=== PATIENT | male | born 1950 | race African-American/Black ===

== ENCOUNTER 2017-06-19 20:50 | Observation (INO) | payer OTHER ==
[2017-06-19 20:58] VITALS: TEMP 98.7; BMI 32.3
[2017-06-19] MEDS ORDERED: ASPIRIN 81 MG CHEWABLE TABLETS PO ONE (21:35)
--- NOTE | 2017-06-19 21:36 | PDOC ---
History of Present Illness - General History Source: Patient Exam Limitations: No Limitations <Tejas Nieves - Last Filed: 06/20/17 00:36> <Danny Tyler - Last Filed: 06/20/17 01:20> - General Chief Complaint: Chest Pain Stated Complaint: CHEST PAIN/SHORTNESS OF BREATH Time Seen by Provider: 06/19/17 21:35 - History of Present Illness Initial Comments: 06/20/17 00:36 The patient is a 67 year old male with a significant past medical history of CAD s/p 3 stents (last stent was placed on 2013; +Plavix +ASA (162 mg), borderline DM, HTN, HLD, GERD, acid reflux, and carpal tunnel syndrome who presents to the ED with complaints of chest pain since 11 am earlier today. The patient reports a waxing and waning right sided chest pain that is a 3/10. He states his right sided chest pain intermittently radiates to his mid sternal chest and is becomes 8/10. Patient also reports he typically walks up a hill without difficulty but reports an increase in shortness of breath on exertion today. He also reports one episode of vomiting around 5:30 pm and diaphoresis on his bilateral hands. Patient reports similar symptoms 3 times in the past and states he had stents placed each time. Denies palpitations. Denies abdominal pain or diarrhea. Denies fevers or chills. Denies dysuria or change in urinary frequency. Denies any other symptoms. (Tejas Nieves) Past History <Tejas Nieves - Last Filed: 06/20/17 00:36> - Past Medical History Cardiac Disorders: Yes (NE 3 stents) CVA: No GI Disorders: Yes (GERD) HTN: Yes Hypercholesterolemia: Yes Suicide Attempt (Hx): No - Surgical History Cardiac Surgery: Yes (stent placement x 2) - Immunization History Td Vaccination: (unknown) Immunization Up to Date: Yes (unknown) - Psycho/Social/Smoking Cessation Hx Anxiety: No Suicidal Ideation: No Smoking Status: No Smoking History: Never smoked Years of Tobacco Use: 0 Have you smoked in the past 12 months: No Number of Cigarettes Smoked Daily: 0 If you are a former smoker, when did you quit?: 1981 Cigars Per Day: 0 Information on smoking cessation initiated: No Hx Alcohol Use: No Drug/Substance Use Hx: No Substance Use Type: None Hx Substance Use Treatment: Yes <Danny Tyler - Last Filed: 06/20/17 01:20> - Past Medical History Allergies/Adverse Reactions: Allergies Allergy/AdvReac Type Severity Reaction Status Date / Time No Known Allergies Allergy Verified 06/19/17 20:55 Home Medications: Ambulatory Orders Lisinopril [Prinivil] 20 mg PO DAILY 03/28/12 Omeprazole [Prilosec (RX)] 40 mg PO BID 06/14/14 Metoprolol Tartrate 50 mg PO BID tablet 12/20/14 Simvastatin 40 mg PO HS tablet 12/20/14 Aspirin [ASA -] 81 mg PO DAILY 06/20/17 Clopidogrel Bisulfate [Plavix -] 75 mg PO DAILY 06/20/17 Review of Systems - Review of Systems Able to Perform ROS?: Yes All Other Systems: Reviewed and Negative <Tejas Nieves - Last Filed: 06/20/17 00:36> <Danny Tyler - Last Filed: 06/20/17 01:20> - Review of Systems Comments:: 06/20/17 00:37 CONSTITUTIONAL: + diaphoresis No reported: Fever, Chills, Generalized Weakness, Malaise, Loss of Appetite HEENT: No reported: Rhinorrhea, Nasal Congestion, Throat Pain, Throat Swelling, Difficulty Swallowing, Mouth Swelling, Ear Pain, Eye Pain, Visual Changes CARDIOVASCULAR: + chest pain No reported: Syncope, Palpitations, Irregular Heart Rate, Lightheadedness, Peripheral Edema RESPIRATORY: + SOB with exertion No reported: Cough, ] Orthopnea, Wheezing, Stridor, Hemoptysis GASTROINTESTINAL: + vomiting No reported: Abdominal pain, Abdominal Distension, Diarrhea, Constipation, Melena, Hematochezia GENITOURINARY: No reported: Dysuria, Frequency, Urgency, Hesitancy, Flank Pain, Genital Pain MUSCULOSKELETAL: No reported: Myalgia, Arthralgia, Joint Swelling, Back pain, Neck Pain SKIN: No reported: Rash, Itching, Pallor HEMEATOLOGIC/IMMUNOLOGIC: No reported: Easy Bleeding, Easy Bruising, Lymphadenopathy, Frequent infections ENDOCRINE: No reported: Unexplained Weight Gain, Unexplained Weight Loss, Heat Intolerance , Cold Intolerance NEUROLOGIC: No reported: Headache, Focal Weakness, Paresthesias, Vertigo, Lightheadedness, Unsteady Gait, Seizure, Mental Status Changes, Incontinence PSYCHIATRIC: No reported: Anxiety, Depression (Tejas Nieves) *Physical Exam <Tejas Nieves - Last Filed: 06/20/17 00:36> <Jayson,Danny - Last Filed: 06/20/17 01:20> - Vital Signs Last Vital Signs Temp Pulse Resp BP Pulse Ox 98.7 F 72 16 163/91 99 06/19/17 20:55 06/20/17 00:05 06/20/17 00:05 06/20/17 00:05 06/20/17 00:05 - Physical Exam Comments: 06/20/17 00:37 GENERAL: The patient is awake, alert, and fully oriented, Nontoxic - in no acute distress. HEAD: Normocephalic, atraumatic. EYES: extraocular movements intact, sclera anicteric, conjunctiva clear. ENT: Normal voice, Moist mucous membranes. NECK: Normal range of motion, supple LUNGS: Breath sounds equal, clear to auscultation bilaterally. No wheezes, no rhonchi, no rales. HEART: Regular rate and rhythm, without murmur, rub or gallop. ABDOMEN: Soft, nontender, normoactive bowel sounds. No guarding, no rebound.No CVA tenderness EXTREMITIES: Normal range of motion, no edema. No clubbing or cyanosis. No cords, erythema, or tenderness. NEUROLOGICAL: No facial assymetry, Normal speech, PSYCH: Normal mood, normal affect. SKIN: Warm, Dry, normal turgor, (Tejas Nieves) Heart Score/ECG Review <Tejas Nieves - Last Filed: 06/20/17 00:36> - History History: Slightly suspicious - Electrocardiogram EKG: Non specific repolarization disturbance - Age Age: >/= 65 - Risk Factors Risk Factors Heart Score: Yes Hx Hypercholesterolemia, Yes Hx Hypertension, Yes Hx Diabetes Based on the list above the patient has:: >/=3 risk factors or Hx atherosclerotic disease - Troponin Troponin: </= normal limit - Score Heart Score - Total: 5 <Danny Tyler - Last Filed: 06/20/17 01:20> - ECG Impressions Comment:: 06/20/17 00:59 Twelve-lead EKG was performed and reviewed by me. There is normal sinus rhythm with a normal rate. Rate of 76 left axis deviation The intervals are normal. There is normal R wave progression There are no ST or T wave abnormalities. (Danny Tyler) ED Treatment Course - LABORATORY CBC & Chemistry Diagram: 06/19/17 22:00 06/19/17 22:00 <Tejas Nieves - Last Filed: 06/20/17 00:36> - LABORATORY CBC & Chemistry Diagram: 06/19/17 22:00 06/19/17 22:00 <Danny Tyler - Last Filed: 06/20/17 01:20> - ADDITIONAL ORDERS Additional order review: Laboratory Results 06/19/17 06/19/17 22:00 22:00 INR 1.02 Sodium 140 Potassium 4.1 Chloride 104 Carbon Dioxide 33 H Anion Gap 3 L BUN 10 D Creatinine 1.3 Creat Clearance w eGFR 54.90 Random Glucose 142 H D Calcium 9.1 Magnesium 2.2 D Total Bilirubin 0.6 D AST 14 L ALT 25 Alkaline Phosphatase 59 Creatine Kinase 102 Troponin I < 0.02 Total Protein 7.6 Albumin 4.0 06/19/17 22:00 RBC 5.15 MCV 89.4 MCHC 33.3 RDW 13.8 MPV 9.2 Neutrophils % 71.9 Lymphocytes % 20.1 D Monocytes % 5.7 Eosinophils % 1.3 Basophils % 1.0 - RADIOLOGY Radiology Studies Ordered: Category Date Time Status CHEST X-RAY PORTABLE* [RAD] Stat Radiology 06/19/17 21:35 Taken - Medications Given in the ED: ED Medications Discontinued Medications Generic Name Dose Route Start Last Admin Trade Name Freq PRN Reason Stop Dose Admin Al Hydroxide/Mg Hydroxide 30 ml 06/19/17 23:52 06/20/17 00:01 Mylanta Suspension - PO 06/19/17 23:53 30 ml ONCE ONE Administration Aspirin 162 mg 06/19/17 21:35 06/19/17 21:43 Asa - PO 06/19/17 21:36 162 mg ONCE ONE Administration Famotidine/Sodium Chloride 20 50 mls @ 100 mls/hr 06/19/17 23:52 06/20/17 00:01 mg/ Miscellaneous IVPB 06/20/17 00:21 100 mls/hr ONCE ONE Administration Nitroglycerin 0.4 mg 06/19/17 22:17 06/19/17 22:19 Nitrostat - SL 06/19/17 22:18 0.4 mg ONCE ONE Administration Medical Decision Making <Tejas Nieves - Last Filed: 06/20/17 00:36> <Danny Tyler - Last Filed: 06/20/17 01:20> - Medical Decision Making 06/19/17 22:19 67y M hx of CAD (s/p pci, lsat one 04/2015), dm, htn, gerd presents with chest pain. Pt descrribes intermittent R sided chest pain that radiates to the left associatd with nausea, sob earlier today, and some AYALA. no associated pleuritic pain, hemoptysis, calf swelling. pt states his pain currently much improved, approx 3/10. concern for possible acs will give asa will ck trops consider possible GERD will give nitro 06/19/17 22:19 pts trop neg x 1 mild r sided pain not improved with nitro nor pepcid/maalox HEART score moderate risk will observe for further risk strateification will admit to hospitalist service for further mangaement Case discussed in detail with admitting physician including history, physical exam and ancillary studies. Admitting physician has assumed care for the patient, will follow all pending diagnostics and will complete the evaluation and treatment. A portion of this note was documented by scribe services under my direction. I have reviewed the details of the note, within reason, and agree with the documentation with the following case summary and management plan written by me (Danny Tyler) *DC/Admit/Observation/Transfer <Tejas Nieves - Last Filed: 06/20/17 00:36> - Discharge Dispostion Admit: Yes <Danny Tyler - Last Filed: 06/20/17 01:20> Diagnosis at time of Disposition: Chest pain Qualifiers: Chest pain type: unspecified Qualified Code(s): R07.9 - Chest pain, unspecified - Discharge Dispostion Condition at time of disposition: Stable - Referrals Referrals: Jimbo Elizondo MD [Primary Care Provider] - - Attestations Scribe Attestion: 06/20/17 00:37 Documentation prepared by Tejas Nieves, acting as medical supply technician for Danny Tyler MD (Tejas Nieves)
[2017-06-19 22:05] LABS: EOSINOPHIL 1.3 % (0-4.5); MCH 29.8 pg (25.7-33.7); MCHC 33.3 g/dl (32.0-35.9); MEAN CELL VOLUME 89.4 fl (80-96); MEAN PLT VOLUME 9.2 fl (7.5-11.1); NEUTROPHILS 71.9 % (42.8-82.8); PLATELET COUNT 164 K/MM3 (134-434); RDW 13.8 % (11.9-15.9); WHITE BLOOD COUNT 10.9 K/mm3 (4.0-10.0)
[2017-06-19] MEDS ORDERED: NITROGLYCERIN SUBLINGUAL 1/150 0.4 MG TAB SL ONE (22:17)
[2017-06-19 22:19] LABS: INR 1.02 (0.82-1.09); PROTHROMBIN TIME (PATIENT) 11.2 SEC (9.98-11.88)
[2017-06-19 22:27] LABS: ANION GAP 3 (8-16); BILIRUBIN,TOTAL 0.6 mg/dL (0.2-1.0); CALCIUM 9.1 mg/dL (8.5-10.1); CO2 33 mmol/L (21-32); CREATININE 1.3 mg/dL (0.7-1.3); GLUCOSE,RANDOM 142 mg/dL (74-106); MAGNESIUM 2.2 mg/dL (1.8-2.4); SGOT/AST 14 U/L (15-37); SGPT/ALT 25 U/L (12-78); TOT PROT 7.6 g/dl (6.4-8.2)
[2017-06-19 22:29] LABS: ALK PHOS 59 U/L (45-117); CPK 102 IU/L (39-308); TROPONIN I < 0.02 ng/ml (0.00-0.05)
[2017-06-19] MEDS ORDERED: MAG HYDROX/AL HYDROX/SIMETH 355 ML ORAL.SUSP PO ONE (23:52)
[2017-06-19] MEDS ORDERED: FAMOTIDINE 20 MG/50 ML IVPB 20 MG in PREMIX 50 IVPB ONE (23:52)
[2017-06-20] MEDS ORDERED: MAG HYDROX/AL HYDROX/SIMETH 30 ML UNIT-DOSE CUP ONE (00:03)
[2017-06-20] MEDS ORDERED: FAMOTIDINE 20 MG/50 ML IVPB 50 ML IVPB ONE (00:03)
--- NOTE | 2017-06-20 01:14 | HP ---
CHIEF COMPLAINT: Chest Pain PCP: Dr. Elizondo HISTORY OF PRESENT ILLNESS: This is a 67 y/o man with a past medical history of LA (2007), JOSEPH x3, HTN, HLD. Who presents to the ED with right sided chest pain with radiation to midsternal. He describes the pain as intermittent, quality stabbing to burning. Patient reports SOB, he also reports one episode of vomiting around 5:30 pm and diaphoresis to bilateral hands. Patient reports 3 similar symptoms in the past and states he had stents placed each time. Patient reports not seeing a test grader in over a year. His last stress and echo were done in 2014 at [facility]. Patient denies fever, cough, dizziness, AP, N/V, constipation, dysuria. ER course was notable for: (1) Cardiac Enzymes neg x2 (2) EKG- NSR 76, left axis deviation (3) Chest Xray- image no infiltrate or effusion Recent Travel: None PAST MEDICAL HISTORY: LA HTN HLD [place] DM GERD, Carpal Tunnel Syndrome PAST SURGICAL HISTORY: JOSEPH x3 Social History: Smoking: Alcohol: Drugs: Family History: Father: Alcoholism, age 51 Mother: Alzheimer Sisters: DM Allergies No Known Allergies Allergy (Verified 06/19/17 20:55) HOME MEDICATIONS: Home Medications Medication Instructions Recorded Lisinopril [Prinivil] 20 mg PO DAILY 03/28/12 Omeprazole [Prilosec (RX)] 40 mg PO BID 06/14/14 Metoprolol Tartrate 50 mg PO BID tablet 12/20/14 Simvastatin 40 mg PO HS tablet 12/20/14 Aspirin [ASA -] 81 mg PO DAILY 06/20/17 Clopidogrel Bisulfate [Plavix -] 75 mg PO DAILY 06/20/17 REVIEW OF SYSTEMS CONSTITUTIONAL: diaphoresis Absent: fever, chills, generalized weakness, malaise, loss of appetite, weight change HEENT: Absent: rhinorrhea, nasal congestion, throat pain, throat swelling, difficulty swallowing, mouth swelling, ear pain, eye pain, visual changes CARDIOVASCULAR: chest pain Absent: syncope, palpitations, irregular heart rate, lightheadedness, peripheral edema RESPIRATORY: shortness of breath, dyspnea with exertion Absent: cough, orthopnea, wheezing, stridor, hemoptysis GASTROINTESTINAL: Absent: abdominal pain, abdominal distension, nausea, vomiting, diarrhea, constipation, melena, hematochezia GENITOURINARY: Absent: dysuria, frequency, urgency, hesitancy, hematuria, flank pain, genital pain MUSCULOSKELETAL: Absent: myalgia, arthralgia, joint swelling, back pain, neck pain SKIN: Absent: rash, itching, pallor HEMATOLOGIC/IMMUNOLOGIC: Absent: easy bleeding, easy bruising, lymphadenopathy, frequent infections ENDOCRINE: Absent: unexplained weight gain, unexplained weight loss, heat intolerance, cold intolerance NEUROLOGIC: Absent: headache, focal weakness or paresthesias, dizziness, unsteady gait, seizure, mental status changes, bladder or bowel incontinence PSYCHIATRIC: Absent: anxiety, depression, suicidal or homicidal ideation, hallucinations. PHYSICAL EXAMINATION Vital Signs - 24 hr 06/19/17 06/19/17 06/20/17 20:55 21:35 00:05 Temperature 98.7 F Pulse Rate 86 Pulse Rate [ 72 Apical] Respiratory 20 16 Rate Blood Pressure 156/100 Blood Pressure 163/91 [Left Arm] O2 Sat by Pulse 100 99 99 Oximetry (%) GENERAL: Awake, alert, and fully oriented, in no acute distress. HEAD: Normal with no signs of trauma. EYES: Pupils equal, round and reactive to light, extraocular movements intact, sclera anicteric, conjunctiva clear. No lid lag. EARS, NOSE, THROAT: Ears normal, nares patent, oropharynx clear without exudates. Moist mucous membranes. NECK: Normal range of motion, supple without lymphadenopathy, JVD, or masses. LUNGS: Breath sounds equal, clear to auscultation bilaterally. No wheezes, and no crackles. No accessory muscle use. HEART: Regular rate and rhythm, normal S1 and S2 without murmur, rub or gallop. CP reproducible upon palpation ABDOMEN: nontender normoactive bowel sounds, no guarding, no rebound, no mass, or splenomegaly. Firm, distended, hepatomegaly MUSCULOSKELETAL: Normal range of motion at all joints. No bony deformities or tenderness. No CVA tenderness. UPPER EXTREMITIES: 2+ pulses, warm, well-perfused. No cyanosis. No clubbing. No peripheral edema. LOWER EXTREMITIES: 2+ pulses, warm, well-perfused. No calf tenderness. No peripheral edema. NEUROLOGICAL: Cranial nerves II-XII intact. Normal speech. Gait not observed. PSYCHIATRIC: Cooperative. Good eye contact. Appropriate mood and affect. SKIN: Warm, dry, normal turgor, no rashes or lesions noted, normal capillary refill. Laboratory Results - last 24 hr 06/19/17 06/19/17 06/19/17 22:00 22:00 22:00 WBC 10.9 H D RBC 5.15 Hgb 15.3 Hct 46.0 MCV 89.4 MCH 29.8 MCHC 33.3 RDW 13.8 Plt Count 164 MPV 9.2 Neutrophils % 71.9 Lymphocytes % 20.1 D Monocytes % 5.7 Eosinophils % 1.3 Basophils % 1.0 INR 1.02 Sodium 140 Potassium 4.1 Chloride 104 Carbon Dioxide 33 H Anion Gap 3 L BUN 10 D Creatinine 1.3 Creat Clearance w eGFR 54.90 Random Glucose 142 H D Calcium 9.1 Magnesium 2.2 D Total Bilirubin 0.6 D AST 14 L ALT 25 Alkaline Phosphatase 59 Creatine Kinase 102 Troponin I < 0.02 Total Protein 7.6 Albumin 4.0 ASSESSMENT/PLAN: This is a 67 y/o male with a PMHx of: LA s/p JOSEPH x3, HTN, HLd, Borderline DM, GERD, Carpal Tunnel. Placed on Tele Observation for further evaluation of their emergent condition. Problem List - Problem (1) Chest pain Assessment/Plan: - Likely secondary to ACS vs Unstable Angina - Cardiac monitoring - HEART Score 5 - Serial Enzymes - Appreciate Cardiology Consult - Asa, NTG sl, Maalox given in ED with little relief - Continue Asa, BB, Plavix - Last Echo 2014- LVSF normal, trace MR, trace TR - Last Stress 2014- small to moderate inferolateral fixed defect - Echo in am - Nuclear Stress in am - Lipid panel in am Code(s): R07.9 - CHEST PAIN, UNSPECIFIED Qualifiers: Chest pain type: unspecified Qualified Code(s): R07.9 - Chest pain, unspecified (2) Unstable angina Assessment/Plan: - See Above Code(s): I20.0 - UNSTABLE ANGINA (3) Exertional dyspnea Assessment/Plan: - Likely secondary to Chest Pain vs Unstable Angina vs PE - Chest Xray- image reviewed no infiltrate or effusion noted - Wells Score 3 - Spo2 99-100 - Continue to monitor and treat accordingly Code(s): R06.09 - OTHER FORMS OF DYSPNEA (4) HTN (hypertension) Assessment/Plan: - Monitor BP - Continue home meds - Monitor renal function Code(s): I10 - ESSENTIAL (PRIMARY) HYPERTENSION (5) HLD (hyperlipidemia) Assessment/Plan: - Lipid Panel - Continue home med Code(s): E78.5 - HYPERLIPIDEMIA, UNSPECIFIED (6) Borderline diabetes mellitus Assessment/Plan: - BGMs - ISS Code(s): R73.03 - PREDIABETES (7) GERD (gastroesophageal reflux disease) Assessment/Plan: - Continue home med Code(s): K21.9 - GASTRO-ESOPHAGEAL REFLUX DISEASE WITHOUT ESOPHAGITIS Visit type - Emergency Visit Emergency Visit: Yes ED Registration Date: 06/20/17 Care time: The patient presented to the Emergency Department on the above date and was hospitalized for further evaluation of their emergent condition. - New Patient This patient is new to me today: Yes Date on this admission: 06/20/17 - Critical Care Critical Care patient: No
[2017-06-20] MEDS ORDERED: morphine CARPU-JECT 4 MG/1 ML DISP.SYRIN IVPUSH ONE (01:52)
[2017-06-20] MEDS ORDERED: morphine CARPU-JECT 10 MG/1 ML DISP.SYRIN ONE (01:53)
[2017-06-20 03:01] LABS: URINE APPEARANCE CLEAR; URINE BILIRUBIN NEGATIVE (NEGATIVE); URINE BLOOD NEGATIVE (NEGATIVE); URINE COLOR YELLOW; URINE GLUCOSE (UA) NEGATIVE (NEGATIVE); URINE KETONE NEGATIVE (NEGATIVE); URINE LEUK ESTERASE NEGATIVE (NEGATIVE); URINE NITRITE NEGATIVE (NEGATIVE); URINE PROTEIN NEGATIVE (NEGATIVE); URINE UROBILINOGEN NEGATIVE mg/dL (0.2-1.0)
[2017-06-20 04:45] LABS: EOSINOPHIL 1.5 % (0-4.5); MCH 29.8 pg (25.7-33.7); MCHC 33.1 g/dl (32.0-35.9); MEAN PLT VOLUME 8.9 fl (7.5-11.1); NEUTROPHILS 63.6 % (42.8-82.8); PLATELET COUNT 156 K/MM3 (134-434); RDW 13.6 % (11.9-15.9); WHITE BLOOD COUNT 13.1 K/mm3 (4.0-10.0)
[2017-06-20 05:10] LABS: ANION GAP 5 (8-16); CALCIUM 8.8 mg/dL (8.5-10.1); CHOLESTEROL 130 mg/dL (50-200); CO2 29 mmol/L (21-32); CREATININE 1.4 mg/dL (0.7-1.3); GLUCOSE,RANDOM 119 mg/dL (74-106); LDL CHOLESTEROL (ONLY SJRH) 73 mg/dL (5-100); MAGNESIUM 2.2 mg/dL (1.8-2.4)
[2017-06-20 05:12] LABS: CPK 96 IU/L (39-308); TROPONIN I < 0.02 ng/ml (0.00-0.05)
[2017-06-20] MEDS ORDERED: METOPROLOL TARTRATE 50 MG TABLET (FP) ONE (08:53)
[2017-06-20] MEDS ORDERED: LISINOPRIL 20 MG TABLET (FP) ONE (08:53)
[2017-06-20] MEDS ORDERED: CLOPIDOGREL BISULFATE 75 MG TABLET (FP) ONE (08:53)
[2017-06-20] MEDS ORDERED: ASPIRIN 81 MG CHEWABLE TABLETS ONE (08:53)
--- NOTE | 2017-06-20 08:58 | HOSP ---
Subjective - Review of Symptoms Subjective: Pt seen and examined in ED. He reports having R sided chest pain since yesterday around 12/10 it then moved to the left going up in pain scale 6/10. He describes the pain as a burning. It is associated with some burping, but never went away and laying down made it worse. He took an extra ASA and PPI without relief. He awoke in the middle of the night w/o relief and came to the hospital. Currently, no pain. Gastrointestinal: Yes: Other (bleching ) Physical Examination Vital Signs: Vital Signs Temperature 98.7 F 06/19/17 20:55 Pulse Rate 70 06/20/17 03:33 Respiratory Rate 14 06/20/17 03:33 Blood Pressure 149/93 06/20/17 03:33 O2 Sat by Pulse Oximetry (%) 99 06/20/17 00:05 Constitutional: Yes: Calm Eyes: Yes: Conjunctiva Clear HENT: Yes: Atraumatic Neck: Yes: Supple Cardiovascular: Yes: Regular Rate and Rhythm, S1, S2 Respiratory: Yes: Regular, CTA Bilaterally Gastrointestinal: Yes: Normal Bowel Sounds, Soft Extremities: Yes: WNL Edema: No Neurological: Yes: Alert, Oriented, Cran Nerves II-XII Intact Labs: CBC, BMP 06/20/17 04:37 06/20/17 04:37 Hospitalist Encounter Assessment: Assessment: 67 year old male with a significant past medical history of CAD s/p 3 stents (last stent was placed on 2013; +Plavix +ASA (162 mg), borderline DM, HTN, HLD, GERD, acid reflux, and carpal tunnel syndrome admitted with chest pain. Plan: 1. Atypical chest pain - Trops x2 negative - ECHO ordered - Persantine stress test today - Keep NPO - Cardiology to see 2. CAD s/p stents x3 - ASA 81mg daily - Metoprolol 50mg BID - Lipitor 20mg HS - Plavix 75mg daily - Lipid panel noted 3. HTN - Lisinopril 20mg daily 4. GERD/acid reflux - Continue ppi 5. Pre DM - Hgb a1 pending
--- NOTE | 2017-06-20 09:14 | CON.CARD ---
Consult Consult Specialty:: cardio Referred by:: hospitalist Reason for Consultation:: cp - History of Present Illness Chief Complaint: cp History of Present Illness: 67 yo male here with cp. developed cp around 9:30 am yesterday, at rest. felt like a pressure expanding chest outward, with localized area of pain (1 fingerbreadth) in R chest, which then moved to similarly localized area of pain along sternum, then continued to move back and forth btw these two locations. took antacid at 10am. sx's resolved on their own around 1:30pm, then continued to come and go. palms of both hands were sweaty, and he felt sob during cp episode. no LH, no abd or back pain, no radiation of cp outside of chest, no vomiting. he did pass gas shortly after pain started but no improvement in the pain after that. he later developed a sensation of something in his throat, like it was difficult to swallow, but no sour taste in mouth or acid/burning at any time. there was a pleuritic component to the pain (with deep breathing), and positional too (worse on either side, better when lay flat on his back in bed). had episode that felt similar to him in 2016 with intense outward pressure in R chest--while in ER he belched multiple times and the pain resolved--d/c'd home then. no other cp episodes since then. walks brisk pace for exercise several times a week--never any cp, no exertional intolerance/fatigue or sob believes that this cp felt similar to when had his heart attack, and one other time unstable angina--that was on the R chest as well and involved his throat sx free at present PMH: CAD with PCIs HTN HPL denies cigs - Past Medical History Cardio/Vascular: Yes: CAD, HTN - Past Surgical History Past Surgical History: Yes: None - Alcohol/Substance Use Hx Alcohol Use: No History of Substance Use: reports: Marijuana - Smoking History Smoking history: Never smoked Have you smoked in the past 12 months: No Aproximately how many cigarettes per day: 0 If you are a former smoker, when did you quit?: 1980 - Social History ADL: Independent History of Recent Travel: No Home Medications - Allergies Allergies/Adverse Reactions: Allergies Allergy/AdvReac Type Severity Reaction Status Date / Time No Known Allergies Allergy Verified 06/19/17 20:55 - Home Medications Home Medications: Ambulatory Orders Lisinopril [Prinivil] 20 mg PO DAILY 03/28/12 Omeprazole [Prilosec (RX)] 40 mg PO BID 06/14/14 Metoprolol Tartrate 50 mg PO BID tablet 12/20/14 Simvastatin 40 mg PO HS tablet 12/20/14 Aspirin [ASA -] 81 mg PO DAILY 06/20/17 Clopidogrel Bisulfate [Plavix -] 75 mg PO DAILY 06/20/17 Family Disease History - Family Disease History Family History: Denies (no cmp) Review of Systems - Review of Systems Constitutional: denies: Chills, Fever Eyes: denies: Eye Pain HENT: denies: Nasal Congestion Neck: denies: Stiffness Cardiovascular: denies: Palpitations Respiratory: denies: Orthopnea, PND Gastrointestinal: denies: Diarrhea, Rectal Bleeding Genitourinary: denies: Burning, Hematuria Musculoskeletal: denies: Muscle Pain Integumentary: denies: Rash Neurological: denies: Numbness, Seizure, Syncope Endocrine: denies: Excessive Sweating Hematology/Lymphatic: denies: Excessive Bleeding Vital Signs: Vital Signs Temperature 98.7 F 06/19/17 20:55 Pulse Rate 70 06/20/17 03:33 Respiratory Rate 14 06/20/17 03:33 Blood Pressure 149/93 06/20/17 03:33 O2 Sat by Pulse Oximetry (%) 99 06/20/17 00:05 Constitutional: Yes: Well Nourished, No Distress Eyes: No: Sclera Icterus HENT: No: Nasal Congestion Neck: No: Decreased ROM Respiratory: Yes: CTA Bilaterally. No: Accessory Muscle Use, Rales, Wheezes Gastrointestinal: Yes: Normal Bowel Sounds. No: Distention, Hepatomegaly, Palpable Mass, Tenderness Cardiovascular: Yes: Regular Rate and Rhythm JVD: No Carotid Bruit: No PMI: Non-Displaced Heart Sounds: Yes: S1, S2. No: Gallop Murmur: No: Systolic Murmur, Diastolic Murmur Musculoskeletal: Yes: Other (No kyphosis) Extremities: No: Cool, Cyanosis Edema: No Peripheral Pulses: 2+ Left Carotid, 2+ Right Carotid, 2+ Left Doralis Pedis, 2+ Right Dorsalis Pedis Integumentary: No: Jaundice Neurological: Yes: Alert, Oriented (x3) Psychiatric: No: Agitated - Other Data Labs, Other Data: CBC, BMP 06/20/17 04:37 06/20/17 04:37 INR, PTT INR 1.02 (0.82-1.09) 06/19/17 22:00 Troponin, BNP 06/20/17 04:37 Troponin I < 0.02 Troponin, BNP 06/20/17 04:37 Troponin I < 0.02 Laboratory Tests 06/19/17 06/20/17 06/20/17 22:00 04:37 04:37 WBC 13.1 H Hgb 14.7 Plt Count 156 Sodium 139 Potassium 4.1 Carbon Dioxide 29 BUN 10 Creatinine 1.4 H Hemoglobin A1c % AST 14 L ALT 25 Troponin I < 0.02 < 0.02 Total LDL Cholesterol HDL Cholesterol 06/20/17 06/20/17 04:37 04:37 WBC Hgb Plt Count Sodium Potassium Carbon Dioxide BUN Creatinine Hemoglobin A1c % 7.2 H AST ALT Troponin I Total LDL Cholesterol 73 HDL Cholesterol 37 L Imaging - Results Chest X-ray: Report Reviewed Assessment/Plan Echo 01/12: low nl lvef, nl rv, no sig valve path, no sig change from 02/2012 report MPI 01/12 (pers): no STs. no ischemia or infarct. nl EF CXR: clear lungs/pleura; trachea deviated to right ECG x 2: NSR, L axis; no path q's; early R/S transition; no ST-T abn (vs prior , L axis is new) Assessment/Plan 64 year old M w h/o HTN, CAD , cath again , and most recent , hld, her with cp, anguiano. chest pain: -high risk pt with mult prior presentations of UA/ACS and mult prior stents -coronary (epicardial) anatomy all patent as of 2013 cath -trop neg x 2 here -ECG x2 no ischemic changes -sx's atypical, with features c/w gas/bloating/GERD, though also potentially c/ w mskel (positional, pleuritic)--HOWEVER SX'S FELT SOMEWHAT SIMILAR TO HIS PRIOR UA/ACS SX'S -for persantine nuclear stress test today -will check CT chest to r/o mediastinal mass given tracheal deviation noted on CXR (d/w hospitalist) -if stress test without ischemia, will rec discharge with acid-audrey and simethicone for gas, and outpt GI f/u CAD: -s/p stemi 03/2007 with bms to OM -s/p PCIs 2011 for unstable angina (gwen to plad/mlad) -last cath 2013 with gwen to dlcx (prior stents patent, no sig residual dz) -normal lvef -was seeing deisi--no f/u with us since 08/2015 (was free of sx's at that time with regular walking exercise 2-3 miles)--plan per dr lipscomb was to comlpete 3 yrs of DAPT (ASA/Effient 10mg), i.e. until 06/16 -cont home prior CV regimen (simva 40 or equivalent, lopressor 50mg bid) -needs outpt f/u with us HTN: -bp moderately elevated here -change lisinopril to valsartan 320mg, add HCTZ if remains elevated DM: -? previously undiagnosed -A1c 7% here -needs outpt f/u -glucose mgmt per hospitalist while here CKD: -creat 1.3-1.4 baseline range, stable here
[2017-06-20] MEDS ORDERED: SODIUM CHLORIDE 1,000 ML IV SCH (09:45)
[2017-06-20] MEDS ORDERED: PANTOPRAZOLE 20 MG TABLET (FP) PO SCH (10:00)
[2017-06-20] MEDS ORDERED: CLOPIDOGREL BISULFATE 75 MG TABLET (FP) PO SCH (10:00)
[2017-06-20] MEDS ORDERED: VALSARTAN 160 MG TABLET (UD) PO SCH (10:00)
[2017-06-20] MEDS ORDERED: DIPYRIDAMOLE STRESS TEST 50 MG in DEXTROSE 5%-WATER - 40 ML IVPB ONE (10:00)
[2017-06-20] MEDS ORDERED: METOPROLOL TARTRATE 50 MG TABLET (FP) PO SCH (10:00)
[2017-06-20] MEDS ORDERED: ASPIRIN 81 MG CHEWABLE TABLETS PO SCH (10:00)
[2017-06-20] MEDS ORDERED: LISINOPRIL 20 MG TABLET (FP) PO SCH (10:00)
--- NOTE | 2017-06-20 11:07 | EKG ---
Test Reason : Blood Pressure : / mmHG Vent. Rate : 062 BPM Atrial Rate : 062 BPM P-R Int : 150 ms QRS Dur : 088 ms QT Int : 414 ms P-R-T Axes : 025 -31 048 degrees QTc Int : 420 ms NORMAL SINUS RHYTHM LEFT AXIS DEVIATION ABNORMAL ECG WHEN COMPARED WITH ECG OF 19-JUN-2017 21:22, NO SIGNIFICANT CHANGE WAS FOUND Confirmed by PAM WHITLEY MD ([id number]) on 06/20/2017 11:06:52 AM Referred By: Confirmed By:PAM WHITLEY MD
--- NOTE | 2017-06-20 11:23 | EKG ---
Test Reason : Blood Pressure : / mmHG Vent. Rate : 076 BPM Atrial Rate : 076 BPM P-R Int : 172 ms QRS Dur : 102 ms QT Int : 398 ms P-R-T Axes : 045 -34 054 degrees QTc Int : 447 ms NORMAL SINUS RHYTHM LEFT AXIS DEVIATION ABNORMAL ECG WHEN COMPARED WITH ECG OF 29-FEB-2016 14:27, NO SIGNIFICANT CHANGE WAS FOUND Confirmed by PAM WHITLEY MD ([id number]) on 06/20/2017 11:23:03 AM Referred By: Confirmed By:PAM WHITLEY MD
[2017-06-20 14:32] VITALS: BP 154/90; PULSE 63
--- NOTE | 2017-06-20 18:04 | DS ---
Physical Exam: SUBJECTIVE: Patient seen and examined OBJECTIVE: Vital Signs Period Temp Pulse Resp BP Sys/Donahue Pulse Ox Last 24 Hr 63-84 14-20 149-154/90-102 97-100 PHYSICAL EXAM GENERAL: The patient is awake, alert, and fully oriented, in no acute distress. HEAD: Normal with no signs of trauma. EYES: PERRL, extraocular movements intact, sclera anicteric, conjunctiva clear. ENT: Ears normal, nares patent, oropharynx clear without exudates, moist mucous membranes. NECK: Trachea midline, full range of motion, supple. LUNGS: Breath sounds equal, clear to auscultation bilaterally, no wheezes, no crackles, no accessory muscle use. HEART: Regular rate and rhythm, S1, S2 without murmur, rub or gallop. ABDOMEN: Soft, nontender, nondistended, normoactive bowel sounds, no guarding, no rebound, no hepatosplenomegaly, no masses. EXTREMITIES: 2+ pulses, warm, well-perfused, no edema. NEUROLOGICAL: Cranial nerves II through XII grossly intact. Normal speech, gait not observed. PSYCH: Normal mood, normal affect. SKIN: Warm, dry, normal turgor, no rashes or lesions noted. LABS Laboratory Results - last 24 hr 06/20/17 06/20/17 06/20/17 02:52 04:37 04:37 WBC RBC Hgb Hct MCV MCH MCHC RDW Plt Count MPV Neutrophils % Lymphocytes % Monocytes % Eosinophils % Basophils % Sodium 139 Potassium 4.1 Chloride 105 Carbon Dioxide 29 Anion Gap 5 L BUN 10 Creatinine 1.4 H Random Glucose 119 H Hemoglobin A1c % Calcium 8.8 Phosphorus 3.0 Magnesium 2.2 Creatine Kinase 96 Cancelled Troponin I < 0.02 Cancelled Triglycerides Cholesterol Total LDL Cholesterol HDL Cholesterol Urine Color Yellow Urine Appearance Clear Urine pH 8.0 Urine Protein Negative Urine Glucose (UA) Negative Urine Ketones Negative Urine Blood Negative Urine Nitrite Negative Urine Bilirubin Negative Urine Urobilinogen Negative Ur Leukocyte Esterase Negative 06/20/17 06/20/17 06/20/17 04:37 04:37 04:37 WBC 13.1 H RBC 4.95 Hgb 14.7 Hct 44.6 MCV 90.0 MCH 29.8 MCHC 33.1 RDW 13.6 Plt Count 156 MPV 8.9 Neutrophils % 63.6 Lymphocytes % 27.3 D Monocytes % 6.6 Eosinophils % 1.5 Basophils % 1.0 Sodium Potassium Chloride Carbon Dioxide Anion Gap BUN Creatinine Random Glucose Hemoglobin A1c % 7.2 H Calcium Phosphorus Magnesium Creatine Kinase Troponin I Triglycerides 122 Cholesterol 130 Total LDL Cholesterol 73 HDL Cholesterol 37 L Urine Color Urine Appearance Urine pH Urine Protein Urine Glucose (UA) Urine Ketones Urine Blood Urine Nitrite Urine Bilirubin Urine Urobilinogen Ur Leukocyte Esterase HOSPITAL COURSE: Date of Admission:06/20/17 Date of Discharge: 06/20/17 Discharge Summary Reason For Visit: CHEST PAIN Current Active Problems Borderline diabetes mellitus (Acute) Chest pain (Acute) GERD (gastroesophageal reflux disease) (Acute) HLD (hyperlipidemia) (Acute) HTN (hypertension) (Acute) - Instructions Diet, Activity, Other Instructions: AMA Follow up with Dr. Dumont for continued cardiology management and Dr. Elizondo for CT chest Referrals: iJmbo Elizondo MD [Primary Care Provider] - Cullen Dumont MD [Staff Physician] - Disposition: AGAINST MEDICAL ADVICE - Home Medications Comprehensive Discharge Medication List: Ambulatory Orders Lisinopril [Prinivil] 20 mg PO DAILY 03/28/12 Omeprazole [Prilosec (RX)] 40 mg PO BID 06/14/14 Metoprolol Tartrate 50 mg PO BID tablet 12/20/14 Simvastatin 40 mg PO HS tablet 12/20/14 Aspirin [ASA -] 81 mg PO DAILY 06/20/17 Clopidogrel Bisulfate [Plavix -] 75 mg PO DAILY 06/20/17
[2017-06-20] MEDS ORDERED: ATORVASTATIN CA 20 MG TABLET (FP) PO SCH (22:00)
== END 2017-06-20 17:22 | disposition left against medical advice (07) ==
LOC: JER 20:50 → JERBED 06-20 01:21 → J4W 06-20 15:40
PROVIDERS: ADMIT Internal Medicine; ATTEND Nurse Practitioner Acute Care
PROC: 3E033GC Introduction of Other Therapeutic Substance into Peripheral Vein, Percutaneous Approach (ICD-10-PCS; principal; 2017-06-20)
PROC: 3E0337Z Introduction of Electrolytic and Water Balance Substance into Peripheral Vein, Percutaneous Approach (ICD-10-PCS; 2017-06-20)
DX: R07.9 Chest pain, unspecified (principal); I20.0 Unstable angina; I25.10 Atherosclerotic heart disease of native coronary artery without angina pectoris; I25.2 Old myocardial infarction; R06.09 Other forms of dyspnea; I10 Essential (primary) hypertension; E78.5 Hyperlipidemia, unspecified; R73.03 Prediabetes; K21.9 Gastro-esophageal reflux disease without esophagitis; Z95.5 Presence of coronary angioplasty implant and graft; Z79.82 Long term (current) use of aspirin; G56.00 Carpal tunnel syndrome, unspecified upper limb
CPT/HCPCS: 36415; 71010-TC; 78452-TC; 80048; 80053; 80061; 81003; 83036; 83721; 83735; 84100; 84484; 85025; 85610; 93005; 93010; 93017; 93306-TC; 99285-25; A9502; G0378

== ENCOUNTER 2017-12-11 11:34 | Observation (INO) | payer OTHER ==
--- NOTE | 2017-12-11 12:23 | PDOC ---
Attending Attestation - Resident Resident Name: Kamilla Rueda - HPI HPI: 12/11/17 13:27 Pt presents to the ED complaining of chest discomfort that is similar to the discomfort he felt when he was diagnosed with "blockages" in his chest. Currently pain free after ASA in the ED. Denies associated symptoms such as shortness of breath, nausea and vomiting or fever. - Physicial Exam PE: 12/11/17 13:31 Agree with resident exam. PAtient is well appearing and in no acute distress. Lungs are clear. Heart regular rate and rhythm. - Medical Decision Making 12/11/17 13:33 Pt presents to the ED complaining of chest pain for one day. Multiple cardiac risk factors, with HEART score of at least 5. EKG shows no evidence of acute ischemia. Will check labs and cardiac enzymes and admit to medicine for rule out ACS.
--- NOTE | 2017-12-11 12:45 | PDOC ---
History of Present Illness - General Chief Complaint: Chest Pain Stated Complaint: CHEST PAINS Time Seen by Provider: 12/11/17 12:14 History Source: Patient Exam Limitations: No Limitations - History of Present Illness Initial Comments: This is a 67 YOM with h/o CAD (without NM but with stent placement x3), HTN, HLD , and borderline DM, who p/w sharp right lower chest pain radiating straight to the back and fluctuating up to 7/10 since yesterday. He was sitting and watching a TV show at the onset of pain, and it was not a scary or intense show. He denies any exacerbating or alleviating factors, and denies SOB, sweats , nausea, vomiting, neck pain, arm pain, or other recent symptoms (no fever, chills, abdominal pain, rash, cough, strange taste in his mouth, or other symptoms). The last time he had pain like this was about 3 years ago, and he notes this pain feels the same as his prior cardiac pain that resulted in the stent placement. He has been having unchanged chronic AYALA when he walks but this has not worsened lately. Past History - Past Medical History Allergies/Adverse Reactions: Allergies Allergy/AdvReac Type Severity Reaction Status Date / Time No Known Allergies Allergy Verified 12/11/17 11:39 Home Medications: Ambulatory Orders Lisinopril [Prinivil] 20 mg PO DAILY 03/28/12 Omeprazole [Prilosec (RX)] 40 mg PO BID 06/14/14 Metoprolol Tartrate 25 mg PO BID tablet 12/20/14 Simvastatin 40 mg PO HS tablet 12/20/14 Aspirin [ASA -] 81 mg PO DAILY 06/20/17 Clopidogrel Bisulfate [Plavix -] 75 mg PO DAILY 06/20/17 Cardiac Disorders: Yes (NM 3 stents) CVA: No COPD: No Diabetes: Yes GI Disorders: Yes (GERD) HTN: Yes Hypercholesterolemia: Yes - Surgical History Cardiac Surgery: Yes (stent placement x 2) - Immunization History Td Vaccination: (unknown) Immunization Up to Date: Yes (unknown) - Suicide/Smoking/Psychosocial Hx Smoking Status: No Smoking History: Never smoked Years of Tobacco Use: 0 Have you smoked in the past 12 months: No Number of Cigarettes Smoked Daily: 0 If you are a former smoker, when did you quit?: 1981 Cigars Per Day: 0 Hx Alcohol Use: No Drug/Substance Use Hx: No Substance Use Type: None Hx Substance Use Treatment: Yes *Physical Exam - Vital Signs Last Vital Signs Temp Pulse Resp BP Pulse Ox 98.6 F 70 17 148/91 97 12/11/17 11:37 12/11/17 13:00 12/11/17 13:00 12/11/17 13:00 12/11/17 13:00 Heart Score/ECG Review - History History: Moderately suspicious - Electrocardiogram EKG: Normal - Age Age: >/= 65 - Risk Factors Risk Factors Heart Score: Yes Hx Hypercholesterolemia, Yes Hx Hypertension, Yes Smoking History Based on the list above the patient has:: >/=3 risk factors or Hx atherosclerotic disease - Troponin Troponin: </= normal limit - Score Heart Score - Total: 5 ED Treatment Course - LABORATORY CBC & Chemistry Diagram: 12/11/17 12:43 12/11/17 12:43 - ADDITIONAL ORDERS Additional order review: Laboratory Results 12/11/17 12/11/17 12/11/17 12:43 12:43 12:43 PT with INR INR Sodium Potassium Chloride Carbon Dioxide Anion Gap BUN Creatinine Creat Clearance w eGFR Random Glucose Calcium Magnesium Total Bilirubin AST ALT Alkaline Phosphatase Creatine Kinase Troponin I B-Natriuretic Peptide 94.79 Total Protein Albumin Lipase Urine Color Yellow Urine Appearance Clear Urine pH 7.0 Ur Specific [place] 1.021 Urine Protein Negative Urine Glucose (UA) Negative Urine Ketones Negative Urine Blood Negative Urine Nitrite Negative Urine Bilirubin Negative Urine Urobilinogen 4.0 e.u/dl Ur Leukocyte Esterase Negative Blood Type O POSITIVE Antibody Screen Negative 12/11/17 12/11/17 12:43 12:43 PT with INR 12.00 H INR 1.06 Sodium 138 Potassium 4.3 Chloride 104 Carbon Dioxide 29 Anion Gap 5 L BUN 13 D Creatinine 1.4 H Creat Clearance w eGFR 50.40 Random Glucose 105 Calcium 9.2 Magnesium 2.0 Total Bilirubin 0.8 D AST 13 L ALT 18 D Alkaline Phosphatase 61 Creatine Kinase 111 Troponin I < 0.02 B-Natriuretic Peptide Total Protein 7.5 Albumin 3.8 Lipase 133 Urine Color Urine Appearance Urine pH Ur Specific [place] Urine Protein Urine Glucose (UA) Urine Ketones Urine Blood Urine Nitrite Urine Bilirubin Urine Urobilinogen Ur Leukocyte Esterase Blood Type Antibody Screen 12/11/17 12:43 RBC 5.20 MCV 89.4 MCHC 32.3 RDW 13.5 MPV 9.3 Neutrophils % 58.8 Lymphocytes % 31.6 Monocytes % 7.3 Eosinophils % 2.0 Basophils % 0.3 - RADIOLOGY Radiology Studies Ordered: Category Date Time Status CHEST X-RAY PORTABLE* [RAD] Stat Radiology 12/11/17 12:55 Completed - Medications Given in the ED: ED Medications Discontinued Medications Generic Name Dose Route Start Last Admin Trade Name Freq PRN Reason Stop Dose Admin Acetaminophen 1,000 mg 12/11/17 12:49 12/11/17 12:59 Ofirmev Injection - IVPB 12/11/17 12:50 1,000 mg ONCE ONE Administration Aspirin 243 mg 12/11/17 12:49 12/11/17 12:59 Asa - PO 12/11/17 12:50 243 mg ONCE ONE Administration Nitroglycerin 0.3 mg 12/11/17 12:52 12/11/17 13:00 Nitrostat - SL 12/11/17 12:53 0.3 mg ONCE ONE Administration Medical Decision Making - Medical Decision Making 67 YOM with h/o CAD stent x3, HTN, HLD, borderline DM, p/w chest pain. Here in the ED VS wnl except mild hypertension, nl heart sounds, lungs CTAB, abdomen benign, no masses. DDX IBNLT ACS, AD, PNA/bronchitis, GERD, pericarditis, esophageal pathology, musculoskeletal, etc. Ordered is CP workup, #2 baby ASA (patient had one this AM), NTG SL, Ofirmev. 12/11/17 14:55 Trop negative x1. HEART score 5. Microblogged [facility] for admission. 12/11/17 15:[address] Coles, patient admitted to Tele Obs. *DC/Admit/Observation/Transfer Diagnosis at time of Disposition: Chest pain Qualifiers: Chest pain type: unspecified Qualified Code(s): R07.9 - Chest pain, unspecified HLD (hyperlipidemia) Qualifiers: Hyperlipidemia type: unspecified Qualified Code(s): E78.5 - Hyperlipidemia, unspecified HTN (hypertension) Qualifiers: Hypertension type: unspecified Qualified Code(s): I10 - Essential (primary) hypertension - Discharge Dispostion Condition at time of disposition: Guarded Admit: Yes Decision to Admit order Date/Time: Decision to Admit Order Category Date Time Status Decision to Admit to Hospital Routine Admission 12/11/17 15:38 Ordered - Referrals Referrals: Jimbo Elizondo MD [Primary Care Provider] - - Patient Instructions - Post Discharge Activity
[2017-12-11] MEDS ORDERED: ACETAMINOPHEN 1000 MG/100 ML VIAL (NON FORMULARY) IVPB ONE (12:49)
[2017-12-11] MEDS ORDERED: ASPIRIN 325 MG TABLET PO ONE (12:49)
[2017-12-11] MEDS ORDERED: ASPIRIN 81 MG CHEWABLE TABLETS ONE (12:50)
[2017-12-11] MEDS ORDERED: ACETAMINOPHEN INJECTION 100 ML IVPB ONE (12:51)
[2017-12-11] MEDS ORDERED: NITROGLYCERIN SUBLINGUAL 1/150 0.4 MG TAB ONE (12:51)
[2017-12-11] MEDS ORDERED: NITROGLYCERIN SUBLINGUAL 1/200 0.3 MG BTL SL ONE (12:52)
[2017-12-11 13:06] LABS: BASO % 0.3 % (0-2.0); HEMATOCRIT 46.5 % (35.4-49); LYMPH % 31.6 % (8-40); MCH 28.8 pg (25.7-33.7); MCHC 32.3 g/dl (32.0-35.9); MEAN CELL VOLUME 89.4 fl (80-96); MEAN PLT VOLUME 9.3 fl (7.5-11.1); MONO % 7.3 % (3.8-10.2); NEUT % 58.8 % (42.8-82.8); PLATELET COUNT 139 K/MM3 (134-434); RDW 13.5 % (11.9-15.9); WHITE BLOOD COUNT 7.5 K/mm3 (4.0-10.0)
[2017-12-11 13:23] LABS: INR 1.06 (0.82-1.09)
[2017-12-11 13:30] LABS: ALBUMIN 3.8 g/dl (3.4-5.0); ANION GAP 5 (8-16); BILIRUBIN,TOTAL 0.8 mg/dL (0.2-1.0); BLOOD UREA NITROGEN 13 mg/dL (7-18); CALCIUM 9.2 mg/dL (8.5-10.1); CHLORIDE 104 mmol/L (98-107); CO2 29 mmol/L (21-32); CREATININE 1.4 mg/dL (0.7-1.3); GLUCOSE,RANDOM 105 mg/dL (74-106); LIPASE 133 U/L (73-393); POTASSIUM 4.3 mmol/L (3.5-5.1); SGOT/AST 13 U/L (15-37); SGPT/ALT 18 U/L (12-78); SODIUM 138 mmol/L (136-145); TOT PROT 7.5 g/dl (6.4-8.2)
[2017-12-11 13:33] LABS: ALK PHOS 61 U/L (45-117)
[2017-12-11 15:00] LABS: URINE APPEARANCE CLEAR; URINE BILIRUBIN NEGATIVE (NEGATIVE); URINE BLOOD NEGATIVE (NEGATIVE); URINE COLOR YELLOW; URINE GLUCOSE (UA) NEGATIVE (NEGATIVE); URINE KETONE NEGATIVE (NEGATIVE); URINE LEUK ESTERASE NEGATIVE (NEGATIVE); URINE NITRITE NEGATIVE (NEGATIVE); URINE PROTEIN NEGATIVE (NEGATIVE); URINE UROBILINOGEN 4.0 E.U/dl mg/dL (0.2-1.0)
--- NOTE | 2017-12-11 15:38 | HP ---
CHIEF COMPLAINT: "I have chest pain" PCP: Dr Elizondo HISTORY OF PRESENT ILLNESS: This is a 67 yo M with PMH of CAD, stemi 03/2007 s/p stent x3, PCIs 2011 for unstable angina and 2013, HTN, HLD, borderline DM, past smoker, who presents due to sharp R sided CP radiating to his back. Pain is intermittent 6/10 at worst, currently 2/10, occasionally associated with palpitations and has been occurring for several weeks. He has not noticed any aggravating or alleviating factors, it is not associated with activity, food or position. He stats is reminds his of previous pain he has had due to his heart and due to acid reflux. Paion is unrelieved by ppi. He was last admitted here 06/16, at which time he has a nuclear stress test done that showed ef 43 % and a small fixed inferolateral defect. At that time he left [facility] and has cardiology f/u at the [facility] in Jul w/o further diagnostic studies. He denies sob, sough, orthopnea, diaphoresis, loc, jaw or arm pain, f/c, n/v, dizziness, h/a, change in vision, and pain, weight gain, LE edema. ER course was notable for: (1)labs (2)ekg: no evidence of acs, cxr unremarkable (3)ntg, asa Recent Travel: denies PAST MEDICAL HISTORY: as above PAST SURGICAL HISTORY: as above Social History: lives at home Smoking: past smoker Alcohol:denies Drugs: denies Family History: htn Allergies No Known Allergies Allergy (Verified 12/11/17 11:39) HOME MEDICATIONS: Home Medications Medication Instructions Recorded Lisinopril [Prinivil] 20 mg PO DAILY 03/28/12 Omeprazole [Prilosec (RX)] 40 mg PO BID 06/14/14 Metoprolol Tartrate 25 mg PO BID tablet 12/20/14 Simvastatin 40 mg PO HS tablet 12/20/14 Aspirin [ASA -] 81 mg PO DAILY 06/20/17 Clopidogrel Bisulfate [Plavix -] 75 mg PO DAILY 06/20/17 REVIEW OF SYSTEMS CONSTITUTIONAL: Absent: fever, chills, diaphoresis, generalized weakness, malaise, loss of appetite, weight change HEENT: Absent: rhinorrhea, nasal congestion, throat pain CARDIOVASCULAR: Absent: syncope, irregular heart rate, lightheadedness, peripheral edema RESPIRATORY: Absent: cough, shortness of breath, dyspnea with exertion, orthopnea, wheezing, stridor, hemoptysis GASTROINTESTINAL: Absent: abdominal pain, abdominal distension, nausea, vomiting, diarrhea, constipation, melena, hematochezia GENITOURINARY: Absent: dysuria, flank pain MUSCULOSKELETAL: Absent: myalgia, arthralgia SKIN: Absent: rash, itching, pallor HEMATOLOGIC/IMMUNOLOGIC: Absent: easy bleeding, easy bruising ENDOCRINE: Absent: unexplained weight gain, unexplained weight loss, heat intolerance, cold intolerance NEUROLOGIC: Absent: headache, focal weakness or paresthesias PSYCHIATRIC: Absent: anxiety, depression PHYSICAL EXAMINATION Vital Signs - 24 hr 12/11/17 12/11/17 12/11/17 11:37 12:24 13:00 Temperature 98.6 F Pulse Rate 63 Pulse Rate [ 70 Apical] Respiratory 18 17 Rate Blood Pressure 150/90 Blood Pressure 148/91 [Right Arm] O2 Sat by Pulse 99 98 97 Oximetry (%) GENERAL: Awake, alert, and fully oriented, in no acute distress. HEAD: Normal with no signs of trauma. EYES: Pupils equal, round and reactive to light, extraocular movements intact, sclera anicteric, conjunctiva clear. No lid lag. EARS, NOSE, THROAT: Moist mucous membranes. NECK: supple without JVD, negative hepatojugular reflex. LUNGS: Breath sounds equal, clear to auscultation bilaterally. HEART: Regular rate and rhythm, normal S1 and S2 ABDOMEN: Soft, nontender, not distended, normoactive bowel sounds, no guarding, no rebound, no masses. MUSCULOSKELETAL: No CVA tenderness. UPPER EXTREMITIES: 2+ pulses, warm, well-perfused. No cyanosis. No clubbing. No peripheral edema. LOWER EXTREMITIES: 2+ pulses, warm, well-perfused. No calf tenderness. No peripheral edema. NEUROLOGICAL: Cranial nerves II-XII grossly intact. Normal speech. PSYCHIATRIC: Cooperative. Good eye contact. Appropriate mood and affect. SKIN: Warm, dry Laboratory Results - last 24 hr 12/11/17 12/11/17 12/11/17 12:43 12:43 12:43 WBC 7.5 D RBC 5.20 Hgb 15.0 Hct 46.5 MCV 89.4 MCH 28.8 MCHC 32.3 RDW 13.5 Plt Count 139 MPV 9.3 Neutrophils % 58.8 Lymphocytes % 31.6 Monocytes % 7.3 Eosinophils % 2.0 Basophils % 0.3 PT with INR 12.00 H INR 1.06 Sodium 138 Potassium 4.3 Chloride 104 Carbon Dioxide 29 Anion Gap 5 L BUN 13 D Creatinine 1.4 H Creat Clearance w eGFR 50.40 Random Glucose 105 Calcium 9.2 Magnesium 2.0 Total Bilirubin 0.8 D AST 13 L ALT 18 D Alkaline Phosphatase 61 Creatine Kinase 111 Troponin I < 0.02 B-Natriuretic Peptide Total Protein 7.5 Albumin 3.8 Lipase 133 Urine Color Urine Appearance Urine pH Ur Specific [place] Urine Protein Urine Glucose (UA) Urine Ketones Urine Blood Urine Nitrite Urine Bilirubin Urine Urobilinogen Ur Leukocyte Esterase Blood Type Antibody Screen 12/11/17 12/11/17 12/11/17 12:43 12:43 12:43 WBC RBC Hgb Hct MCV MCH MCHC RDW Plt Count MPV Neutrophils % Lymphocytes % Monocytes % Eosinophils % Basophils % PT with INR INR Sodium Potassium Chloride Carbon Dioxide Anion Gap BUN Creatinine Creat Clearance w eGFR Random Glucose Calcium Magnesium Total Bilirubin AST ALT Alkaline Phosphatase Creatine Kinase Troponin I B-Natriuretic Peptide 94.79 Total Protein Albumin Lipase Urine Color Yellow Urine Appearance Clear Urine pH 7.0 Ur Specific [place] 1.021 Urine Protein Negative Urine Glucose (UA) Negative Urine Ketones Negative Urine Blood Negative Urine Nitrite Negative Urine Bilirubin Negative Urine Urobilinogen 4.0 e.u/dl Ur Leukocyte Esterase Negative Blood Type O POSITIVE Antibody Screen Negative ASSESSMENT/PLAN: This is a 67 yo M with PMH of CAD, stemi 03/2007 s/p stent x3, PCIs 2011 for unstable angina and 2013, HTN, HLD, borderline DM, past smoker, who presents due to sharp R sided CP radiating to his back. chest pain: -HEART 5, high risk patient with multiple cardiac comorbidities, prior stents -pain is recurrent, with atypical GERD features, with prior negative work up -negative nuclear stress test 06/16 ef 43% -no evidence of acs on ekg -pain radiates to back, cxr unremarkable; measure bp in both arms to r/o dissection -trop neg , check one more -tte, cardio consult -f/u tft's, a1c, lipid panel -asa, plavix, metoprolol, lisinopril crestor, CAD: -management as above -needs regular outpatient f/u with cardiology HTN: -159/62 poorly controlled isolated systolic htn -cardiology previously recommended switching lisinopril to valsartan 320mg and adding HCTZ; recs per cardio DM: -prior A1c 7 -bgm, iss CKD: -creat 1.4 GFR 50 at baseline GERD -PPI 40 bid FEN po hydration monitor k mag phos na restricted diabetic diet scds, ppi Dispo: obs tele Problem List - Problem (1) CAD (coronary artery disease) Code(s): I25.10 - ATHSCL HEART DISEASE OF [place] CORONARY ARTERY W/O ANG PCTRS (2) Chest pain Code(s): R07.9 - CHEST PAIN, UNSPECIFIED Qualifiers: Chest pain type: unspecified Qualified Code(s): R07.9 - Chest pain, unspecified (3) HLD (hyperlipidemia) Code(s): E78.5 - HYPERLIPIDEMIA, UNSPECIFIED Qualifiers: Hyperlipidemia type: unspecified Qualified Code(s): E78.5 - Hyperlipidemia , unspecified (4) HTN (hypertension) Code(s): I10 - ESSENTIAL (PRIMARY) HYPERTENSION Qualifiers: Hypertension type: unspecified Qualified Code(s): I10 - Essential (primary ) hypertension (5) Borderline diabetes mellitus Code(s): R73.03 - PREDIABETES (6) GERD (gastroesophageal reflux disease) Code(s): K21.9 - GASTRO-ESOPHAGEAL REFLUX DISEASE WITHOUT ESOPHAGITIS (7) Unstable angina Code(s): I20.0 - UNSTABLE ANGINA Visit type - Emergency Visit Emergency Visit: Yes ED Registration Date: 12/11/17 Care time: The patient presented to the Emergency Department on the above date and was hospitalized for further evaluation of their emergent condition. - New Patient This patient is new to me today: Yes Date on this admission: 12/11/17 - Critical Care Critical Care patient: No
[2017-12-11] MEDS ORDERED: ACETAMINOPHEN 325 MG TABLET (FP) PO PRN (15:39)
[2017-12-11] MEDS ORDERED: KETOROLAC TROMETHAMINE 30 MG/1 ML VIAL IVPUSH ONE (15:40)
[2017-12-11] MEDS ORDERED: KETOROLAC TROMETHAMINE 30 MG/1 ML VIAL ONE (15:43)
[2017-12-11] MEDS: INSULIN SLIDING SCALE (NOVOLOG) 1 VIAL SQ SCH (16:41)
--- NOTE | 2017-12-11 18:13 | PN ---
Teaching Attending Note Name of Resident: Mary Coles ATTENDING PHYSICIAN STATEMENT I saw and evaluated the patient. I reviewed the resident's note and discussed the case with the resident. I agree with the resident's findings and plan as documented. SUBJECTIVE:67 yo M with PMH of CAD s/p stent x3, HTN, HLD, borderline DM, past smoker, who presents due to sharp R sided CP radiating to his back. pain stated today at rest while watching tv. Pain is intermittent and traveling up and down his back. pain resolved upon arrival to the ER. did not have pain on exertion. no assoc numbness/tingling of the hands, diaphoresis or jaw pain. states similar pain back in May which is the last time he came to the hospital where he underwent stress test. states he saw his cardiolgoist since then but no changes to medications. denies Cp, SOB, fever, chills, N/V/C/D, vision chnage. OBJECTIVE: Last Vital Signs Temp Pulse Resp BP Pulse Ox 98.6 F 62 18 153/92 98 12/11/17 11:37 12/11/17 16:39 12/11/17 16:39 12/11/17 16:39 12/11/17 16:39 General NAD CV S1 S2 RRR no murmur/rub/gallop no chest wall tenderness Lungs CTA B/L no wheezing/rales/rhonchi Abdomen soft NT/ND obese extremtiies no pedal edema ASSESSMENT AND PLAN: 67 yo M with PMH of CAD s/p stent x3, HTN, HLD, CKD, borderline DM, past smoker , who presents due to sharp R sided CP radiating to his back 1. Atypical CP- tele observation. concern for dissection given radiation to his back however BP essentially the same (154/75 and 162/80) with no mediastinal widening on CXR it is of low concern. Continuous cardiac monitoring. trend cardiac enzynes. cardio consult for possible repeat stress test. cont asa/plavix /statin 2. HTN- above goal. increase lisinopril. cont metoprolol 3. CKD- at baseline 4. DM- diet controlled 5. Continious nicotine depedence- counseled on tobacco cessation. nicotine patch 6. DVT ppx- EAM
[2017-12-11] MEDS ORDERED: ROSUVASTATIN CA 20 MG TABLET (FP) PO SCH (22:00)
[2017-12-11] MEDS ORDERED: ROSUVASTATIN CA 40 MG TABLET PO SCH (22:00)
[2017-12-11] MEDS: PANTOPRAZOLE 40 MG TABLET (FP) PO SCH (22:45)
[2017-12-11] MEDS: METOPROLOL TARTRATE 50 MG TABLET (FP) PO SCH (22:45)
[2017-12-12 06:18] VITALS: TEMP 98
[2017-12-12] MEDS: INSULIN SLIDING SCALE (NOVOLOG) 1 VIAL SQ SCH (06:39)
[2017-12-12 07:54] LABS: HEMATOCRIT 43.7 % (35.4-49); HEMOGLOBIN 14.3 GM/dL (11.7-16.9); MCH 29.1 pg (25.7-33.7); MCHC 32.7 g/dl (32.0-35.9); MEAN CELL VOLUME 89.1 fl (80-96); MEAN PLT VOLUME 9.3 fl (7.5-11.1); PLATELET COUNT 128 K/MM3 (134-434); RDW 13.3 % (11.9-15.9); WHITE BLOOD COUNT 8.7 K/mm3 (4.0-10.0)
[2017-12-12] MEDS ORDERED: PANTOPRAZOLE 40 MG TABLET (FP) ONE (08:01)
[2017-12-12 08:09] LABS: ANION GAP 6 (8-16); BLOOD UREA NITROGEN 17 mg/dL (7-18); CALCIUM 8.6 mg/dL (8.5-10.1); CHLORIDE 106 mmol/L (98-107); CO2 27 mmol/L (21-32); CREATININE 1.6 mg/dL (0.7-1.3); GLUCOSE,RANDOM 79 mg/dL (74-106); PHOSPHOROUS 3.4 mg/dL (2.5-4.9); POTASSIUM 4.3 mmol/L (3.5-5.1); SODIUM 139 mmol/L (136-145)
--- NOTE | 2017-12-12 09:37 | CON.CARD ---
Consult Consult Specialty:: cardio Referred by:: hospitalist Reason for Consultation:: cp - History of Present Illness Chief Complaint: cp History of Present Illness: 67 yo male here with chest pain. at home watching TV yest when felt sternal discomfort and feeling of dry throat like he could not swallow. no acid/burning or sour taste in mouth, no nausea. +very frequent belching. no "tearing" sensation of cp, no radiation to back. at some point he began to feel discomfort in midscapular region which radiated to R shoulder. the cp began to radiate to R chest and R lower rib margin region (no abd pain). no diaph, LH, sob. no pleuritic or positional component given ASA, SL nitro x1, IV tylenol, toradol and protonix in ER and sx's resolved fairly quickly here 06/16 with similar sx's--cp occurring at rest (pressure sensation expanding chest outward, with localized area of pain (1 fingerbreadth) in R chest, which then moved to similarly localized area of pain along sternum, then continued to move back and forth btw these two locations, feeling in throat like difficult to swallow. stress test during that admit showed inferolateral scar with teri-infarct ischemia, managed medically--[facility] who had rec' d no further testing, and referred him to GI (appt scheduled) similar episode of cp in 2016--while in ER he belched multiple times and the pain resolved--d/c'd home then. he feels that these sx episodes remind him of prior UA/ACS presentations PMH: HTN CKD CAD - Past Medical History Cardio/Vascular: Yes: CAD, HTN - Past Surgical History Past Surgical History: Yes: None - Alcohol/Substance Use Hx Alcohol Use: No History of Substance Use: reports: Marijuana - Smoking History Smoking history: Never smoked Have you smoked in the past 12 months: No Aproximately how many cigarettes per day: 0 If you are a former smoker, when did you quit?: 1980 - Social History ADL: Independent History of Recent Travel: No Home Medications - Allergies Allergies/Adverse Reactions: Allergies Allergy/AdvReac Type Severity Reaction Status Date / Time No Known Allergies Allergy Verified 12/11/17 11:39 - Home Medications Home Medications: Ambulatory Orders Lisinopril [Prinivil] 20 mg PO DAILY 03/28/12 Omeprazole [Prilosec (RX)] 40 mg PO BID 06/14/14 Metoprolol Tartrate 25 mg PO BID tablet 12/20/14 Simvastatin 40 mg PO HS tablet 12/20/14 Aspirin [ASA -] 81 mg PO DAILY 06/20/17 Clopidogrel Bisulfate [Plavix -] 75 mg PO DAILY 06/20/17 Family Disease History - Family Disease History Family History: Denies (no known CMP) Review of Systems - Review of Systems Constitutional: denies: Chills, Fever Eyes: denies: Eye Pain HENT: denies: Nasal Congestion Neck: denies: Stiffness Cardiovascular: denies: Palpitations Respiratory: denies: Orthopnea, PND Gastrointestinal: denies: Diarrhea, Rectal Bleeding Genitourinary: denies: Burning, Hematuria Musculoskeletal: denies: Muscle Pain Integumentary: denies: Rash Neurological: denies: Numbness, Seizure, Syncope Endocrine: denies: Excessive Sweating Hematology/Lymphatic: denies: Excessive Bleeding Vital Signs: Vital Signs Temperature 98 F 12/12/17 06:17 Pulse Rate 58 L 12/12/17 06:17 Respiratory Rate 20 12/12/17 06:17 Blood Pressure 153/96 12/12/17 06:17 O2 Sat by Pulse Oximetry (%) 97 12/11/17 22:00 Constitutional: Yes: Well Nourished, No Distress Eyes: No: Sclera Icterus HENT: No: Nasal Congestion Neck: No: Decreased ROM Respiratory: Yes: CTA Bilaterally. No: Accessory Muscle Use Gastrointestinal: Yes: Normal Bowel Sounds. No: Distention, Hepatomegaly, Palpable Mass, Tenderness Cardiovascular: Yes: Regular Rate and Rhythm JVD: No Carotid Bruit: No PMI: Non-Displaced Heart Sounds: Yes: S1, S2. No: Gallop Murmur: No: Systolic Murmur, Diastolic Murmur Musculoskeletal: Yes: Other (No kyphosis) Extremities: No: Cool, Cyanosis Edema: No Peripheral Pulses: 2+ Left Carotid, 2+ Right Carotid, 2+ Left Doralis Pedis, 2+ Right Dorsalis Pedis Integumentary: No: Jaundice Neurological: Yes: Alert, Oriented (x3) Psychiatric: No: Agitated - Other Data Labs, Other Data: CBC, BMP 12/12/17 07:05 12/12/17 07:05 INR, PTT INR 1.06 (0.82-1.09) 12/11/17 12:43 Troponin, BNP 12/11/17 12/11/17 12/11/17 12:43 12:43 18:20 Troponin I < 0.02 < 0.02 B-Natriuretic Peptide 94.79 Troponin, BNP 12/11/17 12/11/17 12/11/17 12:43 12:43 18:20 Troponin I < 0.02 < 0.02 B-Natriuretic Peptide 94.79 Assessment/Plan 06/16 MPI (5 min (7 METs), htn response (227/103). No ST's, freq PVCs. fixed inferolat defect with partial reversibility c/w prior infarct with small teri- infarct ischemia. +inferolat akinesis with LVEF 43%. no TID reported. MPI 01/12 (pers): no STs. no ischemia or infarct. nl EF Echo 01/12: low nl lvef, nl rv, no sig valve path, no sig change from 02/2012 report ECG: NSR, no path q's, no ST-T abn (baseline wander artifact)--no change vs 06/16 CXR: clear lungs/pleura Assessment/Plan chest pain: -same as 2 prior episodes here since 2016 with atypical sx's radiating btw center and R chest, with difficulty swallowing sensation. -stress test during last presentation 06/16 with no significant ischemia -trop neg x2. ECG normal -strongly suspect GI etiology given assctd of marked belching with these episodes, less likely inferior wall ischemia anginal equivalent (MIBI appeared c /w inferior scar)--in any event, this would be low risk CAD. -no need for rpt stress testing. -cont home ASA (cont plavix as well, defer to his outpt cardio), metopr, statin -outpt f/u with his cario and GI (? simethicone trial) CAD: -s/p stemi 03/2007 with bms to OM -s/p PCIs 2011 for unstable angina (gwen to plad/mlad) -last cath 2013 with gwen to dlcx (prior stents patent, no sig residual dz) -normal lvef -cont home meds, plan as above HTN: -bp moderately elevated here in 06/16, changed lisinopril to valsartan 320mg, and rec'd add HCTZ if remains elevated -returns with lisin on med list, bp moderately elevated -will continue home KAT, not intensify RAAS blockade given creat up -add amlodipine DM: -? previously undiagnosed -A1c 7% here -needs outpt f/u -glucose mgmt per hospitalist while here ANGY on CKD: -creat 1.3-1.4 baseline range -creat elevated here. per hospitalist -cont home KAT for now OK FOR D/C FROM CV P.O.V. (WOULD ENSURE HE HAS RPT CREAT CHECK WITHIN 3-4 DAYS)
[2017-12-12] MEDS: PANTOPRAZOLE 40 MG TABLET (FP) PO SCH (09:42)
[2017-12-12] MEDS ORDERED: METOPROLOL TARTRATE 25 MG TABLET (FP) ONE (09:45)
[2017-12-12] MEDS: METOPROLOL TARTRATE 50 MG TABLET (FP) PO SCH (09:52)
[2017-12-12] MEDS ORDERED: CLOPIDOGREL BISULFATE 75 MG TABLET (FP) PO SCH (10:00)
[2017-12-12] MEDS ORDERED: LISINOPRIL 20 MG TABLET (FP) PO SCH ×3 (10:00)
[2017-12-12] MEDS ORDERED: ASPIRIN 81 MG CHEWABLE TABLETS PO SCH (10:00)
[2017-12-12] MEDS ORDERED: amLODIPine BESYLATE 5 MG TABLET (FP) PO SCH (10:00)
[2017-12-12 12:20] VITALS: BP 139/95; PULSE 64
--- NOTE | 2017-12-12 15:35 | PN ---
Teaching Attending Note Name of Resident: Celina Parson ATTENDING PHYSICIAN STATEMENT I saw and evaluated the patient. I reviewed the resident's note and discussed the case with the resident. I agree with the resident's findings and plan as documented. Notified by RN that pt left the ER after threatening to leave if was not handed discharge paperwork now. He is unable to be found. did not see or assess pt today.
--- NOTE | 2017-12-12 17:40 | DS ---
Physical Exam: SUBJECTIVE: Patient seen and examined Pt states that chest pain has completely resolved. He denies SOB, abdominal pain , n/v/d/c, and dysuria. OBJECTIVE: Vital Signs Period Temp Pulse Resp BP Sys/Donahue Pulse Ox Last 24 Hr 98 F-98.6 F 51-64 18-20 138-159/56-96 97-99 PHYSICAL EXAM GENERAL: elderly male, awake, alert, and fully oriented, in no acute distress. HEENT: NC, AT NECK: Trachea midline, full range of motion, supple. LUNGS: Breath sounds equal, clear to auscultation bilaterally, no wheezes, no crackles, no accessory muscle use. HEART: Regular rate and rhythm, S1, S2 without murmur, rub or gallop. ABDOMEN: Soft, nontender, nondistended, normoactive bowel sounds, no guarding, no rebound, no hepatosplenomegaly, no masses. EXTREMITIES: 2+ pulses, warm, well-perfused, no edema. NEUROLOGICAL: Cranial nerves II through XII grossly intact. Normal speech, gait not observed. LABS Laboratory Results - last 24 hr 12/11/17 12/11/17 12/12/17 16:25 18:20 06:26 WBC RBC Hgb Hct MCV MCH MCHC RDW Plt Count MPV Sodium Potassium Chloride Carbon Dioxide Anion Gap BUN Creatinine POC Glucometer 105.43525 87.12976 Random Glucose Hemoglobin A1c % Calcium Phosphorus Magnesium Creatine Kinase Troponin I < 0.02 Triglycerides Cholesterol Total LDL Cholesterol HDL Cholesterol TSH Free T4 12/12/17 12/12/17 12/12/17 07:05 07:05 07:05 WBC 8.7 RBC 4.90 Hgb 14.3 Hct 43.7 MCV 89.1 MCH 29.1 MCHC 32.7 RDW 13.3 Plt Count 128 L MPV 9.3 Sodium 139 Potassium 4.3 Chloride 106 Carbon Dioxide 27 Anion Gap 6 L BUN 17 D Creatinine 1.6 H POC Glucometer Random Glucose 79 D Hemoglobin A1c % Calcium 8.6 Phosphorus 3.4 Magnesium 2.0 Creatine Kinase Troponin I Triglycerides 77 D Cholesterol 105 Total LDL Cholesterol 66 HDL Cholesterol 29 L D TSH 1.38 Free T4 1.03 12/12/17 12/12/17 07:05 11:00 WBC RBC Hgb Hct MCV MCH MCHC RDW Plt Count MPV Sodium Potassium Chloride Carbon Dioxide Anion Gap BUN Creatinine POC Glucometer Random Glucose Hemoglobin A1c % 6.8 H D Calcium Phosphorus Magnesium Creatine Kinase 126 Troponin I 0.02 Triglycerides Cholesterol Total LDL Cholesterol HDL Cholesterol TSH Free T4 CXR: negative for any acute pathology echo: normal EF, elevated systolic pulmonary artery pressure HOSPITAL COURSE: Date of Admission:12/11/17 Date of Discharge: 12/12/17 67M w/ hx of CAD s/p STEMI (2006), s/p stents x3, HTN, HLD, and DM who presented with acute chest pain, admitted for observation. EKG and troponins were negative for any acute coronary ischemia. Echo showed normal EF and elevated systolic PA pressure. Pt was seen by cardiology who recommended continuing his KAT-I, adding amlodipine, outpt f/u for his DM (a1c of 6.8), a repeat creatinine in 3-4 days, and is ok for discharge. Pt's symptoms likely 2/ 2 GI cause given report of frequent belching. Pt has no evidence of HLD or thyroid disease based off of labs. Before pt could be seen by attending, he eloped, as reported by nurse. -Mesfin Contreras MD PGY1 Minutes to complete discharge: 35 Discharge Summary Reason For Visit: CHEST PAINS,HYPERLIPIDEMIA,HYPERTENSION Condition: Stable - Instructions Diet, Activity, Other Instructions: You presented with chest pain, and were found to have a likely GI problem. Cardiac workup did not reveal any clear cause for your symptoms. You were found to have a Hgba1c (marker for diabetes) which was elevated indicating that you have diabetes mellitus. Medications: Continue all previous medications except: 1. take amlodipine 5mg, one tablet once a day. Follow-ups: 1. f/u with your PCP within one week. Get evaluated for mediation for your diabetes. Get repeat creatinine in 3-4 days. 2. f/u with cardiology, Dr. Dumont, in 2 weeks. If you develop any shortness of breath, chest pain, or any other concerning symptoms, return to the ED. Referrals: Jimbo Elizondo MD [Primary Care Provider] - Cullen Dumont MD [Staff Physician] - Disposition: [facility] - Home Medications Comprehensive Discharge Medication List: Ambulatory Orders Lisinopril [Prinivil] 20 mg PO DAILY 03/28/12 Omeprazole [Prilosec (RX)] 40 mg PO BID 06/14/14 Metoprolol Tartrate 25 mg PO BID tablet 12/20/14 Simvastatin 40 mg PO HS tablet 12/20/14 Aspirin [ASA -] 81 mg PO DAILY 06/20/17 Clopidogrel Bisulfate [Plavix -] 75 mg PO DAILY 06/20/17 Amlodipine Besylate [Norvasc -] 5 mg PO DAILY #30 tablet 12/12/17 Miscellaneous Drug Not In Syst [Outpatient Lab Test] 1 each ASDIR #1 misc 10/17 This patient is new to me today: Yes Date on this admission: 12/13/17 Emergency Visit: Yes ED Registration Date: 12/11/17 Care time: The patient presented to the Emergency Department on the above date and was hospitalized for further evaluation of their emergent condition. Critical Care patient: No - Discharge Referral Referred to [facility] No
--- NOTE | 2017-12-12 23:29 | EKG ---
Test Reason : Blood Pressure : / mmHG Vent. Rate : 053 BPM Atrial Rate : 053 BPM P-R Int : 164 ms QRS Dur : 088 ms QT Int : 436 ms P-R-T Axes : 019 -19 034 degrees QTc Int : 409 ms SINUS BRADYCARDIA ABNORMAL ECG WHEN COMPARED WITH ECG OF 20-JUN-2017 01:38, LIKELY NO SIGNIFICANT CHANGES WERE SEEN Confirmed by PAM WHITLEY MD ([id number]) on 12/12/2017 11:29:02 PM Referred By: Confirmed By:PAM WHITLEY MD
== END 2017-12-12 12:50 | disposition left against medical advice (07) ==
LOC: JER 11:34 → JERBED 15:38
PROVIDERS: ADMIT Internal Medicine; ATTEND Internal Medicine
PROC: 3E0333Z Introduction of Anti-inflammatory into Peripheral Vein, Percutaneous Approach (ICD-10-PCS; principal; 2017-12-11)
PROC: 3E033GC Introduction of Other Therapeutic Substance into Peripheral Vein, Percutaneous Approach (ICD-10-PCS; 2017-12-11)
DX: R07.9 Chest pain, unspecified (principal); I12.9 Hypertensive chronic kidney disease with stage 1 through stage 4 chronic kidney disease, or unspecified chronic kidney disease; E11.22 Type 2 diabetes mellitus with diabetic chronic kidney disease; N18.9 Chronic kidney disease, unspecified; I25.10 Atherosclerotic heart disease of native coronary artery without angina pectoris; E78.5 Hyperlipidemia, unspecified; K21.9 Gastro-esophageal reflux disease without esophagitis; Z95.5 Presence of coronary angioplasty implant and graft; Z79.82 Long term (current) use of aspirin; Z87.891 Personal history of nicotine dependence
CPT/HCPCS: 36415; 71045-TC; 80048; 80053; 80061; 81003; 82550; 82962; 83036; 83690; 83721; 83735; 83880; 84100; 84439; 84443; 84484; 85025; 85027; 85610; 86850; 86900; 86901; 93005; 93010; 93306-TC; 96374; 96375; 99285-25; G0378

== ENCOUNTER 2018-08-26 21:03 | Emergency (ER) | payer OTHER ==
[2018-08-26 21:13] VITALS: BP 126/75; PULSE 61; TEMP 98.7; BMI 30.4
--- NOTE | 2018-08-26 21:56 | PDOC ---
History of Present Illness - General Chief Complaint: Chest Pain Stated Complaint: CHEST PAIN Time Seen by Provider: 08/26/18 21:56 Past History - Past Medical History Allergies/Adverse Reactions: Allergies Allergy/AdvReac Type Severity Reaction Status Date / Time No Known Allergies Allergy Verified 08/26/18 21:13 Home Medications: Ambulatory Orders Lisinopril [Prinivil] 20 mg PO DAILY 03/28/12 Omeprazole [Prilosec (RX)] 40 mg PO BID 06/14/14 Metoprolol Tartrate 25 mg PO BID tablet 12/20/14 Simvastatin 40 mg PO HS tablet 12/20/14 Aspirin [ASA -] 81 mg PO DAILY 06/20/17 Clopidogrel Bisulfate [Plavix -] 75 mg PO DAILY 06/20/17 Amlodipine Besylate [Norvasc -] 5 mg PO DAILY #30 tablet 12/12/17 Miscellaneous Drug Not In Syst [Outpatient Lab Test] 1 each ASDIR #1 misc 10/17 Cardiac Disorders: Yes (ND 3 stents) CVA: No COPD: No Diabetes: Yes GI Disorders: Yes (GERD) HTN: Yes Hypercholesterolemia: Yes - Surgical History Cardiac Surgery: Yes (stent placement x 2) - Immunization History Td Vaccination: (unknown) Immunization Up to Date: Yes (unknown) - Suicide/Smoking/Psychosocial Hx Smoking Status: No Smoking History: Never smoked Years of Tobacco Use: 0 Have you smoked in the past 12 months: No Number of Cigarettes Smoked Daily: 0 If you are a former smoker, when did you quit?: 1981 Cigars Per Day: 0 Information on smoking cessation initiated: No Hx Alcohol Use: No Drug/Substance Use Hx: No Substance Use Type: None Hx Substance Use Treatment: Yes *Physical Exam - Vital Signs Last Vital Signs Temp Pulse Resp BP Pulse Ox 98.7 F 61 16 126/75 100 08/26/18 21:08 08/26/18 21:08 08/26/18 21:08 08/26/18 21:08 08/26/18 21:08
[2018-08-26 22:07] LABS: BASO % 0.6 % (0-2.0); EOS % 1.2 % (0-4.5); HEMATOCRIT 45.9 % (35.4-49); HEMOGLOBIN 14.9 GM/dL (11.7-16.9); LYMPH % 21.3 % (8-40); MCH 29.3 pg (25.7-33.7); MCHC 32.4 g/dl (32.0-35.9); MEAN CELL VOLUME 90.5 fl (80-96); MEAN PLT VOLUME 8.8 fl (7.5-11.1); MONO % 5.6 % (3.8-10.2); NEUT % 71.3 % (42.8-82.8); PLATELET COUNT 142 K/MM3 (134-434); RBC 5.08 M/mm3 (4.00-5.60); RDW 13.9 % (11.9-15.9); WHITE BLOOD COUNT 9.8 K/mm3 (4.0-10.0)
[2018-08-26] MEDS ORDERED: FAMOTIDINE 20 MG/50 ML IVPB 20 MG/50 ML MG IVPB ONE ×2 (22:12→23:04)
[2018-08-26] MEDS ORDERED: MAG HYDROX/AL HYDROX/SIMETH 30 ML UNIT-DOSE CUP PO ONE (22:13)
--- NOTE | 2018-08-26 22:15 | PDOC ---
History of Present Illness - General Chief Complaint: Chest Pain Stated Complaint: CHEST PAIN Time Seen by Provider: 08/26/18 21:56 History Source: Patient Exam Limitations: No Limitations - History of Present Illness Initial Comments: 08/26/18 22:55 Pmhx: Hypertension, borderline diabetes, GERD, HLD, carpal tunnel, CAD status post stents 3:2014, 2011, 2008, patient comes to the ER complaining of midsternal 2/10 intermittent nonradiating right-sided chest pressure 2 hours. Patient states the pain is slowly alleviating after every burp. There are no exacerbating factors factors. Patient states he ate dinner a little too quickly this evening causing a possible acid reflux. Patient endorses previous similar symptoms and was always alleviated with belching. Patient denies fever, chills, nausea/vomiting, headache, dizziness, lightheadedness, facial pains, neck pain/ stiffness, back pain, shortness of breath, cough, hemoptysis, jaw pain, back pains, calf swelling/pain abdominal pains, flank pains, urinary symptoms, extremity numbness or tingling sensation. Patient denies recent surgery/travel or recent immobilization. Patient states he was feeling fine until eating abruptly this evening. Patient denies any acid taste in his mouth but feels better every few minutes after belching. Past History - Past Medical History Allergies/Adverse Reactions: Allergies Allergy/AdvReac Type Severity Reaction Status Date / Time No Known Allergies Allergy Verified 08/26/18 21:13 Home Medications: Ambulatory Orders Lisinopril [Prinivil] 20 mg PO DAILY 03/28/12 Omeprazole [Prilosec (RX)] 40 mg PO BID 06/14/14 Metoprolol Tartrate 25 mg PO BID tablet 12/20/14 Simvastatin 40 mg PO HS tablet 12/20/14 Aspirin [ASA -] 81 mg PO DAILY 06/20/17 Clopidogrel Bisulfate [Plavix -] 75 mg PO DAILY 06/20/17 Amlodipine Besylate [Norvasc -] 5 mg PO DAILY #30 tablet 12/12/17 Miscellaneous Drug Not In Syst [Outpatient Lab Test] 1 each ASDIR #1 misc 10/17 Cardiac Disorders: Yes (AR 3 stents) CVA: No COPD: No Diabetes: Yes GI Disorders: Yes (GERD) HTN: Yes Hypercholesterolemia: Yes - Surgical History Cardiac Surgery: Yes (stent placement x 2) - Immunization History Td Vaccination: (unknown) Immunization Up to Date: Yes (unknown) - Suicide/Smoking/Psychosocial Hx Smoking Status: No Smoking History: Never smoked Years of Tobacco Use: 0 Have you smoked in the past 12 months: No Number of Cigarettes Smoked Daily: 0 If you are a former smoker, when did you quit?: 1981 Cigars Per Day: 0 Information on smoking cessation initiated: No Hx Alcohol Use: No Drug/Substance Use Hx: No Substance Use Type: None Hx Substance Use Treatment: Yes Review of Systems - Review of Systems Able to Perform ROS?: Yes Comments:: 08/26/18 22:55 CONSTITUTIONAL: Absent: fever, chills, diaphoresis, generalized weakness, malaise, loss of appetite HEENT: Absent: rhinorrhea, nasal congestion, throat pain, throat swelling, difficulty swallowing, mouth swelling, ear pain, eye pain, visual Changes CARDIOVASCULAR: Right sided cp Absent: loss of consciousness, palpitations, irregular heart rate, peripheral edema RESPIRATORY: Absent: cough, shortness of breath, dyspnea with exertion, orthopnea, wheezing, stridor, hemoptysis GASTROINTESTINAL: Absent: abdominal pain, abdominal distension, nausea, vomiting, diarrhea, constipation, melena, hematochezia GENITOURINARY: Absent: dysuria, frequency, urgency, hesitancy, hematuria, flank pain, genital pain MUSCULOSKELETAL: Absent: myalgia, arthralgia, joint swelling SKIN: Absent: rash, itching, pallor HEMATOLOGIC/IMMUNOLOGIC: Absent: easy bleeding, easy bruising, lymphadenopathy, frequent infections ENDOCRINE: Absent: unexplained weight gain, unexplained weight loss, heat intolerance, cold intolerance NEUROLOGIC: Absent: headache, focal weakness or paresthesias, dizziness, unsteady gait, seizure, mental status changes, bladder or bowel incontinence PSYCHIATRIC: Absent: anxiety, depression, suicidal or homicidal ideation, hallucinations. Is the patient limited Thai proficient: No *Physical Exam - Vital Signs Last Vital Signs Temp Pulse Resp BP Pulse Ox 98.7 F 61 16 126/75 100 08/26/18 21:08 08/26/18 21:08 08/26/18 21:08 08/26/18 21:08 08/26/18 21:08 - Physical Exam Comments: 08/26/18 22:55 GENERAL: Well developed, well nourished. Awake and alert. No acute distress. HEENT: Normocephalic, atraumatic. PERRLA, EOMI. No conjunctival pallor. Sclera are non- icteric. Moist mucous membranes. Oropharynx is clear. NECK: Supple. Full ROM. No JVD. Carotid pulses 2+ and symmetric, without bruits. No thyromegaly. No lymphadenopathy. CARDIOVASCULAR: Regular rate and rhythm. No murmurs, rubs, or gallops. Distal pulses are 2+ and symmetric. PULMONARY: No evidence of respiratory distress. Lungs clear to auscultation bilaterally. No wheezing, rales or rhonchi. ABDOMINAL: Soft. Non-tender. Non-distended. No rebound or guarding. No organomegaly. Normoactive bowel sounds. MUSCULOSKELETAL Normal range of motion at all joints. No bony deformities or tenderness. No CVA tenderness. EXTREMITIES: No cyanosis. No clubbing. No edema. No calf tenderness. SKIN: Warm and dry. Normal capillary refill. No rashes. No jaundice. NEUROLOGICAL: Alert, awake, appropriate. Cranial nerves 2-12 intact. No deficits to light touch and temperature in face, upper extremities and lower extremities. No motor deficits in the in face, upper extremities and lower extremities. Normoreflexic in the upper and lower extremities. Normal speech. Toes are down- going bilaterally. Gait is normal without ataxia. PSYCHIATRIC: Cooperative. Good eye contact. Appropriate mood and affect. Heart Score/ECG Review - History History: Slightly suspicious - Electrocardiogram EKG: Normal - Age Age: >/= 65 - Risk Factors Risk Factors Heart Score: Yes Hx Hypercholesterolemia, Yes Hx Hypertension Based on the list above the patient has:: 1-2 risk factors - Troponin Troponin: </= normal limit - Score Heart Score - Total: 3 ED Treatment Course - LABORATORY CBC & Chemistry Diagram: 08/26/18 21:43 08/26/18 21:43 - ADDITIONAL ORDERS Additional order review: Laboratory Results 08/26/18 08/26/18 21:43 21:43 PT with INR 12.60 INR 1.07 PTT (Actin FS) 32.7 Sodium 142 Potassium 4.4 Chloride 106 Carbon Dioxide 29 Anion Gap 6 L BUN 21 H Creatinine 1.6 H Creat Clearance w eGFR 43.07 Random Glucose 129 H Calcium 8.9 Magnesium 2.1 Total Bilirubin 0.6 AST 11 L ALT 17 Alkaline Phosphatase 62 Creatine Kinase 98 Troponin I < 0.02 Total Protein 7.6 Albumin 3.9 08/26/18 21:43 RBC 5.08 MCV 90.5 MCHC 32.4 RDW 13.9 MPV 8.8 Neutrophils % 71.3 D Lymphocytes % 21.3 D Monocytes % 5.6 Eosinophils % 1.2 Basophils % 0.6 - RADIOLOGY Radiology Studies Ordered: Category Date Time Status CHEST PA & LAT [RAD] Stat Radiology 08/26/18 21:49 Taken - Medications Given in the ED: ED Medications Discontinued Medications Generic Name Dose Route Start Last Admin Trade Name Freq PRN Reason Stop Dose Admin Al Hydroxide/Mg Hydroxide 30 ml 08/26/18 22:13 08/26/18 23:05 Mylanta Oral Suspension - PO 08/26/18 22:14 30 ml ONCE ONE Administration Famotidine/Sodium Chloride 20 mg in 50 mls @ 100 mls/hr 08/26/18 22:12 23:05 Pepcid 20 Mg Premixed Ivpb - IVPB 08/26/18 22:41 100 mls/hr ONCE ONE Administration Sodium Chloride 1,000 mls @ 1,000 mls/hr 08/26/18 22:46 08/26/18 23:05 Normal Saline - IV 08/26/18 23:45 1,000 mls/hr ASDIR STA Administration Medical Decision Making - Medical Decision Making This is a 65-year-old male with a previous history of CAD with 3 stents, latest on 2014, hypertension, HDL who comes to the ER complaining of right sided chest pressure without shortness of breath, headache, dizziness, lightheadedness, nausea/vomiting, dyspnea on exertion. Patient states after belching in the emergency department, he feels 0 pain. Patient is in no distress is physical exam is unremarkable.. Was given aspirin. Cardiac workup, 2 sets of troponins. Only concern is for possible ACS. EKG is normal/nonischemic. Chest x-ray NAD, troponin negative 2. Patient will follow with the estimator and drafter supervisor. *DC/Admit/Observation/Transfer Diagnosis at time of Disposition: Chest pain Qualifiers: Chest pain type: other chest pain Qualified Code(s): R07.89 - Other chest pain ; R07.8 - Other chest pain - Discharge Dispostion Condition at time of disposition: Stable Decision to Admit order: No - Referrals Referrals: Nat Werner MD [Staff Physician] - - Patient Instructions Printed Discharge Instructions: DI for Atypical Chest Pain Additional Instructions: It is important that you follow up with your estimator and drafter supervisor and primary care physician this week as discussed. Please return back to the emergency department for severe/persistent or worsening symptoms or any concerns. - Post Discharge Activity Progress Note - Progress Note Progress Note: 2316hrs: Patient is pain-free after belching in the emergency department. 0004hrs: Pt is pain free/ watching tv 0113hrs: Pt states he is still pain free after belching 0157hrs: Pt wants to be d/c. I advised the pt the troponin will be back soon. Pt has a n appt with his estimator and drafter supervisor in 2 days and endoscopy by gi in the [facility] in 2 days !1300hrs
[2018-08-26 22:21] LABS: INR 1.07 (0.83-1.09); PROTHROMBIN TIME (PATIENT) 12.6 SEC (9.7-13.0)
[2018-08-26 22:24] LABS: ACTIVATED PTT 32.7 SECONDS (25.2-36.5)
[2018-08-26 22:36] LABS: ALBUMIN 3.9 g/dl (3.4-5.0); ALK PHOS 62 U/L (45-117); ANION GAP 6 MMOL/L (8-16); BILIRUBIN,TOTAL 0.6 mg/dL (0.2-1); BLOOD UREA NITROGEN 21 mg/dL (7-18); CALCIUM 8.9 mg/dL (8.5-10.1); CHLORIDE 106 mmol/L (98-107); CO2 29 mmol/L (21-32); CREATININE 1.6 mg/dL (0.55-1.3); GLUCOSE,RANDOM 129 mg/dL (74-106); MAGNESIUM 2.1 mg/dL (1.8-2.4); POTASSIUM 4.4 mmol/L (3.5-5.1); SGOT/AST 11 U/L (15-37); SGPT/ALT 17 U/L (13-61); SODIUM 142 mmol/L (136-145); TOT PROT 7.6 g/dl (6.4-8.2)
[2018-08-26] MEDS ORDERED: SODIUM CHLORIDE 1,000 ML IV STA (22:46)
[2018-08-26] MEDS ORDERED: MAG HYDROX/AL HYDROX/SIMETH 30 ML UNIT-DOSE CUP ONE (23:04)
[2018-08-26] MEDS ORDERED: ASPIRIN COATED 81 MG TABLET.EC ONE (23:04)
[2018-08-27] MEDS ORDERED: ASPIRIN COATED 81 MG TABLET.EC PO SCH (10:00)
--- NOTE | 2018-08-27 13:59 | EKG ---
Test Reason : Blood Pressure : / mmHG Vent. Rate : 057 BPM Atrial Rate : 057 BPM P-R Int : 172 ms QRS Dur : 090 ms QT Int : 434 ms P-R-T Axes : 057 001 048 degrees QTc Int : 422 ms SINUS BRADYCARDIA OTHERWISE NORMAL ECG Confirmed by MD Christianson Edward ([id number]) on 08/27/2018 1:59:32 PM Referred By: Confirmed By:Víctor Christianson MD
== END 2018-08-27 02:46 | disposition home or self-care (01) ==
LOC: JER 21:03
PROC: 3E033GC Introduction of Other Therapeutic Substance into Peripheral Vein, Percutaneous Approach (ICD-10-PCS; principal; 2018-08-26)
PROC: 3E0337Z Introduction of Electrolytic and Water Balance Substance into Peripheral Vein, Percutaneous Approach (ICD-10-PCS; 2018-08-26)
DX: R07.89 Other chest pain (principal); I25.10 Atherosclerotic heart disease of native coronary artery without angina pectoris; I10 Essential (primary) hypertension; Z95.5 Presence of coronary angioplasty implant and graft; E78.00 Pure hypercholesterolemia, unspecified; K21.9 Gastro-esophageal reflux disease without esophagitis; E11.9 Type 2 diabetes mellitus without complications
CPT/HCPCS: 36415; 71046-TC-FY; 80053; 82550; 83735; 84484; 85025; 85610; 85730; 93005; 93010; 96361; 96365; 99282-25; J7030

== ENCOUNTER 2019-02-10 06:39 | Inpatient (IN) | payer OTHER ==
--- NOTE | 2019-02-10 07:23 | PDOC ---
History of Present Illness - General Chief Complaint: Lightheaded Stated Complaint: DIZZINESS Time Seen by Provider: 02/10/19 07:20 History Source: Patient Exam Limitations: No Limitations - History of Present Illness Initial Comments: Pt is a 68 yo M, with PMH of HTN, HLD, DM, CAD (stents x3 on plavix and statin) , and GERD, who is presenting with complaints of posterior and L-sided head "pressure", a "bitter taste" in his mouth, and difficulty with ambulation x1 week. When he gets up to walk, he can "walk slowly, but feels like I'm leaning over towards the L side". Pt also states he had 1 episode of nausea and NBNB vomiting this AM. He has been constipated x3 days, but has been passing flatus and tolerated PO intake last night. Pt states he has recently been evaluated at the [place] [facility] (PCP Dr. Chou) over the past 6 months, with multiple MRI scans for a "brain mass on the left side". The pt was seen by a neurologist ( Dr. Braxton) who prescribed "steroids," which "made the size of the mass go smaller ," but was stopped due to diabetic complications. Pt did not go to the [place] today because their ER is closed on the weekends. Pt denies any recent fevers/chills, vision changes, syncope, chest pain, palpitations, SOB, abdominal pain, urinary symptoms, diarrhea/constipation, or leg swelling. Social: Pt denies any cigarette, alcohol, or drug use. Pt denies any recent travel or sick contacts. Surgical: cardiac stent placement. Family: no relevant history. 02/10/19 09:08 Past History - Travel Traveled outside of the country in the last 30 days: No Close contact w/someone who was outside of country & ill: No - Past Medical History Allergies/Adverse Reactions: Allergies Allergy/AdvReac Type Severity Reaction Status Date / Time No Known Allergies Allergy Verified 02/10/19 06:45 Home Medications: Ambulatory Orders Omeprazole [Prilosec (RX)] 40 mg PO BID 06/14/14 Metoprolol Tartrate 25 mg PO BID tablet 12/20/14 Simvastatin 40 mg PO HS tablet 12/20/14 Aspirin [ASA -] 81 mg PO DAILY 06/20/17 Clopidogrel Bisulfate [Plavix -] 75 mg PO DAILY 06/20/17 Nifedipine [Procardia Xl] 30 mg PO DAILY 02/10/19 Cardiac Disorders: Yes (MS 3 stents) CVA: No COPD: No Diabetes: Yes GI Disorders: Yes (GERD) HTN: Yes Hypercholesterolemia: Yes - Surgical History Cardiac Surgery: Yes (stent placement x 2) - Immunization History Td Vaccination: (unknown) Immunization Up to Date: Yes (unknown) - Suicide/Smoking/Psychosocial Hx Smoking Status: No Smoking History: Never smoked Years of Tobacco Use: 0 Have you smoked in the past 12 months: No Number of Cigarettes Smoked Daily: 0 If you are a former smoker, when did you quit?: 1981 Cigars Per Day: 0 Information on smoking cessation initiated: No Hx Alcohol Use: No Drug/Substance Use Hx: No Substance Use Type: None Hx Substance Use Treatment: Yes Review of Systems - Review of Systems Able to Perform ROS?: Yes Is the patient limited Vietnamese proficient: No Constitutional: Yes: Weight Stable. No: Chills, Diaphoresis, Fever, Loss of Appetite, Malaise, Night Sweats, Weakness HEENTM: No: Eye Pain, Blurred Vision, Recent change in vision, Nose Pain, Nose Congestion, Throat Pain, Throat Swelling, Difficulty Swallowing Respiratory: No: Cough, Orthopnea, Shortness of Breath Cardiac (ROS): Yes: Lightheadedness. No: Chest Pain, Edema, Irregular Heart Rate, Palpitations, Syncope, Chest Tightness ABD/GI: Yes: Constipated, Nausea, Poor Appetite, Vomiting. No: Abdominal Distended, Blood Streaked Bowels, Diarrhea, Difficulty Swallowing, Poor Fluid Intake, Indigestion, Abdominal cramping : No: Burning, Dysuria, Pain, Urgency Musculoskeletal: No: Back Pain, Joint Pain, Joint Swelling, Muscle Weakness Integumentary: No: Rash Neurological: Yes: Unsteady Gait, Ataxia. No: Headache (L-sided head "pressure "), Numbness, Paresthesia, Pre-Existing Deficit, Seizure, Tingling, Tremors, Weakness, Dizziness Psychiatric: No: Sleep Pattern Change, Change in Appetite Endocrine: No: Increased Urine, Change in Weight Hematologic/Lymphatic: No: Anemia, Blood Clots, Easy Bleeding, Easy Bruising All Other Systems: Reviewed and Negative *Physical Exam - Vital Signs Last Vital Signs Temp Pulse Resp BP Pulse Ox 98.2 F 93 H 18 122/94 100 02/10/19 06:45 02/10/19 06:45 02/10/19 06:45 02/10/19 06:45 02/10/19 06:45 - Physical Exam Comments: Vitals stable, pt afebrile. Pt in NAD, normal body habitus. Pt alert and oriented x3. sourcing analyst generally intact, muscular strength and sensation intact. Mild horizontal nystagmus to the L. Cerebellar tests (heel-hassan and finger-nose) were intact. Romberg negative, but pt has wide-based unsteady gait. Head normocephalic, atraumatic. Eyes PERRLA, EOMI (mild horizontal nystagmus to L, no AGATA). Oropharynx without erythema or exudates, no LAD b/l. No nasal congestion, hearing intact. Clear heart sounds, S1/S2, no JVD, b/l pedal edema, or heart murmur. Clear lung sounds, no respiratory distress, wheezes, crackles, or accessory muscle use. No abdominal or CVA tenderness to palpation, no rebound, no guarding. Abdomen soft, non-distended, and with normoactive bowel sounds. Skin without jaundice or rash. 02/10/19 08:00 ED Treatment Course - LABORATORY CBC & Chemistry Diagram: 02/10/19 07:58 02/10/19 07:58 Medical Decision Making - Medical Decision Making Pt was seen at bedside, also will be seen by attending Dr. Mann. Pt presenting with complaints of posterior and L-sided head "pressure", a "bitter taste" in his mouth, and difficulty with ambulation x1 week. When he gets up to walk, he can "walk slowly, but feels like I'm leaning over towards the L side". Pt also states he had 1 episode of nausea and NBNB vomiting this AM. He has been constipated x3 days, but has been passing flatus and tolerated PO intake last night. Pt states he has recently been evaluated at the [place] [facility] (PCP Dr. Chou) over the past 6 months, with multiple MRI scans for a "brain mass on the left side". The pt was seen by a neurologist (Dr. Braxton) who prescribed "steroids," which "made the size of the mass go smaller," but was stopped due to diabetic complications. [facility] on the weekends. Pt denies any recent fevers/chills, vision changes, syncope, chest pain, palpitations, SOB, abdominal pain, urinary symptoms, diarrhea/constipation, or leg swelling. Considering worsening mass size/edema/midline shift vs hemorrhage vs CSF obstruction vs metastasis/additional lesions vs ischemia/CVA/ACS vs vitamin deficiency (B12). Ordered work-up including CBC, CMP, cardiac profile, B12, coags, ECG, non- contrast head CT. Provided 4 mg IV zofran and 1 g IV ofirmev for improvement of nausea and pain. Will continue to reassess pt and monitor for symptomatic improvement. ECG: NSR, intervals WNL (HR 80, PA 156. No TWIs or significant ST segment changes. No significant changes from prior ECG. Non-contrast head CT: An approximately 4 x 3.4 cm heterogeneous mass lesion is seen within the right posterior cerebral hemisphere medially with moderate associated edema. Contralateral displacement of the fourth ventricle is noted. No definite additional mass lesion is identified on noncontrast imaging. There is no obstructive hydrocephalus. No extra-axial fluid collection is seen. The calvarium appears intact. 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 Moderate perilesional edema is seen. 02/10/19 08:29 CBC and coags WNL. Paged neurosurgery expedition supervisor (Dr. Leon), pending call-back and CMP from lab. 02/10/19 09:04 CMP, B12, troponin WNL Paging Dr. Leon service x2. Pt to be admitted for further work-up considering pt having difficulty ambulating. Pending dispo from neuro team if pt needs OR or can be watched on the floor. 02/10/19 09:[address] Leon, who suggested ICU admission for q1hr neuro checks. Placed order for MRI with and without contrast. Started 10 mg IV decadron, and will continue 4 mg IV q6hrs per Dr. Leon, who will come to see the pt. Spoke with Dr. Dumont, who is agreeable with stopping ASA and Plavix, as last stent was placed 2013. ICU team accepted pt for admission. Paged hospitalist team to discuss admission. 02/10/19 10:28 Pt was admitted to ICU and accepted by hospitalist team. Pt was stable until taken to ICU. 02/10/19 14:02 *DC/Admit/Observation/Transfer Diagnosis at time of Disposition: Cerebellar mass - Discharge Dispostion Condition at time of disposition: Stable Decision to Admit order: Yes - Referrals - Patient Instructions - Post Discharge Activity
[2019-02-10] MEDS ORDERED: ONDANSETRON 4 MG/2 ML VIAL IVPUSH ONE (08:00)
[2019-02-10] MEDS ORDERED: ONDANSETRON 4 MG/2 ML VIAL ONE (08:22)
[2019-02-10] MEDS ORDERED: ACETAMINOPHEN INJECTION 100 ML IVPB ONE (08:26)
[2019-02-10] MEDS ORDERED: ACETAMINOPHEN 1000 MG/100 ML VIAL (NON FORMULARY) IVPB ONE (08:27)
[2019-02-10 08:34] LABS: BASO % 0.7 % (0-2.0); EOS % 0.2 % (0-4.5); HEMATOCRIT 43.5 % (35.4-49); HEMOGLOBIN 14.3 GM/dL (11.7-16.9); LYMPH % 16.7 % (8-40); MEAN CELL VOLUME 90.9 fl (80-96); MEAN PLT VOLUME 8.1 fl (7.5-11.1); MONO % 5.8 % (3.8-10.2); NEUT % 76.6 % (42.8-82.8); PLATELET COUNT 249 K/MM3 (134-434); RBC 4.78 M/mm3 (4.00-5.60); RDW 14.4 % (11.9-15.9); WHITE BLOOD COUNT 8.4 K/mm3 (4.0-10.0)
[2019-02-10 08:57] LABS: INR 1.03 (0.83-1.09); PROTHROMBIN TIME (PATIENT) 12.2 SEC (9.7-13.0)
[2019-02-10 09:10] LABS: ALK PHOS 54 U/L (45-117); ANION GAP 9 MMOL/L (8-16); BILIRUBIN,TOTAL 0.8 mg/dL (0.2-1); BLOOD UREA NITROGEN 11 mg/dL (7-18); CALCIUM 9.1 mg/dL (8.5-10.1); CHLORIDE 107 mmol/L (98-107); CO2 26 mmol/L (21-32); CREATININE 1.2 mg/dL (0.55-1.3); GLUCOSE,RANDOM 183 mg/dL (74-106); POTASSIUM 4.3 mmol/L (3.5-5.1); SGOT/AST 18 U/L (15-37); SGPT/ALT 16 U/L (13-61); SODIUM 141 mmol/L (136-145); TOT PROT 7.2 g/dl (6.4-8.2)
--- NOTE | 2019-02-10 09:36 | PDOC ---
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 pt states he was on steroids , and was discontinued due to DM. is scheduled to have repeat ct head and ari in two months to decide if surgical treatment is an option or not. no trauma. no change to vision. does have mild left upper ext weakness. states he lives alone, drove himself here today with much difficulty due to ataxia. - Physicial Exam PE: 02/10/19 09:33 awake alert lungs clear bilaterally heart rrr no mrg abd soft nt nd.e xt wwp no edema. no calf tenderness. skin warm and dry. alert oriented x 3. strenght 5.5 bilat lower ext, left upper ext 4/5. right upper ext 5.5 finger to nose normal right . left mild dysmetria. speech clear. - Medical Decision Making 02/10/19 09:34 68 yo male h/o htn dm gerd recent brain mass with ataxia, n/v. differntial includes worsening mass, mass effect. DM DKA hyperglycemia other infection. plan labs ua cxr ct head . will d/w nuersurgery dr Leon. <Leatha Mann - Last Filed: 02/10/19 09:31> - Medical Decision Making 9:20am Call placed to Dr. Leon's cell phone, awaiting call back. 9:40am Call placed to Dr. Leon's answering service, awaiting call back. 9:47am Call returned to Dr. Leon, case discussed with EM resident Dr. Olga Greene. Documentation prepared by Gabriella Rivera, acting as medical office scheduler for Leatha Mann MD. <Gabriella Rivera - Last Filed: 02/10/19 09:55> Heart Score/ECG Review #1 General ECG Interpretation: Sinus Rhythm, Normal Rate (80), Normal Intervals, No acute ischemic changes <Leatha Mann - Last Filed: 02/10/19 09:31>
[2019-02-10] MEDS ORDERED: DEXAMETHASONE SOD PHOSPHATE 10 MG/1 ML VIAL IVPUSH ONE (10:00)
[2019-02-10] MEDS ORDERED: SODIUM CHLORIDE 1,000 ML IV SCH ×2 (10:00→14:30)
[2019-02-10] MEDS ORDERED: DEXAMETHASONE SOD PHOSPHATE 10 MG/1 ML VIAL ONE (10:09)
--- NOTE | 2019-02-10 11:19 | HP ---
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 Pt reported one episode of nausea and NBNB vomiting this am wich he thought was related to meal from last night. No change in bowel habit. Pt noted tilting to the L with unsteady gait that has worsened over the past 4 days. Pt reports dizziness on sitting or standing with intermittent tinitus that resolves on its own but no change in hearing. No change in diet, no weight loss. Denies fever, or chills, no neck pain, no cough, no sorethroat, no headaches, no ear pain, no change in vision. Pt was diagnsoed with cerebellar mass 6 months ago, after complaining about posterior headache and getting an MRI. He was initially on steroids (decadron) for 2 months (4 months ago) but discontinued for progression from preDM to DM. Had been getting 2-4 monthly imaging which had noted decreasing size of mass without the gait abnormalities. ED D/W NeuroSx- Dr Leon who thinks it is a possible surgical canndidate in light of new ataxia, requested ICU admit, Q1H neurochecks, Decadron iv 10mg stat and iv decadron 4mg Q6H ER course was notable for: (1) CT head 02/10/19 : Non-contrast head CT: An approximately 4 x 3.4 cm heterogeneous mass lesion is seen within the right posterior cerebral hemisphere medially with moderate associated edema. Contralateral displacement of the fourth ventricle is noted. No definite additional mass lesion is identified on noncontrast imaging. There is no obstructive hydrocephalus. No extra-axial fluid collection is seen. The calvarium appears intact. 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 Moderate perilesional edema is seen. 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 Independent ADLS, lived alone Smoking: Quit 1980 after 10 years of smoking Alcohol: Drugs: Family History: Both parents - Father to alcoholism, Mother at 81 (natural causes) Siblings with hx of DM, alcoholism, lung cancer (sister that smoked, ) Allergies No Known Allergies Allergy (Verified 02/10/19 06:45) HOME MEDICATIONS: Home Medications Medication Instructions Recorded Lisinopril [Prinivil] 20 mg PO DAILY 03/28/12 Omeprazole [Prilosec (RX)] 40 mg PO BID 06/14/14 Metoprolol Tartrate 25 mg PO BID tablet 12/20/14 Simvastatin 40 mg PO HS tablet 12/20/14 Aspirin [ASA -] 81 mg PO DAILY 06/20/17 Clopidogrel Bisulfate [Plavix -] 75 mg PO DAILY 06/20/17 Amlodipine Besylate [Norvasc -] 5 mg PO DAILY #30 tablet 12/12/17 Miscellaneous Drug Not In Syst 1 each ASDIR #1 misc 12/12/17 [Outpatient Lab Test] REVIEW OF SYSTEMS CONSTITUTIONAL: Absent: fever, chills, diaphoresis, generalized weakness, malaise, loss of appetite, weight change HEENT: intermittent tinnitus + Absent: rhinorrhea, nasal congestion, throat pain, throat swelling, difficulty swallowing, mouth swelling, ear pain, eye pain, visual changes CARDIOVASCULAR: Absent: chest pain, syncope, palpitations, irregular heart rate, lightheadedness , peripheral edema RESPIRATORY: Absent: cough, shortness of breath, dyspnea with exertion, orthopnea, wheezing, stridor, hemoptysis GASTROINTESTINAL: nausea+, vomiting+, Absent: abdominal pain, abdominal distension, diarrhea, constipation, melena, hematochezia GENITOURINARY: Absent: dysuria, frequency, urgency, hesitancy, hematuria, flank pain, genital pain MUSCULOSKELETAL: Absent: myalgia, arthralgia, joint swelling, back pain, neck pain SKIN: Absent: rash, itching, pallor HEMATOLOGIC/IMMUNOLOGIC: Absent: easy bleeding, easy bruising, lymphadenopathy, frequent infections ENDOCRINE: Absent: unexplained weight gain, unexplained weight loss, heat intolerance, cold intolerance NEUROLOGIC: dizziness+, unsteady gait+Absent: headache, focal weakness or paresthesias, , seizure, mental status changes, bladder or bowel incontinence PSYCHIATRIC: Absent: anxiety, depression, suicidal or homicidal ideation, hallucinations. PHYSICAL EXAMINATION Vital Signs - 24 hr 02/10/19 02/10/19 06:45 09:43 Temperature 98.2 F 98.0 F Pulse Rate 93 H Pulse Rate [ 79 Left Radial] Respiratory 18 18 Rate Blood Pressure 122/94 Blood Pressure 130/94 [Right Arm] O2 Sat by Pulse 100 98 Oximetry (%) GENERAL: Awake, alert, and fully oriented, in no acute distress. HEAD: Normal with no signs of trauma. EYES: R horizontal nystagmus, Pupils equal, round and reactive to light, extraocular movements intact, sclera anicteric, conjunctiva clear. EARS, NOSE, THROAT: Ears normal, no ear discharge or trugal tenderness, oropharynx clear without exudates. Moist mucous membranes. NECK: Normal range of motion, supple LUNGS: Breath sounds equal, clear to auscultation bilaterally. HEART: Regular rate and rhythm, normal S1 and S2 , Negative orthostatics-146/81 (lying down)-141/99 (standing) ABDOMEN: Soft, nontender, not distended, normoactive bowel sound MUSCULOSKELETAL: Normal range of motion at all joints. Normal tone. No bony deformities or tenderness. No CVA tenderness. UPPER EXTREMITIES: 2+ pulses, warm, well-perfused. LOWER EXTREMITIES: 2+ pulses, warm, well-perfused. No calf tenderness. No peripheral edema. NEUROLOGICAL: Cranial nerves II-XII intact. Normal speech. Heel to hassan -ve b/l , finger-to nose-ve b/l, dysdiadochokinesia-ve, gait widebased, unstable and leaning to L PSYCHIATRIC: Cooperative. Good eye contact. Appropriate mood and affect. SKIN: Mixed maculo-papular hyperpigmented rashes over trunk and back (old). CBC, BMP 02/10/19 07:58 02/10/19 07:58 Laboratory Results - last 24 hr 02/10/19 02/10/19 02/10/19 07:58 07:58 07:58 WBC 8.4 RBC 4.78 Hgb 14.3 Hct 43.5 MCV 90.9 MCH 30.0 MCHC 33.0 RDW 14.4 Plt Count 249 D MPV 8.1 Absolute Neuts (auto) 6.4 Neutrophils % 76.6 Lymphocytes % 16.7 D Monocytes % 5.8 Eosinophils % 0.2 D Basophils % 0.7 Nucleated RBC % 0 PT with INR 12.20 INR 1.03 Sodium 141 Potassium 4.3 Chloride 107 Carbon Dioxide 26 Anion Gap 9 BUN 11 Creatinine 1.2 Creat Clearance w eGFR 60.03 Random Glucose 183 H Calcium 9.1 Total Bilirubin 0.8 AST 18 ALT 16 Alkaline Phosphatase 54 Creatine Kinase 64 Troponin I 0.02 Total Protein 7.2 Albumin 4.0 Vitamin B12 Blood Type Antibody Screen 02/10/19 02/10/19 07:58 10:23 WBC RBC Hgb Hct MCV MCH MCHC RDW Plt Count MPV Absolute Neuts (auto) Neutrophils % Lymphocytes % Monocytes % Eosinophils % Basophils % Nucleated RBC % PT with INR INR Sodium Potassium Chloride Carbon Dioxide Anion Gap BUN Creatinine Creat Clearance w eGFR Random Glucose Calcium Total Bilirubin AST ALT Alkaline Phosphatase Creatine Kinase Troponin I Total Protein Albumin Vitamin B12 627 Blood Type O POSITIVE Antibody Screen Negative Ambulatory Orders Omeprazole [Prilosec (RX)] 40 mg PO BID 06/14/14 Metoprolol Tartrate 25 mg PO BID tablet 12/20/14 Simvastatin 40 mg PO HS tablet 12/20/14 Aspirin [ASA -] 81 mg PO DAILY 06/20/17 Clopidogrel Bisulfate [Plavix -] 75 mg PO DAILY 06/20/17 Nifedipine [Procardia Xl] 30 mg PO DAILY 02/10/19 Current Medications Chlorhexidine Gluconate (Hibiclens For Decolonization -) 1 applic TP HS ISAURA Dexamethasone Sodium Phosphate (Decadron Injection -) 4 mg IVPUSH Q6H-IV ISAURA Mupirocin (Bactroban Ointment (For Decolonization) -) 1 applic NS BID ISAURA Stop: 02/15/19 21:59 Ondansetron HCl (Zofran Injection) 4 mg IVPUSH Q6H PRN PRN Reason: NAUSEA CT head 02/10/19 : Non-contrast head CT: An approximately 4 x 3.4 cm heterogeneous mass lesion is seen within the right posterior cerebral hemisphere medially with moderate associated edema. Contralateral displacement of the fourth ventricle is noted. No definite additional mass lesion is identified on noncontrast imaging. There is no obstructive hydrocephalus. No extra-axial fluid collection is seen. The calvarium appears intact. 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 Moderate perilesional edema is seen. ASSESSMENT/PLAN: Pt is a 68 yo M, with PMH of HTN, HLD, DM, CAD (stents x3 on plavix), last stent 2013, last stress test 2016, and GERD, with known cerebellar mass previously on steroids now presenting with posterior and L-sided head "pressure ", a "bitter taste" in his mouth, and difficulty with ambulation x 4 days. #Ataxic gait: Could be in setting of background cerebellar mass See CT head w/o contrast above Pending MRI brain w/wo contrast No evidence of mass effect from raised ICP at this time Patient thinks N/V is related to meal from previous day, no other episodes, tolerating antinausea medication ED d/w neuroSx who thinks pt is a candidate for sx based on new ataxia symptoms Per Neurosx- ICU admit for Q1H neurochecks Received 10decadron, cont iv decadron 4mg Q6h Pt was on ASA and Plavix- per cardio, last stent was placed 2013, and AC and AP can be held CV RCRI per cardio 1 (pt now on insulin- RCRI-2) NPO Type and screen done Coags done Orthostatic vitals negative-146/81 (lying down)-141/99 (standing) #HTN On home metoprolol tartrate 25mg bid Procardia 30mg daily #HLD Simvastatin 40mg at home #DM Recent diagnosis, while on decadron HgbA1c ISS Q6H BGM Q6H #CAD s/p stents x3 (on plavix), last stent 2013, last stress test 2016- was nl Plavix and ASA to be on hold per cardio #GERD Omeprazole at home will give iv protonix while NPO #PPX DVT- SCD- hold chemical AC for likely SX GI- protonix IV (on steroids) #Dispo ICU level mx- for neurochecks per neursx Likely sx Visit type - Emergency Visit Emergency Visit: Yes ED Registration Date: 02/10/19 Care time: The patient presented to the Emergency Department on the above date and was hospitalized for further evaluation of their emergent condition. - New Patient This patient is new to me today: Yes Date on this admission: 02/10/19 - Critical Care Critical Care patient: Yes Total Critical Care Time (in minutes): 36 Critical Care Statement: The care of this patient involved high complexity decision making to prevent further life threatening deterioration of the patient 's condition and/or to evaluate & treat vital organ system(s) failure or risk of failure.
--- NOTE | 2019-02-10 11:35 | PN ---
Teaching Attending Note Name of Resident: Ingrid Arevalo ATTENDING PHYSICIAN STATEMENT I saw and evaluated the patient. I reviewed the resident's note and discussed the case with the resident. I agree with the resident's findings and plan as documented. SUBJECTIVE: Pt seen and examined in the ICU. Briefly, 68yo male with h/o HTN, DM, hyperlipidemia, CAD, known cerebellar mass followed at the [facility], previously on steroids but stopped due to persistent hyperglycemia a "few months ago" who presents with unsteady gait, nausea and vomiting. CT head confirming cerebellar mass but no prior studies here to correlate. OBJECTIVE: Vital Signs Period Temp Pulse Resp BP Sys/Donahue Pulse Ox Last 24 Hr 98.0 F-98.2 F 79-93 18-18 122-130/94-94 98-100 Gen: NAD at rest Heart: RRR Lung: decreased breath sounds at the bases Abd: soft, nontender Ext: no edema CBC, BMP 02/10/19 07:58 02/10/19 07:58 Active Medications Dexamethasone Sodium Phosphate (Decadron Injection -) 4 mg IVPUSH Q6H-IV ISAURA Sodium Chloride (Normal Saline -) 1,000 mls @ 75 mls/hr IV ASDIR ISAURA Last Admin: 02/10/19 10:14 Dose: 75 mls/hr ASSESSMENT AND PLAN: Cerebellar Mass Ataxia CAD HTN DM Hyperlipidemia - continue decadron - neuro checks - antiemetics as needed - neurosurgery eval - keep NPO until evaluation - DVT prophylaxis - ICU monitoring for now
--- NOTE | 2019-02-10 11:36 | CONSULT ---
Consultation: REQUESTING PROVIDER: CONSULT REQUEST: We have been asked to medically evaluate this patient for R cerebellar mass. HISTORY OF PRESENT ILLNESS: Patient is a 68 y/o male with a history of HTN, HLD, DM, CAD s/p 3 stents (07, 12, 14) and GERD who presents for ataxia and nausea. Patient has had a know cerebellar mass for four months. He was undergoing steroid treatment for the first 2 months and the mass "shrunk". The steroids were making his diabetes be uncontrolled so he has not taken them in two months. Patient had an appointment with his neurologist ( Dr. Braxton) last week who said they will continue to monitor the mass with MRI's. Patient reports he has been feeling nauseous and leaning toward his left side for four days. His symptoms have been worsening. he denies any falls but feels like he is going to fall to his left side. Patient had these similar symptoms before his mass was diagnosed. Patient also reports having a bitter taste in his month that will not resolve. No other acute complaints. REVIEW OF SYSTEMS: CONSTITUTIONAL: Absent: fever, chills, diaphoresis, generalized weakness, malaise, weight change HEENT: loss of appetite, Absent: rhinorrhea, nasal congestion, throat pain, throat swelling, difficulty swallowing, mouth swelling, ear pain, eye pain, visual changes CARDIOVASCULAR: Absent: chest pain, syncope, palpitations, irregular heart rate, lightheadedness , peripheral edema RESPIRATORY: Absent: cough, shortness of breath, dyspnea with exertion, orthopnea, wheezing, stridor, hemoptysis GASTROINTESTINAL:nausea, vomiting Absent: abdominal pain, abdominal distension, diarrhea, constipation, melena, hematochezia GENITOURINARY: Absent: dysuria, frequency, urgency, hesitancy, hematuria, flank pain, genital pain MUSCULOSKELETAL: Absent: myalgia, arthralgia, joint swelling, back pain, neck pain SKIN: Absent: rash, itching, pallor HEMATOLOGIC/IMMUNOLOGIC: Absent: easy bleeding, easy bruising, lymphadenopathy, frequent infections ENDOCRINE: Absent: unexplained weight gain, unexplained weight loss, heat intolerance, cold intolerance NEUROLOGIC: headache, dizziness, unsteady gait, Absent: focal weakness or paresthesias, seizure, mental status changes, bladder or bowel incontinence PSYCHIATRIC: Absent: anxiety, depression, suicidal or homicidal ideation, hallucinations. PHYSICAL EXAMINATION Vital Signs - 24 hr 02/10/19 02/10/19 06:45 09:43 Temperature 98.2 F 98.0 F Pulse Rate 93 H Pulse Rate [ 79 Left Radial] Respiratory 18 18 Rate Blood Pressure 122/94 Blood Pressure 130/94 [Right Arm] O2 Sat by Pulse 100 98 Oximetry (%) GENERAL: Awake, alert, and fully oriented, in no acute distress. HEAD: Normal with no signs of trauma. EYES: Pupils equal, round and reactive to light, extraocular movements intact, peripheral vision intact EARS, NOSE, THROAT: oropharynx clear without exudates. Moist mucous membranes. NECK: Normal range of motion, supple without lymphadenopathy, JVD, or masses. LUNGS: Breath sounds equal, clear to auscultation bilaterally. No wheezes, and no crackles. No accessory muscle use. HEART: Regular rate and rhythm, normal S1 and S2 without murmur, rub or gallop. ABDOMEN: Soft, nontender, not distended, normoactive bowel sounds, no guarding, no rebound, no masses. MUSCULOSKELETAL: ROM intact, 5/5 strength diffusely LOWER EXTREMITIES: 2+ pulses, warm, well-perfused. No calf tenderness. No peripheral edema. NEUROLOGICAL: Cranial nerves II-XII intact. Normal speech. sensation intact, wide gait, unsteady on his feet, left leaning PSYCHIATRIC: Cooperative. Good eye contact. Appropriate mood and affect. SKIN: Warm, dry, normal turgor, no rashes or lesions noted. CBCD WBC 8.4 K/mm3 (4.0-10.0) 02/10/19 07:58 RBC 4.78 M/mm3 (4.00-5.60) 02/10/19 07:58 Hgb 14.3 GM/dL (11.7-16.9) 02/10/19 07:58 Hct 43.5 % (35.4-49) 02/10/19 07:58 MCV 90.9 fl (80-96) 02/10/19 07:58 MCHC 33.0 g/dl (32.0-35.9) 02/10/19 07:58 RDW 14.4 % (11.9-15.9) 02/10/19 07:58 Plt Count 249 K/MM3 (134-434) D 02/10/19 07:58 MPV 8.1 fl (7.5-11.1) 02/10/19 07:58 CMP Sodium 141 mmol/L (136-145) 02/10/19 07:58 Potassium 4.3 mmol/L (3.5-5.1) 02/10/19 07:58 Chloride 107 mmol/L (98-107) 02/10/19 07:58 Carbon Dioxide 26 mmol/L (21-32) 02/10/19 07:58 Anion Gap 9 MMOL/L (8-16) 02/10/19 07:58 BUN 11 mg/dL (7-18) 02/10/19 07:58 Creatinine 1.2 mg/dL (0.55-1.3) 02/10/19 07:58 Creat Clearance w eGFR 60.03 (>60) 02/10/19 07:58 Calcium 9.1 mg/dL (8.5-10.1) 02/10/19 07:58 Total Bilirubin 0.8 mg/dL (0.2-1) 02/10/19 07:58 AST 18 U/L (15-37) 02/10/19 07:58 ALT 16 U/L (13-61) 02/10/19 07:58 Alkaline Phosphatase 54 U/L (45-117) 02/10/19 07:58 Total Protein 7.2 g/dl (6.4-8.2) 02/10/19 07:58 Albumin 4.0 g/dl (3.4-5.0) 02/10/19 07:58 Active Medications Dexamethasone Sodium Phosphate (Decadron Injection -) 4 mg IVPUSH Q6H-IV ISAURA Sodium Chloride (Normal Saline -) 1,000 mls @ 75 mls/hr IV ASDIR ISAURA Last Admin: 02/10/19 10:14 Dose: 75 mls/hr ASSESSMENT/PLAN: Patient is a 68 y/o male with a history of HTN, HLD, DM, CAD s/p 3 stents, and GERD, who is here for Cerebellar mass. Neuro - R cerebellar mass - head CT: 4 x 3.4 cm heterogenous mass within the right posterior cerebral hemisphere medially with moderate associated edmea, contralateral displacement of the fourth ventricle - ED resident spoke with peyton Modi - 10 of decadron given, 4 q6h - neuro checks q 1 hour - MRI with and without contrast for new neuro changes - posisble surgery tuesday for plavix and aspirin to clear, monitor until then Cardio - 3 stent hx, per Dr. Dumont can hold his plavix and aspirin - continue nifedipine 30 m po daily - continue simvastatin 40 mg po hs - continue metoprolol 25 mg BID Pulm - stable - keep O2 > 95% GI - hx GERD - continue omeprazole - Zofran prn for nausea Renal - stable - Cr 1.2-1.4 baseline Endo - hx of DM - SS Heme - DVT ppx FEN - full diet and anticoagulation until tuesday night for surgery on tuesday Dispo: We will continue to follow the patient. Thank you for this consultative opportunity. Visit type - Emergency Visit Emergency Visit: Yes ED Registration Date: 02/10/19 Care time: The patient presented to the Emergency Department on the above date and was hospitalized for further evaluation of their emergent condition. - New Patient This patient is new to me today: Yes Date on this admission: 02/11/19 - Critical Care Critical Care patient: Yes Total Critical Care Time (in minutes): 40 Critical Care Statement: The care of this patient involved high complexity decision making to prevent further life threatening deterioration of the patient 's condition and/or to evaluate & treat vital organ system(s) failure or risk of failure.
--- NOTE | 2019-02-10 11:40 | CON.CARD ---
Consult Consult Specialty:: cardio - History of Present Illness Chief Complaint: CARRILLO History of Present Illness: 68 M here with head pressure, altered taste sensation, altered gait. Has symptomatic cerebellar mass. per ER, pt is considered candidate for surgery and this is the anticipated plan. pt denies cp or prior (atypical) angina sx's. denies sob, orthopnea no palpitations PMH: HTN DM CAD s/p PCIs - Past Medical History Cardio/Vascular: Yes: CAD, HTN - Past Surgical History Past Surgical History: Yes: None - Alcohol/Substance Use Hx Alcohol Use: No History of Substance Use: reports: Marijuana - Smoking History Smoking history: Never smoked Have you smoked in the past 12 months: No Aproximately how many cigarettes per day: 0 If you are a former smoker, when did you quit?: 1980 - Social History ADL: Independent History of Recent Travel: No Home Medications - Allergies Allergies/Adverse Reactions: Allergies Allergy/AdvReac Type Severity Reaction Status Date / Time No Known Allergies Allergy Verified 02/10/19 06:45 - Home Medications Home Medications: Ambulatory Orders Omeprazole [Prilosec (RX)] 40 mg PO BID 06/14/14 Metoprolol Tartrate 25 mg PO BID tablet 12/20/14 Simvastatin 40 mg PO HS tablet 12/20/14 Aspirin [ASA -] 81 mg PO DAILY 06/20/17 Clopidogrel Bisulfate [Plavix -] 75 mg PO DAILY 06/20/17 Nifedipine [Procardia Xl] 30 mg PO DAILY 02/10/19 Family Disease History - Family Disease History Family History: Denies (no known cmp) Review of Systems - Review of Systems Constitutional: denies: Chills, Fever Eyes: denies: Eye Pain HENT: denies: Nasal Congestion Neck: denies: Stiffness Cardiovascular: denies: Palpitations Respiratory: denies: Orthopnea, PND Gastrointestinal: denies: Diarrhea, Rectal Bleeding Genitourinary: denies: Burning, Hematuria Musculoskeletal: denies: Muscle Pain Integumentary: denies: Rash Neurological: denies: Numbness, Seizure, Syncope Endocrine: denies: Excessive Sweating Hematology/Lymphatic: denies: Excessive Bleeding Vital Signs: Vital Signs Temperature 98.0 F 02/10/19 09:43 Pulse Rate 79 02/10/19 09:43 Respiratory Rate 18 02/10/19 09:43 Blood Pressure 130/94 02/10/19 09:43 O2 Sat by Pulse Oximetry (%) 98 02/10/19 09:43 Constitutional: Yes: Well Nourished, No Distress Eyes: No: Sclera Icterus HENT: No: Nasal Congestion Neck: No: Decreased ROM Respiratory: Yes: CTA Bilaterally. No: Accessory Muscle Use Gastrointestinal: Yes: Normal Bowel Sounds. No: Distention, Hepatomegaly, Palpable Mass, Tenderness Cardiovascular: Yes: Regular Rate and Rhythm JVD: No Carotid Bruit: No PMI: Non-Displaced Heart Sounds: Yes: S1, S2. No: Gallop Murmur: No: Systolic Murmur, Diastolic Murmur Musculoskeletal: Yes: Other (No kyphosis) Extremities: No: Cool, Cyanosis Edema: No Peripheral Pulses: 2+ Left Carotid, 2+ Right Carotid, 2+ Left Doralis Pedis, 2+ Right Dorsalis Pedis Integumentary: No: Jaundice Neurological: Yes: Alert, Oriented (x3) Psychiatric: No: Agitated - Other Data Labs, Other Data: CBC, BMP 02/10/19 07:58 02/10/19 07:58 INR, PTT INR 1.03 (0.83-1.09) 02/10/19 07:58 Troponin, BNP 02/10/19 07:58 Troponin I 0.02 Troponin, BNP 02/10/19 07:58 Troponin I 0.02 Laboratory Tests 06/20/17 02/10/19 02/10/19 04:37 07:58 07:58 WBC 8.4 Hgb 14.3 Plt Count 249 D Sodium 141 Potassium 4.3 Carbon Dioxide 26 BUN 11 Creatinine 1.2 Hemoglobin A1c % 7.2 H AST 18 ALT 16 Troponin I 0.02 Assessment/Plan Echo 01/12: low nl lvef, nl rv, no sig valve path, no sig change from 02/2012 report MPI 2017: inferolateral infarct with teri-infarct ischemia. inferolat HK with EF 43%. no TID described ECG: NSR, no ST-T abn Assessment/Plan 64 year old M w h/o HTN, CAD , cath again , and most recent , hld, her with cp, anguiano. brain mass, preop eval: -cerebellar lesion on CT head here, anticipate he may need surgery -Revised CV Risk Index = 1 -no s/sx of active ischemia or CHF -no preop cv testing indicated. pt is at acceptable CV risk from surgery. -remote stent--ok to hold aspirin and plavix preop CAD: -s/p stemi 03/2007 with bms to OM -s/p PCIs 2011 for unstable angina (gwen to plad/mlad) -last cath 2013 with gwen to dlcx (prior stents patent, no sig residual dz) -chronic atypical CP--MPI 2016 no ischemia (old inferolateral scar) -remains on aspirin and plavix >3 yrs from last PCI--holding preop neurosurgery -cont home statin, BB HTN: -bp mildly elevated--reassess after home meds given -cont home meds DM: -per hospitalist CKD: -creat 1.2-1.4 baseline range, stable here
[2019-02-10] MEDS: INSULIN SLIDING SCALE (NOVOLOG) 1 VIAL SQ SCH ×3 (13:00→21:45)
--- NOTE | 2019-02-10 14:13 | PN ---
Teaching Attending Note Name of Resident: Kirstie Delarosa ATTENDING PHYSICIAN STATEMENT I saw and evaluated the patient. I reviewed the resident's note and discussed the case with the resident. I agree with the resident's findings and plan as documented. SUBJECTIVE: Currently denies headache, visual disturbance. No fever/chills/neck stiffness, photophobia. Lightheadedness on standing/walking, veering to left side. No LOC/falls/HI. OBJECTIVE: Afebrile, Hemodynamically Stable. Last Vital Signs Temp Pulse Resp BP Pulse Ox 97.7 F 64 25 H 141/99 100 02/10/19 10:25 02/10/19 12:03 02/10/19 12:49 02/10/19 12:49 02/10/19 12:49 HEENT - Atraumatic, Normocephalic. Heart - S1, S2, RRR Lungs - clear to auscultation Abdomen - Soft, non-tender. Bowel Sounds normal. Extremities - No edema, no calf tenderness Neuro - AAO x 3. Tone/Power/Sensation Normal all 4 limbs. Laboratory Results - last 24 hr 02/10/19 02/10/19 02/10/19 07:58 07:58 07:58 WBC 8.4 RBC 4.78 Hgb 14.3 Hct 43.5 MCV 90.9 MCH 30.0 MCHC 33.0 RDW 14.4 Plt Count 249 D MPV 8.1 Absolute Neuts (auto) 6.4 Neutrophils % 76.6 Lymphocytes % 16.7 D Monocytes % 5.8 Eosinophils % 0.2 D Basophils % 0.7 Nucleated RBC % 0 PT with INR 12.20 INR 1.03 Sodium 141 Potassium 4.3 Chloride 107 Carbon Dioxide 26 Anion Gap 9 BUN 11 Creatinine 1.2 Creat Clearance w eGFR 60.03 Random Glucose 183 H Calcium 9.1 Total Bilirubin 0.8 AST 18 ALT 16 Alkaline Phosphatase 54 Creatine Kinase 64 Troponin I 0.02 Total Protein 7.2 Albumin 4.0 Vitamin B12 Blood Type Antibody Screen 02/10/19 02/10/19 07:58 10:23 WBC RBC Hgb Hct MCV MCH MCHC RDW Plt Count MPV Absolute Neuts (auto) Neutrophils % Lymphocytes % Monocytes % Eosinophils % Basophils % Nucleated RBC % PT with INR INR Sodium Potassium Chloride Carbon Dioxide Anion Gap BUN Creatinine Creat Clearance w eGFR Random Glucose Calcium Total Bilirubin AST ALT Alkaline Phosphatase Creatine Kinase Troponin I Total Protein Albumin Vitamin B12 627 Blood Type O POSITIVE Antibody Screen Negative Current Medications Generic Name Dose Route Start Last Admin Trade Name Freq PRN Reason Stop Dose Admin Chlorhexidine Gluconate 1 applic 02/10/19 22:00 Hibiclens For Decolonization - TP HS ISAURA Dexamethasone Sodium Phosphate 4 mg 02/10/19 16:00 Decadron Injection - IVPUSH Q6H-IV [facility]A Mupirocin 1 applic 02/10/19 22:00 Bactroban Ointment (For Decolonization) - NS 02/15/19 21:59 BID ISAURA Ondansetron HCl 4 mg 02/10/19 11:35 Zofran Injection IVPUSH Q6H PRN NAUSEA Home Medications Medication Instructions Recorded Omeprazole [Prilosec (RX)] 40 mg PO BID 06/14/14 Metoprolol Tartrate 25 mg PO BID tablet 12/20/14 Simvastatin 40 mg PO HS tablet 12/20/14 Aspirin [ASA -] 81 mg PO DAILY 06/20/17 Clopidogrel Bisulfate [Plavix -] 75 mg PO DAILY 06/20/17 Nifedipine [Procardia Xl] 30 mg PO DAILY 02/10/19 ASSESSMENT AND PLAN: 68 year old male with HTN, HLD, DM 2, CAD s/p STEMI 2006/Multiple Stents (last 2013), GERD, known Cerebellar Mass, previously on steroids, follows at [place], now presents with R sided occipital pressure, abnormal gait, leaning to L side, lightheadedness/dizziness, with nausea and 1 episode of vomiting earlier today. 1. R Cerebellar Mass with symptoms including abnormal/unsteady gait, lightheadedness, nausea, vomiting Vitals negative for orthostatic changes. CT Head - 4 x 3.4cm R Cerebellar Mass lesion suggestive of neoplastic disease with moderate teri-lesional edema No LOC/syncope, seizure, lateralizing signs, alteration of consciousness Started on IV Decadron Further eval by Neurosurgery MRI requested. Afebrile, Hemodynamically Stable, Neurologically intact. Regular hourly neurochecks. 2. CAD s/p STEMI 2006/Multiple Stents (last 2013) As per Cardio, can hold Aspirin/Plavix 3. HTN - Normally on Metoprolol, Nifedipine 4. HLD - Normally on Simvastatin 5. GERD - PPI 6. DM 2 - Cover with Novolog sliding scale. DVT Px - SCDs
--- NOTE | 2019-02-10 15:21 | CONSULT ---
Consult - text type - Consultation Consultation Note: Mr. Lopez is a 68 y/o male with PMH significant for HTN, DM and CAD s/p stenting on ECASA and Plavix. He presented to the [facility] ED with c/o dizziness and falling to the left side. A Head CT showed a right cerebellar mass with associated vasogenic edema and mild mass effect on the fourth ventricle. There is no hydrocephalus seen. I had recommended Decadron 10 mg IV once in the ED followed by 4 mg IV q 6 hours. I also recommended admission to the ICU for q 1 hour neurochecks and an MRI Brain with/without contrast. The patient generally receives his care at the [facility]. He told me that he is aware of this cerebellar mass and that the doctors at the [facility] had been managing it with steroids. He reported HAs along the posterior right side of his head. He denied any nausea or vomiting. He will require a right sided craniectomy and resection of this mass to decompress the brain and for a tissue diagnosis. The patient would like to proceed with surgery. The risks of bleeding, infection, brain injury and CSF leak were explained at length to the patient. I have asked that the ECASA and Plavix be held so that surgery can be done safely towards the middle of the week. I also recommend CAP CTs with contrast as part of a metastatic w/u. I have discussed this plan with the ICU staff. Will follow.
[2019-02-10] MEDS: PANTOPRAZOLE SODIUM 40 MG VIAL IVPUSH SCH (17:43)
[2019-02-10] MEDS: DEXAMETHASONE SOD PHOSPHATE 4 MG/1 ML VIAL IVPUSH SCH ×2 (17:43→21:24)
[2019-02-10] MEDS ORDERED: ACETAMINOPHEN 325 MG TABLET (FP) PO ONE ×2 (20:00)
[2019-02-10] MEDS: ONDANSETRON 4 MG/2 ML VIAL IVPUSH PRN (20:17)
[2019-02-10] MEDS ORDERED: ACETAMINOPHEN 325 MG TABLET (FP) ONE (20:22)
[2019-02-10] MEDS ORDERED: PT OWN MED DRAWER 7, Y5N ONE (21:17)
[2019-02-10] MEDS: HEPARIN NA (PORCINE) 5,000 UNITS/ML 1ML VIAL SQ SCH (21:25)
[2019-02-10] MEDS: CHLORHEXIDINE GLUCONATE 4% CLEANSER FOR DECOLONIZATION TP SCH (21:25)
[2019-02-10] MEDS: MUPIROCIN 2% TOPICAL OINTMENT FOR DECOLONIZATION NS SCH (21:25)
[2019-02-10] MEDS: ATORVASTATIN CA 20 MG TABLET (FP) PO SCH (21:25)
[2019-02-10] MEDS: METOPROLOL TARTRATE 50 MG TABLET (FP) PO SCH (21:27)
[2019-02-10] MEDS ORDERED: PATIENT'S OWN MEDICATION (NON-FORMULARY) (Simvastatin [Simvastatin] 40 MG) PO SCH (22:00)
[2019-02-11] MEDS: DEXAMETHASONE SOD PHOSPHATE 4 MG/1 ML VIAL IVPUSH SCH ×4 (03:32→21:21)
[2019-02-11 05:44] LABS: BASO % 0.2 % (0-2.0); HEMATOCRIT 39.3 % (35.4-49); HEMOGLOBIN 12.9 GM/dL (11.7-16.9); LYMPH % 11.3 % (8-40); MCH 29.8 pg (25.7-33.7); MCHC 32.9 g/dl (32.0-35.9); MEAN CELL VOLUME 90.4 fl (80-96); MEAN PLT VOLUME 7.9 fl (7.5-11.1); MONO % 1.9 % (3.8-10.2); NEUT % 86.6 % (42.8-82.8); PLATELET COUNT 223 K/MM3 (134-434); RBC 4.35 M/mm3 (4.00-5.60); RDW 14.1 % (11.9-15.9); WHITE BLOOD COUNT 17.4 K/mm3 (4.0-10.0)
[2019-02-11 06:00] LABS: INR 1.08 (0.83-1.09); PROTHROMBIN TIME (PATIENT) 12.7 SEC (9.7-13.0)
[2019-02-11 06:02] LABS: ACTIVATED PTT 29.5 SECONDS (25.2-36.5)
[2019-02-11] MEDS: INSULIN SLIDING SCALE (NOVOLOG) 1 VIAL SQ SCH ×4 (06:06→21:22)
[2019-02-11 06:09] LABS: ALBUMIN 3.5 g/dl (3.4-5.0); ALK PHOS 50 U/L (45-117); ANION GAP 6 MMOL/L (8-16); BILIRUBIN,TOTAL 0.7 mg/dL (0.2-1); BLOOD UREA NITROGEN 17 mg/dL (7-18); CALCIUM 8.9 mg/dL (8.5-10.1); CHLORIDE 107 mmol/L (98-107); CO2 27 mmol/L (21-32); CREATININE 1.2 mg/dL (0.55-1.3); GLUCOSE,RANDOM 173 mg/dL (74-106); MAGNESIUM 1.7 mg/dL (1.8-2.4); PHOSPHOROUS 3.5 mg/dL (2.5-4.9); POTASSIUM 4.5 mmol/L (3.5-5.1); SGOT/AST 11 U/L (15-37); SGPT/ALT 12 U/L (13-61); SODIUM 140 mmol/L (136-145); TOT PROT 6.4 g/dl (6.4-8.2)
[2019-02-11] MEDS ORDERED: MAGNESIUM SULF 50% (8.12 MEQ/2 ML-1 GM VIAL) IVPB ONE (08:45)
[2019-02-11] MEDS: NIFEdipine E.R. 30 MG TABLET (FP) PO SCH (09:35)
[2019-02-11] MEDS: METOPROLOL TARTRATE 50 MG TABLET (FP) PO SCH ×2 (09:40→21:20)
--- NOTE | 2019-02-11 09:40 | PN ---
Teaching Attending Note Name of Resident: Fidel Segura ATTENDING PHYSICIAN STATEMENT I saw and evaluated the patient. I reviewed the resident's note and discussed the case with the resident. I agree with the resident's findings and plan as documented. SUBJECTIVE: Pt seen and examined in the ICU. Ataxia improving on decadron. OBJECTIVE: Vital Signs Period Temp Pulse Resp BP Sys/Donahue Pulse Ox Last 24 Hr 97.7 F-98.5 F 64-100 16-25 107-157/57-99 98-100 Intake & Output 02/08/19 02/09/19 02/10/19 02/11/19 23:59 23:59 23:59 23:59 Intake Total 750 270 Output Total 550 350 Balance 200 -80 Weight 97.976 kg 97.885 kg Gen: NAD at rest Heart: RRR Lung: decreased breath sounds at the bases Abd: soft, nontender Ext: no edema CBC, BMP 02/11/19 05:30 02/11/19 05:30 Active Medications Atorvastatin Calcium (Lipitor -) 20 mg PO HS [facility] Last Admin: 02/10/19 21:25 Dose: 20 mg Chlorhexidine Gluconate (Hibiclens For Decolonization -) 1 applic TP HS [facility] Last Admin: 02/10/19 21:25 Dose: 1 applic Dexamethasone Sodium Phosphate (Decadron Injection -) 4 mg IVPUSH Q6H-IV [facility] Last Admin: 02/11/19 03:32 Dose: 4 mg Heparin Sodium (Porcine) (Heparin -) 5,000 unit SQ TID [facility] Last Admin: 02/10/19 21:25 Dose: 5,000 unit Insulin Aspart (Novolog Vial Sliding Scale -) 1 vial SQ ACHS [facility]; Protocol Last Admin: 02/11/19 06:06 Dose: 2 units Metoprolol Tartrate (Lopressor -) 25 mg PO BID [facility] Last Admin: 02/10/19 21:27 Dose: 25 mg Mupirocin (Bactroban Ointment (For Decolonization) -) 1 applic NS BID [facility] Stop: 02/15/19 21:59 Last Admin: 02/10/19 21:25 Dose: 1 applic Nifedipine (Procardia Xl -) 30 mg PO DAILY [facility] Ondansetron HCl (Zofran Injection) 4 mg IVPUSH Q6H PRN PRN Reason: NAUSEA Last Admin: 02/10/19 20:17 Dose: 4 mg Pantoprazole Sodium (Protonix Iv) 40 mg IVPUSH DAILY [facility] Last Admin: 02/10/19 17:43 Dose: 40 mg ASSESSMENT AND PLAN: Cerebellar Mass Ataxia CAD HTN DM Hyperlipidemia - continue decadron - neuro checks - antiemetics as needed - for CT C/A/P to r/o metastatic disease - DVT prophylaxis - ICU monitoring for now
[2019-02-11] MEDS: PANTOPRAZOLE SODIUM 40 MG VIAL IVPUSH SCH (09:41)
[2019-02-11] MEDS: MUPIROCIN 2% TOPICAL OINTMENT FOR DECOLONIZATION NS SCH ×2 (10:00→21:21)
--- NOTE | 2019-02-11 10:00 | PN ---
Progress Note (short form) - Note Progress Note: The patient is resting comfortably in bed this morning. I reviewed the MRI Brain with/without contrast which showed a relatively large R sided cerebellar mass with associated vasogenic edema and mild mass effect on the fourth ventricle. There is no obstructive hydrocephalus. The plan today is for a metastatic w/u with Chest, Abdomen and Pelvis CTs with contrast. He will continue to be monitored in the ICU closely because of the vasogenic edema in the posterior fossa. He will continue to receive IV Decadron to reduce the swelling. I will call the OR tomorrow and schedule the surgery for Tuesday which will be 5 days off the aspirin and plavix. I have asked the ICU staff to medically optimize the patient prior to surgery including any additional testing that may be indicated. I have re-discussed the planned surgery (R suboccipital craniectomy and resection of the cerebellar mass) and the risks of it including bleeding, infection, brain injury and CSF leak with Mr. Lopez. He agrees to move forward with the planned surgery. I have discussed this at length with the ICU medical staff. I have also asked them to obtain the medical records from the [facility]. Will follow closely.
--- NOTE | 2019-02-11 11:14 | PN ---
Progress Note, Physician History of Present Illness: Seen and examined at bedside. No acute event overnight. Remain hemodynamically and neurologically stable. - Current Medication List Current Medications: Active Medications Atorvastatin Calcium (Lipitor -) 20 mg PO HS [facility] Last Admin: 02/10/19 21:25 Dose: 20 mg Chlorhexidine Gluconate (Hibiclens For Decolonization -) 1 applic TP HS [facility] Last Admin: 02/10/19 21:25 Dose: 1 applic Dexamethasone Sodium Phosphate (Decadron Injection -) 4 mg IVPUSH Q6H-IV [facility] Last Admin: 02/11/19 09:41 Dose: 4 mg Heparin Sodium (Porcine) (Heparin -) 5,000 unit SQ TID [facility] Last Admin: 02/10/19 21:25 Dose: 5,000 unit Insulin Aspart (Novolog Vial Sliding Scale -) 1 vial SQ ACHS [facility]; Protocol Last Admin: 02/11/19 06:06 Dose: 2 units Metoprolol Tartrate (Lopressor -) 25 mg PO BID [facility] Last Admin: 02/11/19 09:40 Dose: 25 mg Mupirocin (Bactroban Ointment (For Decolonization) -) 1 applic NS BID [facility] Stop: 02/15/19 21:59 Last Admin: 02/10/19 21:25 Dose: 1 applic Nifedipine (Procardia Xl -) 30 mg PO DAILY [facility] Ondansetron HCl (Zofran Injection) 4 mg IVPUSH Q6H PRN PRN Reason: NAUSEA Last Admin: 02/10/19 20:17 Dose: 4 mg Pantoprazole Sodium (Protonix Iv) 40 mg IVPUSH DAILY [facility] Last Admin: 02/11/19 09:41 Dose: 40 mg - Objective Vital Signs: Vital Signs Temperature 98 F 02/11/19 06:00 Pulse Rate 67 02/11/19 10:00 Respiratory Rate 22 H 02/11/19 10:00 Blood Pressure 137/77 02/11/19 10:00 O2 Sat by Pulse Oximetry (%) 100 02/10/19 12:49 Constitutional: Yes: No Distress, Calm Cardiovascular: Yes: WNL, Regular Rate and Rhythm, S1, S2. No: Murmur Respiratory: Yes: Regular, CTA Bilaterally Gastrointestinal: Yes: Normal Bowel Sounds, Soft. No: Tenderness Edema: No Neurological: Yes: Alert, Oriented, Ataxia, Unsteady Gait. No: Seizure Labs: CBC, BMP 02/11/19 05:30 02/11/19 05:30 INR, PTT INR 1.08 (0.83-1.09) 02/11/19 05:30 Impression/Plan Impression/Plan: 68 M h/o HTN, HLD, DM, CAD s/p STEMI + Stents, cerebellar Mass likely metastatic admitted for neurologic symptoms. Neuro: R Cerebellar Mass with unsteady gait, n/v, lightheadedness - CT and MRI confirmed the mass with perilesional edema - cont. IV Decadron 4mg Q6h - Will medically optimize the patient for surgical decompression on Tuesday - neuro check q1h Hemo: - CT a/p w/ contrast to identify primary malignancy source CV: CAD s/p STEMI with stents - hold Aspirin/Plavix prophylaxis: DVT: MARKOs Fidel Segura PGY3 Visit type - Emergency Visit Emergency Visit: No - New Patient This patient is new to me today: No - Critical Care Critical Care patient: Yes Total Critical Care Time (in minutes): 35 Critical Care Statement: The care of this patient involved high complexity decision making to prevent further life threatening deterioration of the patient 's condition and/or to evaluate & treat vital organ system(s) failure or risk of failure.
[2019-02-11] MEDS ORDERED: PT OWN MED DRAWER 7, Y5N ONE (12:09)
--- NOTE | 2019-02-11 12:18 | PN ---
Progress Note, Physician History of Present Illness: No CV events overnight Tele: NSR with PVCs (rare) - Current Medication List Current Medications: Active Medications Atorvastatin Calcium (Lipitor -) 20 mg PO HS [facility] Last Admin: 02/10/19 21:25 Dose: 20 mg Chlorhexidine Gluconate (Hibiclens For Decolonization -) 1 applic TP HS [facility] Last Admin: 02/10/19 21:25 Dose: 1 applic Dexamethasone Sodium Phosphate (Decadron Injection -) 4 mg IVPUSH Q6H-IV [facility] Last Admin: 02/11/19 09:41 Dose: 4 mg Heparin Sodium (Porcine) (Heparin -) 5,000 unit SQ TID [facility] Last Admin: 02/10/19 21:25 Dose: 5,000 unit Insulin Aspart (Novolog Vial Sliding Scale -) 1 vial SQ ACHS [facility]; Protocol Last Admin: 02/11/19 06:06 Dose: 2 units Metoprolol Tartrate (Lopressor -) 25 mg PO BID [facility] Last Admin: 02/11/19 09:40 Dose: 25 mg Mupirocin (Bactroban Ointment (For Decolonization) -) 1 applic NS BID [facility] Stop: 02/15/19 21:59 Last Admin: 02/10/19 21:25 Dose: 1 applic Nifedipine (Procardia Xl -) 30 mg PO DAILY [facility] Ondansetron HCl (Zofran Injection) 4 mg IVPUSH Q6H PRN PRN Reason: NAUSEA Last Admin: 02/10/19 20:17 Dose: 4 mg Pantoprazole Sodium (Protonix Iv) 40 mg IVPUSH DAILY [facility] Last Admin: 02/11/19 09:41 Dose: 40 mg - Objective Vital Signs: Vital Signs Temperature 98 F 02/11/19 06:00 Pulse Rate 69 02/11/19 11:55 Respiratory Rate 17 02/11/19 11:55 Blood Pressure 148/82 02/11/19 11:55 O2 Sat by Pulse Oximetry (%) 100 02/11/19 09:00 Constitutional: Yes: Well Nourished Eyes: Yes: WNL HENT: Yes: WNL Neck: Yes: Trachea Midline Cardiovascular: Yes: Regular Rate and Rhythm Respiratory: Yes: CTA Bilaterally Gastrointestinal: Yes: WNL Musculoskeletal: Yes: WNL Extremities: Yes: WNL Labs: CBC, BMP 02/11/19 05:30 02/11/19 05:30 INR, PTT INR 1.08 (0.83-1.09) 02/11/19 05:30 Assessment/Plan 64 year old M w h/o HTN, CAD , cath again , and most recent , hld, her with cp, anguiano. brain mass, preop eval: -As per Dr. Dumont prior note from 02/10: -cerebellar lesion on CT head here, anticipate he may need surgery -Revised CV Risk Index = 1 -no s/sx of active ischemia or CHF -no preop cv testing indicated. pt is at acceptable CV risk from surgery. -remote stent--ok to hold aspirin and plavix preop -02/11: Agree with holding DAPT in setting of upcoming neurosurgery scheduled for Tuesday this week. Last DAPT dose was Tuesday02/09/2019
[2019-02-11] MEDS: HEPARIN NA (PORCINE) 5,000 UNITS/ML 1ML VIAL SQ SCH ×2 (14:00→21:21)
--- NOTE | 2019-02-11 14:16 | PN ---
Progress Note (short form) - Note Progress Note: SUBJECTIVE: Denies headache, visual disturbance. No fever/chills/neck stiffness/ photophobia/focal weakness or tingling. Reports lightheadedness on standing/ walking, with veering to left side. No LOC/falls/HI. OBJECTIVE: Afebrile, Hemodynamically Stable. Last Vital Signs Temp Pulse Resp BP Pulse Ox 98 F 69 17 148/82 100 02/11/19 06:00 02/11/19 11:55 02/11/19 11:55 02/11/19 11:55 02/11/19 09:00 HEENT - Atraumatic, Normocephalic. Heart - S1, S2, RRR Lungs - clear to auscultation Abdomen - Soft, non-tender. Bowel Sounds normal. Extremities - No edema, no calf tenderness Neuro - AAO x 3. Tone/Power/Sensation Normal all 4 limbs. Laboratory Results - last 24 hr 02/10/19 02/10/19 02/10/19 15:39 17:45 21:42 WBC RBC Hgb Hct MCV MCH MCHC RDW Plt Count MPV Absolute Neuts (auto) Neutrophils % Lymphocytes % Monocytes % Eosinophils % Basophils % Nucleated RBC % PT with INR INR PTT (Actin FS) Sodium Potassium Chloride Carbon Dioxide Anion Gap BUN Creatinine Creat Clearance w eGFR POC Glucometer 161 191 225 Random Glucose Hemoglobin A1c % Calcium Phosphorus Magnesium Total Bilirubin AST ALT Alkaline Phosphatase Total Protein Albumin 02/11/19 02/11/19 02/11/19 05:30 05:30 05:30 WBC 17.4 H RBC 4.35 Hgb 12.9 Hct 39.3 MCV 90.4 MCH 29.8 MCHC 32.9 RDW 14.1 Plt Count 223 MPV 7.9 Absolute Neuts (auto) 15.1 H Neutrophils % 86.6 H Lymphocytes % 11.3 D Monocytes % 1.9 L Eosinophils % 0.0 D Basophils % 0.2 Nucleated RBC % 0 PT with INR 12.70 INR 1.08 PTT (Actin FS) 29.5 Sodium 140 Potassium 4.5 Chloride 107 Carbon Dioxide 27 Anion Gap 6 L BUN 17 Creatinine 1.2 Creat Clearance w eGFR 60.03 POC Glucometer Random Glucose 173 H Hemoglobin A1c % Calcium 8.9 Phosphorus 3.5 Magnesium 1.7 L Total Bilirubin 0.7 AST 11 L ALT 12 L Alkaline Phosphatase 50 Total Protein 6.4 Albumin 3.5 02/11/19 02/11/19 02/11/19 05:30 06:01 11:50 WBC RBC Hgb Hct MCV MCH MCHC RDW Plt Count MPV Absolute Neuts (auto) Neutrophils % Lymphocytes % Monocytes % Eosinophils % Basophils % Nucleated RBC % PT with INR INR PTT (Actin FS) Sodium Potassium Chloride Carbon Dioxide Anion Gap BUN Creatinine Creat Clearance w eGFR POC Glucometer 169 195 Random Glucose Hemoglobin A1c % 7.2 H Calcium Phosphorus Magnesium Total Bilirubin AST ALT Alkaline Phosphatase Total Protein Albumin Current Medications Generic Name Dose Route Start Last Admin Trade Name Freq PRN Reason Stop Dose Admin Atorvastatin Calcium 20 mg 02/10/19 22:00 02/10/19 21:25 Lipitor - PO 20 mg HS [facility] Administration Chlorhexidine Gluconate 1 applic 02/10/19 22:00 02/10/19 21:25 Hibiclens For Decolonization - TP 1 applic HS [facility] Administration Dexamethasone Sodium Phosphate 4 mg 02/10/19 16:00 02/11/19 09:41 Decadron Injection - IVPUSH 4 mg Q6H-IV [facility] Administration Heparin Sodium (Porcine) 5,000 unit 02/10/19 22:00 02/10/19 21:25 Heparin - SQ 5,000 unit TID [facility] Administration Insulin Aspart 1 vial 02/10/19 22:00 02/11/19 12:00 Novolog Vial Sliding Scale - SQ 2 units ACHS [facility] Administration Protocol Metoprolol Tartrate 25 mg 02/10/19 22:00 02/11/19 09:40 Lopressor - PO 25 mg BID [facility] Administration Mupirocin 1 applic 02/10/19 22:00 02/11/19 10:00 Bactroban Ointment (For Decolonization) - NS 02/15/19 21:59 1 applic BID [facility] Administration Nifedipine 30 mg 02/11/19 10:00 02/11/19 09:35 Procardia Xl - PO 30 mg DAILY [facility] Administration Ondansetron HCl 4 mg 02/10/19 11:35 02/10/19 20:17 Zofran Injection IVPUSH 4 mg Q6H PRN Administration NAUSEA Pantoprazole Sodium 40 mg 02/10/19 14:30 02/11/19 09:41 Protonix Iv IVPUSH 40 mg DAILY [facility] Administration ASSESSMENT AND PLAN: 68 year old male with HTN, HLD, DM 2, CAD s/p STEMI 2006/Multiple Stents (last 2013), GERD, known Cerebellar Mass, previously on steroids, follows at [place], now presents with R sided occipital pressure, abnormal gait, leaning to L side, lightheadedness/dizziness, with nausea and 1 episode of vomiting earlier today. 1. R Cerebellar Mass with symptoms including abnormal/unsteady gait, lightheadedness, nausea, vomiting - now resolved Vitals negative for orthostatic changes. No LOC/syncope, seizure, lateralizing signs, alteration of consciousness CT Head - 4 x 3.4cm R Cerebellar Mass lesion suggestive of neoplastic disease with moderate teri-lesional edema MRI Brain - 3 x2.7cmx2.7cm mass R cerebral hemisphere with mass effect/edema. Awaiting CT C/A/P report - to screen for possible primary. Started on IV Decadron Eval by Neurosurgery - for surgical intervention (R suboccipital craniectomy and resection of the cerebellar mass) 02/14/19 (5 days after stopping Aspirin/ Plavix) Afebrile, Hemodynamically Stable, Neurologically intact. Leukocytosis sec to Steroids. Regular hourly neurochecks. 2. CAD s/p STEMI 2006/Multiple Stents (last 2013) Contiue BB, Statin. As per Cardio, can hold Aspirin/Plavix prior to Surgery. 3. HTN - Normally on Metoprolol, Nifedipine 4. HLD - Normally on Simvastatin 5. GERD - PPI 6. DM 2 - Covered with Novolog sliding scale. 7. Hypomagnesemia - repleted. DVT Px - placed on Heparin SQ Visit type - Emergency Visit Emergency Visit: Yes ED Registration Date: 02/10/19 Care time: The patient presented to the Emergency Department on the above date and was hospitalized for further evaluation of their emergent condition. - New Patient This patient is new to me today: No - Critical Care Critical Care patient: No - Discharge Referral Referred to [facility] Med P.C.: No
[2019-02-11] MEDS ORDERED: POLYETHYLENE GLYCOL 3350 119 GM BTL PO ONE (16:16)
[2019-02-11] MEDS ORDERED: ACETAMINOPHEN 325 MG TABLET (FP) ONE (16:50)
[2019-02-11] MEDS: CHLORHEXIDINE GLUCONATE 4% CLEANSER FOR DECOLONIZATION TP SCH (21:21)
[2019-02-11] MEDS: POLYETHYLENE GLYCOL 3350 119 GM BTL PO SCH (21:21)
[2019-02-11] MEDS: SENNOSIDES/DOCUSATE COMBO (SENNA PLUS) TABLET (UD) PO SCH ×2 (21:21→22:15)
[2019-02-11] MEDS: ATORVASTATIN CA 20 MG TABLET (FP) PO SCH (21:21)
[2019-02-12] MEDS: DEXAMETHASONE SOD PHOSPHATE 4 MG/1 ML VIAL IVPUSH SCH ×4 (04:00→21:41)
[2019-02-12] MEDS: HEPARIN NA (PORCINE) 5,000 UNITS/ML 1ML VIAL SQ SCH ×4 (05:03→21:41)
[2019-02-12 05:49] LABS: HEMATOCRIT 40.7 % (35.4-49); HEMOGLOBIN 13.5 GM/dL (11.7-16.9); MCHC 33.1 g/dl (32.0-35.9); MEAN CELL VOLUME 90.6 fl (80-96); MEAN PLT VOLUME 8.3 fl (7.5-11.1); PLATELET COUNT 235 K/MM3 (134-434); RBC 4.49 M/mm3 (4.00-5.60); WHITE BLOOD COUNT 22.3 K/mm3 (4.0-10.0)
[2019-02-12] MEDS: INSULIN SLIDING SCALE (NOVOLOG) 1 VIAL SQ SCH ×4 (06:09→22:46)
[2019-02-12 06:15] LABS: ANION GAP 7 MMOL/L (8-16); BLOOD UREA NITROGEN 17 mg/dL (7-18); CALCIUM 9.1 mg/dL (8.5-10.1); CHLORIDE 106 mmol/L (98-107); CO2 28 mmol/L (21-32); CREATININE 1.1 mg/dL (0.55-1.3); GLUCOSE,RANDOM 174 mg/dL (74-106); MAGNESIUM 2.2 mg/dL (1.8-2.4); SODIUM 142 mmol/L (136-145)
--- NOTE | 2019-02-12 08:38 | PN ---
Physical Exam: SUBJECTIVE: Patient seen and examined at bedside this morning. He endorses improvement of his dizziniess, and lightheadedness. Patient denies new acute complaints. He denies subjective fevers, chills, shortness of breath, shortness of breath, chest pain, palpitations, abdominal pain, nausea, vomiting. OBJECTIVE: Vital Signs Period Temp Pulse Resp BP Sys/Donahue Pulse Ox Last 24 Hr 97.8 F-98.4 F 55-96 15-30 122-148/66-93 98-100 GENERAL: The patient is awake, alert, and fully oriented, in no acute distress. HEAD: Normocephalic, atraumatic. EYES: PERRL, extraocular movements intact, horizontal nystagmus upon leftward gaze. Sclera anicteric, conjunctiva clear. ENT: Oropharynx clear, without erythema or exudates. Moist mucous membranes. NECK: Trachea midline, full range of motion. Supple without lymphadenopathy. LUNGS: Breath sounds equal, clear to auscultation bilaterally, no wheezes, no crackles. No accessory muscle use. HEART: Regular rate and rhythm, S1, S2 without murmur, rub or gallop. ABDOMEN: Soft, nondistended, nontender to light and deep palpation x4 quadrants , no rebound tenderness, no guarding. Normoactive bowel sounds x4 quadrants. no hepatosplenomegaly, no masses. EXTREMITIES: 2+ radial, dorsalis pedis pulses bilaterally. Warm, well-perfused. No lower extremity edema bilaterally. NEUROLOGICAL: Cranial nerves II through XII grossly intact. Normal speech. Strength 5/5 bilateral upper and lower extremities. PSYCH: Normal mood, normal affect upon my encounter. SKIN: Warm, dry. Seborrheic ketatosis noted upon patient's back. Laboratory Results - last 24 hr 02/11/19 02/11/19 02/11/19 11:50 18:05 21:20 WBC RBC Hgb Hct MCV MCH MCHC RDW Plt Count MPV Sodium Potassium Chloride Carbon Dioxide Anion Gap BUN Creatinine Creat Clearance w eGFR POC Glucometer 195 172 208 Random Glucose Calcium Magnesium 02/12/19 02/12/19 02/12/19 05:30 05:30 05:34 WBC 22.3 H RBC 4.49 Hgb 13.5 Hct 40.7 MCV 90.6 MCH 30.0 MCHC 33.1 RDW 14.0 Plt Count 235 MPV 8.3 Sodium 142 Potassium 4.0 Chloride 106 Carbon Dioxide 28 Anion Gap 7 L BUN 17 Creatinine 1.1 Creat Clearance w eGFR 66.37 POC Glucometer 161 Random Glucose 174 H Calcium 9.1 Magnesium 2.2 Active Medications Generic Name Dose Route Start Last Admin Trade Name Freq PRN Reason Stop Dose Admin Acetaminophen 1,000 mg 02/11/19 16:24 Ofirmev Injection - IVPB Q6H PRN PAIN Atorvastatin Calcium 20 mg 02/10/19 22:00 02/11/19 21:21 Lipitor - PO 20 mg HS [facility] Administration Chlorhexidine Gluconate 1 applic 02/10/19 22:00 02/11/19 21:21 Hibiclens For Decolonization - TP 1 applic HS [facility] Administration Dexamethasone Sodium Phosphate 4 mg 02/10/19 16:00 02/12/19 04:00 Decadron Injection - IVPUSH 4 mg Q6H-IV [facility] Administration Heparin Sodium (Porcine) 5,000 unit 02/10/19 22:00 02/12/19 05:03 Heparin - SQ 5,000 unit TID [facility] Administration Insulin Aspart 1 vial 02/10/19 22:00 02/12/19 06:09 Novolog Vial Sliding Scale - SQ 2 units ACHS [facility] Administration Protocol Metoprolol Tartrate 25 mg 02/10/19 22:00 02/11/19 21:20 Lopressor - PO 25 mg BID [facility] Administration Mupirocin 1 applic 02/10/19 22:00 02/11/19 21:21 Bactroban Ointment (For Decolonization) - NS 02/15/19 21:59 1 applic BID [facility] Administration Nifedipine 30 mg 02/11/19 10:00 02/11/19 09:35 Procardia Xl - PO 30 mg DAILY [facility] Administration Ondansetron HCl 4 mg 02/10/19 11:35 02/10/19 20:17 Zofran Injection IVPUSH 4 mg Q6H PRN Administration NAUSEA Pantoprazole Sodium 40 mg 02/10/19 14:30 02/11/19 09:41 Protonix Iv IVPUSH 40 mg DAILY [facility] Administration Polyethylene Glycol 17 gm 02/11/19 22:00 02/11/19 21:21 Miralax (For Daily Use) - PO 17 grams BID [facility] Administration Senna/Docusate Sodium 1 tablet 02/11/19 18:47 02/11/19 22:15 Pericolace - PO Not Given HS PENDING SALE TO [facility] ASSESSMENT/PLAN: Patient is a 68 year old male with history of previously diagnosed cerebellar mass (diagnosed six months ago), hypertension, hyperlipidemia, diabetes mellitus , coronary artery disease (s/p three stents, on plavix), gastro-esophageal reflux disease, presented with left sided headache, and unsteady gait. Cerebellar mass -Likely source of head pressure, and unsteady gait with lightheadedness. -CT head shows 4cm x 3.4cm right cerebellar mass lesion, concerning for neoplasm. -CT chest, abdomen, pelvis shows no definite primary neoplastic lesion within chest, abdomen, pelvis. Prostatic enlargement, thyromegaly, atherosclerotic calcification, aneurysmal dilation ascending aorta noted. -MRI brain shows solitary 3cm X 2.7cm X 2.7cm enhancing mass lesion inferior half right cerebellar hemisphere. -Neurosurgery recommendations (Dr. Leon) appreciated. -Dexamethasone 4mg IV Q6 hours -Neurochecks Q1 hour -Patient scheduled for right suboccipital craniectomy and resection of the cerebellar mass 02/14/2019 Coronary artery disease -Patient is s/p three stents -Cardiology consult (Dr. Yanez) appreciated. Holding aspirin and plavix pre- operatively. Diabetes mellitus -Insulin sliding scale ACHS -Fingerstick blood glucose monitoring ACHS Hypertension -Metoprolol 25mg PO BID -Nifedipine ER 30mg PO daily FEN -No IV fluids indicated. -Follow CMP -Diabetic diet Prophylaxis -Heparin 5000u subq TID Disposition -Continue care in ICU Visit type - Emergency Visit Emergency Visit: Yes ED Registration Date: 02/10/19 Care time: The patient presented to the Emergency Department on the above date and was hospitalized for further evaluation of their emergent condition. - New Patient This patient is new to me today: Yes Date on this admission: 02/12/19 - Critical Care Critical Care patient: Yes Total Critical Care Time (in minutes): 35 Critical Care Statement: The care of this patient involved high complexity decision making to prevent further life threatening deterioration of the patient 's condition and/or to evaluate & treat vital organ system(s) failure or risk of failure. - Discharge Referral Referred to [facility] Med P.C.: No
--- NOTE | 2019-02-12 08:41 | PN ---
Physical Exam: SUBJECTIVE: Patient seen this morning and without any complaints. Patient had no acute events overnight. OBJECTIVE: Vital Signs Temperature 98.4 F 02/12/19 06:00 Pulse Rate 67 02/12/19 06:00 Respiratory Rate 18 02/12/19 06:00 Blood Pressure 133/68 02/12/19 06:00 O2 Sat by Pulse Oximetry (%) 98 02/12/19 08:18 GENERAL: Awake, alert, and fully oriented, in no acute distress. HEAD: Normal with no signs of trauma. EYES: Pupils equal, round and reactive to light, extraocular movements intact, peripheral vision intact, left horizontal nystagmus LUNGS: Breath sounds equal, clear to auscultation bilaterally. HEART: Regular rate and rhythm, normal S1 and S2 without murmur, rub or gallop. ABDOMEN: Soft, nontender, not distended, normoactive bowel sounds, no guarding, no rebound, no masses. MUSCULOSKELETAL: ROM intact, 5/5 strength diffusely LOWER EXTREMITIES: 2+ pulses, warm, well-perfused. No calf tenderness. No peripheral edema. NEUROLOGICAL: Cranial nerves II-XII intact. Normal speech. sensation intact, wide gait, unsteady on his feet, left leaning PSYCHIATRIC: Cooperative. Good eye contact. Appropriate mood and affect. SKIN: Warm, dry, normal turgor, no rashes or lesions noted. CBCD WBC 22.3 K/mm3 (4.0-10.0) H 02/12/19 05:30 RBC 4.49 M/mm3 (4.00-5.60) 02/12/19 05:30 Hgb 13.5 GM/dL (11.7-16.9) 02/12/19 05:30 Hct 40.7 % (35.4-49) 02/12/19 05:30 MCV 90.6 fl (80-96) 02/12/19 05:30 MCHC 33.1 g/dl (32.0-35.9) 02/12/19 05:30 RDW 14.0 % (11.9-15.9) 02/12/19 05:30 Plt Count 235 K/MM3 (134-434) 02/12/19 05:30 MPV 8.3 fl (7.5-11.1) 02/12/19 05:30 CMP Sodium 142 mmol/L (136-145) 02/12/19 05:30 Potassium 4.0 mmol/L (3.5-5.1) 02/12/19 05:30 Chloride 106 mmol/L (98-107) 02/12/19 05:30 Carbon Dioxide 28 mmol/L (21-32) 02/12/19 05:30 Anion Gap 7 MMOL/L (8-16) L 02/12/19 05:30 BUN 17 mg/dL (7-18) 02/12/19 05:30 Creatinine 1.1 mg/dL (0.55-1.3) 02/12/19 05:30 Creat Clearance w eGFR 66.37 (>60) 02/12/19 05:30 Calcium 9.1 mg/dL (8.5-10.1) 02/12/19 05:30 Total Bilirubin 0.7 mg/dL (0.2-1) 02/11/19 05:30 AST 11 U/L (15-37) L 02/11/19 05:30 ALT 12 U/L (13-61) L 02/11/19 05:30 Alkaline Phosphatase 50 U/L (45-117) 02/11/19 05:30 Total Protein 6.4 g/dl (6.4-8.2) 02/11/19 05:30 Albumin 3.5 g/dl (3.4-5.0) 02/11/19 05:30 Active Medications Acetaminophen (Ofirmev Injection -) 1,000 mg IVPB Q6H PRN PRN Reason: PAIN Atorvastatin Calcium (Lipitor -) 20 mg PO HS [facility] Last Admin: 02/11/19 21:21 Dose: 20 mg Chlorhexidine Gluconate (Hibiclens For Decolonization -) 1 applic TP HS [facility] Last Admin: 02/11/19 21:21 Dose: 1 applic Dexamethasone Sodium Phosphate (Decadron Injection -) 4 mg IVPUSH Q6H-IV [facility] Last Admin: 02/12/19 04:00 Dose: 4 mg Heparin Sodium (Porcine) (Heparin -) 5,000 unit SQ TID [facility] Last Admin: 02/12/19 05:03 Dose: 5,000 unit Insulin Aspart (Novolog Vial Sliding Scale -) 1 vial SQ ACHS [facility]; Protocol Last Admin: 02/12/19 06:09 Dose: 2 units Metoprolol Tartrate (Lopressor -) 25 mg PO BID [facility] Last Admin: 02/11/19 21:20 Dose: 25 mg Mupirocin (Bactroban Ointment (For Decolonization) -) 1 applic NS BID [facility] Stop: 02/15/19 21:59 Last Admin: 02/11/19 21:21 Dose: 1 applic Nifedipine (Procardia Xl -) 30 mg PO DAILY [facility] Last Admin: 02/11/19 09:35 Dose: 30 mg Ondansetron HCl (Zofran Injection) 4 mg IVPUSH Q6H PRN PRN Reason: NAUSEA Last Admin: 02/10/19 20:17 Dose: 4 mg Pantoprazole Sodium (Protonix Iv) 40 mg IVPUSH DAILY [facility] Last Admin: 02/11/19 09:41 Dose: 40 mg Polyethylene Glycol (Miralax (For Daily Use) -) 17 gm PO BID [facility] Last Admin: 02/11/19 21:21 Dose: 17 grams Senna/Docusate Sodium (Pericolace -) 1 tablet PO HS [facility] Last Admin: 02/11/19 22:15 Dose: Not Given ASSESSMENT/PLAN: Patient is a 68 y/o male with a history of HTN, HLD, DM, CAD s/p 3 stents, and GERD, who is here for R Cerebellar mass. Neuro - R cerebellar mass - head CT: 4 x 3.4 cm heterogenous mass within the right posterior cerebral hemisphere medially with moderate associated edema, contralateral displacement of the fourth ventricle - followed by Dr. Modi, surgery for tuesday of decadron given, 4 q6h - neuro checks q 1 hour - MRI : solitary 3 x 2.7 x 2.7 enhancing mass within R cerebral hemisphere with associated mass effect and edema, likely metastatic Cardio - 3 stent hx, per Dr. Dumont can hold his plavix and aspirin - continue nifedipine 30 m po daily - continue simvastatin 40 mg po hs - continue metoprolol 25 mg BID - CV risk index: 1 Pulm - stable - keep O2 > 95% GI - hx GERD - continue omeprazole - Zofran prn for nausea - constipated on miralax, ducosate, senna, milk of magnesia, can consider enema if needed Renal - stable - Cr 1.2-1.4 baseline - PSA pending - mild enlargment of prostate on CT - focal sclerosis of left inferior pubic ramus Endo - hx of DM - SS 10 units Heme - DVT ppx 5,000 TID - f/u heme consult for any other management of cerebral mass FEN - diabetic diet Dispo: monitor with neuro checks until surgery, planned for tuesday Visit type - Emergency Visit Emergency Visit: No - New Patient This patient is new to me today: No - Critical Care Critical Care patient: Yes Total Critical Care Time (in minutes): 35 Critical Care Statement: The care of this patient involved high complexity decision making to prevent further life threatening deterioration of the patient 's condition and/or to evaluate & treat vital organ system(s) failure or risk of failure.
[2019-02-12] MEDS ORDERED: MAGNESIUM HYDROX 2400MG/30ML ORAL SUSPENSION 30 ML CUP PO ONE (09:00)
[2019-02-12] MEDS ORDERED: PT OWN MED DRAWER 7, Y5N ONE ×2 (09:33→21:34)
[2019-02-12] MEDS: METOPROLOL TARTRATE 50 MG TABLET (FP) PO SCH ×2 (09:39→21:41)
[2019-02-12] MEDS: NIFEdipine E.R. 30 MG TABLET (FP) PO SCH (09:45)
[2019-02-12] MEDS: POLYETHYLENE GLYCOL 3350 119 GM BTL PO SCH ×2 (09:45→21:42)
[2019-02-12] MEDS: PANTOPRAZOLE SODIUM 40 MG VIAL IVPUSH SCH ×2 (09:50→22:46)
[2019-02-12] MEDS: MUPIROCIN 2% TOPICAL OINTMENT FOR DECOLONIZATION NS SCH ×2 (10:00→21:42)
--- NOTE | 2019-02-12 10:04 | PN ---
Progress Note, Physician Chief Complaint: brain mass, CARRILLO History of Present Illness: denies cp, sob, palpit, presyncope - Current Medication List Current Medications: Active Medications Acetaminophen (Ofirmev Injection -) 1,000 mg IVPB Q6H PRN PRN Reason: PAIN Atorvastatin Calcium (Lipitor -) 20 mg PO [facility] Last Admin: 02/11/19 21:21 Dose: 20 mg Chlorhexidine Gluconate (Hibiclens For Decolonization -) 1 applic TP HS [facility] Last Admin: 02/11/19 21:21 Dose: 1 applic Dexamethasone Sodium Phosphate (Decadron Injection -) 4 mg IVPUSH Q6H-IV [facility] Last Admin: 02/12/19 09:45 Dose: 4 mg Heparin Sodium (Porcine) (Heparin -) 5,000 unit SQ TID [facility] Last Admin: 02/12/19 05:03 Dose: 5,000 unit Insulin Aspart (Novolog Vial Sliding Scale -) 1 vial SQ [facility]; Protocol Last Admin: 02/12/19 06:09 Dose: 2 units Metoprolol Tartrate (Lopressor -) 25 mg PO BID [facility] Last Admin: 02/12/19 09:39 Dose: 25 mg Mupirocin (Bactroban Ointment (For Decolonization) -) 1 applic NS BID [facility] Stop: 02/15/19 21:59 Last Admin: 02/11/19 21:21 Dose: 1 applic Nifedipine (Procardia Xl -) 30 mg PO DAILY [facility] Last Admin: 02/12/19 09:45 Dose: 30 mg Ondansetron HCl (Zofran Injection) 4 mg IVPUSH Q6H PRN PRN Reason: NAUSEA Last Admin: 02/10/19 20:17 Dose: 4 mg Pantoprazole Sodium (Protonix Iv) 40 mg IVPUSH DAILY [facility] Last Admin: 02/12/19 09:50 Dose: 40 mg Polyethylene Glycol (Miralax (For Daily Use) -) 17 gm PO BID [facility] Last Admin: 02/12/19 09:45 Dose: 17 grams Senna/Docusate Sodium (Pericolace -) 1 tablet PO [facility] Last Admin: 02/11/19 22:15 Dose: Not Given - Objective Vital Signs: Vital Signs Temperature 98.4 F 02/12/19 06:00 Pulse Rate 67 02/12/19 06:00 Respiratory Rate 18 02/12/19 06:00 Blood Pressure 133/68 02/12/19 06:00 O2 Sat by Pulse Oximetry (%) 98 02/12/19 08:18 Constitutional: Yes: Well Nourished, No Distress, Calm Cardiovascular: Yes: Regular Rate and Rhythm, S1, S2. No: Gallop, Murmur Respiratory: Yes: Regular, CTA Bilaterally. No: Accessory Muscle Use Extremities: No: Cold Edema: No Neurological: Yes: Alert, Oriented Psychiatric: No: Agitated Labs: CBC, BMP 02/12/19 05:30 02/12/19 05:30 INR, PTT INR 1.08 (0.83-1.09) 02/11/19 05:30 Assessment/Plan Echo 01/12: low nl lvef, nl rv, no sig valve path, no sig change from 02/2012 report MPI 2017: inferolateral infarct with teri-infarct ischemia. inferolat HK with EF 43%. no TID described ECG: NSR, no ST-T abn Assessment/Plan 64 year old M w h/o HTN, CAD , cath again , and most recent , hld, her with cp, anguiano. brain mass, preop eval: -cerebellar lesion on CT head here, anticipate he may need surgery -Revised CV Risk Index = 1 -no s/sx of active ischemia or CHF -no preop cv testing indicated. pt is at acceptable CV risk from surgery. -remote stent--hold aspirin and plavix preop CAD: -s/p stemi 03/2007 with bms to OM -s/p PCIs 2011 for unstable angina (gwen to plad/mlad) -last cath 2013 with gwen to dlcx (prior stents patent, no sig residual dz) -chronic atypical CP--MPI 2016 no ischemia (old inferolateral scar) -remains on aspirin and plavix >3 yrs from last PCI--holding preop neurosurgery -cont home statin, BB HTN: -bp controlled -cont home meds DM: -per hospitalist CKD: -creat 1.2-1.4 baseline range, stable here
--- NOTE | 2019-02-12 10:38 | EKG ---
Test Reason : Blood Pressure : / mmHG Vent. Rate : 080 BPM Atrial Rate : 080 BPM P-R Int : 156 ms QRS Dur : 092 ms QT Int : 404 ms P-R-T Axes : 052 -29 037 degrees QTc Int : 465 ms NORMAL SINUS RHYTHM NORMAL ECG WHEN COMPARED WITH ECG OF 26-AUG-2018 21:11, NO SIGNIFICANT CHANGE WAS FOUND Confirmed by LESLIE LEE MD ([id number]) on 02/12/2019 10:38:03 AM Also confirmed by ARLEEN HERNANDEZ MD ([id number]) on 02/12/2019 10:39:50 AM Referred By: Confirmed By:ARLEEN HERNANDEZ MD
--- NOTE | 2019-02-12 11:42 | PN ---
Teaching Attending Note Name of Resident: Ingrid Arevalo ATTENDING PHYSICIAN STATEMENT I saw and evaluated the patient. I reviewed the resident's note and discussed the case with the resident. I agree with the resident's findings and plan as documented. SUBJECTIVE: Pt seen and examined in the ICU. States ataxia improving. Denies headache or nausea. OBJECTIVE: Vital Signs Period Temp Pulse Resp BP Sys/Donahue Pulse Ox Last 24 Hr 97.8 F-98.4 F 55-96 15-30 122-148/66-93 98-99 Intake & Output 02/09/19 02/10/19 02/11/19 02/12/19 23:59 23:59 23:59 23:59 Intake Total 750 1090 Output Total 550 970 750 Balance 200 120 -750 Weight 97.976 kg 97.522 kg 99.5 kg Gen: NAD at rest Heart: RRR Lung: decreased breath sounds at the bases Abd: soft, nontender Ext: no edema CBC, BMP 02/12/19 05:30 02/12/19 05:30 Active Medications Acetaminophen (Ofirmev Injection -) 1,000 mg IVPB Q6H PRN PRN Reason: PAIN Atorvastatin Calcium (Lipitor -) 20 mg PO HS [facility] Last Admin: 02/11/19 21:21 Dose: 20 mg Chlorhexidine Gluconate (Hibiclens For Decolonization -) 1 applic TP HS [facility] Last Admin: 02/11/19 21:21 Dose: 1 applic Dexamethasone Sodium Phosphate (Decadron Injection -) 4 mg IVPUSH Q6H-IV [facility] Last Admin: 02/12/19 09:45 Dose: 4 mg Heparin Sodium (Porcine) (Heparin -) 5,000 unit SQ TID [facility] Last Admin: 02/12/19 05:03 Dose: 5,000 unit Insulin Aspart (Novolog Vial Sliding Scale -) 1 vial SQ ACHS [facility]; Protocol Last Admin: 02/12/19 06:09 Dose: 2 units Metoprolol Tartrate (Lopressor -) 25 mg PO BID [facility] Last Admin: 02/12/19 09:39 Dose: 25 mg Mupirocin (Bactroban Ointment (For Decolonization) -) 1 applic NS BID [facility] Stop: 02/15/19 21:59 Last Admin: 02/11/19 21:21 Dose: 1 applic Nifedipine (Procardia Xl -) 30 mg PO DAILY [facility] Last Admin: 02/12/19 09:45 Dose: 30 mg Ondansetron HCl (Zofran Injection) 4 mg IVPUSH Q6H PRN PRN Reason: NAUSEA Last Admin: 02/10/19 20:17 Dose: 4 mg Pantoprazole Sodium (Protonix Iv) 40 mg IVPUSH DAILY [facility] Last Admin: 02/12/19 09:50 Dose: 40 mg Polyethylene Glycol (Miralax (For Daily Use) -) 17 gm PO BID [facility] Last Admin: 02/12/19 09:45 Dose: 17 grams Senna/Docusate Sodium (Pericolace -) 1 tablet PO HS [facility] Last Admin: 02/11/19 22:15 Dose: Not Given ASSESSMENT AND PLAN: Cerebellar Mass Ataxia CAD HTN DM Hyperlipidemia - holding ASA, plavix - continue decadron - neuro checks - antiemetics as needed - DVT prophylaxis - ICU monitoring for now
--- NOTE | 2019-02-12 14:33 | CONSULT ---
Consultation: REQUESTING PROVIDER: CONSULT REQUEST: We have been asked to medically evaluate this patient for heme/ onc. HISTORY OF PRESENT ILLNESS: 68 y/o M PMH of HTN, HLD, DM, CAD (s/p 3 stents on plavix), GERD, cerebellar mass (diagnosed 6 months ago) presents for L sided drifting when walking that started on Tuesday morning after waking up. This has never happened to him before and he denies falling, LOC, weakness, slurred speech, confusion. He drove himself to the ER. He had nausea and vomiting on the way to the ER. 1 episode of NBNB vomiting at that time. He still has drift to the L when he walks in the hospital. He had an MRI here and was found to have a 3 x 2.7 x 2.7 cm mass in R cerebellar hemisphere. He was initially treated with steroids 6 months ago for 1 month total and it was stopped due to making him diabetic. He also reports 12-15 pound unintentional weight loss over the past 1 year. REVIEW OF SYSTEMS: CONSTITUTIONAL: Absent: fever, chills HEENT: Absent: visual changes CARDIOVASCULAR: Absent: chest pain RESPIRATORY: Absent: cough, shortness of breath GASTROINTESTINAL: +nausea, vomiting Absent: abdominal pain GENITOURINARY: Absent: dysuria ENDOCRINE: +unexplained weight loss NEUROLOGIC: +L sided drift when walking PHYSICAL EXAMINATION Vital Signs - 24 hr 02/11/19 02/11/19 02/11/19 16:00 18:00 20:00 Temperature Pulse Rate 61 78 62 Respiratory 21 H 23 H 20 Rate Blood Pressure 126/66 135/78 125/68 O2 Sat by Pulse Oximetry (%) 02/11/19 02/11/19 02/12/19 21:00 22:00 00:00 Temperature 98.4 F Pulse Rate 63 59 L Respiratory 21 H 30 H 18 Rate Blood Pressure 131/69 134/78 O2 Sat by Pulse 99 Oximetry (%) 02/12/19 02/12/19 02/12/19 02:00 04:00 06:00 Temperature 97.8 F 98.4 F Pulse Rate 55 L 96 H 67 Respiratory 18 15 18 Rate Blood Pressure 135/68 122/93 133/68 O2 Sat by Pulse Oximetry (%) 02/12/19 08:18 Temperature Pulse Rate Respiratory Rate Blood Pressure O2 Sat by Pulse 98 Oximetry (%) GENERAL: Awake, alert, and fully oriented, in no acute distress. HEAD: Normal with no signs of trauma. EYES: Pupils equal, round and reactive to light, extraocular movements intact LUNGS: Breath sounds equal, clear to auscultation bilaterally. No wheezes, and no crackles. No accessory muscle use. HEART: Regular rate and rhythm, normal S1 and S2 ABDOMEN: Soft, nontender, not distended, normoactive bowel sounds LOWER EXTREMITIES: warm, well-perfused. No peripheral edema. NEUROLOGICAL: Cranial nerves II-XII intact. Normal speech. 5/5 UE and LE strength. No tremors. Negative finger to nose. PSYCHIATRIC: Cooperative. Good eye contact. Appropriate mood and affect. SKIN: Warm, dry. Testicular: No testicular lesions or masses noted. No testicular tenderness. Laboratory Results - last 24 hr 02/11/19 02/11/19 02/12/19 18:05 21:20 05:30 WBC 22.3 H RBC 4.49 Hgb 13.5 Hct 40.7 MCV 90.6 MCH 30.0 MCHC 33.1 RDW 14.0 Plt Count 235 MPV 8.3 Sodium Potassium Chloride Carbon Dioxide Anion Gap BUN Creatinine Creat Clearance w eGFR POC Glucometer 172 208 Random Glucose Calcium Magnesium 02/12/19 02/12/19 02/12/19 05:30 05:34 12:56 WBC RBC Hgb Hct MCV MCH MCHC RDW Plt Count MPV Sodium 142 Potassium 4.0 Chloride 106 Carbon Dioxide 28 Anion Gap 7 L BUN 17 Creatinine 1.1 Creat Clearance w eGFR 66.37 POC Glucometer 161 200 Random Glucose 174 H Calcium 9.1 Magnesium 2.2 Active Medications Generic Name Dose Route Start Last Admin Trade Name Freq PRN Reason Stop Dose Admin Acetaminophen 1,000 mg 02/11/19 16:24 Ofirmev Injection - IVPB Q6H PRN PAIN Atorvastatin Calcium 20 mg 02/10/19 22:00 02/11/19 21:21 Lipitor - PO 20 mg HS [facility] Administration Chlorhexidine Gluconate 1 applic 02/10/19 22:00 02/11/19 21:21 Hibiclens For Decolonization - TP 1 applic HS [facility] Administration Dexamethasone Sodium Phosphate 4 mg 02/10/19 16:00 02/12/19 09:45 Decadron Injection - IVPUSH 4 mg Q6H-IV [facility] Administration Heparin Sodium (Porcine) 5,000 unit 02/10/19 22:00 02/12/19 05:03 Heparin - SQ 5,000 unit TID [facility] Administration Insulin Aspart 1 vial 02/10/19 22:00 02/12/19 13:04 Novolog Vial Sliding Scale - SQ 2 units ACHS [facility] Administration Protocol Metoprolol Tartrate 25 mg 02/10/19 22:00 02/12/19 09:39 Lopressor - PO 25 mg BID [facility] Administration Mupirocin 1 applic 02/10/19 22:00 02/11/19 21:21 Bactroban Ointment (For Decolonization) - NS 02/15/19 21:59 1 applic BID [facility] Administration Nifedipine 30 mg 02/11/19 10:00 02/12/19 09:45 Procardia Xl - PO 30 mg DAILY [facility] Administration Ondansetron HCl 4 mg 02/10/19 11:35 02/10/19 20:17 Zofran Injection IVPUSH 4 mg Q6H PRN Administration NAUSEA Pantoprazole Sodium 40 mg 02/10/19 14:30 02/12/19 09:50 Protonix Iv IVPUSH 40 mg DAILY [facility] Administration Polyethylene Glycol 17 gm 02/11/19 22:00 02/12/19 09:45 Miralax (For Daily Use) - PO 17 grams BID [facility] Administration Senna/Docusate Sodium 1 tablet 02/11/19 18:47 02/11/19 22:15 Pericolace - PO Not Given HS [facility] ASSESSMENT/PLAN: 68 y/o M PMH of HTN, HLD, DM, CAD (s/p 3 stents on plavix), GERD, cerebellar mass (diagnosed 6 months ago) presents for L sided drifting when walking that started on Tuesday morning after waking up. Found to have cerebellar mass -Cerebellar mass -For neurosurgery on Tuesday. Last use of plavix was Tuesday morning. -f/u biopsy / path results -c/w decadron -neurochecks -CT results noted for no primary source. f/u PSA. Dispo: We will continue to follow the patient. Thank you for this consultative opportunity. Visit type - Emergency Visit Emergency Visit: Yes ED Registration Date: 02/10/19 Care time: The patient presented to the Emergency Department on the above date and was hospitalized for further evaluation of their emergent condition. - New Patient This patient is new to me today: Yes Date on this admission: 02/12/19 - Critical Care Critical Care patient: Yes Total Critical Care Time (in minutes): 45 Critical Care Statement: The care of this patient involved high complexity decision making to prevent further life threatening deterioration of the patient 's condition and/or to evaluate & treat vital organ system(s) failure or risk of failure.
--- NOTE | 2019-02-12 15:33 | PN ---
Teaching Attending Note Name of Resident: Quinten Guzmán ATTENDING PHYSICIAN STATEMENT I saw and evaluated the patient. I reviewed the resident's note and discussed the case with the resident. I agree with the resident's findings and plan as documented. SUBJECTIVE: Lightheadedness improving. Denies headache, visual disturbance. No fever/chills/neck stiffness/photophobia/focal weakness or tingling. No LOC/falls /HI. OBJECTIVE: Afebrile, Hemodynamically Stable. Last Vital Signs Temp Pulse Resp BP Pulse Ox 98.4 F 62 15 117/68 98 02/12/19 06:00 02/12/19 14:00 02/12/19 14:00 02/12/19 14:00 02/12/19 08:18 Heart - S1, S2, RRR Lungs - clear to auscultation Abdomen - Soft, non-tender. Bowel Sounds normal. Extremities - No edema, no calf tenderness Neuro - AAO x 3. Tone/Power/Sensation Normal all 4 limbs. Laboratory Results - last 24 hr 02/11/19 02/11/19 02/12/19 18:05 21:20 05:30 WBC 22.3 H RBC 4.49 Hgb 13.5 Hct 40.7 MCV 90.6 MCH 30.0 MCHC 33.1 RDW 14.0 Plt Count 235 MPV 8.3 Sodium Potassium Chloride Carbon Dioxide Anion Gap BUN Creatinine Creat Clearance w eGFR POC Glucometer 172 208 Random Glucose Calcium Magnesium 02/12/19 02/12/19 02/12/19 05:30 05:34 12:56 WBC RBC Hgb Hct MCV MCH MCHC RDW Plt Count MPV Sodium 142 Potassium 4.0 Chloride 106 Carbon Dioxide 28 Anion Gap 7 L BUN 17 Creatinine 1.1 Creat Clearance w eGFR 66.37 POC Glucometer 161 200 Random Glucose 174 H Calcium 9.1 Magnesium 2.2 Current Medications Generic Name Dose Route Start Last Admin Trade Name Freq PRN Reason Stop Dose Admin Acetaminophen 1,000 mg 02/11/19 16:24 Ofirmev Injection - IVPB Q6H PRN PAIN Atorvastatin Calcium 20 mg 02/10/19 22:00 02/11/19 21:21 Lipitor - PO 20 mg HS [facility] Administration Chlorhexidine Gluconate 1 applic 02/10/19 22:00 02/11/19 21:21 Hibiclens For Decolonization - TP 1 applic HS [facility] Administration Dexamethasone Sodium Phosphate 4 mg 02/10/19 16:00 02/12/19 09:45 Decadron Injection - IVPUSH 4 mg Q6H-IV [facility] Administration Heparin Sodium (Porcine) 5,000 unit 02/10/19 22:00 02/12/19 05:03 Heparin - SQ 5,000 unit TID [facility] Administration Insulin Aspart 1 vial 02/10/19 22:00 02/12/19 13:04 Novolog Vial Sliding Scale - SQ 2 units ACHS [facility] Administration Protocol Metoprolol Tartrate 25 mg 02/10/19 22:00 02/12/19 09:39 Lopressor - PO 25 mg BID [facility] Administration Mupirocin 1 applic 02/10/19 22:00 02/11/19 21:21 Bactroban Ointment (For Decolonization) - NS 02/15/19 21:59 1 applic BID [facility] Administration Nifedipine 30 mg 02/11/19 10:00 02/12/19 09:45 Procardia Xl - PO 30 mg DAILY [facility] Administration Ondansetron HCl 4 mg 02/10/19 11:35 02/10/19 20:17 Zofran Injection IVPUSH 4 mg Q6H PRN Administration NAUSEA Pantoprazole Sodium 40 mg 02/10/19 14:30 02/12/19 09:50 Protonix Iv IVPUSH 40 mg DAILY [facility] Administration Polyethylene Glycol 17 gm 02/11/19 22:00 02/12/19 09:45 Miralax (For Daily Use) - PO 17 grams BID [facility] Administration Senna/Docusate Sodium 1 tablet 02/11/19 18:47 02/11/19 22:15 Pericolace - PO Not Given HS [facility] ASSESSMENT AND PLAN: 68 year old male with HTN, HLD, DM 2, CAD s/p STEMI 2006/Multiple Stents (last 2013), GERD, known Cerebellar Mass, previously on steroids, follows at [place], now presents with R sided occipital pressure, abnormal gait, leaning to L side, lightheadedness/dizziness, with nausea and 1 episode of vomiting earlier today. 1. R Cerebellar Mass with symptoms including abnormal/unsteady gait, lightheadedness, nausea, vomiting - now resolved Vitals negative for orthostatic changes. No LOC/syncope, seizure, lateralizing signs, alteration of consciousness CT Head - 4 x 3.4cm R Cerebellar Mass lesion suggestive of neoplastic disease with moderate teri-lesional edema MRI Brain - 3 x2.7cmx2.7cm mass R cerebral hemisphere with mass effect/edema. CT C/A/P report - no other obvious primary, Thyromegaly L lobe. Started on IV Decadron Eval by Neurosurgery - for surgical intervention (R suboccipital craniectomy and resection of the cerebellar mass) 02/14/19 (5 days after stopping Aspirin/ Plavix) Afebrile, Hemodynamically Stable, Neurologically intact. Leukocytosis sec to Steroids. Regular hourly neurochecks. Oncology consulted. 2. CAD s/p STEMI 2006/Multiple Stents (last 2013) Contiue BB, Statin. As per Cardio, can hold Aspirin/Plavix prior to Surgery. 3. Ascending Aorta Aneurysm CT Chest - fusiform aneurysmal dilatation of ascending aorta 4cm - for out- patient Cardiothoracic Surgery follow up. 4. HTN - Normally on Metoprolol, Nifedipine 5. HLD - Normally on Simvastatin 6. GERD - PPI 7. DM 2 - Covered with Novolog sliding scale. 8. Hypomagnesemia - repleted. DVT Px - placed on Heparin SQ
--- NOTE | 2019-02-12 17:37 | PN ---
Teaching Attending Note Name of Resident: Luis Pearce ATTENDING PHYSICIAN STATEMENT I saw and evaluated the patient. I reviewed the resident's note and discussed the case with the resident. I agree with the resident's findings and plan as documented. ASSESSMENT AND PLAN: 68 y/o M PMH of HTN, HLD, DM, CAD (s/p 3 stents on plavix), GERD, cerebellar mass (diagnosed 6 months ago) presents for L sided drifting/ dizziness when walking that started on Tuesday morning after waking up. Found to have 3 cm right cerebellar mass. CT c/a/p showed no evident primary. for resection of cerebellar mass on decadron Lasst dose of ASA/plavix on 4/12 am Should be off asa/plavix for 5-7 days prior to neurosurgery. discussed with primary team
[2019-02-12] MEDS: SENNOSIDES/DOCUSATE COMBO (SENNA PLUS) TABLET (UD) PO SCH (21:41)
[2019-02-12] MEDS: ATORVASTATIN CA 20 MG TABLET (FP) PO SCH (21:41)
[2019-02-12] MEDS: CHLORHEXIDINE GLUCONATE 4% CLEANSER FOR DECOLONIZATION TP SCH (21:42)
[2019-02-12] MEDS: BRIMONIDINE TARTRATE 0.2% OPHTHALMIC 5 ML BOTTLE OU SCH (21:42)
[2019-02-12] MEDS: LATANOPROST 0.005% OPHTH SOLN 2.5ML BOTTLE OD SCH (21:42)
[2019-02-12] MEDS: DORZOLAMIDE 2% HCL OPHTHALMIC SOLUTION 10 ML BOTTLE OU SCH (21:43)
[2019-02-12] MEDS: TIMOLOL 0.5% OPHTHALMIC SOL 5 ML BOTTLE OU SCH (21:43)
[2019-02-12] MEDS ORDERED: PATIENT'S OWN MEDICATION (NON-FORMULARY) (Dorzolamide Hcl/Timolol Maleat [Cosopt Eye Drops OU SCH (22:00)
[2019-02-12] MEDS ORDERED: PATIENT'S OWN MEDICATION (NON-FORMULARY) (Brimonidine Tartrate/Timolol [Combigan 0.2%-0.5% OU SCH (22:00)
[2019-02-13] MEDS: DEXAMETHASONE SOD PHOSPHATE 4 MG/1 ML VIAL IVPUSH SCH ×4 (04:30→21:14)
[2019-02-13] MEDS: HEPARIN NA (PORCINE) 5,000 UNITS/ML 1ML VIAL SQ SCH (06:09)
[2019-02-13] MEDS: INSULIN SLIDING SCALE (NOVOLOG) 1 VIAL SQ SCH ×4 (06:40→21:10)
[2019-02-13 06:44] LABS: HEMATOCRIT 36.4 % (35.4-49); HEMOGLOBIN 12.3 GM/dL (11.7-16.9); MCH 30.4 pg (25.7-33.7); MCHC 33.9 g/dl (32.0-35.9); MEAN CELL VOLUME 89.7 fl (80-96); MEAN PLT VOLUME 8.6 fl (7.5-11.1); PLATELET COUNT 206 K/MM3 (134-434); RBC 4.06 M/mm3 (4.00-5.60); RDW 14.1 % (11.9-15.9); WHITE BLOOD COUNT 19.1 K/mm3 (4.0-10.0)
[2019-02-13 07:08] LABS: ALBUMIN 3.4 g/dl (3.4-5.0); ALK PHOS 51 U/L (45-117); ANION GAP 5 MMOL/L (8-16); BILIRUBIN,TOTAL 0.4 mg/dL (0.2-1); BLOOD UREA NITROGEN 17 mg/dL (7-18); CALCIUM 8.6 mg/dL (8.5-10.1); CHLORIDE 106 mmol/L (98-107); CO2 29 mmol/L (21-32); CREATININE 1.1 mg/dL (0.55-1.3); GLUCOSE,RANDOM 181 mg/dL (74-106); MAGNESIUM 2.2 mg/dL (1.8-2.4); PHOSPHOROUS 3.5 mg/dL (2.5-4.9); POTASSIUM 4.5 mmol/L (3.5-5.1); SGOT/AST 7 U/L (15-37); SGPT/ALT 13 U/L (13-61); SODIUM 140 mmol/L (136-145)
[2019-02-13] MEDS ORDERED: SODIUM PHOSPHATE/NA BIPHOS 133 ML ENEMA PR ONE (08:18)
--- NOTE | 2019-02-13 08:28 | PN ---
Physical Exam: SUBJECTIVE: Patient examined this morning and no new symptoms. No complaints and no events overnight. Patient for surgery tomorrow morning. OBJECTIVE: Vital Signs Temperature 98.1 F 02/13/19 02:00 Pulse Rate 70 02/13/19 08:00 Respiratory Rate 16 02/13/19 08:00 Blood Pressure 125/72 02/13/19 08:00 O2 Sat by Pulse Oximetry (%) 100 02/12/19 21:00 GENERAL: Awake, alert, and fully oriented, in no acute distress. HEAD: Normal with no signs of trauma. EYES: Pupils equal, round and reactive to light, extraocular movements intact, peripheral vision intact, left horizontal nystagmus LUNGS: Breath sounds equal, clear to auscultation bilaterally. HEART: Regular rate and rhythm, normal S1 and S2 without murmur, rub or gallop. ABDOMEN: Soft, nontender, not distended, normoactive bowel sounds, no guarding, no rebound, no masses. MUSCULOSKELETAL: ROM intact, 5/5 strength diffusely LOWER EXTREMITIES: 2+ pulses, warm, well-perfused. No calf tenderness. No peripheral edema. NEUROLOGICAL: Cranial nerves II-XII intact. Normal speech. sensation intact, wide gait, unsteady on his feet, left leaning PSYCHIATRIC: Cooperative. Good eye contact. Appropriate mood and affect. SKIN: Warm, dry, normal turgor, no rashes or lesions noted. CBCD WBC 19.1 K/mm3 (4.0-10.0) H 02/13/19 05:30 RBC 4.06 M/mm3 (4.00-5.60) 02/13/19 05:30 Hgb 12.3 GM/dL (11.7-16.9) 02/13/19 05:30 Hct 36.4 % (35.4-49) 02/13/19 05:30 MCV 89.7 fl (80-96) 02/13/19 05:30 MCHC 33.9 g/dl (32.0-35.9) 02/13/19 05:30 RDW 14.1 % (11.9-15.9) 02/13/19 05:30 Plt Count 206 K/MM3 (134-434) 02/13/19 05:30 MPV 8.6 fl (7.5-11.1) 02/13/19 05:30 CMP Sodium 140 mmol/L (136-145) 02/13/19 05:30 Potassium 4.5 mmol/L (3.5-5.1) 02/13/19 05:30 Chloride 106 mmol/L (98-107) 02/13/19 05:30 Carbon Dioxide 29 mmol/L (21-32) 02/13/19 05:30 Anion Gap 5 MMOL/L (8-16) L 02/13/19 05:30 BUN 17 mg/dL (7-18) 02/13/19 05:30 Creatinine 1.1 mg/dL (0.55-1.3) 02/13/19 05:30 Creat Clearance w eGFR 66.37 (>60) 02/13/19 05:30 Calcium 8.6 mg/dL (8.5-10.1) 02/13/19 05:30 Total Bilirubin 0.4 mg/dL (0.2-1) 02/13/19 05:30 AST 7 U/L (15-37) L 02/13/19 05:30 ALT 13 U/L (13-61) 02/13/19 05:30 Alkaline Phosphatase 51 U/L (45-117) 02/13/19 05:30 Total Protein 6.0 g/dl (6.4-8.2) L 02/13/19 05:30 Albumin 3.4 g/dl (3.4-5.0) 02/13/19 05:30 Active Medications Acetaminophen (Ofirmev Injection -) 1,000 mg IVPB Q6H PRN PRN Reason: PAIN Atorvastatin Calcium (Lipitor -) 20 mg PO HS [facility] Last Admin: 02/12/19 21:41 Dose: 20 mg Brimonidine Tartrate (Alphagan 0.2% -) 1 drop OU BID [facility] Last Admin: 02/12/19 21:42 Dose: 1 drop Chlorhexidine Gluconate (Hibiclens For Decolonization -) 1 applic TP HS [facility] Last Admin: 02/12/19 21:42 Dose: 1 applic Dexamethasone Sodium Phosphate (Decadron Injection -) 4 mg IVPUSH Q6H-IV [facility] Last Admin: 02/13/19 04:30 Dose: 4 mg Dorzolamide HCl (Trusopt 2%) 1 drop OU BID [facility] Last Admin: 02/12/19 21:43 Dose: 1 drop Heparin Sodium (Porcine) (Heparin -) 5,000 unit SQ TID [facility] Last Admin: 02/13/19 06:09 Dose: 5,000 unit Insulin Aspart (Novolog Vial Sliding Scale -) 1 vial SQ ACHS [facility]; Protocol Last Admin: 02/13/19 06:40 Dose: 2 units Latanoprost (Xalatan 0.005% Eye Drops -) 1 drop OD HS [facility] Last Admin: 02/12/19 21:42 Dose: 1 drop Metoprolol Tartrate (Lopressor -) 25 mg PO BID [facility] Last Admin: 02/12/19 21:41 Dose: 25 mg Mupirocin (Bactroban Ointment (For Decolonization) -) 1 applic NS BID [facility] Stop: 02/15/19 21:59 Last Admin: 02/12/19 21:42 Dose: 1 applic Nifedipine (Procardia Xl -) 30 mg PO DAILY [facility] Last Admin: 02/12/19 09:45 Dose: 30 mg Ondansetron HCl (Zofran Injection) 4 mg IVPUSH Q6H PRN PRN Reason: NAUSEA Last Admin: 02/10/19 20:17 Dose: 4 mg Pantoprazole Sodium (Protonix Iv) 40 mg IVPUSH BID [facility] Last Admin: 02/12/19 22:46 Dose: 40 mg Polyethylene Glycol (Miralax (For Daily Use) -) 17 gm PO BID [facility] Last Admin: 02/12/19 21:42 Dose: 17 grams Senna/Docusate Sodium (Pericolace -) 1 tablet PO HS [facility] Last Admin: 02/12/19 21:41 Dose: 1 tablet Timolol Maleate (Timoptic 0.5%) 1 drop OU BID [facility] Last Admin: 02/12/19 21:43 Dose: 1 drop ASSESSMENT/PLAN: Patient is a 68 y/o male with a history of HTN, HLD, DM, CAD s/p 3 stents, and GERD, who is here for R Cerebellar mass. Neuro - R cerebellar mass - head CT: 4 x 3.4 cm heterogenous mass within the right posterior cerebral hemisphere medially with moderate associated edema, contralateral displacement of the fourth ventricle - followed by Dr. Modi - bishnuadron 4 q6h - neuro checks q 1 hour - MRI : solitary 3 x 2.7 x 2.7 enhancing mass within R cerebral hemisphere with associated mass effect and edema, likely metastatic - surgery tomorrow morning Cardio - 3 stent hx, per Dr. Dumont can hold his plavix and aspirin - continue nifedipine 30 m po daily - continue simvastatin 40 mg po hs - continue metoprolol 25 mg BID - CV risk index: 1 Pulm - stable - keep O2 > 95% GI - hx GERD - continue omeprazole - Zofran prn for nausea - constipated on miralax, ducosate, senna, milk of magnesia - fleet enema to help with constipation Renal - stable - Cr 1.2-1.4 baseline - PSA .7 - mild enlargment of prostate on CT - focal sclerosis of left inferior pubic ramus - unlikely prostate ca Endo - hx of DM - SS 10 units Heme - DVT ppx 5,000 TID, hold after midnight for surgery tomorrow - f/u heme consult for any other management of cerebral mass FEN - diabetic diet - NPO at midnight Dispo: surgery tomorrow, f/u after Visit type - Emergency Visit Emergency Visit: No - New Patient This patient is new to me today: No - Critical Care Critical Care patient: Yes Total Critical Care Time (in minutes): 35 Critical Care Statement: The care of this patient involved high complexity decision making to prevent further life threatening deterioration of the patient 's condition and/or to evaluate & treat vital organ system(s) failure or risk of failure.
[2019-02-13] MEDS ORDERED: METOPROLOL TARTRATE 25 MG TABLET (FP) PO SCH (08:35)
[2019-02-13] MEDS ORDERED: PT OWN MED DRAWER 7, Y5N ONE ×2 (09:20→21:08)
[2019-02-13] MEDS: BRIMONIDINE TARTRATE 0.2% OPHTHALMIC 5 ML BOTTLE OU SCH ×2 (09:24→21:15)
[2019-02-13] MEDS: TIMOLOL 0.5% OPHTHALMIC SOL 5 ML BOTTLE OU SCH ×2 (09:24→21:15)
[2019-02-13] MEDS: DORZOLAMIDE 2% HCL OPHTHALMIC SOLUTION 10 ML BOTTLE OU SCH ×2 (09:24→21:15)
[2019-02-13] MEDS: PANTOPRAZOLE SODIUM 40 MG VIAL IVPUSH SCH ×2 (09:27→21:10)
[2019-02-13] MEDS: POLYETHYLENE GLYCOL 3350 119 GM BTL PO SCH ×2 (09:28→21:10)
[2019-02-13] MEDS: NIFEdipine E.R. 30 MG TABLET (FP) PO SCH (09:28)
[2019-02-13] MEDS: MUPIROCIN 2% TOPICAL OINTMENT FOR DECOLONIZATION NS SCH ×2 (09:28→21:15)
--- NOTE | 2019-02-13 09:43 | PN ---
Progress Note (short form) - Note Progress Note: s: no chest pain, palps, dizziness, lightheadedness Current Medications Acetaminophen (Ofirmev Injection -) 1,000 mg IVPB Q6H PRN PRN Reason: PAIN Atorvastatin Calcium (Lipitor -) 20 mg PO HS [facility] Last Admin: 02/12/19 21:41 Dose: 20 mg Brimonidine Tartrate (Alphagan 0.2% -) 1 drop OU BID [facility] Last Admin: 02/13/19 09:24 Dose: 1 drop Chlorhexidine Gluconate (Hibiclens For Decolonization -) 1 applic TP HS [facility] Last Admin: 02/12/19 21:42 Dose: 1 applic Dexamethasone Sodium Phosphate (Decadron Injection -) 4 mg IVPUSH Q6H-IV [facility] Last Admin: 02/13/19 09:22 Dose: 4 mg Dorzolamide HCl (Trusopt 2%) 1 drop OU BID [facility] Last Admin: 02/13/19 09:24 Dose: 1 drop Heparin Sodium (Porcine) (Heparin -) 5,000 unit SQ TID [facility] Last Admin: 02/13/19 06:09 Dose: 5,000 unit Insulin Aspart (Novolog Vial Sliding Scale -) 1 vial SQ [facility]; Protocol Last Admin: 02/13/19 06:40 Dose: 2 units Latanoprost (Xalatan 0.005% Eye Drops -) 1 drop OD [facility] Last Admin: 02/12/19 21:42 Dose: 1 drop Metoprolol Tartrate (Lopressor -) 25 mg PO BID [facility] Last Admin: 02/13/19 09:28 Dose: 25 mg Mupirocin (Bactroban Ointment (For Decolonization) -) 1 applic NS BID [facility] Stop: 02/15/19 21:59 Last Admin: 02/13/19 09:28 Dose: 1 applic Nifedipine (Procardia Xl -) 30 mg PO DAILY [facility] Last Admin: 02/13/19 09:28 Dose: 30 mg Ondansetron HCl (Zofran Injection) 4 mg IVPUSH Q6H PRN PRN Reason: NAUSEA Last Admin: 02/10/19 20:17 Dose: 4 mg Pantoprazole Sodium (Protonix Iv) 40 mg IVPUSH BID [facility] Last Admin: 02/13/19 09:27 Dose: 40 mg Polyethylene Glycol (Miralax (For Daily Use) -) 17 gm PO BID [facility] Last Admin: 02/13/19 09:28 Dose: 17 grams Senna/Docusate Sodium (Pericolace -) 1 tablet PO HS [facility] Last Admin: 02/12/19 21:41 Dose: 1 tablet Timolol Maleate (Timoptic 0.5%) 1 drop OU BID [facility] Last Admin: 02/13/19 09:24 Dose: 1 drop Vital Signs Period Temp Pulse Resp BP Sys/Donahue Pulse Ox Last 24 Hr 97.9 F-98.1 F 46-80 14-24 113-153/66-97 100-100 Constitutional: Yes: Well Nourished, No Distress, Calm Cardiovascular: Yes: Regular Rate and Rhythm, S1, S2. No: Gallop, Murmur Respiratory: Yes: Regular, CTA Bilaterally. No: Accessory Muscle Use Extremities: No: Cold Edema: No Neurological: Yes: Alert, Oriented Psychiatric: No: Agitated Assessment/Plan Echo 01/12: low nl lvef, nl rv, no sig valve path, no sig change from 02/2012 report MPI 2017: inferolateral infarct with teri-infarct ischemia. inferolat HK with EF 43%. no TID described ECG: NSR, no ST-T abn tele: sinus, sinus bradycardia Assessment/Plan 64 year old M w h/o HTN, CAD , cath again , and most recent , hld, her with cp, anguiano. brain mass, preop eval: -cerebellar lesion on CT head here, anticipate he may need surgery -Revised CV Risk Index = 1 -no s/sx of active ischemia or CHF -no preop cv testing indicated. pt is at acceptable CV risk from surgery. -remote stent--hold aspirin and plavix preop CAD: -s/p stemi 03/2007 with bms to OM -s/p PCIs 2011 for unstable angina (gwen to plad/mlad) -last cath 2013 with gwen to dlcx (prior stents patent, no sig residual dz) -chronic atypical CP--MPI 2017 no ischemia (old inferolateral scar) -remains on aspirin and plavix >3 yrs from last PCI--holding preop neurosurgery -cont home statin, BB HTN: -bp controlled -cont home meds DM: -per hospitalist CKD: -creat 1.2-1.4 baseline range, stable here
--- NOTE | 2019-02-13 12:14 | PN ---
Progress Note (short form) - Note Progress Note: The patient is resting comfortably in a chair. He had no complaints. The metastatic w/u was negative. He is scheduled for a right sided suboccipital craniectomy and resection of the cerebellar tumor tomorrow morning. He will be NPO after midnight. I have asked the ICU service to discontinue the chemical DVT prophylaxis. I re-discussed the risks of the procedure including bleeding, infection and brain injury. Will follow.
--- NOTE | 2019-02-13 12:14 | PN ---
Physical Exam: SUBJECTIVE: Patient seen and examined at bedside this morning. He endorses continued improvement of his dizziness, and lightheadedness. Patient admits constipation. He denies subjective fevers, chills, shortness of breath, shortness of breath, chest pain, palpitations, abdominal pain, nausea, vomiting. OBJECTIVE: Vital Signs Period Temp Pulse Resp BP Sys/Donahue Pulse Ox Last 24 Hr 97.9 F-98.1 F 46-72 13-20 113-153/59-85 100-100 GENERAL: The patient is awake, alert, and fully oriented, in no acute distress. HEAD: Normocephalic, atraumatic. EYES: PERRL, extraocular movements intact, horizontal nystagmus upon leftward gaze. Sclera anicteric, conjunctiva clear. ENT: Oropharynx clear, without erythema or exudates. Moist mucous membranes. NECK: Trachea midline, full range of motion. Supple without lymphadenopathy. LUNGS: Breath sounds equal, clear to auscultation bilaterally, no wheezes, no crackles. No accessory muscle use. HEART: Regular rate and rhythm, S1, S2 without murmur, rub or gallop. ABDOMEN: Soft, nondistended, nontender to light and deep palpation x4 quadrants , no rebound tenderness, no guarding. Normoactive bowel sounds x4 quadrants. no hepatosplenomegaly, no masses. EXTREMITIES: 2+ radial, dorsalis pedis pulses bilaterally. Warm, well-perfused. No lower extremity edema bilaterally. NEUROLOGICAL: Cranial nerves II through XII grossly intact. Normal speech. Strength 5/5 bilateral upper and lower extremities. PSYCH: Normal mood, normal affect upon my encounter. SKIN: Warm, dry. Seborrheic ketatosis noted upon patient's back. Laboratory Results - last 24 hr 02/12/19 02/12/19 02/12/19 05:30 05:30 12:56 WBC RBC Hgb Hct MCV MCH MCHC RDW Plt Count MPV ESR Sodium 142 Potassium 4.0 Chloride 106 Carbon Dioxide 28 Anion Gap 7 L BUN 17 Creatinine 1.1 Creat Clearance w eGFR 66.37 POC Glucometer 200 Random Glucose 174 H Calcium 9.1 Phosphorus Magnesium 2.2 Total Bilirubin AST ALT Alkaline Phosphatase Total Protein Albumin Prostate Specific Ag 0.70 TSH 0.23 L D 02/12/19 02/12/19 02/13/19 17:46 21:50 05:30 WBC 19.1 H RBC 4.06 Hgb 12.3 Hct 36.4 MCV 89.7 MCH 30.4 MCHC 33.9 RDW 14.1 Plt Count 206 MPV 8.6 ESR Cancelled Sodium Potassium Chloride Carbon Dioxide Anion Gap BUN Creatinine Creat Clearance w eGFR POC Glucometer 184 195 Random Glucose Calcium Phosphorus Magnesium Total Bilirubin AST ALT Alkaline Phosphatase Total Protein Albumin Prostate Specific Ag TSH 02/13/19 02/13/19 02/13/19 05:30 06:18 11:15 WBC RBC Hgb Hct MCV MCH MCHC RDW Plt Count MPV ESR Sodium 140 Potassium 4.5 Chloride 106 Carbon Dioxide 29 Anion Gap 5 L BUN 17 Creatinine 1.1 Creat Clearance w eGFR 66.37 POC Glucometer 167 204 Random Glucose 181 H Calcium 8.6 Phosphorus 3.5 Magnesium 2.2 Total Bilirubin 0.4 AST 7 L ALT 13 Alkaline Phosphatase 51 Total Protein 6.0 L Albumin 3.4 Prostate Specific Ag TSH Active Medications Generic Name Dose Route Start Last Admin Trade Name Freq PRN Reason Stop Dose Admin Acetaminophen 1,000 mg 02/11/19 16:24 Ofirmev Injection - IVPB Q6H PRN PAIN Atorvastatin Calcium 20 mg 02/10/19 22:00 02/12/19 21:41 Lipitor - PO 20 mg HS [facility] Administration Brimonidine Tartrate 1 drop 02/12/19 22:00 02/13/19 09:24 Alphagan 0.2% - OU 1 drop BID [facility] Administration Chlorhexidine Gluconate 1 applic 02/10/19 22:00 02/12/19 21:42 Hibiclens For Decolonization - TP 1 applic HS [facility] Administration Dexamethasone Sodium Phosphate 4 mg 02/10/19 16:00 02/13/19 09:22 Decadron Injection - IVPUSH 4 mg Q6H-IV [facility] Administration Dorzolamide HCl 1 drop 02/12/19 22:00 02/13/19 09:24 Trusopt 2% OU 1 drop BID [facility] Administration Insulin Aspart 1 vial 02/10/19 22:00 02/13/19 11:18 Novolog Vial Sliding Scale - SQ 4 units ACHS [facility] Administration Protocol Latanoprost 1 drop 02/12/19 22:00 02/12/19 21:42 Xalatan 0.005% Eye Drops - OD 1 drop HS [facility] Administration Metoprolol Tartrate 25 mg 02/13/19 11:25 Lopressor - PO BID [facility] Mupirocin 1 applic 02/10/19 22:00 02/13/19 09:28 Bactroban Ointment (For Decolonization) - NS 02/15/19 21:59 1 applic BID [facility] Administration Nifedipine 30 mg 02/11/19 10:00 02/13/19 09:28 Procardia Xl - PO 30 mg DAILY [facility] Administration Ondansetron HCl 4 mg 02/10/19 11:35 02/10/19 20:17 Zofran Injection IVPUSH 4 mg Q6H PRN Administration NAUSEA Pantoprazole Sodium 40 mg 02/12/19 22:00 02/13/19 09:27 Protonix Iv IVPUSH 40 mg BID [facility] Administration Polyethylene Glycol 17 gm 02/11/19 22:00 02/13/19 09:28 Miralax (For Daily Use) - PO 17 grams BID [facility] Administration Senna/Docusate Sodium 1 tablet 02/11/19 18:47 02/12/19 21:41 Pericolace - PO 1 tablet HS [facility] Administration Timolol Maleate 1 drop 02/12/19 22:00 02/13/19 09:24 Timoptic 0.5% OU 1 drop BID [facility] Administration ASSESSMENT/PLAN: Patient is a 68 year old male with history of previously diagnosed cerebellar mass (diagnosed six months ago), hypertension, hyperlipidemia, diabetes mellitus , coronary artery disease (s/p three stents, on plavix), gastro-esophageal reflux disease, presented with left sided headache, and unsteady gait. Cerebellar mass -Likely source of head pressure, and unsteady gait with lightheadedness. -CT head shows 4cm x 3.4cm right cerebellar mass lesion, concerning for neoplasm. -CT chest, abdomen, pelvis shows no definite primary neoplastic lesion within chest, abdomen, pelvis. Prostatic enlargement, thyromegaly, atherosclerotic calcification, aneurysmal dilation ascending aorta noted. -MRI brain shows solitary 3cm X 2.7cm X 2.7cm enhancing mass lesion inferior half right cerebellar hemisphere. -Neurosurgery recommendations (Dr. Leon) appreciated. -Dexamethasone 4mg IV Q6 hours -Neurochecks Q1 hour -Patient scheduled for right suboccipital craniectomy and resection of the cerebellar mass tomorrow. Coronary artery disease -Patient is s/p three stents -Cardiology consult (Dr. Yanez) appreciated. Holding aspirin and plavix pre- operatively. Diabetes mellitus -Insulin sliding scale ACHS -Fingerstick blood glucose monitoring ACHS Hypertension -Metoprolol 25mg PO BID -Nifedipine ER 30mg PO daily Enlarged left thyroid lobe -Incidentally noted on CT chest scan -TSH 0.23 -Follow T4, free T3 -Patient will require outpatient thyroid ultrasound for further workup. FEN -No IV fluids indicated. -Follow CMP -Diabetic diet. NPO after midnight. Prophylaxis -Heparin held in anticipation of neurosurgical procedure tomorrow. Disposition -Continue care in ICU Visit type - Emergency Visit Emergency Visit: Yes ED Registration Date: 02/10/19 Care time: The patient presented to the Emergency Department on the above date and was hospitalized for further evaluation of their emergent condition. - New Patient This patient is new to me today: No - Critical Care Critical Care patient: Yes Total Critical Care Time (in minutes): 35 Critical Care Statement: The care of this patient involved high complexity decision making to prevent further life threatening deterioration of the patient 's condition and/or to evaluate & treat vital organ system(s) failure or risk of failure. - Discharge Referral Referred to [facility] Med P.C.: No
--- NOTE | 2019-02-13 12:15 | PN ---
Teaching Attending Note Name of Resident: Ingrid Arevalo ATTENDING PHYSICIAN STATEMENT I saw and evaluated the patient. I reviewed the resident's note and discussed the case with the resident. I agree with the resident's findings and plan as documented. SUBJECTIVE: Pt seen and examined in the ICU. No overnight events, no current complaints. Ataxia persists. OBJECTIVE: Vital Signs Period Temp Pulse Resp BP Sys/Donahue Pulse Ox Last 24 Hr 97.9 F-98.1 F 46-72 13-20 113-153/59-85 100-100 Intake & Output 02/10/19 02/11/19 02/12/19 02/13/19 23:59 23:59 23:59 23:59 Intake Total 750 1090 720 10 Output Total 550 970 750 400 Balance 200 120 -30 -390 Weight 97.976 kg 97.522 kg 99.5 kg 101.015 kg Gen: NAD at rest Heart: RRR Lung: decreased breath sounds at the bases Abd: soft, nontender Ext: no edema CBC, BMP 02/13/19 05:30 02/13/19 05:30 Active Medications Acetaminophen (Ofirmev Injection -) 1,000 mg IVPB Q6H PRN PRN Reason: PAIN Atorvastatin Calcium (Lipitor -) 20 mg PO HS [facility] Last Admin: 02/12/19 21:41 Dose: 20 mg Brimonidine Tartrate (Alphagan 0.2% -) 1 drop OU BID [facility] Last Admin: 02/13/19 09:24 Dose: 1 drop Chlorhexidine Gluconate (Hibiclens For Decolonization -) 1 applic TP HS [facility] Last Admin: 02/12/19 21:42 Dose: 1 applic Dexamethasone Sodium Phosphate (Decadron Injection -) 4 mg IVPUSH Q6H-IV [facility] Last Admin: 02/13/19 09:22 Dose: 4 mg Dorzolamide HCl (Trusopt 2%) 1 drop OU BID [facility] Last Admin: 02/13/19 09:24 Dose: 1 drop Insulin Aspart (Novolog Vial Sliding Scale -) 1 vial SQ ACHS [facility]; Protocol Last Admin: 02/13/19 11:18 Dose: 4 units Latanoprost (Xalatan 0.005% Eye Drops -) 1 drop OD HS [facility] Last Admin: 02/12/19 21:42 Dose: 1 drop Metoprolol Tartrate (Lopressor -) 25 mg PO BID [facility] Mupirocin (Bactroban Ointment (For Decolonization) -) 1 applic NS BID [facility] Stop: 02/15/19 21:59 Last Admin: 02/13/19 09:28 Dose: 1 applic Nifedipine (Procardia Xl -) 30 mg PO DAILY [facility] Last Admin: 02/13/19 09:28 Dose: 30 mg Ondansetron HCl (Zofran Injection) 4 mg IVPUSH Q6H PRN PRN Reason: NAUSEA Last Admin: 02/10/19 20:17 Dose: 4 mg Pantoprazole Sodium (Protonix Iv) 40 mg IVPUSH BID [facility] Last Admin: 02/13/19 09:27 Dose: 40 mg Polyethylene Glycol (Miralax (For Daily Use) -) 17 gm PO BID [facility] Last Admin: 02/13/19 09:28 Dose: 17 grams Senna/Docusate Sodium (Pericolace -) 1 tablet PO HS [facility] Last Admin: 02/12/19 21:41 Dose: 1 tablet Timolol Maleate (Timoptic 0.5%) 1 drop OU BID [facility] Last Admin: 02/13/19 09:24 Dose: 1 drop ASSESSMENT AND PLAN: Cerebellar Mass Ataxia CAD HTN DM Hyperlipidemia - holding ASA, plavix - continue decadron - neuro checks - antiemetics as needed - DVT prophylaxis - for OR per surgery
--- NOTE | 2019-02-13 14:36 | PN ---
Teaching Attending Note Name of Resident: Quinten Guzmán ATTENDING PHYSICIAN STATEMENT I saw and evaluated the patient. I reviewed the resident's note and discussed the case with the resident. I agree with the resident's findings and plan as documented. SUBJECTIVE:asymptomatic.continues to have ataxic gait. denies CP, SOB, fever, chills, dizzyness, blurred vision or CARRILLO denies skin changes, hair loss, palpitations, hot/cold intolerances no complications with anesthesia in the past. OBJECTIVE: Last Vital Signs Temp Pulse Resp BP Pulse Ox 98.1 F 50 L 13 118/62 100 02/13/19 10:00 02/13/19 12:00 02/13/19 12:00 02/13/19 12:00 02/13/19 09:00 General NAD CV S1 S2 RRR no murmur/rub/gallop Lungs CTA B/L no wheezing/rales/rhonchi Neuro CN grossly intact, strength and sensation grossly intact ASSESSMENT AND PLAN: 68 year old male with HTN, HLD, DM 2, CAD s/p STEMI 2006/Multiple Stents (last 2013), GERD, known Cerebellar Mass, previously on steroids, follows at NH, now presents with R sided occipital pressure, abnormal gait, leaning to L side, lightheadedness/dizziness, with nausea and 1 episode of vomiting earlier today. 1. R Cerebellar Mass with symptoms including abnormal/unsteady gait, lightheadedness, nausea, vomiting - now resolved. NPO for surgery tomorrow by neurosurgery. on Decadron 4mg Q6H, PPI ppx. mas-CT negative for mets. further recommendations per neurosurg. 2. Low TSH- does not appear to be symptomatic. check T3/T4. CT showing thyromegaly on CT, unable to get dedicated u/s while hospitalized. follow up labs. may need further investigation as outpatient 3. CAD s/p stents- hold asa/plavix for pending surgery. will re-start at discretion of surgeon. cardio on board. cont statin/betablocker 4. HTN- controlled 5. Dyslipidemia- statin 6. DM- hold oral agetns. check A1c. BGM and ISS 7.DVT ppx- hold hep sq for pending surgery The care of this patient involved high complexity decision making to prevent further life threatening deterioration of the patient's condition and/or to evaluate & treat vital organ system(s) failure or risk of failure. 35mins
--- NOTE | 2019-02-13 16:06 | SPA.PREOP ---
- PRE-OP NOTE Dx: Right cerebellar mass with associated vasogenic edema and mild mass effect on the fourth ventricle Planned Procedure: Craniotomy; resection of suboccipital brain tumor Surgeon: Michael Leon Last Vital Signs Temp Pulse Resp BP Pulse Ox 98.2 F 58 L 22 H 109/63 100 02/13/19 14:00 02/13/19 14:00 02/13/19 14:00 02/13/19 14:00 02/13/19 09:00 Lab Results WBC 19.1 K/mm3 (4.0-10.0) H 02/13/19 05:30 RBC 4.06 M/mm3 (4.00-5.60) 02/13/19 05:30 Hgb 12.3 GM/dL (11.7-16.9) 02/13/19 05:30 Hct 36.4 % (35.4-49) 02/13/19 05:30 MCV 89.7 fl (80-96) 02/13/19 05:30 MCHC 33.9 g/dl (32.0-35.9) 02/13/19 05:30 RDW 14.1 % (11.9-15.9) 02/13/19 05:30 Plt Count 206 K/MM3 (134-434) 02/13/19 05:30 Sodium 140 mmol/L (136-145) 02/13/19 05:30 Potassium 4.5 mmol/L (3.5-5.1) 02/13/19 05:30 Chloride 106 mmol/L (98-107) 02/13/19 05:30 Carbon Dioxide 29 mmol/L (21-32) 02/13/19 05:30 Anion Gap 5 MMOL/L (8-16) L 02/13/19 05:30 BUN 17 mg/dL (7-18) 02/13/19 05:30 Creatinine 1.1 mg/dL (0.55-1.3) 02/13/19 05:30 Random Glucose 181 mg/dL (74-106) H 02/13/19 05:30 Calcium 8.6 mg/dL (8.5-10.1) 02/13/19 05:30 Blood Type O POSITIVE 02/10/19 10:23 Antibody Screen Negative 02/10/19 10:23 INR 1.08 (0.83-1.09) 02/11/19 05:30 - IMAGING Chest X-ray: Report Reviewed, Image Reviewed Cat Scan: Report Reviewed, Image Reviewed MRI: Report Reviewed, Image Reviewed - ASSESSMENT/PLAN 1. NPO after midnight except po meds 2. GI/DVT PPX 3. Medical optimization / clearance 4. Consent to be obtained by surgeon after risks, benefits and alternatives discussed with patient and or Health Care Proxy. Problem List - Problems (1) Cerebellar mass Code(s): G93.89 - OTHER SPECIFIED DISORDERS OF BRAIN (2) CAD (coronary artery disease) Code(s): I25.10 - ATHSCL HEART DISEASE OF [place] CORONARY ARTERY W/O ANG PCTRS (3) HTN (hypertension) Code(s): I10 - ESSENTIAL (PRIMARY) HYPERTENSION Qualifiers: Hypertension type: unspecified Qualified Code(s): I10 - Essential (primary ) hypertension Visit type - Case Type Case Type: ED Admission - New patient This patient is new to me today: Yes Date on this admission: 02/13/19
--- NOTE | 2019-02-13 19:01 | PN ---
Progress Note (short form) - Note Progress Note: Patient seen and examined Denies headaches, nausea, dizziness. Difficulty seeing temporal aspect of left eye. Has had last dose of ASA and plavix 02/09. Surgery will be day 5 off meds. PT/PTT -normal. If increased bleeding will need platelet infusions.
[2019-02-13] MEDS: ATORVASTATIN CA 20 MG TABLET (FP) PO SCH (21:11)
[2019-02-13] MEDS: METOPROLOL TARTRATE 25 MG TABLET (FP) PO SCH ×2 (21:11→21:17)
[2019-02-13] MEDS: SENNOSIDES/DOCUSATE COMBO (SENNA PLUS) TABLET (UD) PO SCH (21:15)
[2019-02-13] MEDS: LATANOPROST 0.005% OPHTH SOLN 2.5ML BOTTLE OD SCH (21:15)
[2019-02-13] MEDS: CHLORHEXIDINE GLUCONATE 4% CLEANSER FOR DECOLONIZATION TP SCH (21:16)
[2019-02-14] MEDS: DEXAMETHASONE SOD PHOSPHATE 4 MG/1 ML VIAL IVPUSH SCH ×4 (02:08→23:21)
[2019-02-14 05:58] LABS: HEMATOCRIT 37.5 % (35.4-49); HEMOGLOBIN 12.4 GM/dL (11.7-16.9); MCH 29.8 pg (25.7-33.7); MCHC 33.2 g/dl (32.0-35.9); MEAN CELL VOLUME 89.7 fl (80-96); MEAN PLT VOLUME 8.6 fl (7.5-11.1); PLATELET COUNT 198 K/MM3 (134-434); RBC 4.17 M/mm3 (4.00-5.60); RDW 14.1 % (11.9-15.9); WHITE BLOOD COUNT 17.7 K/mm3 (4.0-10.0)
[2019-02-14 06:09] LABS: INR 1.02 (0.83-1.09)
[2019-02-14 06:11] LABS: ACTIVATED PTT 28.3 SECONDS (25.2-36.5)
[2019-02-14] MEDS: INSULIN SLIDING SCALE (NOVOLOG) 1 VIAL SQ SCH ×4 (06:24→23:22)
[2019-02-14 06:32] LABS: ALBUMIN 3.1 g/dl (3.4-5.0); ALK PHOS 58 U/L (45-117); ANION GAP 4 MMOL/L (8-16); BILIRUBIN,TOTAL 0.4 mg/dL (0.2-1); BLOOD UREA NITROGEN 23 mg/dL (7-18); CALCIUM 8.8 mg/dL (8.5-10.1); CHLORIDE 106 mmol/L (98-107); CO2 27 mmol/L (21-32); GLUCOSE,RANDOM 196 mg/dL (74-106); MAGNESIUM 2.1 mg/dL (1.8-2.4); PHOSPHOROUS 3.3 mg/dL (2.5-4.9); POTASSIUM 4.4 mmol/L (3.5-5.1); SGOT/AST 10 U/L (15-37); SGPT/ALT 15 U/L (13-61); SODIUM 137 mmol/L (136-145); TOT PROT 5.9 g/dl (6.4-8.2)
--- NOTE | 2019-02-14 07:00 | PN ---
Physical Exam: SUBJECTIVE: Patient seen and examined at bedside this morning. He is anxious regarding his neurosurgical procedure today. He denies subjective fevers, chills , shortness of breath, shortness of breath, chest pain, palpitations, abdominal pain, nausea, vomiting. OBJECTIVE: Vital Signs Period Temp Pulse Resp BP Sys/Donahue Pulse Ox Last 24 Hr 98 F-98.9 F 49-70 13-23 103-140/56-82 100-100 GENERAL: The patient is awake, alert, and fully oriented, in no acute distress. HEAD: Normocephalic, atraumatic. EYES: PERRL, extraocular movements intact, horizontal nystagmus upon leftward gaze. Sclera anicteric, conjunctiva clear. ENT: Oropharynx clear, without erythema or exudates. Moist mucous membranes. NECK: Trachea midline, full range of motion. Supple without lymphadenopathy. LUNGS: Breath sounds equal, clear to auscultation bilaterally, no wheezes, no crackles. No accessory muscle use. HEART: Regular rate and rhythm, S1, S2 without murmur, rub or gallop. ABDOMEN: Soft, nondistended, nontender to light and deep palpation x4 quadrants , no rebound tenderness, no guarding. Normoactive bowel sounds x4 quadrants. no hepatosplenomegaly, no masses. EXTREMITIES: 2+ radial, dorsalis pedis pulses bilaterally. Warm, well-perfused. No lower extremity edema bilaterally. NEUROLOGICAL: Cranial nerves II through XII grossly intact. Normal speech. Strength 5/5 bilateral upper and lower extremities. Leftward leaning gait. PSYCH: Normal mood, normal affect upon my encounter. SKIN: Warm, dry. Seborrheic ketatosis noted upon patient's back. Laboratory Results - last 24 hr 02/13/19 02/13/19 02/13/19 05:30 05:30 11:15 WBC 19.1 H RBC 4.06 Hgb 12.3 Hct 36.4 MCV 89.7 MCH 30.4 MCHC 33.9 RDW 14.1 Plt Count 206 MPV 8.6 ESR Cancelled PT with INR INR PTT (Actin FS) Sodium 140 Potassium 4.5 Chloride 106 Carbon Dioxide 29 Anion Gap 5 L BUN 17 Creatinine 1.1 Creat Clearance w eGFR 66.37 POC Glucometer 204 Random Glucose 181 H Calcium 8.6 Phosphorus 3.5 Magnesium 2.2 Total Bilirubin 0.4 AST 7 L ALT 13 Alkaline Phosphatase 51 Total Protein 6.0 L Albumin 3.4 Free T4 Blood Type Antibody Screen 02/13/19 02/13/19 02/13/19 12:55 16:41 17:05 WBC RBC Hgb Hct MCV MCH MCHC RDW Plt Count MPV ESR PT with INR INR PTT (Actin FS) Sodium Potassium Chloride Carbon Dioxide Anion Gap BUN Creatinine Creat Clearance w eGFR POC Glucometer 215 Random Glucose Calcium Phosphorus Magnesium Total Bilirubin AST ALT Alkaline Phosphatase Total Protein Albumin Free T4 1.04 Blood Type O POSITIVE Antibody Screen Negative 02/13/19 02/14/19 02/14/19 21:05 05:30 05:30 WBC 17.7 H RBC 4.17 Hgb 12.4 Hct 37.5 MCV 89.7 MCH 29.8 MCHC 33.2 RDW 14.1 Plt Count 198 MPV 8.6 ESR PT with INR 12.00 INR 1.02 PTT (Actin FS) 28.3 Sodium Potassium Chloride Carbon Dioxide Anion Gap BUN Creatinine Creat Clearance w eGFR POC Glucometer 234 Random Glucose Calcium Phosphorus Magnesium Total Bilirubin AST ALT Alkaline Phosphatase Total Protein Albumin Free T4 Blood Type Antibody Screen 02/14/19 02/14/19 05:30 05:42 WBC RBC Hgb Hct MCV MCH MCHC RDW Plt Count MPV ESR PT with INR INR PTT (Actin FS) Sodium 137 Potassium 4.4 Chloride 106 Carbon Dioxide 27 Anion Gap 4 L BUN 23 H Creatinine 1.0 Creat Clearance w eGFR 74.09 POC Glucometer 187 Random Glucose 196 H Calcium 8.8 Phosphorus 3.3 Magnesium 2.1 Total Bilirubin 0.4 AST 10 L ALT 15 Alkaline Phosphatase 58 Total Protein 5.9 L Albumin 3.1 L Free T4 Blood Type Antibody Screen Active Medications Generic Name Dose Route Start Last Admin Trade Name Freq PRN Reason Stop Dose Admin Acetaminophen 1,000 mg 02/11/19 16:24 Ofirmev Injection - IVPB Q6H PRN PAIN Atorvastatin Calcium 20 mg 02/10/19 22:00 02/13/19 21:11 Lipitor - PO 20 mg HS [facility] Administration Brimonidine Tartrate 1 drop 02/12/19 22:00 02/13/19 21:15 Alphagan 0.2% - OU 1 drop BID [facility] Administration Chlorhexidine Gluconate 1 applic 02/10/19 22:00 04/16/19 21:16 Hibiclens For Decolonization - TP 1 applic HS [facility] Administration Dexamethasone Sodium Phosphate 4 mg 02/10/19 16:00 02/14/19 02:08 Decadron Injection - IVPUSH 4 mg Q6H-IV [facility] Administration Dorzolamide HCl 1 drop 02/12/19 22:00 02/13/19 21:15 Trusopt 2% OU 1 drop BID [facility] Administration Insulin Aspart 1 vial 02/10/19 22:00 02/14/19 06:24 Novolog Vial Sliding Scale - SQ 2 units ACHS [facility] Administration Protocol Latanoprost 1 drop 02/12/19 22:00 02/13/19 21:15 Xalatan 0.005% Eye Drops - OD 1 drop HS [facility] Administration Metoprolol Tartrate 25 mg 02/13/19 11:25 02/13/19 21:17 Lopressor - PO Not Given BID [facility] Mupirocin 1 applic 02/10/19 22:00 02/13/19 21:15 Bactroban Ointment (For Decolonization) - NS 02/15/19 21:59 1 applic BID [facility] Administration Nifedipine 30 mg 02/11/19 10:00 02/13/19 09:28 Procardia Xl - PO 30 mg DAILY [facility] Administration Ondansetron HCl 4 mg 02/10/19 11:35 02/10/19 20:17 Zofran Injection IVPUSH 4 mg Q6H PRN Administration NAUSEA Pantoprazole Sodium 40 mg 02/12/19 22:00 02/13/19 21:10 Protonix Iv IVPUSH 40 mg BID [facility] Administration Polyethylene Glycol 17 gm 02/11/19 22:00 02/13/19 21:10 Miralax (For Daily Use) - PO 17 grams BID [facility] Administration Senna/Docusate Sodium 1 tablet 02/11/19 18:47 02/13/19 21:15 Pericolace - PO 1 tablet HS [facility] Administration Timolol Maleate 1 drop 02/12/19 22:00 02/13/19 21:15 Timoptic 0.5% OU 1 drop BID [facility] Administration ASSESSMENT/PLAN: Patient is a 68 year old male with history of previously diagnosed cerebellar mass (diagnosed six months ago), hypertension, hyperlipidemia, diabetes mellitus , coronary artery disease (s/p three stents, on plavix), gastro-esophageal reflux disease, presented with left sided headache, and unsteady gait. Cerebellar mass -Likely source of head pressure, and unsteady gait with lightheadedness. -CT head shows 4cm x 3.4cm right cerebellar mass lesion, concerning for neoplasm. -CT chest, abdomen, pelvis shows no definite primary neoplastic lesion within chest, abdomen, pelvis. Prostatic enlargement, thyromegaly, atherosclerotic calcification, aneurysmal dilation ascending aorta noted. -MRI brain shows solitary 3cm X 2.7cm X 2.7cm enhancing mass lesion inferior half right cerebellar hemisphere. -Neurosurgery recommendations (Dr. Leon) appreciated. -Dexamethasone 4mg IV Q6 hours -Neurochecks Q1 hour -Patient scheduled for right suboccipital craniectomy and resection of the cerebellar mass today. Will follow postoperative neurosurgical recommendations. Coronary artery disease -Patient is s/p three stents -Cardiology consult (Dr. Yanez) appreciated. Holding aspirin and plavix pre- operatively. Diabetes mellitus -Insulin sliding scale ACHS -Fingerstick blood glucose monitoring ACHS Hypertension -Metoprolol 25mg PO BID -Nifedipine ER 30mg PO daily Enlarged left thyroid lobe -Incidentally noted on CT chest scan -TSH 0.23 -Follow T4, free T3 -Patient will require outpatient thyroid ultrasound for further workup. FEN -No IV fluids indicated. -Follow CMP -NPO Prophylaxis -Heparin held in anticipation of neurosurgical procedure today. Disposition -Continue care in ICU Visit type - Emergency Visit Emergency Visit: Yes ED Registration Date: 02/10/19 Care time: The patient presented to the Emergency Department on the above date and was hospitalized for further evaluation of their emergent condition. - New Patient This patient is new to me today: No - Critical Care Critical Care patient: Yes Total Critical Care Time (in minutes): 35 Critical Care Statement: The care of this patient involved high complexity decision making to prevent further life threatening deterioration of the patient 's condition and/or to evaluate & treat vital organ system(s) failure or risk of failure. - Discharge Referral Referred to [facility] Med [facility] No
--- NOTE | 2019-02-14 08:03 | PN ---
Physical Exam: SUBJECTIVE: Patient seen this morning and without complaint. Surgery scheduled for 12. OBJECTIVE: Vital Signs Temperature 98.4 F 02/14/19 06:00 Pulse Rate 59 L 02/14/19 06:00 Respiratory Rate 18 02/14/19 06:00 Blood Pressure 140/82 02/14/19 06:00 O2 Sat by Pulse Oximetry (%) 100 02/13/19 20:45 GENERAL: Awake, alert, and fully oriented, in no acute distress. HEAD: Normal with no signs of trauma. EYES: Pupils equal, round and reactive to light, extraocular movements intact, peripheral vision intact, left horizontal nystagmus LUNGS: Breath sounds equal, clear to auscultation bilaterally. HEART: Regular rate and rhythm, normal S1 and S2 without murmur, rub or gallop. ABDOMEN: Soft, nontender, not distended, normoactive bowel sounds, no guarding, no rebound, no masses. MUSCULOSKELETAL: ROM intact, 5/5 strength diffusely LOWER EXTREMITIES: 2+ pulses, warm, well-perfused. No calf tenderness. No peripheral edema. NEUROLOGICAL: Cranial nerves II-XII intact. Normal speech. sensation intact, wide gait, unsteady on his feet, left leaning PSYCHIATRIC: Cooperative. Good eye contact. Appropriate mood and affect. SKIN: Warm, dry, normal turgor, no rashes or lesions noted. CBCD WBC 17.7 K/mm3 (4.0-10.0) H 02/14/19 05:30 RBC 4.17 M/mm3 (4.00-5.60) 02/14/19 05:30 Hgb 12.4 GM/dL (11.7-16.9) 02/14/19 05:30 Hct 37.5 % (35.4-49) 02/14/19 05:30 MCV 89.7 fl (80-96) 02/14/19 05:30 MCHC 33.2 g/dl (32.0-35.9) 02/14/19 05:30 RDW 14.1 % (11.9-15.9) 02/14/19 05:30 Plt Count 198 K/MM3 (134-434) 02/14/19 05:30 MPV 8.6 fl (7.5-11.1) 02/14/19 05:30 CMP Sodium 137 mmol/L (136-145) 02/14/19 05:30 Potassium 4.4 mmol/L (3.5-5.1) 02/14/19 05:30 Chloride 106 mmol/L (98-107) 02/14/19 05:30 Carbon Dioxide 27 mmol/L (21-32) 02/14/19 05:30 Anion Gap 4 MMOL/L (8-16) L 02/14/19 05:30 BUN 23 mg/dL (7-18) H 02/14/19 05:30 Creatinine 1.0 mg/dL (0.55-1.3) 02/14/19 05:30 Creat Clearance w eGFR 74.09 (>60) 02/14/19 05:30 Calcium 8.8 mg/dL (8.5-10.1) 02/14/19 05:30 Total Bilirubin 0.4 mg/dL (0.2-1) 02/14/19 05:30 AST 10 U/L (15-37) L 02/14/19 05:30 ALT 15 U/L (13-61) 02/14/19 05:30 Alkaline Phosphatase 58 U/L (45-117) 02/14/19 05:30 Total Protein 5.9 g/dl (6.4-8.2) L 02/14/19 05:30 Albumin 3.1 g/dl (3.4-5.0) L 02/14/19 05:30 Active Medications Acetaminophen (Ofirmev Injection -) 1,000 mg IVPB Q6H PRN PRN Reason: PAIN Atorvastatin Calcium (Lipitor -) 20 mg PO HS [facility] Last Admin: 02/13/19 21:11 Dose: 20 mg Brimonidine Tartrate (Alphagan 0.2% -) 1 drop OU BID [facility] Last Admin: 02/13/19 21:15 Dose: 1 drop Chlorhexidine Gluconate (Hibiclens For Decolonization -) 1 applic TP HS [facility] Last Admin: 02/13/19 21:16 Dose: 1 applic Dexamethasone Sodium Phosphate (Decadron Injection -) 4 mg IVPUSH Q6H-IV [facility] Last Admin: 02/14/19 02:08 Dose: 4 mg Dorzolamide HCl (Trusopt 2%) 1 drop OU BID [facility] Last Admin: 02/13/19 21:15 Dose: 1 drop Insulin Aspart (Novolog Vial Sliding Scale -) 1 vial SQ ACHS [facility]; Protocol Last Admin: 02/14/19 06:24 Dose: 2 units Latanoprost (Xalatan 0.005% Eye Drops -) 1 drop OD HS [facility] Last Admin: 02/13/19 21:15 Dose: 1 drop Metoprolol Tartrate (Lopressor -) 25 mg PO BID [facility] Last Admin: 02/13/19 21:17 Dose: Not Given Mupirocin (Bactroban Ointment (For Decolonization) -) 1 applic NS BID [facility] Stop: 02/15/19 21:59 Last Admin: 02/13/19 21:15 Dose: 1 applic Nifedipine (Procardia Xl -) 30 mg PO DAILY [facility] Last Admin: 02/13/19 09:28 Dose: 30 mg Ondansetron HCl (Zofran Injection) 4 mg IVPUSH Q6H PRN PRN Reason: NAUSEA Last Admin: 02/10/19 20:17 Dose: 4 mg Pantoprazole Sodium (Protonix Iv) 40 mg IVPUSH BID [facility] Last Admin: 02/13/19 21:10 Dose: 40 mg Polyethylene Glycol (Miralax (For Daily Use) -) 17 gm PO BID [facility] Last Admin: 02/13/19 21:10 Dose: 17 grams Senna/Docusate Sodium (Pericolace -) 1 tablet PO [facility] Last Admin: 02/13/19 21:15 Dose: 1 tablet Timolol Maleate (Timoptic 0.5%) 1 drop OU BID [facility] Last Admin: 02/13/19 21:15 Dose: 1 drop ASSESSMENT/PLAN: Patient is a 68 y/o male with a history of HTN, HLD, DM, CAD s/p 3 stents, and GERD, who is here for R Cerebellar mass. Neuro - R cerebellar mass - head CT: 4 x 3.4 cm heterogenous mass within the right posterior cerebral hemisphere medially with moderate associated edema, contralateral displacement of the fourth ventricle - followed by Dr. Modi - breanna 4 q6h - neuro checks q 1 hour - MRI : solitary 3 x 2.7 x 2.7 enhancing mass within R cerebral hemisphere with associated mass effect and edema, likely metastatic - surgery today, monitor after Cardio - 3 stent hx, per Dr. Dumont can hold his plavix and aspirin - continue nifedipine 30 m po daily - continue simvastatin 40 mg po hs - continue metoprolol 25 mg BID, will be given preop - CV risk index: 1 Pulm - stable - keep O2 > 95% GI - hx GERD - continue omeprazole - Zofran prn for nausea - constipated on miralax, ducosate, senna, milk of magnesia - fleet enema to help with constipation Renal - stable - Cr 1.2-1.4 baseline - PSA .7 - mild enlargment of prostate on CT - focal sclerosis of left inferior pubic ramus - unlikely prostate ca Endo - hx of DM - SS 10 units Heme - DVT ppx 5,000 TID, hold after midnight for surgery tomorrow - f/u heme consult for any other management of cerebral mass FEN - diabetic diet - NPO at midnight Dispo: f/u after surgery Visit type - Emergency Visit Emergency Visit: No - New Patient This patient is new to me today: No - Critical Care Critical Care patient: Yes Total Critical Care Time (in minutes): 35 Critical Care Statement: The care of this patient involved high complexity decision making to prevent further life threatening deterioration of the patient 's condition and/or to evaluate & treat vital organ system(s) failure or risk of failure.
[2019-02-14] MEDS: METOPROLOL TARTRATE 25 MG TABLET (FP) PO SCH ×3 (08:38→23:23)
[2019-02-14] MEDS: NIFEdipine E.R. 30 MG TABLET (FP) PO SCH ×2 (08:38→09:29)
[2019-02-14] MEDS: PANTOPRAZOLE SODIUM 40 MG VIAL IVPUSH SCH ×3 (08:41→23:26)
[2019-02-14] MEDS: MUPIROCIN 2% TOPICAL OINTMENT FOR DECOLONIZATION NS SCH ×2 (09:16→23:25)
[2019-02-14] MEDS: TIMOLOL 0.5% OPHTHALMIC SOL 5 ML BOTTLE OU SCH ×2 (09:17→23:24)
[2019-02-14] MEDS: DORZOLAMIDE 2% HCL OPHTHALMIC SOLUTION 10 ML BOTTLE OU SCH ×2 (09:17→23:23)
[2019-02-14] MEDS: BRIMONIDINE TARTRATE 0.2% OPHTHALMIC 5 ML BOTTLE OU SCH ×2 (09:17→23:24)
[2019-02-14] MEDS: POLYETHYLENE GLYCOL 3350 119 GM BTL PO SCH ×2 (09:29→23:23)
--- NOTE | 2019-02-14 10:25 | PN ---
Progress Note (short form) - Note Progress Note: s: no chest pain, palps, dizziness, lightheadedness Current Medications Acetaminophen (Ofirmev Injection -) 1,000 mg IVPB Q6H PRN PRN Reason: PAIN Atorvastatin Calcium (Lipitor -) 20 mg PO HS [facility] Last Admin: 02/13/19 21:11 Dose: 20 mg Brimonidine Tartrate (Alphagan 0.2% -) 1 drop OU BID [facility] Last Admin: 02/14/19 09:17 Dose: 1 drop Chlorhexidine Gluconate (Hibiclens For Decolonization -) 1 applic TP HS [facility] Last Admin: 02/13/19 21:16 Dose: 1 applic Dexamethasone Sodium Phosphate (Decadron Injection -) 4 mg IVPUSH Q6H-IV [facility] Last Admin: 02/14/19 08:39 Dose: 4 mg Dorzolamide HCl (Trusopt 2%) 1 drop OU BID [facility] Last Admin: 02/14/19 09:17 Dose: 1 drop Insulin Aspart (Novolog Vial Sliding Scale -) 1 vial SQ [facility]; Protocol Last Admin: 02/14/19 06:24 Dose: 2 units Latanoprost (Xalatan 0.005% Eye Drops -) 1 drop OD [facility] Last Admin: 02/13/19 21:15 Dose: 1 drop Metoprolol Tartrate (Lopressor -) 25 mg PO BID [facility] Last Admin: 02/14/19 09:29 Dose: Not Given Mupirocin (Bactroban Ointment (For Decolonization) -) 1 applic NS BID [facility] Stop: 02/15/19 21:59 Last Admin: 02/14/19 09:16 Dose: 1 applic Nifedipine (Procardia Xl -) 30 mg PO DAILY [facility] Last Admin: 02/14/19 09:29 Dose: Not Given Ondansetron HCl (Zofran Injection) 4 mg IVPUSH Q6H PRN PRN Reason: NAUSEA Last Admin: 02/10/19 20:17 Dose: 4 mg Pantoprazole Sodium (Protonix Iv) 40 mg IVPUSH BID [facility] Last Admin: 02/14/19 09:30 Dose: Not Given Polyethylene Glycol (Miralax (For Daily Use) -) 17 gm PO BID [facility] Last Admin: 02/14/19 09:29 Dose: Not Given Senna/Docusate Sodium (Pericolace -) 1 tablet PO HS [facility] Last Admin: 02/13/19 21:15 Dose: 1 tablet Timolol Maleate (Timoptic 0.5%) 1 drop OU BID [facility] Last Admin: 02/14/19 09:17 Dose: 1 drop Vital Signs Period Temp Pulse Resp BP Sys/Donahue Pulse Ox Last 24 Hr 98 F-98.9 F 49-64 13-23 103-140/56-82 100-100 Constitutional: Yes: Well Nourished, No Distress, Calm Cardiovascular: Yes: Regular Rate and Rhythm, S1, S2. No: Gallop, Murmur Respiratory: Yes: Regular, CTA Bilaterally. No: Accessory Muscle Use Extremities: No: Cold Edema: No Neurological: Yes: Alert, Oriented Psychiatric: No: Agitated Assessment/Plan Echo 01/12: low nl lvef, nl rv, no sig valve path, no sig change from 02/2012 report MPI 2017: inferolateral infarct with teri-infarct ischemia. inferolat HK with EF 43%. no TID described ECG: NSR, no ST-T abn tele: sinus, sinus bradycardia Assessment/Plan 64 year old M w h/o HTN, CAD , cath again , and most recent , hld, her with cp, anguiano. brain mass, preop eval: -cerebellar lesion on CT head here, plan for OR today -Revised CV Risk Index = 1 -no s/sx of active ischemia or CHF -no preop cv testing indicated. pt is at acceptable CV risk from surgery. -remote stent--hold aspirin and plavix preop CAD: -s/p stemi 03/2007 with bms to OM -s/p PCIs 2011 for unstable angina (gwen to plad/mlad) -last cath 2013 with gewn to dlcx (prior stents patent, no sig residual dz) -chronic atypical CP--MPI 2017 no ischemia (old inferolateral scar) -remains on aspirin and plavix >3 yrs from last PCI--holding preop neurosurgery -cont home statin, BB HTN: -bp controlled -cont home meds DM: -per hospitalist CKD: -creat 1.2-1.4 baseline range, stable here
--- NOTE | 2019-02-14 10:46 | PN ---
Teaching Attending Note Name of Resident: Ingrid Arevalo ATTENDING PHYSICIAN STATEMENT I saw and evaluated the patient. I reviewed the resident's note and discussed the case with the resident. I agree with the resident's findings and plan as documented. SUBJECTIVE: Pt seen and examined in the ICU. Anxious about surgery. No overnight events. OBJECTIVE: Vital Signs Period Temp Pulse Resp BP Sys/Donahue Pulse Ox Last 24 Hr 98 F-98.9 F 49-64 13-23 103-140/56-82 100-100 Intake & Output 02/11/19 02/12/19 02/13/19 02/14/19 23:59 23:59 23:59 23:59 Intake Total 1090 720 850 Output Total 575 430 2825 Balance 120 -30 -150 Weight 97.522 kg 99.5 kg 101.015 kg 99.11 kg Gen: NAD at rest Heart: RRR Lung: decreased breath sounds at the bases Abd: soft, nontender Ext: no edema CBC, BMP 02/14/19 05:30 02/14/19 05:30 Active Medications Acetaminophen (Ofirmev Injection -) 1,000 mg IVPB Q6H PRN PRN Reason: PAIN Atorvastatin Calcium (Lipitor -) 20 mg PO HS [facility] Last Admin: 02/13/19 21:11 Dose: 20 mg Brimonidine Tartrate (Alphagan 0.2% -) 1 drop OU BID [facility] Last Admin: 02/14/19 09:17 Dose: 1 drop Chlorhexidine Gluconate (Hibiclens For Decolonization -) 1 applic TP HS [facility] Last Admin: 02/13/19 21:16 Dose: 1 applic Dexamethasone Sodium Phosphate (Decadron Injection -) 4 mg IVPUSH Q6H-IV [facility] Last Admin: 02/14/19 08:39 Dose: 4 mg Dorzolamide HCl (Trusopt 2%) 1 drop OU BID [facility] Last Admin: 02/14/19 09:17 Dose: 1 drop Insulin Aspart (Novolog Vial Sliding Scale -) 1 vial SQ [facility]; Protocol Last Admin: 02/14/19 06:24 Dose: 2 units Latanoprost (Xalatan 0.005% Eye Drops -) 1 drop OD HS [facility] Last Admin: 02/13/19 21:15 Dose: 1 drop Metoprolol Tartrate (Lopressor -) 25 mg PO BID [facility] Last Admin: 02/14/19 09:29 Dose: Not Given Mupirocin (Bactroban Ointment (For Decolonization) -) 1 applic NS BID [facility] Stop: 02/15/19 21:59 Last Admin: 02/14/19 09:16 Dose: 1 applic Nifedipine (Procardia Xl -) 30 mg PO DAILY [facility] Last Admin: 02/14/19 09:29 Dose: Not Given Ondansetron HCl (Zofran Injection) 4 mg IVPUSH Q6H PRN PRN Reason: NAUSEA Last Admin: 02/10/19 20:17 Dose: 4 mg Pantoprazole Sodium (Protonix Iv) 40 mg IVPUSH BID [facility] Last Admin: 02/14/19 09:30 Dose: Not Given Polyethylene Glycol (Miralax (For Daily Use) -) 17 gm PO BID [facility] Last Admin: 02/14/19 09:29 Dose: Not Given Senna/Docusate Sodium (Pericolace -) 1 tablet PO HS [facility] Last Admin: 02/13/19 21:15 Dose: 1 tablet Timolol Maleate (Timoptic 0.5%) 1 drop OU BID [facility] Last Admin: 02/14/19 09:17 Dose: 1 drop ASSESSMENT AND PLAN: Cerebellar Mass Ataxia CAD HTN DM Hyperlipidemia - holding ASA, plavix - continue decadron - neuro checks - antiemetics as needed - DVT prophylaxis - for OR today
--- NOTE | 2019-02-14 11:24 | PN ---
Teaching Attending Note Name of Resident: Quinten Guzmán ATTENDING PHYSICIAN STATEMENT I saw and evaluated the patient. I reviewed the resident's note and discussed the case with the resident. I agree with the resident's findings and plan as documented. SUBJECTIVE:asymptomatic. anxious about upcoming surgery. deneis Cp, SOB, fever, chills, N/V/C/D OBJECTIVE: Last Vital Signs Temp Pulse Resp BP Pulse Ox 98.2 F 51 L 17 121/75 100 02/14/19 10:00 02/14/19 10:00 02/14/19 10:00 02/14/19 10:02/14/19 09:00 General NAD CV S1 S2 RRR no murmur/rub/gallop Lungs CTA B/L no wheezing/rales/rhonchi Neuro CN grossly intact, strength and sensation grossly intact ASSESSMENT AND PLAN: 68 year old male with HTN, HLD, DM 2, CAD s/p STEMI 2006/Multiple Stents (last 2013), GERD, known Cerebellar Mass, previously on steroids, follows at [place], now presents with R sided occipital pressure, abnormal gait, leaning to L side, lightheadedness/dizziness, with nausea and 1 episode of vomiting earlier today. 1. R Cerebellar Mass with symptoms including abnormal/unsteady gait, lightheadedness, nausea, vomiting - now resolved. NPO for surgery. on Decadron 4mg Q6H, PPI ppx. mas-CT negative for mets. further recommendations per neurosurg. 2. Low TSH- does not appear to be symptomatic. check T3/T4. CT showing thyromegaly on CT, unable to get dedicated u/s while hospitalized. follow up labs. may need further investigation as outpatient 3. CAD s/p stents- hold asa/plavix for pending surgery. will re-start at discretion of surgeon. cardio on board. cont statin/betablocker 4. HTN- controlled 5. Dyslipidemia- statin 6. DM- hold oral agetns. A1c pending. BGM and ISS 7.DVT ppx- hold hep sq for pending surgery 8. MICU monitoring The care of this patient involved high complexity decision making to prevent further life threatening deterioration of the patient's condition and/or to evaluate & treat vital organ system(s) failure or risk of failure. 35mins
[2019-02-14] MEDS ORDERED: LIDOCAINE 1%-EPI 1:100,000 30 ML MDV IJ ONE (12:21)
[2019-02-14] MEDS ORDERED: BACITRACIN 15 GM TUBE TOPICAL OINTMENT ONE (12:22)
[2019-02-14] MEDS ORDERED: THROMBIN (BOVINE) 5,000 UNIT VIAL TP ONE ×3 (12:22→17:43)
[2019-02-14] MEDS ORDERED: MIDAZOLAM HCL 2 MG/2 ML SINGLE DOSE VIAL ONE ×2 (12:26)
[2019-02-14] MEDS ORDERED: ROCURONIUM BROMIDE 50 MG/5 ML VIAL ONE ×3 (12:26→15:20)
[2019-02-14] MEDS ORDERED: ceFAZolin SODIUM 1 GM VIAL ONE (12:26)
[2019-02-14] MEDS ORDERED: LIDOCAINE HCL/PF 2% SDV 5ML VIAL ONE (12:26)
[2019-02-14] MEDS ORDERED: ETOMIDATE 20 MG/10 ML AMPUL IVPUSH ONE (12:26)
[2019-02-14] MEDS ORDERED: fentaNYL CITRATE 250 MCG/5 ML VIAL ONE (12:26)
[2019-02-14] MEDS ORDERED: PROPOFOL 20 ML ONE ×3 (12:26→14:33)
[2019-02-14] MEDS ORDERED: ceFAZolin SODIUM 1 GM VIAL IVPB ONE ×3 (13:15→14:45)
[2019-02-14] MEDS ORDERED: BENZOIN TINCTURE SWABSTICK TP ONE ×2 (13:34→13:47)
--- NOTE | 2019-02-14 14:21 | PN ---
Physical Exam: SUBJECTIVE: Patient seen and examined at bedside. For OR today w/neurosurgery. No new complaints. Still drifting to the left when walking. OBJECTIVE: Vital Signs Period Temp Pulse Resp BP Sys/Donahue Pulse Ox Last 24 Hr 98 F-98.9 F 49-64 15-23 103-140/56-86 100-100 GENERAL: Awake, alert, and fully oriented, in no acute distress. HEAD: Normal with no signs of trauma. EYES: Pupils equal, round and reactive to light, extraocular movements intact LUNGS: Breath sounds equal, clear to auscultation bilaterally. No wheezes, and no crackles. No accessory muscle use. HEART: Regular rate and rhythm, normal S1 and S2 ABDOMEN: Soft, nontender, not distended, normoactive bowel sounds LOWER EXTREMITIES: warm, well-perfused. No peripheral edema. NEUROLOGICAL: Cranial nerves II-XII intact. Normal speech. 5/5 UE and LE strength. No tremors. Negative finger to nose. PSYCHIATRIC: Cooperative. Good eye contact. Appropriate mood and affect. SKIN: Warm, dry. Laboratory Results - last 24 hr 02/13/19 02/13/19 02/13/19 16:41 17:05 21:05 WBC RBC Hgb Hct MCV MCH MCHC RDW Plt Count MPV PT with INR INR PTT (Actin FS) Sodium Potassium Chloride Carbon Dioxide Anion Gap BUN Creatinine Creat Clearance w eGFR POC Glucometer 215 234 Random Glucose Calcium Phosphorus Magnesium Total Bilirubin AST ALT Alkaline Phosphatase Total Protein Albumin Blood Type O POSITIVE Antibody Screen Negative 02/14/19 02/14/19 02/14/19 05:30 05:30 05:30 WBC 17.7 H RBC 4.17 Hgb 12.4 Hct 37.5 MCV 89.7 MCH 29.8 MCHC 33.2 RDW 14.1 Plt Count 198 MPV 8.6 PT with INR 12.00 INR 1.02 PTT (Actin FS) 28.3 Sodium 137 Potassium 4.4 Chloride 106 Carbon Dioxide 27 Anion Gap 4 L BUN 23 H Creatinine 1.0 Creat Clearance w eGFR 74.09 POC Glucometer Random Glucose 196 H Calcium 8.8 Phosphorus 3.3 Magnesium 2.1 Total Bilirubin 0.4 AST 10 L ALT 15 Alkaline Phosphatase 58 Total Protein 5.9 L Albumin 3.1 L Blood Type Antibody Screen 02/14/19 02/14/19 02/14/19 05:30 05:42 11:25 WBC RBC Hgb Hct MCV MCH MCHC RDW Plt Count MPV PT with INR INR PTT (Actin FS) Sodium Potassium Chloride Carbon Dioxide Anion Gap BUN Creatinine Creat Clearance w eGFR POC Glucometer 187 180 Random Glucose Calcium Phosphorus Magnesium Total Bilirubin AST ALT Alkaline Phosphatase Total Protein Albumin Blood Type O POSITIVE Antibody Screen Negative Active Medications Generic Name Dose Route Start Last Admin Trade Name Freq PRN Reason Stop Dose Admin Acetaminophen 1,000 mg 02/11/19 16:24 Ofirmev Injection - IVPB Q6H PRN PAIN Atorvastatin Calcium 20 mg 02/10/19 22:00 02/13/19 21:11 Lipitor - PO 20 mg HS [facility] Administration Brimonidine Tartrate 1 drop 02/12/19 22:00 02/14/19 09:17 Alphagan 0.2% - OU 1 drop BID [facility] Administration Chlorhexidine Gluconate 1 applic 02/10/19 22:00 02/13/19 21:16 Hibiclens For Decolonization - TP 1 applic HS [facility] Administration Dexamethasone Sodium Phosphate 4 mg 02/10/19 16:00 02/14/19 08:39 Decadron Injection - IVPUSH 4 mg Q6H-IV [facility] Administration Dorzolamide HCl 1 drop 02/12/19 22:00 02/14/19 09:17 Trusopt 2% OU 1 drop BID [facility] Administration Insulin Aspart 1 vial 02/10/19 22:00 02/14/19 11:37 Novolog Vial Sliding Scale - SQ 2 units ACHS [facility] Administration Protocol Latanoprost 1 drop 02/12/19 22:00 02/13/19 21:15 Xalatan 0.005% Eye Drops - OD 1 drop HS [facility] Administration Metoprolol Tartrate 25 mg 02/13/19 11:25 02/14/19 09:29 Lopressor - PO Not Given BID [facility] Mupirocin 1 applic 02/10/19 22:00 02/14/19 09:16 Bactroban Ointment (For Decolonization) - NS 02/15/19 21:59 1 applic BID [facility] Administration Nifedipine 30 mg 02/11/19 10:00 02/14/19 09:29 Procardia Xl - PO Not Given DAILY [facility] Ondansetron HCl 4 mg 02/10/19 11:35 02/10/19 20:17 Zofran Injection IVPUSH 4 mg Q6H PRN Administration NAUSEA Pantoprazole Sodium 40 mg 02/12/19 22:00 02/14/19 09:30 Protonix Iv IVPUSH Not Given BID [facility] Polyethylene Glycol 17 gm 02/11/19 22:00 02/14/19 09:29 Miralax (For Daily Use) - PO Not Given BID [facility] Senna/Docusate Sodium 1 tablet 02/11/19 18:47 02/13/19 21:15 Pericolace - PO 1 tablet HS [facility] Administration Timolol Maleate 1 drop 02/12/19 22:00 02/14/19 09:17 Timoptic 0.5% OU 1 drop BID [facility] Administration ASSESSMENT/PLAN: 68 y/o M PMH of HTN, HLD, DM, CAD (s/p 3 stents on plavix), GERD, cerebellar mass (diagnosed 6 months ago) presents for L sided drifting when walking that started on Tuesday morning after waking up. Found to have cerebellar mass -Cerebellar mass -For neurosurgery today for cerebellar mass. Last use of plavix was Tuesday morning. Today is day 5 off plavix/asa -f/u biopsy / path results -if bleeding consider platelet transfusion -c/w decadron -neurochecks -CT results noted for no primary source Visit type - Emergency Visit Emergency Visit: Yes ED Registration Date: 02/10/19 Care time: The patient presented to the Emergency Department on the above date and was hospitalized for further evaluation of their emergent condition. - New Patient This patient is new to me today: No - Critical Care Critical Care patient: Yes Total Critical Care Time (in minutes): 38 Critical Care Statement: The care of this patient involved high complexity decision making to prevent further life threatening deterioration of the patient 's condition and/or to evaluate & treat vital organ system(s) failure or risk of failure.
[2019-02-14] MEDS ORDERED: MANNITOL 25% 12.5 GM/50 ML VIAL IVPB ONE (15:15)
[2019-02-14] MEDS ORDERED: DEXAMETHASONE SOD PHOSPHATE 4 MG/1 ML VIAL ONE (15:18)
[2019-02-14] MEDS ORDERED: ONDANSETRON 4 MG/2 ML VIAL ONE ×3 (15:18→17:09)
[2019-02-14] MEDS ORDERED: DESFLURANE GAS 240 ML BOTTLE IH ONE (15:36)
[2019-02-14] MEDS ORDERED: ACETAMINOPHEN INJECTION 100 ML IVPB ONE (17:07)
[2019-02-14] MEDS ORDERED: ePHEDrine SULFATE 50 MG/1 ML AMPULE ONE (18:13)
[2019-02-14] MEDS ORDERED: NEOSTIGMINE METHYLSULFATE 0.5 MG/1 ML - 10 ML MDV ONE (18:13)
--- NOTE | 2019-02-14 18:58 | OP ---
Operative Note - Note: Operative Date: 02/14/19 Pre-Operative Diagnosis: Right Cerebellar Tumor Operation: 1. Right Suboccipital Craniectomy and Resection of Cerebellar Tumor. 2. Use of Operating Microscope Findings: Malignant Cerebellar Tumor Post-Operative Diagnosis: Same as Pre-op Surgeon: Michael Leon Anesthesia: General Specimens Removed: Malignant Cerebellar Tumor Estimated Blood Loss (mls): 150 Operative Report Dictated: Yes
--- NOTE | 2019-02-14 20:03 | PN ---
Progress Note (short form) - Note Progress Note: Patient seen post op in ICU S/P RESECTION OF CEREBELLAR TUMOR REPORTED BLOOD LOSS -150CC. TO RECEIVE PLATELET INFUSION. MOVES ALL 4'S TALKING STABLE VITAL SIGNS
[2019-02-14] MEDS: CEFAZOLIN 1 GM/D5W 1 GM/50 ML BAG IVPB SCH (20:10)
[2019-02-14] MEDS: MORPHINE SULFATE 2 MG/ML VIAL IVPUSH PRN ×2 (20:13→23:26)
[2019-02-14] MEDS: LATANOPROST 0.005% OPHTH SOLN 2.5ML BOTTLE OD SCH (23:23)
[2019-02-14] MEDS: CHLORHEXIDINE GLUCONATE 4% CLEANSER FOR DECOLONIZATION TP SCH (23:25)
[2019-02-14] MEDS: SENNOSIDES/DOCUSATE COMBO (SENNA PLUS) TABLET (UD) PO SCH (23:26)
[2019-02-14] MEDS: ATORVASTATIN CA 20 MG TABLET (FP) PO SCH (23:26)
[2019-02-15] MEDS: CEFAZOLIN 1 GM/D5W 1 GM/50 ML BAG IVPB SCH ×2 (02:25→10:34)
[2019-02-15] MEDS: DEXAMETHASONE SOD PHOSPHATE 4 MG/1 ML VIAL IVPUSH SCH ×4 (02:26→21:59)
[2019-02-15] MEDS: METOPROLOL TARTRATE 5 MG/5 ML VIAL IVPUSH PRN ×3 (02:26→06:12)
[2019-02-15] MEDS ORDERED: morphine SULFATE 4 MG/ML VIAL ONE (02:55)
[2019-02-15] MEDS: MORPHINE SULFATE 2 MG/ML VIAL IVPUSH PRN (02:57)
[2019-02-15] MEDS ORDERED: morphine SULFATE 4 MG/ML VIAL IVPUSH ONE (05:40)
[2019-02-15] MEDS ORDERED: NIFEdipine 10 MG CAPSULE (FP) PO ONE (05:55)
[2019-02-15] MEDS: INSULIN SLIDING SCALE (NOVOLOG) 1 VIAL SQ SCH ×4 (06:34→22:24)
[2019-02-15 06:42] LABS: HEMATOCRIT 38.1 % (35.4-49); HEMOGLOBIN 12.5 GM/dL (11.7-16.9); MCH 29.7 pg (25.7-33.7); MCHC 32.9 g/dl (32.0-35.9); MEAN CELL VOLUME 90.2 fl (80-96); MEAN PLT VOLUME 8.7 fl (7.5-11.1); PLATELET COUNT 266 K/MM3 (134-434); RBC 4.23 M/mm3 (4.00-5.60); RDW 13.9 % (11.9-15.9); WHITE BLOOD COUNT 19.2 K/mm3 (4.0-10.0)
[2019-02-15 06:51] LABS: ALBUMIN 3.3 g/dl (3.4-5.0); ALK PHOS 53 U/L (45-117); ANION GAP 5 MMOL/L (8-16); BILIRUBIN,TOTAL 0.6 mg/dL (0.2-1); BLOOD UREA NITROGEN 20 mg/dL (7-18); CHLORIDE 102 mmol/L (98-107); CO2 30 mmol/L (21-32); CREATININE 1.1 mg/dL (0.55-1.3); GLUCOSE,RANDOM 199 mg/dL (74-106); MAGNESIUM 2.1 mg/dL (1.8-2.4); SGOT/AST 16 U/L (15-37); SGPT/ALT 19 U/L (13-61); SODIUM 136 mmol/L (136-145); TOT PROT 6.3 g/dl (6.4-8.2)
[2019-02-15] MEDS ORDERED: MORPHINE SULFATE 2 MG/ML VIAL IVPUSH PRN (07:31)
[2019-02-15] MEDS ORDERED: LACTATED RINGERS SOLUTION 1,000 ML/1,000 ML INFUS.BAG IV SCH ×2 (08:00→08:05)
--- NOTE | 2019-02-15 08:00 | PN ---
Progress Note, Physician Chief Complaint: neck pain History of Present Illness: POD#1 1. Right Suboccipital Craniectomy and Resection of Malignant Cerebellar Tumor received 2 units of platelets yesterday, additional unit ordered has been passing flatus c/o neck pain when turning to the left and headache denies fevers, chest pain, palpitations, nausea, changes in vision, shortness of breath, abdominal pain - Current Medication List Current Medications: Active Medications Acetaminophen (Ofirmev Injection -) 1,000 mg IVPB Q6H PRN PRN Reason: PAIN LEVEL 1-5 Atorvastatin Calcium (Lipitor -) 20 mg PO HS [facility] Last Admin: 02/14/19 23:26 Dose: Not Given Brimonidine Tartrate (Alphagan 0.2% -) 1 drop OU BID [facility] Last Admin: 02/14/19 23:24 Dose: 1 drop Chlorhexidine Gluconate (Hibiclens For Decolonization -) 1 applic TP [facility] Last Admin: 02/14/19 23:25 Dose: 1 applic Dexamethasone Sodium Phosphate (Decadron Injection -) 4 mg IVPUSH Q6H-IV [facility] Last Admin: 02/15/19 02:26 Dose: 4 mg Dorzolamide HCl (Trusopt 2%) 1 drop OU BID [facility] Last Admin: 02/14/19 23:23 Dose: 1 drop Cefazolin Sodium (Ancef 1 Gm Premixed Ivpb -) 1 gm in 50 mls @ 100 mls/hr IVPB Q8H-IV [facility] Last Admin: 02/15/19 02:25 Dose: 100 mls/hr Lactated Ringer's (Lactated Ringers Solution) 1,000 ml in 1,000 mls @ 100 mls/ hr IV ASDIR [facility] Insulin Aspart (Novolog Vial Sliding Scale -) 1 vial SQ ACHS [facility]; Protocol Last Admin: 02/15/19 06:34 Dose: 4 units Latanoprost (Xalatan 0.005% Eye Drops -) 1 drop OD [facility] Last Admin: 02/14/19 23:23 Dose: 1 drop Metoprolol Tartrate (Lopressor -) 25 mg PO BID [facility] Last Admin: 02/14/19 23:23 Dose: Not Given Metoprolol Tartrate (Lopressor Injection -) 5 mg IVPUSH Q4H PRN PRN Reason: HYPERTENSION Last Admin: 02/15/19 06:12 Dose: 5 mg Morphine Sulfate (Morphine Sulfate) 4 mg IVPUSH Q4H PRN PRN Reason: PAIN LEVEL 6-10 Mupirocin (Bactroban Ointment (For Decolonization) -) 1 applic NS BID [facility] Stop: 02/15/19 21:59 Last Admin: 02/14/19 23:25 Dose: 1 applic Nifedipine (Procardia Xl -) 30 mg PO DAILY [facility] Last Admin: 02/14/19 09:29 Dose: Not Given Ondansetron HCl (Zofran Injection) 4 mg IVPUSH Q6H PRN PRN Reason: NAUSE[facility] Last Admin: 02/10/19 20:17 Dose: 4 mg Pantoprazole Sodium (Protonix Iv) 40 mg IVPUSH BID [facility] Last Admin: 02/14/19 23:26 Dose: 40 mg Polyethylene Glycol (Miralax (For Daily Use) -) 17 gm PO BID [facility] Last Admin: 02/14/19 23:23 Dose: Not Given Senna/Docusate Sodium (Pericolace -) 1 tablet PO HS [facility] Last Admin: 02/14/19 23:26 Dose: Not Given Timolol Maleate (Timoptic 0.5%) 1 drop OU BID [facility] Last Admin: 02/14/19 23:24 Dose: 1 drop - Objective Vital Signs: Vital Signs Temperature 98 F 02/15/19 02:00 Pulse Rate 87 02/15/19 06:12 Respiratory Rate 20 02/15/19 05:00 Blood Pressure 159/84 02/15/19 06:12 O2 Sat by Pulse Oximetry (%) 100 02/14/19 21:00 Constitutional: Yes: Calm Eyes: Yes: EOM Intact (with nystagmus when looking to the right), PERRL. No: Ptosis HENT: Yes: Atraumatic, Normocephalic Neck: Yes: Other (ttp and with movement to the left) Cardiovascular: Yes: Regular Rate and Rhythm, S1, S2 Respiratory: Yes: Other (quiet at bases). No: Rales, Stridor, Wheezes Gastrointestinal: Yes: Normal Bowel Sounds, Soft. No: Tenderness Edema: No Peripheral Pulses WNL: Yes Integumentary: No: Bruising, Erythema Neurological: Yes: Alert, Oriented, Cran Nerves II-XII Intact. No: Aphasia, Confusion, Facial Droop, Lethargy, Loss of Sensation, Tremors, Weakness ...Motor Strength: WNL (5/5 at hip extension, knee extension/flexion, shoulder shrug, biceps and triceps extension/flexion, hand fruit dumper, finger spread.) Labs: CBC, BMP 02/15/19 05:30 02/15/19 05:30 INR, PTT INR 1.02 (0.83-1.09) 02/14/19 05:30 Assessment/Plan 68 yr old man with HTN, HLD, DM, CAD s/p 3 stents, GERD amitted for symptomatic right cerebellar mass being monitered in the ICU POD #1 from cerebellar mass resection. - Neurological - no focal deficits this morning(except for previously present nystagmus and difficulty seeing out of left eye), post-op head CT with pneumocephaly - continue decadron 4mg q6hr started 02/10 - neurochecks - neurosurgery consulted - f/u pathology reports - pending neurosurg clearane for ambulation - Cardiovascular - goal systolic pressure <150, given po procardia 30mg and po metoprolol 25mg, with 5mg Ivpush metoprolol q4hr prn for pressure control - was on LR post-op while NPO, dc'd this mornig - continue lipitor 20mg po hs - cardiology consulted - Respiratory maintaining airway without supplemental oxygen - Fluids, electrolytes, nutrition - monitoring off IVF - electrolytes wnl - did well with bedside swallow eval, advance diet as tolerated, started on full liquids this morning - eleanor dc'd - Infectious disease -received 3 doses of ancef teri-op - Hematology - was given 2 units platelets last night, additional unit ordered this morning - day 6 off ASA/plavix therapy ( last dose 02/09) - repeat labs tomorrow - ASA and plavix on hold - hematology consulted - Gastrointestinal - continue omeprazole - Zofran prn for nausea - constipated, on bowel regimen - on miralax BID, incr ducosate/senna to BID - milk of magnesia/fleet if needed - Endocrine - DM - NISS/BGM ACHS - Prophylaxis - no medical AC, on SCD's - protonix IV push bid for GI prophylaxis while on decadron and in the ICU
--- NOTE | 2019-02-15 08:10 | PN ---
Physical Exam: SUBJECTIVE: Patient seen and examined at bedside this morning. He is POD #1 s/p craniectomy, and resection of cerebellar tumor. Patient endorses headache, and neck pain limiting his ability to move head to the left. Patient was hypertensive overnight, and required Nifedipine 10mg PO, and Metoprolol 5mg IV push. He denies subjective fevers, chills, shortness of breath, chest pain, palpitations, abdominal pain, nausea, vomiting. OBJECTIVE: Vital Signs Period Temp Pulse Resp BP Sys/Donahue Pulse Ox Last 24 Hr 97.3 F-98.4 F 51-87 16-20 121-159/62-88 100-100 GENERAL: The patient is awake, alert, and fully oriented, in no acute distress. HEAD: Normocephalic, atraumatic. EYES: PERRL, extraocular movements intact, horizontal nystagmus upon leftward gaze. Sclera anicteric, conjunctiva clear. ENT: Oropharynx clear, without erythema or exudates. Moist mucous membranes. NECK: Trachea midline, full range of motion. Supple without lymphadenopathy. LUNGS: Breath sounds equal, clear to auscultation bilaterally, no wheezes, no crackles. No accessory muscle use. HEART: Regular rate and rhythm, S1, S2 without murmur, rub or gallop. ABDOMEN: Soft, nondistended, nontender to light and deep palpation x4 quadrants , no rebound tenderness, no guarding. Normoactive bowel sounds x4 quadrants. no hepatosplenomegaly, no masses. EXTREMITIES: 2+ radial, dorsalis pedis pulses bilaterally. Warm, well-perfused. No lower extremity edema bilaterally. NEUROLOGICAL: Cranial nerves II through XII grossly intact. Normal speech. Strength 5/5 bilateral upper and lower extremities. PSYCH: Normal mood, normal affect upon my encounter. SKIN: Warm, dry. Seborrheic ketatosis noted upon patient's back. Laboratory Results - last 24 hr 02/13/19 02/14/19 02/14/19 12:55 05:30 11:25 WBC RBC Hgb Hct MCV MCH MCHC RDW Plt Count MPV Sodium Potassium Chloride Carbon Dioxide Anion Gap BUN Creatinine Creat Clearance w eGFR POC Glucometer 180 Random Glucose Calcium Phosphorus Magnesium Total Bilirubin AST ALT Alkaline Phosphatase Total Protein Albumin Total T3 69.00 L Blood Type O POSITIVE Antibody Screen Negative 02/14/19 02/14/19 02/15/19 20:13 23:16 05:30 WBC 19.2 H RBC 4.23 Hgb 12.5 Hct 38.1 MCV 90.2 MCH 29.7 MCHC 32.9 RDW 13.9 Plt Count 266 D MPV 8.7 Sodium Potassium Chloride Carbon Dioxide Anion Gap BUN Creatinine Creat Clearance w eGFR POC Glucometer 232 246 Random Glucose Calcium Phosphorus Magnesium Total Bilirubin AST ALT Alkaline Phosphatase Total Protein Albumin Total T3 Blood Type Antibody Screen 02/15/19 02/15/19 05:30 06:28 WBC RBC Hgb Hct MCV MCH MCHC RDW Plt Count MPV Sodium 136 Potassium 4.0 Chloride 102 Carbon Dioxide 30 Anion Gap 5 L BUN 20 H Creatinine 1.1 Creat Clearance w eGFR 66.37 POC Glucometer 222 Random Glucose 199 H Calcium 9.0 Phosphorus 4.0 Magnesium 2.1 Total Bilirubin 0.6 AST 16 ALT 19 Alkaline Phosphatase 53 Total Protein 6.3 L Albumin 3.3 L Total T3 Blood Type Antibody Screen Active Medications Generic Name Dose Route Start Last Admin Trade Name Freq PRN Reason Stop Dose Admin Acetaminophen 1,000 mg 02/11/19 16:24 Ofirmev Injection - IVPB Q6H PRN PAIN LEVEL 1-5 Atorvastatin Calcium 20 mg 02/10/19 22:00 02/14/19 23:26 Lipitor - PO Not Given [facility] Brimonidine Tartrate 1 drop 02/12/19 22:00 02/14/19 23:24 Alphagan 0.2% - OU 1 drop BID [facility] Administration Chlorhexidine Gluconate 1 applic 02/10/19 22:00 02/14/19 23:25 Hibiclens For Decolonization - TP 1 applic HS [facility] Administration Dexamethasone Sodium Phosphate 4 mg 02/10/19 16:00 02/15/19 02:26 Decadron Injection - IVPUSH 4 mg Q6H-IV [facility] Administration Dorzolamide HCl 1 drop 02/12/19 22:00 02/14/19 23:23 Trusopt 2% OU 1 drop BID [facility] Administration Cefazolin Sodium 1 gm in 50 mls @ 100 mls/hr 02/14/19 19:15 02/15/19 02:25 Ancef 1 Gm Premixed Ivpb - IVPB 100 mls/hr Q8H-IV [facility] Administration Lactated Ringer's 1,000 ml in 1,000 mls @ 75 mls/hr 02/15/19 08:05 Lactated Ringers Solution IV 02/15/19 21:19 ASDIR [facility] Insulin Aspart 1 vial 02/10/19 22:00 02/15/19 06:34 Novolog Vial Sliding Scale - SQ 4 units ACHS [facility] Administration Protocol Latanoprost 1 drop 02/12/19 22:00 02/14/19 23:23 Xalatan 0.005% Eye Drops - OD 1 drop HS [facility] Administration Metoprolol Tartrate 25 mg 02/13/19 11:25 02/14/19 23:23 Lopressor - PO Not Given BID [facility] Metoprolol Tartrate 5 mg 02/14/19 19:11 02/15/19 06:12 Lopressor Injection - IVPUSH 5 mg Q4H PRN Administration HYPERTENSION Morphine Sulfate 4 mg 02/15/19 07:31 Morphine Sulfate IVPUSH Q4H PRN PAIN LEVEL 6-10 Mupirocin 1 applic 02/10/19 22:00 02/14/19 23:25 Bactroban Ointment (For Decolonization) - NS 02/15/19 21:59 1 applic BID [facility] Administration Nifedipine 30 mg 02/11/19 10:00 02/14/19 09:29 Procardia Xl - PO Not Given DAILY [facility] Ondansetron HCl 4 mg 02/10/19 11:35 02/10/19 20:17 Zofran Injection IVPUSH 4 mg Q6H PRN Administration NAUSEA Pantoprazole Sodium 40 mg 02/12/19 22:00 02/14/19 23:26 Protonix Iv IVPUSH 40 mg BID [facility] Administration Polyethylene Glycol 17 gm 02/11/19 22:00 02/14/19 23:23 Miralax (For Daily Use) - PO Not Given BID [facility] Senna/Docusate Sodium 1 tablet 02/11/19 18:47 02/14/19 23:26 Pericolace - PO Not Given HS [facility] Timolol Maleate 1 drop 02/12/19 22:00 02/14/19 23:24 Timoptic 0.5% OU 1 drop BID [facility] Administration ASSESSMENT/PLAN: Patient is a 68 year old male with history of previously diagnosed cerebellar mass (diagnosed six months ago), hypertension, hyperlipidemia, diabetes mellitus , coronary artery disease (s/p three stents, on plavix), gastro-esophageal reflux disease, presented with left sided headache, and unsteady gait. Cerebellar mass -Patient is POD #1 s/p craniectomy, and resection of cerebellar tumor. -CT head shows 4cm x 3.4cm right cerebellar mass lesion, concerning for neoplasm. -CT chest, abdomen, pelvis shows no definite primary neoplastic lesion within chest, abdomen, pelvis. Prostatic enlargement, thyromegaly, atherosclerotic calcification, aneurysmal dilation ascending aorta noted. -MRI brain shows solitary 3cm X 2.7cm X 2.7cm enhancing mass lesion inferior half right cerebellar hemisphere. -Neurosurgery recommendations (Dr. Leon) appreciated. -Follow brain MRI with and without contrast -Cefazolin 1 gram IV Q8 hours -Dexamethasone 4mg IV Q6 hours -Neurochecks Q1 hour -Pain control with Acetaminophen 1000mg IV Q6H PRN, Morphine 4mg IV Q4 hours PRN. Coronary artery disease -Patient is s/p three stents 2011, 2014 -Cardiology consult (Dr. Dumont) appreciated. Will discuss reinstatement of antiplatelet therapy. Diabetes mellitus -Insulin sliding scale ACHS -Fingerstick blood glucose monitoring ACHS Hypertension -Metoprolol 25mg PO BID -Nifedipine ER 30mg PO daily -Metoprolol 5mg IV Q4H PRN Enlarged left thyroid lobe -Incidentally noted on CT chest scan -TSH 0.23 -T4 1.04 -Free T3 69 -Patient will require outpatient thyroid ultrasound for further workup. FEN -IV Lacted Ringer's at 75mL/ hour -Follow CMP -Full liquid diet. Advance as tolerated Prophylaxis -SCDs bilateral lower extremities, per neurosurgery. -Protonix 40mg IV BID Disposition -Continue care in ICU Visit type - Emergency Visit Emergency Visit: Yes ED Registration Date: 02/10/19 Care time: The patient presented to the Emergency Department on the above date and was hospitalized for further evaluation of their emergent condition. - New Patient This patient is new to me today: No - Critical Care Critical Care patient: Yes Total Critical Care Time (in minutes): 37 Critical Care Statement: The care of this patient involved high complexity decision making to prevent further life threatening deterioration of the patient 's condition and/or to evaluate & treat vital organ system(s) failure or risk of failure. - Discharge Referral Referred to [facility] Med [facility] No
[2019-02-15] MEDS ORDERED: PT OWN MED DRAWER 7, Y5N ONE (08:29)
[2019-02-15] MEDS: NIFEdipine E.R. 30 MG TABLET (FP) PO SCH ×2 (08:39→10:47)
[2019-02-15] MEDS: METOPROLOL TARTRATE 25 MG TABLET (FP) PO SCH ×2 (09:47→22:00)
[2019-02-15] MEDS: MUPIROCIN 2% TOPICAL OINTMENT FOR DECOLONIZATION NS SCH (09:51)
[2019-02-15] MEDS: BRIMONIDINE TARTRATE 0.2% OPHTHALMIC 5 ML BOTTLE OU SCH ×2 (09:52→22:12)
[2019-02-15] MEDS: DORZOLAMIDE 2% HCL OPHTHALMIC SOLUTION 10 ML BOTTLE OU SCH ×2 (09:52→22:13)
[2019-02-15] MEDS: TIMOLOL 0.5% OPHTHALMIC SOL 5 ML BOTTLE OU SCH ×2 (09:52→22:12)
[2019-02-15] MEDS: morphine SULFATE 4 MG/ML VIAL IVPUSH PRN (10:22)
[2019-02-15] MEDS: PANTOPRAZOLE SODIUM 40 MG VIAL IVPUSH SCH ×2 (10:32→22:00)
--- NOTE | 2019-02-15 10:50 | PN ---
Physical Exam: SUBJECTIVE: Patient seen and examined at bedside. Has a CARRILLO with photophobia. No N/V/F/C, change in vision, change in hearing. Moving all 4 extremities. Has not ambulated since surgery yesterday. OBJECTIVE: Vital Signs Temperature 98.6 F 02/15/19 08:50 Pulse Rate 65 02/15/19 08:50 Respiratory Rate 16 02/15/19 08:50 Blood Pressure 167/78 02/15/19 08:50 O2 Sat by Pulse Oximetry (%) 100 02/15/19 07:57 GENERAL: Awake, alert, and fully oriented, in no acute distress. HEAD: Normal with no signs of trauma. EYES: Pupils equal, round and reactive to light, extraocular movements intact LUNGS: Breath sounds equal, clear to auscultation bilaterally. No wheezes, and no crackles. No accessory muscle use. HEART: Regular rate and rhythm, normal S1 and S2 ABDOMEN: Soft, nontender, not distended, normoactive bowel sounds LOWER EXTREMITIES: warm, well-perfused. No peripheral edema. NEUROLOGICAL: Cranial nerves II-XII intact. Normal speech. PSYCHIATRIC: Cooperative. Good eye contact. Appropriate mood and affect. SKIN: Warm, dry. Laboratory Results - last 24 hr 02/13/19 02/14/19 02/14/19 12:55 11:25 20:13 WBC RBC Hgb Hct MCV MCH MCHC RDW Plt Count MPV Sodium Potassium Chloride Carbon Dioxide Anion Gap BUN Creatinine Creat Clearance w eGFR POC Glucometer 180 232 Random Glucose Calcium Phosphorus Magnesium Total Bilirubin AST ALT Alkaline Phosphatase Total Protein Albumin Total T3 69.00 L 02/14/19 02/15/19 02/15/19 23:16 05:30 05:30 WBC 19.2 H RBC 4.23 Hgb 12.5 Hct 38.1 MCV 90.2 MCH 29.7 MCHC 32.9 RDW 13.9 Plt Count 266 D MPV 8.7 Sodium 136 Potassium 4.0 Chloride 102 Carbon Dioxide 30 Anion Gap 5 L BUN 20 H Creatinine 1.1 Creat Clearance w eGFR 66.37 POC Glucometer 246 Random Glucose 199 H Calcium 9.0 Phosphorus 4.0 Magnesium 2.1 Total Bilirubin 0.6 AST 16 ALT 19 Alkaline Phosphatase 53 Total Protein 6.3 L Albumin 3.3 L Total T3 02/15/19 06:28 WBC RBC Hgb Hct MCV MCH MCHC RDW Plt Count MPV Sodium Potassium Chloride Carbon Dioxide Anion Gap BUN Creatinine Creat Clearance w eGFR POC Glucometer 222 Random Glucose Calcium Phosphorus Magnesium Total Bilirubin AST ALT Alkaline Phosphatase Total Protein Albumin Total T3 Active Medications Generic Name Dose Route Start Last Admin Trade Name Freq PRN Reason Stop Dose Admin Acetaminophen 1,000 mg 02/11/19 16:24 Ofirmev Injection - IVPB Q6H PRN PAIN LEVEL 1-5 Atorvastatin Calcium 20 mg 02/10/19 22:00 02/14/19 23:26 Lipitor - PO Not Given [facility] Brimonidine Tartrate 1 drop 02/12/19 22:00 02/15/19 09:52 Alphagan 0.2% - OU 1 drop BID [facility] Administration Chlorhexidine Gluconate 1 applic 02/10/19 22:00 02/14/19 23:25 Hibiclens For Decolonization - TP 1 applic HS [facility] Administration Dexamethasone Sodium Phosphate 4 mg 02/10/19 16:00 02/15/19 10:29 Decadron Injection - IVPUSH 4 mg Q6H-IV [facility] Administration Dorzolamide HCl 1 drop 02/12/19 22:00 02/15/19 09:52 Trusopt 2% OU 1 drop BID [facility] Administration Cefazolin Sodium 1 gm in 50 mls @ 100 mls/hr 02/14/19 19:15 02/15/19 10:34 Ancef 1 Gm Premixed Ivpb - IVPB 100 mls/hr Q8H-IV [facility] Administration Lactated Ringer's 1,000 ml in 1,000 mls @ 75 mls/hr 02/15/19 08:05 Lactated Ringers Solution IV 02/15/19 21:19 ASDIR [facility] Insulin Aspart 1 vial 02/10/19 22:00 02/15/19 06:34 Novolog Vial Sliding Scale - SQ 4 units ACHS [facility] Administration Protocol Latanoprost 1 drop 02/12/19 22:00 02/14/19 23:23 Xalatan 0.005% Eye Drops - OD 1 drop HS [facility] Administration Metoprolol Tartrate 25 mg 02/13/19 11:25 02/15/19 09:47 Lopressor - PO 25 mg BID [facility] Administration Metoprolol Tartrate 5 mg 02/14/19 19:11 02/15/19 06:12 Lopressor Injection - IVPUSH 5 mg Q4H PRN Administration HYPERTENSION Morphine Sulfate 4 mg 02/15/19 10:09 02/15/19 10:22 Morphine Sulfate IVPUSH 4 mg Q4H PRN Administration PAIN LEVEL 6-10 Mupirocin 1 applic 02/10/19 22:00 02/15/19 09:51 Bactroban Ointment (For Decolonization) - NS 02/15/19 21:59 1 applic BID [facility] Administration Nifedipine 30 mg 02/11/19 10:00 02/15/19 08:39 Procardia Xl - PO 30 mg DAILY [facility] Administration Ondansetron HCl 4 mg 02/10/19 11:35 02/10/19 20:17 Zofran Injection IVPUSH 4 mg Q6H PRN Administration NA[facility]A Pantoprazole Sodium 40 mg 02/12/19 22:00 02/15/19 10:32 Protonix Iv IVPUSH 40 mg BID [facility] Administration Polyethylene Glycol 17 gm 02/11/19 22:00 02/14/19 23:23 Miralax (For Daily Use) - PO Not Given BID [facility] Senna/Docusate Sodium 1 tablet 02/11/19 18:47 02/14/19 23:26 Pericolace - PO Not Given [facility] Timolol Maleate 1 drop 02/12/19 22:00 02/15/19 09:52 Timoptic 0.5% OU 1 drop BID [facility] Administration ASSESSMENT/PLAN: 68 y/o M PMH of HTN, HLD, DM, CAD (s/p 3 stents on plavix), GERD, cerebellar mass (diagnosed 6 months ago) presents for L sided drifting when walking that started on Tuesday morning after waking up. Found to have cerebellar mass -Cerebellar mass -POD#1 -Right Suboccipital Craniectomy and Resection of Cerebellar Tumor -f/u biopsy / path results -s/p 2 units of platelets -c/w decadron -neurochecks -CT results noted for no primary source -f/u with Dr. Real/Dr. Carrera as outpatient when ready for discharge Visit type - Emergency Visit Emergency Visit: Yes ED Registration Date: 02/10/19 Care time: The patient presented to the Emergency Department on the above date and was hospitalized for further evaluation of their emergent condition. - New Patient This patient is new to me today: No - Critical Care Critical Care patient: Yes Total Critical Care Time (in minutes): 40 Critical Care Statement: The care of this patient involved high complexity decision making to prevent further life threatening deterioration of the patient 's condition and/or to evaluate & treat vital organ system(s) failure or risk of failure.
--- NOTE | 2019-02-15 11:11 | PN ---
Teaching Attending Note Name of Resident: Mary Beth Wolf ATTENDING PHYSICIAN STATEMENT I saw and evaluated the patient. I reviewed the resident's note and discussed the case with the resident. I agree with the resident's findings and plan as documented. SUBJECTIVE: Pt seen and examined in the ICU. s/p right subocciptal craniectomy and cerebellar tumor resection. Mild pain this AM. No nausea or vomiting. OBJECTIVE: Vital Signs Period Temp Pulse Resp BP Sys/Donahue Pulse Ox Last 24 Hr 97.3 F-98.6 F 54-87 16-20 123-167/62-88 100-100 Intake & Output 02/12/19 02/13/19 02/14/19 02/15/19 23:59 23:59 23:59 23:59 Intake Total 170 543 2297 1050 Output Total 750 6900 787 6420 Balance -30 -150 1130 -500 Weight 99.5 kg 101.015 kg 99.11 kg 105 kg Gen: NAD at rest Heart: RRR Lung: decreased breath sounds at the bases Abd: soft, nontender Ext: no edema CBC, BMP 02/15/19 05:30 02/15/19 05:30 Active Medications Acetaminophen (Ofirmev Injection -) 1,000 mg IVPB Q6H PRN PRN Reason: PAIN LEVEL 1-5 Atorvastatin Calcium (Lipitor -) 20 mg PO HS [facility] Last Admin: 02/14/19 23:26 Dose: Not Given Brimonidine Tartrate (Alphagan 0.2% -) 1 drop OU BID [facility] Last Admin: 02/15/19 09:52 Dose: 1 drop Chlorhexidine Gluconate (Hibiclens For Decolonization -) 1 applic TP [facility] Last Admin: 02/14/19 23:25 Dose: 1 applic Dexamethasone Sodium Phosphate (Decadron Injection -) 4 mg IVPUSH Q6H-IV [facility] Last Admin: 02/15/19 10:29 Dose: 4 mg Dorzolamide HCl (Trusopt 2%) 1 drop OU BID [facility] Last Admin: 02/15/19 09:52 Dose: 1 drop Cefazolin Sodium (Ancef 1 Gm Premixed Ivpb -) 1 gm in 50 mls @ 100 mls/hr IVPB Q8H-IV [facility] Last Admin: 02/15/19 10:34 Dose: 100 mls/hr Lactated Ringer's (Lactated Ringers Solution) 1,000 ml in 1,000 mls @ 75 mls/ hr IV ASDIR [facility] Stop: 02/15/19 21:19 Insulin Aspart (Novolog Vial Sliding Scale -) 1 vial SQ ACHS [facility]; Protocol Last Admin: 02/15/19 06:34 Dose: 4 units Latanoprost (Xalatan 0.005% Eye Drops -) 1 drop OD [facility] Last Admin: 02/14/19 23:23 Dose: 1 drop Metoprolol Tartrate (Lopressor -) 25 mg PO BID [facility] Last Admin: 02/15/19 09:47 Dose: 25 mg Metoprolol Tartrate (Lopressor Injection -) 5 mg IVPUSH Q4H PRN PRN Reason: HYPERTENSION Last Admin: 02/15/19 06:12 Dose: 5 mg Morphine Sulfate (Morphine Sulfate) 4 mg IVPUSH Q4H PRN PRN Reason: PAIN LEVEL 6-10 Last Admin: 02/15/19 10:22 Dose: 4 mg Mupirocin (Bactroban Ointment (For Decolonization) -) 1 applic NS BID [facility] Stop: 02/15/19 21:59 Last Admin: 02/15/19 09:51 Dose: 1 applic Nifedipine (Procardia Xl -) 30 mg PO DAILY [facility] Last Admin: 02/15/19 10:47 Dose: Not Given Ondansetron HCl (Zofran Injection) 4 mg IVPUSH Q6H PRN PRN Reason: NAUSEA Last Admin: 02/10/19 20:17 Dose: 4 mg Pantoprazole Sodium (Protonix Iv) 40 mg IVPUSH BID [facility] Last Admin: 02/15/19 10:32 Dose: 40 mg Polyethylene Glycol (Miralax (For Daily Use) -) 17 gm PO BID [facility] Last Admin: 02/14/19 23:23 Dose: Not Given Senna/Docusate Sodium (Pericolace -) 1 tablet PO [facility] Last Admin: 02/14/19 23:26 Dose: Not Given Timolol Maleate (Timoptic 0.5%) 1 drop OU BID [facility] Last Admin: 02/15/19 09:52 Dose: 1 drop ASSESSMENT AND PLAN: Cerebellar Mass s/p Right Subocciptal Craniectomy/Cerebellar Tumor Resection CAD HTN DM Hyperlipidemia - f/u pathology - continue decadron - neuro checks - antiemetics as needed - DVT prophylaxis
--- NOTE | 2019-02-15 11:50 | PN ---
Teaching Attending Note Name of Resident: Quinten Guzmán ATTENDING PHYSICIAN STATEMENT I saw and evaluated the patient. I reviewed the resident's note and discussed the case with the resident. I agree with the resident's findings and plan as documented. SUBJECTIVE:c/o L neck pain. started last night. assoc with CARRILLO this AM. denies CP , SOB, fever, chills, blurred vision, tinnitus, N/V/C/D, OBJECTIVE: Last Vital Signs Temp Pulse Resp BP Pulse Ox 98.6 F 65 16 167/78 100 02/15/19 08:50 02/15/19 08:50 02/15/19 08:50 02/15/19 08:50 02/15/19 07:57 General NAD CV S1 S2 RRR no murmur/rub/gallop Lungs CTA B/L no wheezing/rales/rhonchi Neuro CN II to XII grossly intact, strength and sensation grossly intact in all 4 extremities ASSESSMENT AND PLAN: 68 year old male with HTN, HLD, DM 2, CAD s/p STEMI 2006/Multiple Stents (last 2013), GERD, known Cerebellar Mass, previously on steroids, follows at [place], now presents with R sided occipital pressure, abnormal gait, leaning to L side, lightheadedness/dizziness, with nausea and 1 episode of vomiting earlier today. 1. R Cerebellar Mass with symptoms including abnormal/unsteady gait, lightheadedness, nausea, vomiting -s/p Right Suboccipital Craniectomy and Resection of Cerebellar Tumor. received teri-operative mannitol and cefazolin. platelet x4 packs. tight BP control. HOB at 35degrees. will d/w him about neck pain and if should be expected. had CT head done last night with negative for bleed. on Decadron 4mg Q6H, PPI ppx. mas-CT negative for mets. further recommendations per neurosurg. 2. Low TSH- does not appear to be symptomatic.T3/T4 WNL. should have repeat TSH in a few weeks. CT showing thyromegaly on CT, unable to get dedicated u/s while hospitalized. may need further investigation as outpatient 3. CAD s/p stents- hold asa/plavix for pending surgery. will re-start at discretion of surgeon. cardio on board. cont statin/betablocker 4. HTN- controlled 5. Dyslipidemia- statin 6. DM- hold oral agetns. A1c 7.2 BGM and ISS 7.DVT ppx- hold hep sq for pending surgery 8. MICU monitoring The care of this patient involved high complexity decision making to prevent further life threatening deterioration of the patient's condition and/or to evaluate & treat vital organ system(s) failure or risk of failure. 38 mins
--- NOTE | 2019-02-15 11:55 | PN ---
Progress Note (short form) - Note Progress Note: s: no chest pain, palps, dizziness,sob Current Medications Generic Name Dose Route Start Last Admin Trade Name Freq PRN Reason Stop Dose Admin Acetaminophen 1,000 mg 02/11/19 16:24 Ofirmev Injection - IVPB Q6H PRN PAIN LEVEL 1-5 Atorvastatin Calcium 20 mg 02/10/19 22:00 02/14/19 23:26 Lipitor - PO Not Given HS ISAURA Brimonidine Tartrate 1 drop 02/12/19 22:00 02/15/19 09:52 Alphagan 0.2% - OU 1 drop BID ISAURA Administration Chlorhexidine Gluconate 1 applic 02/10/19 22:00 02/14/19 23:25 Hibiclens For Decolonization - TP 1 applic HS ISAURA Administration Dexamethasone Sodium Phosphate 4 mg 02/10/19 16:00 02/15/19 10:29 Decadron Injection - IVPUSH 4 mg Q6H-IV ISAURA Administration Dorzolamide HCl 1 drop 02/12/19 22:00 02/15/19 09:52 Trusopt 2% OU 1 drop BID ISAURA Administration Cefazolin Sodium 1 gm in 50 mls @ 100 mls/hr 02/14/19 19:15 02/15/19 10:34 Ancef 1 Gm Premixed Ivpb - IVPB 100 mls/hr Q8H-IV ISAURA Administration Lactated Ringer's 1,000 ml in 1,000 mls @ 75 mls/hr 02/15/19 08:05 Lactated Ringers Solution IV 02/15/19 21:19 ASDIR ISAURA Insulin Aspart 1 vial 02/10/19 22:00 02/15/19 11:33 Novolog Vial Sliding Scale - SQ 2 units ACHS ISAURA Administration Protocol Latanoprost 1 drop 02/12/19 22:00 02/14/19 23:23 Xalatan 0.005% Eye Drops - OD 1 drop HS ISAURA Administration Metoprolol Tartrate 25 mg 02/13/19 11:25 02/15/19 09:47 Lopressor - PO 25 mg BID ISAURA Administration Metoprolol Tartrate 5 mg 02/14/19 19:11 02/15/19 06:12 Lopressor Injection - IVPUSH 5 mg Q4H PRN Administration HYPERTENSION Morphine Sulfate 4 mg 02/15/19 10:09 02/15/19 10:22 Morphine Sulfate IVPUSH 4 mg Q4H PRN Administration PAIN LEVEL 6-10 Mupirocin 1 applic 02/10/19 22:00 02/15/19 09:51 Bactroban Ointment (For Decolonization) - NS 02/15/19 21:59 1 applic BID ISAURA Administration Nifedipine 30 mg 02/11/19 10:00 02/15/19 10:47 Procardia Xl - PO Not Given DAILY ISAURA Ondansetron HCl 4 mg 02/10/19 11:35 02/10/19 20:17 Zofran Injection IVPUSH 4 mg Q6H PRN Administration NAUSEA Pantoprazole Sodium 40 mg 02/12/19 22:00 02/15/19 10:32 Protonix Iv IVPUSH 40 mg BID ISAURA Administration Polyethylene Glycol 17 gm 02/11/19 22:00 02/14/19 23:23 Miralax (For Daily Use) - PO Not Given BID ISAURA Senna/Docusate Sodium 1 tablet 02/15/19 22:00 Pericolace - PO BID ISAURA Timolol Maleate 1 drop 02/12/19 22:00 02/15/19 09:52 Timoptic 0.5% OU 1 drop BID ISAURA Administration Vital Signs Period Temp Pulse Resp BP Sys/Donahue Pulse Ox Last 24 Hr 97.3 F-98.6 F 54-87 16-20 123-167/62-88 100-100 Constitutional: Yes: Well Nourished, No Distress, Calm Cardiovascular: Yes: Regular Rate and Rhythm, S1, S2. No: Gallop, Murmur Respiratory: Yes: Regular, CTA Bilaterally. No: Accessory Muscle Use Extremities: No: Cold Edema: No Neurological: Yes: Alert, Oriented Psychiatric: No: Agitated no jaundice diaphoresis CBC, BMP 02/15/19 05:30 02/15/19 05:30 Echo 01/12: low nl lvef, nl rv, no sig valve path, no sig change from 02/2012 report MPI 2017: inferolateral infarct with teri-infarct ischemia. inferolat HK with EF 43%. no TID described ECG: NSR, no ST-T abn tele: sinus Assessment/Plan 64 year old M w h/o HTN, CAD , cath again , and most recent , hld, her with cp, anguiano. brain mass, preop eval: -cerebellar lesion on CT head here, s/p surgery now -remote stent--hold aspirin and plavix periop if needed CAD: -s/p stemi 03/2007 with bms to OM -s/p PCIs 2011 for unstable angina (gwen to plad/mlad) -last cath 2013 with gwen to dlcx (prior stents patent, no sig residual dz) -chronic atypical CP--MPI 2016 no ischemia (old inferolateral scar) -remains on aspirin and plavix >3 yrs from last PCI--holding s/p neurosurgery -cont home statin, BB HTN: -cont home meds DM: -per hospitalist CKD: -creat 1.2-1.4 baseline range, stable here
[2019-02-15] MEDS: ACETAMINOPHEN 1000 MG/100 ML VIAL (NON FORMULARY) IVPB PRN (12:06)
[2019-02-15 12:08] VITALS: BMI 30.4
--- NOTE | 2019-02-15 12:46 | PN ---
Progress Note (short form) - Note Progress Note: Anesthesia POD#1 S/P Craniotomy Occipital mass Excision under GA VSS,some headache responded to pain medicine. Surgical pain is there to but bearable,no N/V Arterial Line came out today. No complications to anesthesia seen. Medina Coats MD.
[2019-02-15] MEDS: POLYETHYLENE GLYCOL 3350 119 GM BTL PO SCH ×2 (13:29→22:14)
--- NOTE | 2019-02-15 14:30 | PN ---
Progress Note (short form) - Note Progress Note: The patient is s/p right suboccipital craniectomy and resection of malignant cerebellar tumor. He is resting comfortably in bed. He is awake, alert and oriented x 3. He moves all of his extremities equally. The wound dressing has serosanguineous staining but no active drainage. He tolerated a liquid diet earlier today. The postop Head CT showed expected postoperative changes. He can be OOB and work with PT tomorrow morning. Please keep SBP < 150. Please order repeat Head CT tomorrow morning. Please continue decadron 4 mg PO q 6 hours. Please consult Rad Onc. Will follow.
[2019-02-15] MEDS: ONDANSETRON 4 MG/2 ML VIAL IVPUSH PRN (18:36)
[2019-02-15] MEDS: ATORVASTATIN CA 20 MG TABLET (FP) PO SCH (22:00)
[2019-02-15] MEDS ORDERED: FAMOTIDINE 20 MG/50 ML IVPB 20 MG/50 ML MG IVPB SCH (22:00)
[2019-02-15] MEDS: SENNOSIDES/DOCUSATE COMBO (SENNA PLUS) TABLET (UD) PO SCH (22:01)
[2019-02-15] MEDS: LATANOPROST 0.005% OPHTH SOLN 2.5ML BOTTLE OD SCH (22:12)
[2019-02-15] MEDS: CHLORHEXIDINE GLUCONATE 4% CLEANSER FOR DECOLONIZATION TP SCH (22:13)
--- NOTE | 2019-02-15 22:16 | PN ---
Progress Note (short form) - Note Progress Note: Patient seen and examined s/p debulking of cerebellar mass Denies any specific complaints Moving all extremities Post op. CT showed no acute hemorrhage AFVSS Cor: RSR, No murmurs, No gallops Lungs: Clear to P&A Abd: Soft, Normal bowel sounds, No organomegaly Dressing with serosanguinous discharge Labs/Meds reviewed A/P 68 y/o patient s/p debulking of cerebellar mass Post op. CT showed no acute hemorrhage s/p 2 units monodonor platelets repeat head CT tomorrow await path result rad-onc consult
--- NOTE | 2019-02-15 23:02 | PN ---
Progress Note (short form) - Note Progress Note: phone conversation PGY2 rad/ onc Dr. Winn, states that they need tissue biopsy results before starting radiation and patient can follow up with them as outpatient. She will also discuss case with attending.
[2019-02-16] MEDS: morphine SULFATE 4 MG/ML VIAL IVPUSH PRN (02:03)
[2019-02-16] MEDS: ACETAMINOPHEN 1000 MG/100 ML VIAL (NON FORMULARY) IVPB PRN (03:09)
[2019-02-16] MEDS: DEXAMETHASONE SOD PHOSPHATE 4 MG/1 ML VIAL IVPUSH SCH ×4 (05:39→20:46)
[2019-02-16 06:47] LABS: HEMATOCRIT 36.7 % (35.4-49); HEMOGLOBIN 12.3 GM/dL (11.7-16.9); LYMPH % 6.7 % (8-40); MCH 29.9 pg (25.7-33.7); MCHC 33.4 g/dl (32.0-35.9); MEAN CELL VOLUME 89.5 fl (80-96); MEAN PLT VOLUME 8.8 fl (7.5-11.1); MONO % 9.2 % (3.8-10.2); NEUT % 84.1 % (42.8-82.8); PLATELET COUNT 227 K/MM3 (134-434); RDW 13.9 % (11.9-15.9); WHITE BLOOD COUNT 20.5 K/mm3 (4.0-10.0)
[2019-02-16] MEDS: INSULIN SLIDING SCALE (NOVOLOG) 1 VIAL SQ SCH ×4 (06:53→21:00)
[2019-02-16 07:10] LABS: INR 1.08 (0.83-1.09); PROTHROMBIN TIME (PATIENT) 12.7 SEC (9.7-13.0)
[2019-02-16 07:13] LABS: ACTIVATED PTT 29.1 SECONDS (25.2-36.5)
[2019-02-16 07:42] LABS: ANION GAP 6 MMOL/L (8-16); BLOOD UREA NITROGEN 19 mg/dL (7-18); CALCIUM 8.8 mg/dL (8.5-10.1); CHLORIDE 100 mmol/L (98-107); CO2 30 mmol/L (21-32); CREATININE 0.9 mg/dL (0.55-1.3); GLUCOSE,RANDOM 267 mg/dL (74-106); MAGNESIUM 2.4 mg/dL (1.8-2.4); PHOSPHOROUS 2.9 mg/dL (2.5-4.9); POTASSIUM 4.2 mmol/L (3.5-5.1); SODIUM 137 mmol/L (136-145)
--- NOTE | 2019-02-16 07:53 | PN ---
Progress Note, Physician Chief Complaint: seen and examined in ICU Denies CP, SOB, palps TELE: NSR - Current Medication List Current Medications: Active Medications Acetaminophen (Ofirmev Injection -) 1,000 mg IVPB Q6H PRN PRN Reason: PAIN LEVEL 1-5 Last Admin: 02/16/19 03:09 Dose: 1,000 mg Atorvastatin Calcium (Lipitor -) 20 mg PO HS [facility] Last Admin: 02/15/19 22:00 Dose: 20 mg Brimonidine Tartrate (Alphagan 0.2% -) 1 drop OU BID [facility] Last Admin: 02/15/19 22:12 Dose: 1 drop Chlorhexidine Gluconate (Hibiclens For Decolonization -) 1 applic TP HS [facility] Last Admin: 02/15/19 22:13 Dose: 1 applic Dexamethasone Sodium Phosphate (Decadron Injection -) 4 mg IVPUSH Q6H-IV [facility] Last Admin: 02/16/19 05:39 Dose: 4 mg Dorzolamide HCl (Trusopt 2%) 1 drop OU BID [facility] Last Admin: 02/15/19 22:13 Dose: 1 drop Insulin Aspart (Novolog Vial Sliding Scale -) 1 vial SQ [facility]; Protocol Last Admin: 02/16/19 06:53 Dose: 4 units Latanoprost (Xalatan 0.005% Eye Drops -) 1 drop OD [facility] Last Admin: 02/15/19 22:12 Dose: 1 drop Metoprolol Tartrate (Lopressor -) 25 mg PO BID [facility] Last Admin: 02/15/19 22:00 Dose: 25 mg Metoprolol Tartrate (Lopressor Injection -) 5 mg IVPUSH Q4H PRN PRN Reason: HYPERTENSION Last Admin: 02/15/19 06:12 Dose: 5 mg Morphine Sulfate (Morphine Sulfate) 4 mg IVPUSH Q4H PRN PRN Reason: PAIN LEVEL 6-10 Last Admin: 02/16/19 02:03 Dose: 4 mg Nifedipine (Procardia Xl -) 30 mg PO DAILY [facility] Last Admin: 02/15/19 10:47 Dose: Not Given Ondansetron HCl (Zofran Injection) 4 mg IVPUSH Q6H PRN PRN Reason: NAUSEA Last Admin: 02/15/19 18:36 Dose: 4 mg Pantoprazole Sodium (Protonix Iv) 40 mg IVPUSH BID [facility] Last Admin: 04/18/19 22:00 Dose: 40 mg Polyethylene Glycol (Miralax (For Daily Use) -) 17 gm PO BID [facility] Last Admin: 02/15/19 22:14 Dose: 17 grams Senna/Docusate Sodium (Pericolace -) 1 tablet PO BID [facility] Last Admin: 02/15/19 22:01 Dose: 1 tablet Timolol Maleate (Timoptic 0.5%) 1 drop OU BID [facility] Last Admin: 02/15/19 22:12 Dose: 1 drop - Objective Vital Signs: Vital Signs Temperature 98.3 F 02/15/19 20:00 Pulse Rate 62 02/16/19 06:00 Respiratory Rate 18 02/16/19 06:00 Blood Pressure 132/74 02/16/19 06:00 O2 Sat by Pulse Oximetry (%) 99 02/15/19 21:00 Constitutional: Yes: No Distress, Calm Eyes: Yes: Conjunctiva Clear Cardiovascular: Yes: Regular Rate and Rhythm Respiratory: Yes: CTA Bilaterally (no rales) Gastrointestinal: Yes: Soft (NT) Edema: No Neurological: Yes: Alert, Oriented Labs: CBC, BMP 02/16/19 05:30 02/16/19 05:30 INR, PTT INR 1.08 (0.83-1.09) 02/16/19 05:30 Laboratory Tests 02/16/19 02/16/19 02/16/19 05:30 05:30 05:30 WBC 20.5 H Hgb 12.3 Plt Count 227 INR 1.08 Sodium 137 Potassium 4.2 Creatinine 0.9 Magnesium 2.4 - ....Imaging EKG: Image Reviewed Assessment/Plan IMP: 1. Cerebellar mass s/p debulking 2. CAD s/p PCI, last 2013 ([facility]) REC: 1. Cont Metoprolol and Nifedipine, BP well controlled 2. Cont. statin 3. Resum ASA 81mg when feasible from N-surg standpoint.
[2019-02-16] MEDS ORDERED: PT OWN MED DRAWER 7, Y5N ONE ×3 (07:59→20:13)
--- NOTE | 2019-02-16 08:02 | PN ---
Physical Exam: SUBJECTIVE: Patient seen and examined at bedside this morning. He is POD #2 s/p craniectomy, and resection of cerebellar tumor. He states that his headache is diminishing, managed well with pain medications. He does endorse slight lightheadedness with ambulation. Denies new changes with vision, subjective fevers chills, shortness of breath, chest pain, palpitations, abdominal pain, nausea, vomiting. OBJECTIVE: Vital Signs Period Temp Pulse Resp BP Sys/Donahue Pulse Ox Last 24 Hr 98.1 F-98.8 F 62-83 15-20 124-174/74-105 99 GENERAL: The patient is awake, alert, and fully oriented, in no acute distress. HEAD: Normocephalic, atraumatic. EYES: PERRL, extraocular movements intact, horizontal nystagmus upon leftward gaze. Sclera anicteric, conjunctiva clear. ENT: Oropharynx clear, without erythema or exudates. Moist mucous membranes. NECK: Trachea midline, full range of motion. Supple without lymphadenopathy. LUNGS: Breath sounds equal, clear to auscultation bilaterally, no wheezes, no crackles. No accessory muscle use. HEART: Regular rate and rhythm, S1, S2 without murmur, rub or gallop. ABDOMEN: Soft, nondistended, nontender to light and deep palpation x4 quadrants , no rebound tenderness, no guarding. Normoactive bowel sounds x4 quadrants. no hepatosplenomegaly, no masses. EXTREMITIES: 2+ radial, dorsalis pedis pulses bilaterally. Warm, well-perfused. No lower extremity edema bilaterally. NEUROLOGICAL: Cranial nerves II through XII grossly intact. Normal speech. Strength 5/5 bilateral upper and lower extremities. PSYCH: Normal mood, normal affect upon my encounter. SKIN: Warm, dry. Seborrheic ketatosis noted upon patient's back. Laboratory Results - last 24 hr 02/15/19 02/15/19 02/15/19 11:06 16:23 22:18 WBC RBC Hgb Hct MCV MCH MCHC RDW Plt Count MPV Absolute Neuts (auto) Neutrophils % Lymphocytes % Monocytes % Eosinophils % Basophils % Nucleated RBC % PT with INR INR PTT (Actin FS) Sodium Potassium Chloride Carbon Dioxide Anion Gap BUN Creatinine Creat Clearance w eGFR POC Glucometer 189 191 274 Random Glucose Calcium Phosphorus Magnesium 02/16/19 02/16/19 02/16/19 05:30 05:30 05:30 WBC 20.5 H RBC 4.10 Hgb 12.3 Hct 36.7 MCV 89.5 MCH 29.9 MCHC 33.4 RDW 13.9 Plt Count 227 MPV 8.8 Absolute Neuts (auto) 17.3 H Neutrophils % 84.1 H Lymphocytes % 6.7 L D Monocytes % 9.2 D Eosinophils % 0.0 Basophils % 0.0 Nucleated RBC % 0 PT with INR 12.70 INR 1.08 PTT (Actin FS) 29.1 Sodium 137 Potassium 4.2 Chloride 100 Carbon Dioxide 30 Anion Gap 6 L BUN 19 H Creatinine 0.9 Creat Clearance w eGFR 83.67 POC Glucometer Random Glucose 267 H Calcium 8.8 Phosphorus 2.9 Magnesium 2.4 02/16/19 06:07 WBC RBC Hgb Hct MCV MCH MCHC RDW Plt Count MPV Absolute Neuts (auto) Neutrophils % Lymphocytes % Monocytes % Eosinophils % Basophils % Nucleated RBC % PT with INR INR PTT (Actin FS) Sodium Potassium Chloride Carbon Dioxide Anion Gap BUN Creatinine Creat Clearance w eGFR POC Glucometer 244 Random Glucose Calcium Phosphorus Magnesium Active Medications Generic Name Dose Route Start Last Admin Trade Name Freq PRN Reason Stop Dose Admin Acetaminophen 1,000 mg 02/11/19 16:24 02/16/19 03:09 Ofirmev Injection - IVPB 1,000 mg Q6H PRN Administration PAIN LEVEL 1-5 Atorvastatin Calcium 20 mg 02/10/19 22:00 02/15/19 22:00 Lipitor - PO 20 mg HS ISAURA Administration Brimonidine Tartrate 1 drop 02/12/19 22:00 02/15/19 22:12 Alphagan 0.2% - OU 1 drop BID ISAURA Administration Chlorhexidine Gluconate 1 applic 02/10/19 22:00 02/15/19 22:13 Hibiclens For Decolonization - TP 1 applic HS ISAURA Administration Dexamethasone Sodium Phosphate 4 mg 02/10/19 16:00 02/16/19 05:39 Decadron Injection - IVPUSH 4 mg Q6H-IV ISAURA Administration Dorzolamide HCl 1 drop 02/12/19 22:00 02/15/19 22:13 Trusopt 2% OU 1 drop BID ISAURA Administration Insulin Aspart 1 vial 02/10/19 22:00 02/16/19 06:53 Novolog Vial Sliding Scale - SQ 4 units ACHS ISAURA Administration Protocol Latanoprost 1 drop 02/12/19 22:00 02/15/19 22:12 Xalatan 0.005% Eye Drops - OD 1 drop HS ISAURA Administration Metoprolol Tartrate 25 mg 02/13/19 11:25 02/15/19 22:00 Lopressor - PO 25 mg BID ISAURA Administration Metoprolol Tartrate 5 mg 02/14/19 19:11 02/15/19 06:12 Lopressor Injection - IVPUSH 5 mg Q4H PRN Administration HYPERTENSION Morphine Sulfate 4 mg 02/15/19 10:09 02/16/19 02:03 Morphine Sulfate IVPUSH 4 mg Q4H PRN Administration PAIN LEVEL 6-10 Nifedipine 30 mg 02/11/19 10:00 02/15/19 10:47 Procardia Xl - PO Not Given DAILY [facility] Ondansetron HCl 4 mg 02/10/19 11:35 02/15/19 18:36 Zofran Injection IVPUSH 4 mg Q6H PRN Administration NAUSEA Pantoprazole Sodium 40 mg 02/12/19 22:00 02/15/19 22:00 Protonix Iv IVPUSH 40 mg BID ISAURA Administration Polyethylene Glycol 17 gm 02/11/19 22:00 02/15/19 22:14 Miralax (For Daily Use) - PO 17 grams BID ISAURA Administration Senna/Docusate Sodium 1 tablet 02/15/19 22:00 02/15/19 22:01 Pericolace - PO 1 tablet BID ISAURA Administration Timolol Maleate 1 drop 02/12/19 22:00 02/15/19 22:12 Timoptic 0.5% OU 1 drop BID ISAURA Administration ASSESSMENT/PLAN: Patient is a 68 year old male with history of previously diagnosed cerebellar mass (diagnosed six months ago), hypertension, hyperlipidemia, diabetes mellitus , coronary artery disease (s/p three stents, on plavix), gastro-esophageal reflux disease, presented with left sided headache, and unsteady gait. Cerebellar mass -Patient is POD #2 s/p craniectomy, and resection of cerebellar tumor. -CT head shows 4cm x 3.4cm right cerebellar mass lesion, concerning for neoplasm. -CT chest, abdomen, pelvis shows no definite primary neoplastic lesion within chest, abdomen, pelvis. Prostatic enlargement, thyromegaly, atherosclerotic calcification, aneurysmal dilation ascending aorta noted. -MRI brain shows solitary 3cm X 2.7cm X 2.7cm enhancing mass lesion inferior half right cerebellar hemisphere. -Repeat, postoperative CT head shows tiny focus of hemorrhage. -Neurosurgery recommendations (Dr. Leon) appreciated. -Patient completed postoperative Cefazolin course. -Dexamethasone 4mg IV Q6 hours -Neurochecks Q1 hour -Pain control with Oxycodone 5mg PO Q6 hours with Acetaminophen 650mg PO Q6 hours PRN for pain 6- 10 -Pain control with Morphine 4mg IV Q3 hours PRN for pain 7-10 -Follow up intraoperative pathology -Physical therapy evaluation today. Coronary artery disease -Patient is s/p three stents 2011, 2013 -Cardiology consult (Dr. Dumont) appreciated. Will discuss reinstatement of antiplatelet therapy. Diabetes mellitus -Insulin sliding scale ACHS -Fingerstick blood glucose monitoring ACHS Hypertension -Metoprolol 25mg PO BID -Nifedipine ER 30mg PO daily -Metoprolol 5mg IV Q4H PRN Enlarged left thyroid lobe -Incidentally noted on CT chest scan -TSH 0.23 -T4 1.04 -Free T3 69 -Patient will require outpatient thyroid ultrasound for further workup. FEN -No IV fluids indicated -Follow CMP -Diabetic diet Prophylaxis -SCDs bilateral lower extremities, per neurosurgery. -Protonix 40mg IV BID Disposition -Continue care in ICU Visit type - Emergency Visit Emergency Visit: Yes ED Registration Date: 02/10/19 Care time: The patient presented to the Emergency Department on the above date and was hospitalized for further evaluation of their emergent condition. - New Patient This patient is new to me today: No - Critical Care Critical Care patient: Yes Total Critical Care Time (in minutes): 37 Critical Care Statement: The care of this patient involved high complexity decision making to prevent further life threatening deterioration of the patient 's condition and/or to evaluate & treat vital organ system(s) failure or risk of failure. - Discharge Referral Referred to [facility] Med P.C.: No
[2019-02-16] MEDS ORDERED: ONDANSETRON 4 MG TABLET PO PRN (08:46)
[2019-02-16 09:22] LABS: ANISOCYTOSIS 2+; MACROCYTOSIS 0; PLATELET ESTIMATE NORMAL
[2019-02-16] MEDS: NIFEdipine E.R. 30 MG TABLET (FP) PO SCH (09:24)
[2019-02-16] MEDS: POLYETHYLENE GLYCOL 3350 119 GM BTL PO SCH ×2 (09:24→21:01)
[2019-02-16] MEDS: METOPROLOL TARTRATE 25 MG TABLET (FP) PO SCH ×2 (09:24→21:01)
[2019-02-16] MEDS: SENNOSIDES/DOCUSATE COMBO (SENNA PLUS) TABLET (UD) PO SCH ×2 (09:25→21:01)
[2019-02-16] MEDS: BRIMONIDINE TARTRATE 0.2% OPHTHALMIC 5 ML BOTTLE OU SCH ×2 (09:26→21:02)
[2019-02-16] MEDS: DORZOLAMIDE 2% HCL OPHTHALMIC SOLUTION 10 ML BOTTLE OU SCH ×2 (09:26→21:02)
[2019-02-16] MEDS: TIMOLOL 0.5% OPHTHALMIC SOL 5 ML BOTTLE OU SCH ×2 (09:26→21:02)
[2019-02-16] MEDS: PANTOPRAZOLE 40 MG TABLET (FP) PO SCH ×2 (09:30→21:01)
--- NOTE | 2019-02-16 10:00 | PN ---
Teaching Attending Note Name of Resident: Quinten Guzmán ATTENDING PHYSICIAN STATEMENT I saw and evaluated the patient. I reviewed the resident's note and discussed the case with the resident. I agree with the resident's findings and plan as documented. SUBJECTIVE:continues to have L sided neck pain assoc with dizzyness on standing. denies CP, Fever, chills, N/V/C/D, blurred vision, sensation loss or weakness OBJECTIVE: Last Vital Signs Temp Pulse Resp BP Pulse Ox 98.3 F 64 18 132/72 99 02/15/19 20:00 02/16/19 08:00 02/16/19 08:00 02/16/19 08:00 02/15/19 21:00 General NAD HEENT surgical bandage on posterior of head with dried blood. +alejandro CV S1 S2 RRR no murmur/rub/gallop Lungs CTA B/L no wheezing/rales/rhonchi Neuro CN II to XII grossly intact, strength and sensation grossly intact in all 4 extremities ASSESSMENT AND PLAN: 68 year old male with HTN, HLD, DM 2, CAD s/p STEMI 2006/Multiple Stents (last 2013), GERD, known Cerebellar Mass, previously on steroids, follows at [place], now presents with R sided occipital pressure, abnormal gait, leaning to L side, lightheadedness/dizziness, with nausea and 1 episode of vomiting earlier today. 1. R Cerebellar Mass with symptoms including abnormal/unsteady gait, lightheadedness, nausea, vomiting -s/p Right Suboccipital Craniectomy and Resection of Cerebellar Tumor 02/14. Repeat HCT today to evaluate for bleed or residual mass. s/p 4 packs of platelets. cont with pain control. tight BP control. PT today. will arrange for outpatient Rtx therapy as outpatient. further recommendations per neurosurg. 2. Low TSH- does not appear to be symptomatic.T3/T4 WNL. should have repeat TSH in a few weeks. CT showing thyromegaly on CT, unable to get dedicated u/s while hospitalized. may need further investigation as outpatient 3. CAD s/p stents- hold asa/plavix for pending surgery. plavix no longer necessary. plan to re-start asa in 2 weeks from post-op on 02/28. cardio on board. cont statin/betablocker 4. HTN- controlled 5. Dyslipidemia- statin 6. DM- hold oral agents. A1c 7.2 BGM and ISS 7.DVT ppx- SCD. hold pharmacologic in setting on intracranial surgery 8. MICU monitoring The care of this patient involved high complexity decision making to prevent further life threatening deterioration of the patient's condition and/or to evaluate & treat vital organ system(s) failure or risk of failure. 40 mins
[2019-02-16] MEDS ORDERED: morphine SULFATE 4 MG/ML VIAL IVPUSH PRN (10:17)
--- NOTE | 2019-02-16 11:26 | PN ---
Teaching Attending Note Name of Resident: Ingrid Arevalo ATTENDING PHYSICIAN STATEMENT I saw and evaluated the patient. I reviewed the resident's note and discussed the case with the resident. I agree with the resident's findings and plan as documented. SUBJECTIVE: Patient seen and examined in the ICU. Reports dizziness. Mild discomfort at the surgical site. OBJECTIVE: Intake & Output 02/13/19 02/14/19 02/15/19 02/16/19 23:59 23:59 23:59 23:59 Intake Total 850 1480 1922 Output Total 8158 833 3787 400 Balance -150 1130 -678 -400 Weight 222 lb 11.2 oz 218 lb 8 oz 231 lb 7.766 oz 228 lb 4.8 oz Last Vital Signs Temp Pulse Resp BP Pulse Ox 98.3 F 64 18 132/72 99 02/15/19 20:00 02/16/19 08:00 02/16/19 08:00 02/16/19 08:00 02/15/19 21:00 Active Medications Acetaminophen (Tylenol -) 650 mg PO Q6H PRN PRN Reason: PAIN LEVEL 6-10 Atorvastatin Calcium (Lipitor -) 20 mg PO HS [facility] Last Admin: 02/15/19 22:00 Dose: 20 mg Brimonidine Tartrate (Alphagan 0.2% -) 1 drop OU BID [facility] Last Admin: 02/16/19 09:26 Dose: 1 drop Chlorhexidine Gluconate (Hibiclens For Decolonization -) 1 applic TP [facility] Last Admin: 02/15/19 22:13 Dose: 1 applic Dexamethasone Sodium Phosphate (Decadron Injection -) 4 mg IVPUSH Q6H-IV [facility] Last Admin: 02/16/19 09:24 Dose: 4 mg Docusate Sodium (Colace -) 100 mg PO DAILY [facility] Dorzolamide HCl (Trusopt 2%) 1 drop OU BID [facility] Last Admin: 02/16/19 09:26 Dose: 1 drop Insulin Aspart (Novolog Vial Sliding Scale -) 1 vial SQ [facility]; Protocol Last Admin: 02/16/19 06:53 Dose: 4 units Latanoprost (Xalatan 0.005% Eye Drops -) 1 drop OD [facility] Last Admin: 02/15/19 22:12 Dose: 1 drop Metoprolol Tartrate (Lopressor -) 25 mg PO BID [facility] Last Admin: 02/16/19 09:24 Dose: 25 mg Metoprolol Tartrate (Lopressor Injection -) 5 mg IVPUSH Q4H PRN PRN Reason: HYPERTENSION Last Admin: 02/15/19 06:12 Dose: 5 mg Morphine Sulfate (Morphine Sulfate) 4 mg IVPUSH Q3H PRN PRN Reason: PAIN LEVEL 7 - 10 Nifedipine (Procardia Xl -) 30 mg PO DAILY [facility] Last Admin: 02/16/19 09:24 Dose: 30 mg Ondansetron HCl (Zofran -) 4 mg PO Q4H PRN PRN Reason: NAUSEA Oxycodone HCl (Roxicodone -) 5 mg PO Q6H PRN PRN Reason: PAIN LEVEL 6-10 Pantoprazole Sodium (Protonix -) 40 mg PO BID [facility] Last Admin: 02/16/19 09:30 Dose: 40 mg Polyethylene Glycol (Miralax (For Daily Use) -) 17 gm PO BID [facility] Last Admin: 02/16/19 09:24 Dose: 17 grams Senna/Docusate Sodium (Pericolace -) 1 tablet PO BID [facility] Last Admin: 02/16/19 09:25 Dose: 1 tablet Timolol Maleate (Timoptic 0.5%) 1 drop OU BID [facility] Last Admin: 02/16/19 09:26 Dose: 1 drop Gen: Awake and alert, NAD at rest Heart: RRR Lung: decreased breath sounds at the bases Abd: soft, nontender Ext: no edema Laboratory Results - last 24 hr 02/15/19 02/15/19 02/16/19 16:23 22:18 05:30 WBC 20.5 H RBC 4.10 Hgb 12.3 Hct 36.7 MCV 89.5 MCH 29.9 MCHC 33.4 RDW 13.9 Plt Count 227 MPV 8.8 Absolute Neuts (auto) 17.3 H Neutrophils % 84.1 H Neutrophils % (Manual) 79.2 Band Neutrophils % 2.0 Lymphocytes % 6.7 L D Lymphocytes % (Manual) 10.9 Monocytes % 9.2 D Monocytes % (Manual) 8 Eosinophils % 0.0 Eosinophils % (Manual) 0.0 Basophils % 0.0 Basophils % (Manual) 0.0 Myelocytes % (Man) 0 Promyelocytes % (Man) 0 Blast Cells % (Manual) 0 Nucleated RBC % 0 Metamyelocytes 0 Hypochromia 0 Platelet Estimate Normal Platelet Comment Present Polychromasia 1+ Poikilocytosis 0 Basophilic Stippling 1+ Anisocytosis 2+ Microcytosis 0 Macrocytosis 0 Hermila Cells 1+ Acanthocytes (Spur) 1+ PT with INR INR PTT (Actin FS) Sodium Potassium Chloride Carbon Dioxide Anion Gap BUN Creatinine Creat Clearance w eGFR POC Glucometer 191 274 Random Glucose Calcium Phosphorus Magnesium 02/16/19 02/16/19 02/16/19 05:30 05:30 06:07 WBC RBC Hgb Hct MCV MCH MCHC RDW Plt Count MPV Absolute Neuts (auto) Neutrophils % Neutrophils % (Manual) Band Neutrophils % Lymphocytes % Lymphocytes % (Manual) Monocytes % Monocytes % (Manual) Eosinophils % Eosinophils % (Manual) Basophils % Basophils % (Manual) Myelocytes % (Man) Promyelocytes % (Man) Blast Cells % (Manual) Nucleated RBC % Metamyelocytes Hypochromia Platelet Estimate Platelet Comment Polychromasia Poikilocytosis Basophilic Stippling Anisocytosis Microcytosis Macrocytosis [place] Cells Acanthocytes (Spur) PT with INR 12.70 INR 1.08 PTT (Actin FS) 29.1 Sodium 137 Potassium 4.2 Chloride 100 Carbon Dioxide 30 Anion Gap 6 L BUN 19 H Creatinine 0.9 Creat Clearance w eGFR 83.67 POC Glucometer 244 Random Glucose 267 H Calcium 8.8 Phosphorus 2.9 Magnesium 2.4 ASSESSMENT AND PLAN: Cerebellar Mass s/p Right Subocciptal Craniectomy/Cerebellar Tumor Resection CAD HTN DM Hyperlipidemia - f/u pathology - continue decadron IV - neuro checks - antiemetics as needed - DVT prophylaxis - Ambulate with assistance - ICU monitoring Dr Howard
--- NOTE | 2019-02-16 12:05 | PN ---
Progress Note (short form) - Note Progress Note: Patient seen and examined Last Vital Signs Temp Pulse Resp BP Pulse Ox 98.3 F 64 18 132/72 99 02/15/19 20:00 02/16/19 08:00 02/16/19 08:00 02/16/19 08:00 02/15/19 21:00 Complains of headache minimally and some dizziness. No significant drainage from surgical site HEENT: [place], EOM Intact Oropharynx: No thrush, No mucositis Cor: RSR, No murmurs, No gallops Lungs: Clear to P&A Abd: Soft, Normal bowel sounds, No organomegaly Ext:No significant edema Skin: No rashes, Integument intact CBC, BMP 02/16/19 05:30 02/16/19 05:30 Current Medications Generic Name Dose Route Start Last Admin Trade Name Freq PRN Reason Stop Dose Admin Acetaminophen 650 mg 02/16/19 10:12 Tylenol - PO Q6H PRN PAIN LEVEL 6-10 Atorvastatin Calcium 20 mg 02/10/19 22:00 02/15/19 22:00 Lipitor - PO 20 mg HS [facility] Administration Brimonidine Tartrate 1 drop 02/12/19 22:00 02/16/19 09:26 Alphagan 0.2% - OU 1 drop BID [facility] Administration Chlorhexidine Gluconate 1 applic 02/10/19 22:00 02/15/19 22:13 Hibiclens For Decolonization - TP 1 applic HS [facility] Administration Dexamethasone Sodium Phosphate 4 mg 02/10/19 16:00 02/16/19 09:24 Decadron Injection - IVPUSH 4 mg Q6H-IV [facility] Administration Docusate Sodium 100 mg 02/17/19 10:00 Colace - PO DAILY [facility] Dorzolamide HCl 1 drop 02/12/19 22:00 02/16/19 09:26 Trusopt 2% OU 1 drop BID [facility] Administration Insulin Aspart 1 vial 02/10/19 22:00 02/16/19 11:28 Novolog Vial Sliding Scale - SQ 6 units ACHS [facility] Administration Protocol Latanoprost 1 drop 02/12/19 22:00 02/15/19 22:12 Xalatan 0.005% Eye Drops - OD 1 drop HS [facility] Administration Metoprolol Tartrate 25 mg 02/13/19 11:25 02/16/19 09:24 Lopressor - PO 25 mg BID [facility] Administration Metoprolol Tartrate 5 mg 02/14/19 19:11 02/15/19 06:12 Lopressor Injection - IVPUSH 5 mg Q4H PRN Administration HYPERTENSION Morphine Sulfate 4 mg 02/16/19 10:17 Morphine Sulfate IVPUSH Q3H PRN PAIN LEVEL 7 - 10 Nifedipine 30 mg 02/11/19 10:00 02/16/19 09:24 Procardia Xl - PO 30 mg DAILY [facility] Administration Ondansetron HCl 4 mg 02/16/19 08:46 Zofran - PO Q4H PRN NAUSEA Oxycodone HCl 5 mg 02/16/19 10:10 Roxicodone - PO Q6H PRN PAIN LEVEL 6-10 Pantoprazole Sodium 40 mg 02/16/19 10:00 02/16/19 09:30 Protonix - PO 40 mg BID [facility] Administration Polyethylene Glycol 17 gm 02/11/19 22:00 02/16/19 09:24 Miralax (For Daily Use) - PO 17 grams BID [facility] Administration Senna/Docusate Sodium 1 tablet 02/15/19 22:00 02/16/19 09:25 Pericolace - PO 1 tablet BID [facility] Administration Timolol Maleate 1 drop 02/12/19 22:00 02/16/19 09:26 Timoptic 0.5% OU 1 drop BID [facility] Administration Impression: S/P right craniectomy and resection of cerebellar mass Path pending Underwent CT for follow-up --results pending Have notified RT for follow up.
--- NOTE | 2019-02-16 12:09 | PN ---
Progress Note (short form) - Note Progress Note: Head CT- post op changes , edema, and small area of hemorrhage. Will give additional unit of platelets
--- NOTE | 2019-02-16 12:27 | PN ---
Physical Exam: SUBJECTIVE: Patient seen this morning and reports he is a little dizzy and still unstable on his feet. Patient to be evaluated by neurosurgeon this afternoon. OBJECTIVE: Vital Signs Temperature 98.3 F 02/15/19 20:00 Pulse Rate 64 02/16/19 08:00 Respiratory Rate 18 02/16/19 08:00 Blood Pressure 132/72 02/16/19 08:00 O2 Sat by Pulse Oximetry (%) 99 02/15/19 21:00 GENERAL: Awake, alert, and fully oriented, in no acute distress. HEAD: Normal with no signs of trauma. EYES: Pupils equal, round and reactive to light, extraocular movements intact, peripheral vision intact, left horizontal nystagmus LUNGS: Breath sounds equal, clear to auscultation bilaterally. HEART: Regular rate and rhythm, normal S1 and S2 without murmur, rub or gallop. ABDOMEN: Soft, nontender, not distended, normoactive bowel sounds, no guarding, no rebound, no masses. MUSCULOSKELETAL: ROM intact, 5/5 strength diffusely LOWER EXTREMITIES: 2+ pulses, warm, well-perfused. No calf tenderness. No peripheral edema. NEUROLOGICAL: Cranial nerves II-XII intact. Normal speech. sensation intact, wide gait, unsteady on his feet, left leaning SKIN: Warm, dry, normal turgor, no rashes or lesions noted. CBCD WBC 20.5 K/mm3 (4.0-10.0) H 02/16/19 05:30 RBC 4.10 M/mm3 (4.00-5.60) 02/16/19 05:30 Hgb 12.3 GM/dL (11.7-16.9) 02/16/19 05:30 Hct 36.7 % (35.4-49) 02/16/19 05:30 MCV 89.5 fl (80-96) 02/16/19 05:30 MCHC 33.4 g/dl (32.0-35.9) 02/16/19 05:30 RDW 13.9 % (11.9-15.9) 02/16/19 05:30 Plt Count 227 K/MM3 (134-434) 02/16/19 05:30 MPV 8.8 fl (7.5-11.1) 02/16/19 05:30 CMP Sodium 137 mmol/L (136-145) 02/16/19 05:30 Potassium 4.2 mmol/L (3.5-5.1) 02/16/19 05:30 Chloride 100 mmol/L (98-107) 02/16/19 05:30 Carbon Dioxide 30 mmol/L (21-32) 02/16/19 05:30 Anion Gap 6 MMOL/L (8-16) L 02/16/19 05:30 BUN 19 mg/dL (7-18) H 02/16/19 05:30 Creatinine 0.9 mg/dL (0.55-1.3) 02/16/19 05:30 Creat Clearance w eGFR 83.67 (>60) 02/16/19 05:30 Calcium 8.8 mg/dL (8.5-10.1) 02/16/19 05:30 Total Bilirubin 0.6 mg/dL (0.2-1) 02/15/19 05:30 AST 16 U/L (15-37) 02/15/19 05:30 ALT 19 U/L (13-61) 02/15/19 05:30 Alkaline Phosphatase 53 U/L (45-117) 02/15/19 05:30 Total Protein 6.3 g/dl (6.4-8.2) L 02/15/19 05:30 Albumin 3.3 g/dl (3.4-5.0) L 02/15/19 05:30 Active Medications Acetaminophen (Tylenol -) 650 mg PO Q6H PRN PRN Reason: PAIN LEVEL 6-10 Atorvastatin Calcium (Lipitor -) 20 mg PO HS [facility] Last Admin: 02/15/19 22:00 Dose: 20 mg Brimonidine Tartrate (Alphagan 0.2% -) 1 drop OU BID [facility] Last Admin: 02/16/19 09:26 Dose: 1 drop Chlorhexidine Gluconate (Hibiclens For Decolonization -) 1 applic TP HS [facility] Last Admin: 02/15/19 22:13 Dose: 1 applic Dexamethasone Sodium Phosphate (Decadron Injection -) 4 mg IVPUSH Q6H-IV [facility] Last Admin: 02/16/19 09:24 Dose: 4 mg Docusate Sodium (Colace -) 100 mg PO DAILY [facility] Dorzolamide HCl (Trusopt 2%) 1 drop OU BID [facility] Last Admin: 02/16/19 09:26 Dose: 1 drop Insulin Aspart (Novolog Vial Sliding Scale -) 1 vial SQ ACHS [facility]; Protocol Last Admin: 02/16/19 11:28 Dose: 6 units Latanoprost (Xalatan 0.005% Eye Drops -) 1 drop OD HS [facility] Last Admin: 02/15/19 22:12 Dose: 1 drop Metoprolol Tartrate (Lopressor -) 25 mg PO BID [facility] Last Admin: 02/16/19 09:24 Dose: 25 mg Metoprolol Tartrate (Lopressor Injection -) 5 mg IVPUSH Q4H PRN PRN Reason: HYPERTENSION Last Admin: 02/15/19 06:12 Dose: 5 mg Morphine Sulfate (Morphine Sulfate) 4 mg IVPUSH Q3H PRN PRN Reason: PAIN LEVEL 7 - 10 Nifedipine (Procardia Xl -) 30 mg PO DAILY [facility] Last Admin: 02/16/19 09:24 Dose: 30 mg Ondansetron HCl (Zofran -) 4 mg PO Q4H PRN PRN Reason: NAUSEA Oxycodone HCl (Roxicodone -) 5 mg PO Q6H PRN PRN Reason: PAIN LEVEL 6-10 Pantoprazole Sodium (Protonix -) 40 mg PO BID [facility] Last Admin: 02/16/19 09:30 Dose: 40 mg Polyethylene Glycol (Miralax (For Daily Use) -) 17 gm PO BID [facility] Last Admin: 02/16/19 09:24 Dose: 17 grams Senna/Docusate Sodium (Pericolace -) 1 tablet PO BID [facility] Last Admin: 02/16/19 09:25 Dose: 1 tablet Timolol Maleate (Timoptic 0.5%) 1 drop OU BID [facility] Last Admin: 02/16/19 09:26 Dose: 1 drop Imaging:head CT: 4 x 3.4 cm heterogenous mass within the right posterior cerebral hemisphere medially with moderate associated edema, contralateral displacement of the fourth ventricle MRI : solitary 3 x 2.7 x 2.7 enhancing mass within R cerebral hemisphere with associated mass effect and edema, likely metastatic ASSESSMENT/PLAN: Patient is a 68 y/o male with a history of HTN, HLD, DM, CAD s/p 3 stents, and GERD, who is here for R Cerebellar mass. Neuro - POD 2 right subocciptial craniectomy and resection of cerebellar tumor - repeat head CT with small hemmorhage - followed by Dr. Modi - decadron 4 q6h - neuro checks q 1 hour - OOB today and to walk with PT - f/u pathology of tumor, Dr. aGlindo rad-onc aware of patient Cardio - 3 stent hx, per Dr. Dumont can hold his plavix and aspirin - continue nifedipine 30 m po daily - continue simvastatin 40 mg po hs - continue metoprolol 25 mg BID, 5 q4h as needed Pulm - stable - keep O2 > 95% GI - hx GERD - continue omeprazole - Zofran prn for nausea - constipated on miralax, ducosate, senna, milk of magnesia - fleet enema to help with constipation Renal - stable - Cr 1.2-1.4 baseline - PSA .7 - mild enlargment of prostate on CT - focal sclerosis of left inferior pubic ramus - unlikely prostate ca Endo - hx of DM Heme - SCD's for ppx -3 units of platelets received, one more unit of platelets today - f/u upper arm Doppler for superficial phlebitis, apply hot pack to the area - NO chemical ppx per surgery FEN - diabetic diet - walk with PT Dispo: can be transferred to floors tomorrow, Dr. Leon to f/u today Visit type - Emergency Visit Emergency Visit: No - New Patient This patient is new to me today: No - Critical Care Critical Care patient: Yes Total Critical Care Time (in minutes): 40 Critical Care Statement: The care of this patient involved high complexity decision making to prevent further life threatening deterioration of the patient 's condition and/or to evaluate & treat vital organ system(s) failure or risk of failure.
[2019-02-16] MEDS: oxyCODONE HCL 5 MG TABLET PO PRN (14:32)
--- NOTE | 2019-02-16 14:56 | OP ---
DATE OF OPERATION: 02/14/2019 SURGEON: Umm Leon MD ATTORNEY AT LAW: John Sexton MD PREOPERATIVE DIAGNOSIS: Right cerebellar malignant neoplasm. POSTOPERATIVE DIAGNOSIS: Right cerebellar malignant neoplasm. PROCEDURE: 1. Right suboccipital craniectomy and resection of malignant cerebellar neoplasm. 2. Use of operating microscope. DESCRIPTION OF PROCEDURE: The patient was taken to the operating room and placed under general endotracheal anesthesia. He was placed into the prone position and the head was secured in 3-point fixation. The occipital and posterior neck regions were shaved, prepped and draped in the usual sterile fashion. A midline linear incision was made. Subperiosteal dissection was performed to expose the suboccipital region down to C1. Self-retaining retractors were placed. We identified the midline inion, C1 lamina and the foramen magnum. We then used an M33 drill bit to make a 3 x 3-cm craniectomy. The bone was drilled down to thin cortical bone and then resected with 2 and 3 mm Kerrison rongeurs.. We then opened the dura in a cruciate fashion and tented the leaves with 4-0 Nurolon sutures. The right cerebellar hemisphere was somewhat swollen. Bipolar cauterization and suction was used to make the initial corticectomy. I made a perpendicular tract through the right cerebellar hemisphere. We entered a fluid cavity approximately 2.5 cm deep. The underlying tumor had a grayish color. We took multiple samples for pathologic specimen. We then proceeded to continue to debulk the tumor with suction and bipolar cauterization. Once we reached the anterior limit of the tumor, we could see the fourth ventricle and CSF was in the field. We then proceeded to resect tumor from the superior, inferior, medial, and lateral [place]. The margins between tumor tissue and normal cerebellar tissue were difficult to distinguish. Once we were satisfied with the resection, we then proceeded to close the wound. We irrigated the tumor resection cavity copiously and obtained hemostasis. We placed Surgicel and Gelfoam with thrombin along the tumor resection cavity [place]. The dura was partially closed with 4-0 Nurolon sutures and Duragen was used to cover the remaining dural defect. We then closed the muscle and fascia with 0 Vicryl pop-off sutures and 2-0 Vicryl pop-off sutures for the subcutaneous tissue. Ruskin were used for the skin. There were no complications. The patient was hemodynamically stable throughout procedure. All counts were correct. He was extubated and taken to the ICU in stable condition. UMM LEON MD [id number] MTDD
[2019-02-16] MEDS ORDERED: ONDANSETRON *ODT* 4 MG TABLET SL PRN (16:40)
[2019-02-16] MEDS: ACETAMINOPHEN 325 MG TABLET (FP) PO PRN (16:46)
--- NOTE | 2019-02-16 17:32 | PN ---
Progress Note (short form) - Note Progress Note: The patient is resting comfortably in bed. He c/o incisional pain when he turns his head to the left. He was out of bed today and walked with PT. He is tolerating a regular diet. Head CT done this morning showed less swelling in the posterior fossa. There is no hydrocephalus. I changed the dressing with his nurse. The wound is healing well. There is no active drainage. He can be downgraded to the floor tomorrow. He will likely need rehab because of his balance disturbance from the cerebellar tumor. Please start a slow decadron taper to 2 mg PO q 6 hours starting tomorrow morning. Will follow.
[2019-02-16] MEDS: ATORVASTATIN CA 20 MG TABLET (FP) PO SCH (21:01)
[2019-02-16] MEDS: CHLORHEXIDINE GLUCONATE 4% CLEANSER FOR DECOLONIZATION TP SCH (21:01)
[2019-02-16] MEDS: LATANOPROST 0.005% OPHTH SOLN 2.5ML BOTTLE OD SCH (21:02)
[2019-02-17] MEDS: DEXAMETHASONE SOD PHOSPHATE 4 MG/1 ML VIAL IVPUSH SCH ×4 (02:48→21:57)
[2019-02-17] MEDS: oxyCODONE HCL 5 MG TABLET PO PRN (05:50)
[2019-02-17 06:18] LABS: HEMATOCRIT 38.6 % (35.4-49); HEMOGLOBIN 12.7 GM/dL (11.7-16.9); MCH 29.6 pg (25.7-33.7); MCHC 32.8 g/dl (32.0-35.9); MEAN CELL VOLUME 90.2 fl (80-96); MEAN PLT VOLUME 8.9 fl (7.5-11.1); PLATELET COUNT 242 K/MM3 (134-434); RBC 4.27 M/mm3 (4.00-5.60); WHITE BLOOD COUNT 22.4 K/mm3 (4.0-10.0)
[2019-02-17] MEDS: ACETAMINOPHEN 325 MG TABLET (FP) PO PRN ×2 (06:30→17:22)
[2019-02-17] MEDS: INSULIN SLIDING SCALE (NOVOLOG) 1 VIAL SQ SCH ×4 (06:31→22:07)
[2019-02-17 06:42] LABS: ALK PHOS 58 U/L (45-117); ANION GAP 6 MMOL/L (8-16); BLOOD UREA NITROGEN 20 mg/dL (7-18); CALCIUM 8.9 mg/dL (8.5-10.1); CHLORIDE 102 mmol/L (98-107); CO2 29 mmol/L (21-32); CREATININE 0.9 mg/dL (0.55-1.3); GLUCOSE,RANDOM 234 mg/dL (74-106); MAGNESIUM 2.3 mg/dL (1.8-2.4); PHOSPHOROUS 2.6 mg/dL (2.5-4.9); POTASSIUM 4.4 mmol/L (3.5-5.1); SGOT/AST 8 U/L (15-37); SGPT/ALT 15 U/L (13-61); SODIUM 136 mmol/L (136-145); TOT PROT 6.2 g/dl (6.4-8.2)
--- NOTE | 2019-02-17 07:36 | PN ---
Progress Note (short form) - Note Progress Note: states neck pain is significantly improved. able to turn head slightly to the L. denies CP, SOB, fever, chills, N/V/C/D, numbness/tingling of fingers or toes. worsening weakness of extremiteis Current Medications Generic Name Dose Route Start Last Admin Trade Name Freq PRN Reason Stop Dose Admin Acetaminophen 650 mg 02/16/19 10:12 02/17/19 06:30 Tylenol - PO 650 mg Q6H PRN Administration PAIN LEVEL 6-10 Atorvastatin Calcium 20 mg 02/10/19 22:00 02/16/19 21:01 Lipitor - PO 20 mg HS [facility] Administration Brimonidine Tartrate 1 drop 02/12/19 22:00 02/16/19 21:02 Alphagan 0.2% - OU 1 drop BID [facility] Administration Chlorhexidine Gluconate 1 applic 02/10/19 22:00 02/16/19 21:01 Hibiclens For Decolonization - TP 1 applic HS [facility] Administration Dexamethasone Sodium Phosphate 2 mg 02/17/19 09:00 Decadron Injection - IVPUSH Q6H-IV [facility] Docusate Sodium 100 mg 02/17/19 10:00 Colace - PO DAILY [facility] Dorzolamide HCl 1 drop 02/12/19 22:00 02/16/19 21:02 Trusopt 2% OU 1 drop BID [facility] Administration Insulin Aspart 1 vial 02/10/19 22:00 02/17/19 06:31 Novolog Vial Sliding Scale - SQ 4 units ACHS [facility] Administration Protocol Latanoprost 1 drop 02/12/19 22:00 02/16/19 21:02 Xalatan 0.005% Eye Drops - OD 1 drop HS [facility] Administration Metoprolol Tartrate 25 mg 02/13/19 11:25 02/16/19 21:01 Lopressor - PO 25 mg BID [facility] Administration Metoprolol Tartrate 5 mg 02/14/19 19:11 02/15/19 06:12 Lopressor Injection - IVPUSH 5 mg Q4H PRN Administration HYPERTENSION Morphine Sulfate 4 mg 02/16/19 10:17 Morphine Sulfate IVPUSH Q3H PRN PAIN LEVEL 7 - 10 Nifedipine 30 mg 02/11/19 10:00 02/16/19 09:24 Procardia Xl - PO 30 mg DAILY [facility] Administration Ondansetron HCl 4 mg 02/16/19 16:40 02/16/19 16:46 Zofran Odt - SL 4 mg Q4H PRN Administration NAUSEA Oxycodone HCl 5 mg 02/16/19 10:10 02/17/19 05:50 Roxicodone - PO 5 mg Q6H PRN Administration PAIN LEVEL 6-10 Pantoprazole Sodium 40 mg 02/16/19 10:00 02/16/19 21:01 Protonix - PO 40 mg BID [facility] Administration Polyethylene Glycol 17 gm 02/11/19 22:00 02/16/19 21:01 Miralax (For Daily Use) - PO 17 grams BID [facility] Administration Senna/Docusate Sodium 1 tablet 02/15/19 22:00 02/16/19 21:01 Pericolace - PO 1 tablet BID [facility] Administration Timolol Maleate 1 drop 02/12/19 22:00 02/16/19 21:02 Timoptic 0.5% OU 1 drop BID [facility] Administration Last Vital Signs Temp Pulse Resp BP Pulse Ox 100 F H 69 13 133/71 95 02/17/19 06:00 02/17/19 06:00 02/17/19 06:00 02/17/19 06:00 02/16/19 21:00 General NAD CV S1 S2 RRR no murmur/rub/gallop Lungs CTA B/L no wheezing/rales/rhonchi Neuro CN II to XII grossly intact, strength and sensation grossly intact in all 4 extremities CBCD WBC 22.4 K/mm3 (4.0-10.0) H 02/17/19 05:30 RBC 4.27 M/mm3 (4.00-5.60) 02/17/19 05:30 Hgb 12.7 GM/dL (11.7-16.9) 02/17/19 05:30 Hct 38.6 % (35.4-49) 02/17/19 05:30 MCV 90.2 fl (80-96) 02/17/19 05:30 MCHC 32.8 g/dl (32.0-35.9) 02/17/19 05:30 RDW 14.0 % (11.9-15.9) 02/17/19 05:30 Plt Count 242 K/MM3 (134-434) 02/17/19 05:30 MPV 8.9 fl (7.5-11.1) 02/17/19 05:30 CMP Sodium 136 mmol/L (136-145) 02/17/19 05:30 Potassium 4.4 mmol/L (3.5-5.1) 02/17/19 05:30 Chloride 102 mmol/L (98-107) 02/17/19 05:30 Carbon Dioxide 29 mmol/L (21-32) 02/17/19 05:30 Anion Gap 6 MMOL/L (8-16) L 02/17/19 05:30 BUN 20 mg/dL (7-18) H 02/17/19 05:30 Creatinine 0.9 mg/dL (0.55-1.3) 02/17/19 05:30 Creat Clearance w eGFR 83.67 (>60) 02/17/19 05:30 Calcium 8.9 mg/dL (8.5-10.1) 02/17/19 05:30 Total Bilirubin 1.0 mg/dL (0.2-1) 02/17/19 05:30 AST 8 U/L (15-37) L 02/17/19 05:30 ALT 15 U/L (13-61) 02/17/19 05:30 Alkaline Phosphatase 58 U/L (45-117) 02/17/19 05:30 Total Protein 6.2 g/dl (6.4-8.2) L 02/17/19 05:30 Albumin 3.0 g/dl (3.4-5.0) L 02/17/19 05:30 ASSESSMENT AND PLAN: 68 year old male with HTN, HLD, DM 2, CAD s/p STEMI 2006/Multiple Stents (last 2013), GERD, known Cerebellar Mass, previously on steroids, follows at [facility], now presents with R sided occipital pressure, abnormal gait, leaning to L side, lightheadedness/dizziness, with nausea and 1 episode of vomiting earlier today. 1. R Cerebellar Mass with symptoms including abnormal/unsteady gait, lightheadedness, nausea, vomiting -s/p Right Suboccipital Craniectomy and Resection of Cerebellar Tumor 02/14. HCT yesterday showed tiny foci of hemorrhage. no neurolgical deficits. given extra dose of platelets. reduced dex to 2mg Q6H. cont with pain control. tight BP control. OOB to chair. will arrange for outpatient Rtx therapy as outpatient. further recommendations per neurosurg. 2. Low TSH- does not appear to be symptomatic.T3/T4 WNL. should have repeat TSH in a few weeks. CT showing thyromegaly on CT, unable to get dedicated u/s while hospitalized. may need further investigation as outpatient 3. CAD s/p stents- hold asa/plavix for pending surgery. plavix no longer necessary. plan to re-start asa in 2 weeks from post-op on 02/28. cardio on board. cont statin/betablocker 4. HTN- controlled 5. Dyslipidemia- statin 6. DM- hold oral agents. A1c 7.2 BGM and ISS 7.DVT ppx- SCD. hold pharmacologic in setting on intracranial surgery 8. MICU monitoring. stable for transfer to floors The care of this patient involved high complexity decision making to prevent further life threatening deterioration of the patient's condition and/or to evaluate & treat vital organ system(s) failure or risk of failure. 36 mins Visit type - Emergency Visit Emergency Visit: Yes ED Registration Date: 02/10/19 Care time: The patient presented to the Emergency Department on the above date and was hospitalized for further evaluation of their emergent condition. - New Patient This patient is new to me today: No - Critical Care Critical Care patient: Yes Total Critical Care Time (in minutes): 36 Critical Care Statement: The care of this patient involved high complexity decision making to prevent further life threatening deterioration of the patient 's condition and/or to evaluate & treat vital organ system(s) failure or risk of failure. - Discharge Referral Referred to [facility] No
[2019-02-17] MEDS: METOPROLOL TARTRATE 25 MG TABLET (FP) PO SCH ×3 (08:55→21:53)
[2019-02-17] MEDS: SENNOSIDES/DOCUSATE COMBO (SENNA PLUS) TABLET (UD) PO SCH ×3 (08:55→21:53)
[2019-02-17] MEDS: DOCUSATE SODIUM 100 MG CAPSULE (FP) PO SCH ×2 (08:55→09:03)
[2019-02-17] MEDS: PANTOPRAZOLE 40 MG TABLET (FP) PO SCH ×3 (08:55→21:53)
[2019-02-17] MEDS: NIFEdipine E.R. 30 MG TABLET (FP) PO SCH ×2 (08:56→12:27)
[2019-02-17] MEDS: DORZOLAMIDE 2% HCL OPHTHALMIC SOLUTION 10 ML BOTTLE OU SCH ×2 (09:03→21:58)
[2019-02-17] MEDS: BRIMONIDINE TARTRATE 0.2% OPHTHALMIC 5 ML BOTTLE OU SCH ×2 (09:03→21:58)
[2019-02-17] MEDS: TIMOLOL 0.5% OPHTHALMIC SOL 5 ML BOTTLE OU SCH ×2 (09:03→21:58)
[2019-02-17] MEDS: POLYETHYLENE GLYCOL 3350 119 GM BTL PO SCH ×2 (09:05→21:54)
--- NOTE | 2019-02-17 10:08 | PN ---
Progress Note (short form) - Note Progress Note: SUBJECTIVE: Patient seen and examined in the ICU. -improved overall -steroids being tapered -plan for floor today OBJECTIVE: Vital Signs Temp 99.2 F 02/17/19 07:56 Pulse 68 02/17/19 07:56 Resp 13 02/17/19 07:56 BP 121/80 02/17/19 07:56 Pulse Ox 95 02/16/19 21:00 Intake & Output 02/16/19 02/16/19 02/17/19 11:59 23:59 11:59 Intake Total 1100 150 Output Total 400 Balance -400 1100 150 Weight 103.555 kg 104.417 kg Intake: IV 320 30 SL1 02/14/19 320 30 Oral 780 120 Output: Urine 400 Void 400 Other: Voiding Method Urinal Toilet # Unmeasured Voids Void 3 1 Bowel Movement No No Weight Measurement Method Built in Bedscale Built in Bedscale Current Medications Acetaminophen (Tylenol -) 650 mg PO Q6H PRN PRN Reason: PAIN LEVEL 6-10 Last Admin: 02/17/19 06:30 Dose: 650 mg Atorvastatin Calcium (Lipitor -) 20 mg PO [facility] Last Admin: 02/16/19 21:01 Dose: 20 mg Brimonidine Tartrate (Alphagan 0.2% -) 1 drop OU BID [facility] Last Admin: 02/17/19 09:03 Dose: 1 drop Chlorhexidine Gluconate (Hibiclens For Decolonization -) 1 applic TP [facility] Last Admin: 02/16/19 21:01 Dose: 1 applic Dexamethasone Sodium Phosphate (Decadron Injection -) 2 mg IVPUSH Q6H-IV [facility] Last Admin: 02/17/19 08:47 Dose: 2 mg Docusate Sodium (Colace -) 100 mg PO DAILY [facility] Last Admin: 02/17/19 09:03 Dose: 100 mg Dorzolamide HCl (Trusopt 2%) 1 drop OU BID [facility] Last Admin: 02/17/19 09:03 Dose: 1 drop Insulin Aspart (Novolog Vial Sliding Scale -) 1 vial SQ ACHS [facility]; Protocol Last Admin: 02/17/19 06:31 Dose: 4 units Latanoprost (Xalatan 0.005% Eye Drops -) 1 drop OD [facility] Last Admin: 02/16/19 21:02 Dose: 1 drop Metoprolol Tartrate (Lopressor -) 25 mg PO BID [facility] Last Admin: 02/17/19 08:55 Dose: 25 mg Metoprolol Tartrate (Lopressor Injection -) 5 mg IVPUSH Q4H PRN PRN Reason: HYPERTENSION Last Admin: 02/15/19 06:12 Dose: 5 mg Morphine Sulfate (Morphine Sulfate) 4 mg IVPUSH Q3H PRN PRN Reason: PAIN LEVEL 7 - 10 Nifedipine (Procardia Xl -) 30 mg PO DAILY [facility] Last Admin: 02/17/19 08:56 Dose: 30 mg Ondansetron HCl (Zofran Odt -) 4 mg SL Q4H PRN PRN Reason: NAUSEA Last Admin: 02/16/19 16:46 Dose: 4 mg Oxycodone HCl (Roxicodone -) 5 mg PO Q6H PRN PRN Reason: PAIN LEVEL 6-10 Last Admin: 02/17/19 05:50 Dose: 5 mg Pantoprazole Sodium (Protonix -) 40 mg PO BID [facility] Last Admin: 02/17/19 08:55 Dose: 40 mg Polyethylene Glycol (Miralax (For Daily Use) -) 17 gm PO BID [facility] Last Admin: 02/17/19 09:05 Dose: 17 grams Senna/Docusate Sodium (Pericolace -) 1 tablet PO BID [facility] Last Admin: 02/17/19 08:55 Dose: 1 tablet Timolol Maleate (Timoptic 0.5%) 1 drop OU BID [facility] Last Admin: 02/17/19 09:03 Dose: 1 drop Gen: Awake and alert, NAD at rest HEENT: nystagmus (stable), dressing CDI Heart: RRR Lung: decreased breath sounds at the bases Abd: soft, nontender Ext: no edema Lab Results WBC 22.4 K/mm3 (4.0-10.0) H 02/17/19 05:30 RBC 4.27 M/mm3 (4.00-5.60) 02/17/19 05:30 Hgb 12.7 GM/dL (11.7-16.9) 02/17/19 05:30 Hct 38.6 % (35.4-49) 02/17/19 05:30 MCV 90.2 fl (80-96) 02/17/19 05:30 MCHC 32.8 g/dl (32.0-35.9) 02/17/19 05:30 RDW 14.0 % (11.9-15.9) 02/17/19 05:30 Plt Count 242 K/MM3 (134-434) 02/17/19 05:30 Sodium 136 mmol/L (136-145) 02/17/19 05:30 Potassium 4.4 mmol/L (3.5-5.1) 02/17/19 05:30 Chloride 102 mmol/L (98-107) 02/17/19 05:30 Carbon Dioxide 29 mmol/L (21-32) 02/17/19 05:30 Anion Gap 6 MMOL/L (8-16) L 02/17/19 05:30 BUN 20 mg/dL (7-18) H 02/17/19 05:30 Creatinine 0.9 mg/dL (0.55-1.3) 02/17/19 05:30 Random Glucose 234 mg/dL (74-106) H 02/17/19 05:30 Calcium 8.9 mg/dL (8.5-10.1) 02/17/19 05:30 Blood Type O POSITIVE 02/14/19 05:30 Antibody Screen Negative 02/14/19 05:30 INR 1.08 (0.83-1.09) 02/16/19 05:30 ASSESSMENT AND PLAN: Cerebellar Mass s/p Right Subocciptal Craniectomy/Cerebellar Tumor Resection CAD HTN DM Hyperlipidemia - f/u pathology - continue decadron IV , being taperd - neuro checks - antiemetics as needed - DVT prophylaxis - Ambulate with assistance - Ok for floor today Ruthann [facility] [id number]
--- NOTE | 2019-02-17 10:15 | PN ---
Progress Note (short form) - Note Progress Note: s: no chest pain, palps, dizziness,sob Current Medications Acetaminophen (Tylenol -) 650 mg PO Q6H PRN PRN Reason: PAIN LEVEL 6-10 Last Admin: 02/17/19 06:30 Dose: 650 mg Atorvastatin Calcium (Lipitor -) 20 mg PO HS [facility] Last Admin: 02/16/19 21:01 Dose: 20 mg Brimonidine Tartrate (Alphagan 0.2% -) 1 drop OU BID [facility] Last Admin: 02/17/19 09:03 Dose: 1 drop Chlorhexidine Gluconate (Hibiclens For Decolonization -) 1 applic TP HS [facility] Last Admin: 02/16/19 21:01 Dose: 1 applic Dexamethasone Sodium Phosphate (Decadron Injection -) 2 mg IVPUSH Q6H-IV [facility] Last Admin: 02/17/19 08:47 Dose: 2 mg Docusate Sodium (Colace -) 100 mg PO DAILY [facility] Last Admin: 02/17/19 09:03 Dose: 100 mg Dorzolamide HCl (Trusopt 2%) 1 drop OU BID [facility] Last Admin: 02/17/19 09:03 Dose: 1 drop Insulin Aspart (Novolog Vial Sliding Scale -) 1 vial SQ [facility]; Protocol Last Admin: 02/17/19 06:31 Dose: 4 units Latanoprost (Xalatan 0.005% Eye Drops -) 1 drop OD [facility] Last Admin: 02/16/19 21:02 Dose: 1 drop Metoprolol Tartrate (Lopressor -) 25 mg PO BID [facility] Last Admin: 02/17/19 08:55 Dose: 25 mg Metoprolol Tartrate (Lopressor Injection -) 5 mg IVPUSH Q4H PRN PRN Reason: HYPERTENSION Last Admin: 02/15/19 06:12 Dose: 5 mg Morphine Sulfate (Morphine Sulfate) 4 mg IVPUSH Q3H PRN PRN Reason: PAIN LEVEL 7 - 10 Nifedipine (Procardia Xl -) 30 mg PO DAILY [facility] Last Admin: 02/17/19 08:56 Dose: 30 mg Ondansetron HCl (Zofran Odt -) 4 mg SL Q4H PRN PRN Reason: NAUSEA Last Admin: 02/16/19 16:46 Dose: 4 mg Oxycodone HCl (Roxicodone -) 5 mg PO Q6H PRN PRN Reason: PAIN LEVEL 6-10 Last Admin: 02/17/19 05:50 Dose: 5 mg Pantoprazole Sodium (Protonix -) 40 mg PO BID [facility] Last Admin: 02/17/19 08:55 Dose: 40 mg Polyethylene Glycol (Miralax (For Daily Use) -) 17 gm PO BID [facility] Last Admin: 02/17/19 09:05 Dose: 17 grams Senna/Docusate Sodium (Pericolace -) 1 tablet PO BID [facility] Last Admin: 02/17/19 08:55 Dose: 1 tablet Timolol Maleate (Timoptic 0.5%) 1 drop OU BID [facility] Last Admin: 02/17/19 09:03 Dose: 1 drop Vital Signs Period Temp Pulse Resp BP Sys/Donahue Pulse Ox Last 24 Hr 98.8 F-100 F 56-83 13-21 116-164/60-88 95 Constitutional: Yes: Well Nourished, No Distress, Calm Cardiovascular: Yes: Regular Rate and Rhythm, S1, S2. No: Gallop, Murmur Respiratory: Yes: Regular, CTA Bilaterally. No: Accessory Muscle Use Extremities: No: Cold Edema: No Neurological: Yes: Alert, Oriented Psychiatric: No: Agitated no jaundice diaphoresis Echo 01/12: low nl lvef, nl rv, no sig valve path, no sig change from 02/2012 report MPI 2017: inferolateral infarct with teri-infarct ischemia. inferolat HK with EF 43%. no TID described ECG: NSR, no ST-T abn tele: sinus Assessment/Plan 64 year old M w h/o HTN, CAD , cath again , and most recent , hld, her with cp, anguiano. brain mass, s/p surgery -cerebellar lesion on CT head here, s/p surgery now -remote stent- resume aspirin when able per neurosurgery CAD: -s/p stemi 03/2007 with bms to OM -s/p PCIs 2011 for unstable angina (gwen to plad/mlad) -last cath 2013 with gwen to dlcx (prior stents patent, no sig residual dz) -chronic atypical CP--MPI 2017 no ischemia (old inferolateral scar) -remains on aspirin and plavix >3 yrs from last PCI--holding s/p neurosurgery -cont home statin, BB - restart aspirin when able per neurosurgery HTN: -cont home meds DM: -per hospitalist CKD: -creat 1.2-1.4 baseline range, stable here
[2019-02-17] MEDS ORDERED: MAG HYDROX/AL HYDROX/SIMETH 30 ML UNIT-DOSE CUP PO PRN (18:48)
[2019-02-17] MEDS: ATORVASTATIN CA 20 MG TABLET (FP) PO SCH (21:53)
[2019-02-17] MEDS: LATANOPROST 0.005% OPHTH SOLN 2.5ML BOTTLE OD SCH (21:58)
[2019-02-17] MEDS: CHLORHEXIDINE GLUCONATE 4% CLEANSER FOR DECOLONIZATION TP SCH (22:25)
--- NOTE | 2019-02-17 22:32 | PN ---
Progress Note (short form) - Note Progress Note: Patient seen and examined s/p debulking of cerebellar mass Denies any specific complaints Moving all extremities Last Vital Signs Temp Pulse Resp BP Pulse Ox 99.8 F H 82 19 120/66 95 02/17/19 16:00 02/17/19 18:00 02/17/19 18:00 02/17/19 18:00 02/17/19 09:00 Cor: RSR, No murmurs, No gallops Lungs: Clear to P&A Abd: Soft, Normal bowel sounds, No organomegaly Dressing with serosanguinous discharge Abnormal Lab Results 02/17/19 02/17/19 05:30 05:30 WBC 22.4 H Anion Gap 6 L BUN 20 H Random Glucose 234 H AST 8 L Total Protein 6.2 L Albumin 3.0 L Active Medications Generic Name Dose Route Start Last Admin Trade Name Freq PRN Reason Stop Dose Admin Acetaminophen 650 mg 02/16/19 10:12 02/17/19 17:22 Tylenol - PO 650 mg Q6H PRN Administration PAIN LEVEL 6-10 Al Hydroxide/Mg Hydroxide 30 ml 02/17/19 18:48 02/17/19 18:56 Mylanta Oral Suspension - PO 30 ml Q6H PRN Administration DYSPEPSIA Atorvastatin Calcium 20 mg 02/10/19 22:00 02/17/19 21:53 Lipitor - PO 20 mg HS [facility] Administration Brimonidine Tartrate 1 drop 02/12/19 22:00 02/17/19 21:58 Alphagan 0.2% - OU 1 drop BID [facility] Administration Chlorhexidine Gluconate 1 applic 02/10/19 22:00 02/17/19 22:25 Hibiclens For Decolonization - TP 1 applic HS [facility] Administration Dexamethasone Sodium Phosphate 2 mg 02/17/19 09:00 02/17/19 21:57 Decadron Injection - IVPUSH 2 mg Q6H-IV [facility] Administration Docusate Sodium 100 mg 02/17/19 10:00 02/17/19 09:03 Colace - PO 100 mg DAILY [facility] Administration Dorzolamide HCl 1 drop 02/12/19 22:00 02/17/19 21:58 Trusopt 2% OU 1 drop BID [facility] Administration Insulin Aspart 1 vial 02/10/19 22:00 02/17/19 22:07 Novolog Vial Sliding Scale - SQ 4 units ACHS [facility] Administration Protocol Latanoprost 1 drop 02/12/19 22:00 02/17/19 21:58 Xalatan 0.005% Eye Drops - OD 1 drop HS [facility] Administration Metoprolol Tartrate 25 mg 02/13/19 11:25 02/17/19 21:53 Lopressor - PO 25 mg BID [facility] Administration Metoprolol Tartrate 5 mg 02/14/19 19:11 02/15/19 06:12 Lopressor Injection - IVPUSH 5 mg Q4H PRN Administration HYPERTENSION Morphine Sulfate 4 mg 02/16/19 10:17 Morphine Sulfate IVPUSH Q3H PRN PAIN LEVEL 7 - 10 Nifedipine 30 mg 02/11/19 10:00 02/17/19 12:27 Procardia Xl - PO Not Given DAILY [facility] Ondansetron HCl 4 mg 02/16/19 16:40 02/16/19 16:46 Zofran Odt - SL 4 mg Q4H PRN Administration NAUSEA Oxycodone HCl 5 mg 02/16/19 10:10 02/17/19 05:50 Roxicodone - PO 5 mg Q6H PRN Administration PAIN LEVEL 6-10 Pantoprazole Sodium 40 mg 02/16/19 10:00 02/17/19 21:53 Protonix - PO 40 mg BID [facility] Administration Polyethylene Glycol 17 gm 02/11/19 22:00 02/17/19 21:54 Miralax (For Daily Use) - PO 17 grams BID [facility] Administration Senna/Docusate Sodium 1 tablet 02/15/19 22:00 02/17/19 21:53 Pericolace - PO 1 tablet BID [facility] Administration Timolol Maleate 1 drop 02/12/19 22:00 02/17/19 21:58 Timoptic 0.5% OU 1 drop BID [facility] Administration A/P 68 y/o patient s/p debulking of cerebellar mass Post op. CT showed -- post op. changes/air, small punctate hemorrhage s/p 3 units monodonor platelets repeat head CT await path result rad-onc consult
[2019-02-18] MEDS: DEXAMETHASONE SOD PHOSPHATE 4 MG/1 ML VIAL IVPUSH SCH ×4 (03:29→20:33)
[2019-02-18] MEDS: INSULIN SLIDING SCALE (NOVOLOG) 1 VIAL SQ SCH ×4 (06:38→21:41)
--- NOTE | 2019-02-18 07:20 | PN ---
Physical Exam: SUBJECTIVE: Patient seen and examined. No new C/o. Better able to turn neck to the L. No fevers, pain is improved. Pt's maximum distance documented as 30ft. OBJECTIVE: Vital Signs Period Temp Pulse Resp BP Sys/Donahue Pulse Ox Last 24 Hr 99.1 F-99.9 F 59-82 13-19 110-137/66-97 95-98 Vital Signs Temp 99.9 F H 02/17/19 22:00 Pulse 64 02/18/19 06:00 Resp 15 02/18/19 06:00 BP 129/78 02/18/19 06:00 Pulse Ox 100 02/18/19 08:37 Intake & Output 02/17/19 02/18/19 02/18/19 23:59 11:59 23:59 Intake Total 490 140 Balance 490 140 Intake: IV 10 20 Saline Lock 10 20 Oral 480 120 Other: Voiding Method Toilet Toilet # Unmeasured Voids Void 3 2 Bowel Movement Yes No # Bowel Movements 1 GENERAL: The patient is awake, alert, and fully oriented, in no acute distress. HEAD:Posterior surgical incission covered in clean dry dressing over posterior head/neck midline EYES: PERRL, extraocular movements intact, Still with horizontal nystagmus R>L ENT: moist mucous membranes. NECK: Improved motion to the L, still with some stiffness LUNGS: Breath sounds equal, clear to auscultation bilaterally, no wheezes, no crackles HEART: Regular rate and rhythm, S1, S2 ABDOMEN: Soft, nontender, nondistended, normoactive bowel sounds, no guarding EXTREMITIES: 2+ pulses, warm, well-perfused, no edema. NEUROLOGICAL: Cranial nerves II through XII grossly intact. Normal speech, gait not observed. CBC, BMP 02/17/19 05:30 02/17/19 05:30 Laboratory Results - last 24 hr 02/17/19 02/17/19 02/17/19 11:21 16:19 22:04 POC Glucometer 457 281 221 02/18/19 06:37 POC Glucometer 206 Active Medications Generic Name Dose Route Start Last Admin Trade Name Freq PRN Reason Stop Dose Admin Acetaminophen 650 mg 02/16/19 10:12 02/17/19 17:22 Tylenol - PO 650 mg Q6H PRN Administration PAIN LEVEL 6-10 Al Hydroxide/Mg Hydroxide 30 ml 02/17/19 18:48 02/17/19 18:56 Mylanta Oral Suspension - PO 30 ml Q6H PRN Administration DYSPEPSIA Atorvastatin Calcium 20 mg 02/10/19 22:00 02/17/19 21:53 Lipitor - PO 20 mg HS [facility] Administration Brimonidine Tartrate 1 drop 02/12/19 22:00 02/17/19 21:58 Alphagan 0.2% - OU 1 drop BID [facility] Administration Chlorhexidine Gluconate 1 applic 02/10/19 22:00 02/17/19 22:25 Hibiclens For Decolonization - TP 1 applic HS [facility] Administration Dexamethasone Sodium Phosphate 2 mg 02/17/19 09:00 02/18/19 03:29 Decadron Injection - IVPUSH 2 mg Q6H-IV [facility] Administration Docusate Sodium 100 mg 02/17/19 10:00 02/17/19 09:03 Colace - PO 100 mg DAILY [facility] Administration Dorzolamide HCl 1 drop 02/12/19 22:00 02/17/19 21:58 Trusopt 2% OU 1 drop BID [facility] Administration Insulin Aspart 1 vial 02/10/19 22:00 02/18/19 06:38 Novolog Vial Sliding Scale - SQ 4 units ACHS [facility] Administration Protocol Latanoprost 1 drop 02/12/19 22:00 02/17/19 21:58 Xalatan 0.005% Eye Drops - OD 1 drop HS [facility] Administration Metoprolol Tartrate 25 mg 02/13/19 11:25 02/17/19 21:53 Lopressor - PO 25 mg BID [facility] Administration Metoprolol Tartrate 5 mg 02/14/19 19:11 02/15/19 06:12 Lopressor Injection - IVPUSH 5 mg Q4H PRN Administration HYPERTENSION Morphine Sulfate 4 mg 02/16/19 10:17 Morphine Sulfate IVPUSH Q3H PRN PAIN LEVEL 7 - 10 Nifedipine 30 mg 02/11/19 10:00 02/17/19 12:27 Procardia Xl - PO Not Given DAILY [facility] Ondansetron HCl 4 mg 02/16/19 16:40 02/16/19 16:46 Zofran Odt - SL 4 mg Q4H PRN Administration NAUSEA Oxycodone HCl 5 mg 02/16/19 10:10 02/17/19 05:50 Roxicodone - PO 5 mg Q6H PRN Administration PAIN LEVEL 6-10 Pantoprazole Sodium 40 mg 02/16/19 10:00 02/17/19 21:53 Protonix - PO 40 mg BID [facility] Administration Polyethylene Glycol 17 gm 02/11/19 22:00 02/17/19 21:54 Miralax (For Daily Use) - PO 17 grams BID [facility] Administration Senna/Docusate Sodium 1 tablet 02/15/19 22:00 02/17/19 21:53 Pericolace - PO 1 tablet BID [facility] Administration Timolol Maleate 1 drop 02/12/19 22:00 02/17/19 21:58 Timoptic 0.5% OU 1 drop BID [facility] Administration ASSESSMENT/PLAN: Pt is a 68 yo M with history of previously diagnosed cerebellar mass (diagnosed six months ago),HTN, HLD, DM, CAD (s/p three stents, on plavix- last 2013), GERD , presented with left sided headache, and unsteady gait, now s/p resection (). Cerebellar mass -POD #4 s/p craniectomy, and resection of cerebellar tumor. -CT head shows 4cm x 3.4cm right cerebellar mass lesion, concerning for neoplasm. -CT chest, abdomen, pelvis shows no definite primary neoplastic lesion within chest, abdomen, pelvis. Prostatic enlargement, thyromegaly, atherosclerotic calcification, aneurysmal dilation ascending aorta noted. -MRI brain shows solitary 3cm X 2.7cm X 2.7cm enhancing mass lesion inferior half right cerebellar hemisphere. -Repeat, postoperative CT 02/15/19 head shows tiny focus of hemorrhage. -Neurosurgery recommendations (Dr. Leon) appreciated. -Patient completed postoperative Cefazolin course. -Dexamethasone 2mg IV Q6 hours- per neurosx- reduce to 2mg Q12H from tomorrow -Neurochecks Q1 hour- no longer needed -Pain control with Oxycodone 5mg PO Q6 hours with Acetaminophen 650mg PO Q6 hours PRN for pain 6- 10 -Follow up intraoperative pathology -Physical therapy evaluation -Pt walked max 30feet-needs rehab Coronary artery disease -Patient is s/p three stents 2011, 2013 -Cardiology consult (Dr. Dumont) appreciated. Will discuss reinstatement of antiplatelet therapy. -Per cards- for ASA only when surgically clear -Cont lipitor 20mg HS Diabetes mellitus -Insulin sliding scale ACHS -Fingerstick blood glucose monitoring ACHS Hypertension -Metoprolol 25mg PO BID -Nifedipine ER 30mg PO daily -Metoprolol 5mg IV Q4H PRN- dcd Enlarged left thyroid lobe -Incidentally noted on CT chest scan -TSH 0.23 -T4 1.04 -Free T3 69 -Patient will require outpatient thyroid ultrasound for further workup Chronic eye disorder -Cont home eye drops Constipation -Cont miralax, pericolace FEN -No IV fluids indicated -Monitor lytes, replete as needed -Diabetic diet Prophylaxis -SCDs bilateral lower extremities, per neurosurgery. -Protonix 40mg PO BID, mylanta Disposition -[facility] transfer Visit type - Emergency Visit Emergency Visit: Yes ED Registration Date: 02/10/19 Care time: The patient presented to the Emergency Department on the above date and was hospitalized for further evaluation of their emergent condition. - New Patient This patient is new to me today: No - Critical Care Critical Care patient: Yes Total Critical Care Time (in minutes): 35 Critical Care Statement: The care of this patient involved high complexity decision making to prevent further life threatening deterioration of the patient 's condition and/or to evaluate & treat vital organ system(s) failure or risk of failure. - Discharge Referral Referred to [facility] Med P.C.: No
[2019-02-18] MEDS: DOCUSATE SODIUM 100 MG CAPSULE (FP) PO SCH (09:30)
--- NOTE | 2019-02-18 09:46 | PN ---
Progress Note (short form) - Note Progress Note: s: no chest pain, palps, dizziness,sob Current Medications Acetaminophen (Tylenol -) 650 mg PO Q6H PRN PRN Reason: PAIN LEVEL 6-10 Last Admin: 02/17/19 17:22 Dose: 650 mg Al Hydroxide/Mg Hydroxide (Mylanta Oral Suspension -) 30 ml PO Q6H PRN PRN Reason: DYSPEPSIA Last Admin: 02/17/19 18:56 Dose: 30 ml Atorvastatin Calcium (Lipitor -) 20 mg PO HS [facility] Last Admin: 02/17/19 21:53 Dose: 20 mg Brimonidine Tartrate (Alphagan 0.2% -) 1 drop OU BID [facility] Last Admin: 02/17/19 21:58 Dose: 1 drop Chlorhexidine Gluconate (Hibiclens For Decolonization -) 1 applic TP HS [facility] Last Admin: 02/17/19 22:25 Dose: 1 applic Dexamethasone Sodium Phosphate (Decadron Injection -) 2 mg IVPUSH Q6H-IV [facility] Last Admin: 02/18/19 03:29 Dose: 2 mg Docusate Sodium (Colace -) 100 mg PO DAILY [facility] Last Admin: 02/17/19 09:03 Dose: 100 mg Dorzolamide HCl (Trusopt 2%) 1 drop OU BID [facility] Last Admin: 02/17/19 21:58 Dose: 1 drop Insulin Aspart (Novolog Vial Sliding Scale -) 1 vial SQ [facility]; Protocol Last Admin: 02/18/19 06:38 Dose: 4 units Latanoprost (Xalatan 0.005% Eye Drops -) 1 drop OD [facility] Last Admin: 02/17/19 21:58 Dose: 1 drop Metoprolol Tartrate (Lopressor -) 25 mg PO BID [facility] Last Admin: 02/17/19 21:53 Dose: 25 mg Metoprolol Tartrate (Lopressor Injection -) 5 mg IVPUSH Q4H PRN PRN Reason: HYPERTENSION Last Admin: 02/15/19 06:12 Dose: 5 mg Morphine Sulfate (Morphine Sulfate) 4 mg IVPUSH Q3H PRN PRN Reason: PAIN LEVEL 7 - 10 Nifedipine (Procardia Xl -) 30 mg PO DAILY [facility] Last Admin: 02/17/19 12:27 Dose: Not Given Ondansetron HCl (Zofran Odt -) 4 mg SL Q4H PRN PRN Reason: NAUSEA Last Admin: 02/16/19 16:46 Dose: 4 mg Oxycodone HCl (Roxicodone -) 5 mg PO Q6H PRN PRN Reason: PAIN LEVEL 6-10 Last Admin: 02/17/19 05:50 Dose: 5 mg Pantoprazole Sodium (Protonix -) 40 mg PO BID [facility] Last Admin: 02/17/19 21:53 Dose: 40 mg Polyethylene Glycol (Miralax (For Daily Use) -) 17 gm PO BID [facility] Last Admin: 02/17/19 21:54 Dose: 17 grams Senna/Docusate Sodium (Pericolace -) 1 tablet PO BID [facility] Last Admin: 02/17/19 21:53 Dose: 1 tablet Timolol Maleate (Timoptic 0.5%) 1 drop OU BID [facility] Last Admin: 02/17/19 21:58 Dose: 1 drop Vital Signs Period Temp Pulse Resp BP Sys/Donahue Pulse Ox Last 24 Hr 99.1 F-99.9 F 59-82 13-19 110-137/66-97 98 Constitutional: Yes: Well Nourished, No Distress, Calm Cardiovascular: Yes: Regular Rate and Rhythm, S1, S2. No: Gallop, Murmur Respiratory: Yes: Regular, CTA Bilaterally. No: Accessory Muscle Use Extremities: No: Cold Edema: No Neurological: Yes: Alert, Oriented Psychiatric: No: Agitated no jaundice diaphoresis Echo 01/12: low nl lvef, nl rv, no sig valve path, no sig change from 02/2012 report MPI 2017: inferolateral infarct with teri-infarct ischemia. inferolat HK with EF 43%. no TID described ECG: NSR, no ST-T abn tele: sinus Assessment/Plan 64 year old M w h/o HTN, CAD , cath again , and most recent , hld, her with cp, anguiano. brain mass, s/p surgery -cerebellar lesion on CT head here, s/p surgery now -remote stent- resume aspirin when able per neurosurgery CAD: -s/p stemi 03/2007 with bms to OM -s/p PCIs 2011 for unstable angina (gwen to plad/mlad) -last cath 2013 with gwen to dlcx (prior stents patent, no sig residual dz) -chronic atypical CP--MPI 2017 no ischemia (old inferolateral scar) -remains on aspirin and plavix >3 yrs from last PCI--holding s/p neurosurgery -cont home statin, BB - restart aspirin when able per neurosurgery HTN: -cont home meds DM: -per hospitalist CKD: -creat 1.2-1.4 baseline range, stable here
[2019-02-18] MEDS: BRIMONIDINE TARTRATE 0.2% OPHTHALMIC 5 ML BOTTLE OU SCH ×2 (10:00→21:34)
[2019-02-18] MEDS: PANTOPRAZOLE 40 MG TABLET (FP) PO SCH ×2 (10:00→21:29)
[2019-02-18] MEDS: METOPROLOL TARTRATE 25 MG TABLET (FP) PO SCH ×2 (10:00→21:32)
[2019-02-18] MEDS: DORZOLAMIDE 2% HCL OPHTHALMIC SOLUTION 10 ML BOTTLE OU SCH ×2 (10:00→21:35)
[2019-02-18] MEDS: POLYETHYLENE GLYCOL 3350 119 GM BTL PO SCH ×2 (10:00→21:40)
[2019-02-18] MEDS: NIFEdipine E.R. 30 MG TABLET (FP) PO SCH (10:00)
[2019-02-18] MEDS: TIMOLOL 0.5% OPHTHALMIC SOL 5 ML BOTTLE OU SCH ×2 (10:00→21:34)
[2019-02-18] MEDS: SENNOSIDES/DOCUSATE COMBO (SENNA PLUS) TABLET (UD) PO SCH ×2 (10:30→23:55)
--- NOTE | 2019-02-18 10:59 | PN ---
Teaching Attending Note Name of Resident: Kirstie Delarosa ATTENDING PHYSICIAN STATEMENT I saw and evaluated the patient. I reviewed the resident's note and discussed the case with the resident. I agree with the resident's findings and plan as documented. SUBJECTIVE:neck pain has improved. denies CP, SOB, fever, chills, N/V/C/D OBJECTIVE: Last Vital Signs Temp Pulse Resp BP Pulse Ox 99.9 F H 64 15 129/78 100 02/17/19 22:00 02/18/19 06:00 02/18/19 06:00 02/18/19 06:00 02/18/19 08:37 General NAD HEENT posterior bandage c/d/i CV S1 S2 RRR no murmur/rub/gallop Lungs CTA B/L no wheezing/rales/rhonchi ASSESSMENT AND PLAN: 68 year old male with HTN, HLD, DM 2, CAD s/p STEMI 2006/Multiple Stents (last 2013), GERD, known Cerebellar Mass, previously on steroids, follows at [place], now presents with R sided occipital pressure, abnormal gait, leaning to L side, lightheadedness/dizziness, with nausea and 1 episode of vomiting earlier today. 1. R Cerebellar Mass with symptoms including abnormal/unsteady gait, lightheadedness, nausea, vomiting -s/p Right Suboccipital Craniectomy and Resection of Cerebellar Tumor 02/14. no neurological deficits. on dex 2mg Q12H. cont with pain control. tight BP control. OOB to chair. will arrange for outpatient Rtx therapy as outpatient. further recommendations per neurosurg. received 5 packs of platelets 2. Low TSH- does not appear to be symptomatic.T3/T4 WNL. should have repeat TSH in a few weeks. CT showing thyromegaly on CT, unable to get dedicated u/s while hospitalized. may need further investigation as outpatient 3. CAD s/p stents- hold asa/plavix for pending surgery. plavix no longer necessary. plan to re-start asa in 2 weeks from post-op on 02/28. cardio on board. cont statin/betablocker 4. HTN- controlled 5. Dyslipidemia- statin 6. DM- hold oral agents. A1c 7.2 BGM and ISS 7.DVT ppx- SCD. hold pharmacologic in setting on intracranial surgery 8. MICU monitoring. stable for transfer to floors The care of this patient involved high complexity decision making to prevent further life threatening deterioration of the patient's condition and/or to evaluate & treat vital organ system(s) failure or risk of failure. 38 mins
--- NOTE | 2019-02-18 11:13 | PN ---
Progress Note (short form) - Note Progress Note: The patient had no complaints this morning. He is awake, alert and oriented x 3. He moves all extremities equally. His incision is healing well. There is no drainage. I changed the dressing with the nurse today. He can have his decadron lowered to 2mg q 12 tomorrow. He can be downgraded to the floor. He may require rehab placement because of his balance issues. I will discuss this with the medical service and PT. Will follow.
[2019-02-18] MEDS ORDERED: MAG HYDROX/AL HYDROX/SIMETH 30 ML UNIT-DOSE CUP PO PRN (20:13)
[2019-02-18] MEDS ORDERED: ONDANSETRON *ODT* 4 MG TABLET SL PRN (20:13)
[2019-02-18] MEDS ORDERED: oxyCODONE HCL 5 MG TABLET PO PRN (20:13)
[2019-02-18] MEDS: ACETAMINOPHEN 325 MG TABLET (FP) PO PRN (20:32)
[2019-02-18] MEDS: ATORVASTATIN CA 20 MG TABLET (FP) PO SCH (21:32)
[2019-02-18] MEDS: LATANOPROST 0.005% OPHTH SOLN 2.5ML BOTTLE OD SCH (21:34)
[2019-02-18] MEDS ORDERED: CHLORHEXIDINE GLUCONATE 4% CLEANSER FOR DECOLONIZATION TP SCH (22:00)
[2019-02-18] MEDS ORDERED: SENNOSIDES/DOCUSATE COMBO (SENNA PLUS) TABLET (UD) PO SCH (22:00)
[2019-02-19] MEDS: DEXAMETHASONE SOD PHOSPHATE 4 MG/1 ML VIAL IVPUSH SCH ×4 (02:11→21:26)
[2019-02-19 06:18] LABS: BASO % 0.1 % (0-2.0); HEMATOCRIT 37.9 % (35.4-49); HEMOGLOBIN 12.6 GM/dL (11.7-16.9); LYMPH % 10.1 % (8-40); MCH 29.8 pg (25.7-33.7); MCHC 33.2 g/dl (32.0-35.9); MEAN CELL VOLUME 89.8 fl (80-96); MEAN PLT VOLUME 8.2 fl (7.5-11.1); MONO % 4.5 % (3.8-10.2); NEUT % 85.3 % (42.8-82.8); PLATELET COUNT 235 K/MM3 (134-434); RBC 4.22 M/mm3 (4.00-5.60); RDW 14.1 % (11.9-15.9); WHITE BLOOD COUNT 16.5 K/mm3 (4.0-10.0)
[2019-02-19] MEDS: INSULIN SLIDING SCALE (NOVOLOG) 1 VIAL SQ SCH ×4 (06:18→21:47)
[2019-02-19] MEDS: ACETAMINOPHEN 325 MG TABLET (FP) PO PRN (06:22)
[2019-02-19 06:34] LABS: INR 1.03 (0.83-1.09); PROTHROMBIN TIME (PATIENT) 12.1 SEC (9.7-13.0)
[2019-02-19 06:46] LABS: ALBUMIN 2.7 g/dl (3.4-5.0); ALK PHOS 59 U/L (45-117); ANION GAP 6 MMOL/L (8-16); BILIRUBIN,TOTAL 0.9 mg/dL (0.2-1); BLOOD UREA NITROGEN 23 mg/dL (7-18); CALCIUM 8.8 mg/dL (8.5-10.1); CHLORIDE 102 mmol/L (98-107); CO2 28 mmol/L (21-32); CREATININE 0.9 mg/dL (0.55-1.3); GLUCOSE,RANDOM 212 mg/dL (74-106); MAGNESIUM 2.1 mg/dL (1.8-2.4); PHOSPHOROUS 3.6 mg/dL (2.5-4.9); POTASSIUM 4.3 mmol/L (3.5-5.1); SGOT/AST 9 U/L (15-37); SGPT/ALT 17 U/L (13-61); SODIUM 136 mmol/L (136-145); TOT PROT 5.9 g/dl (6.4-8.2)
[2019-02-19] MEDS ORDERED: PT OWN MED DRAWER 7, Y5N ONE (08:57)
--- NOTE | 2019-02-19 08:57 | PN ---
Progress Note (short form) - Note Progress Note: Radiation Oncology Pt seen and evaluated, chart/films reviewed, full consult to follow. A 68 yo [place] vet with hx of rt cerebellar mass x 6 mo, off and on steroid therapy at [facility], admitted to [facility] with h/a, n/v, ataxia, CT/MRI showed 3- 4cm mass in right inferior cerebellum associated with mass effect/edema suspicious for malignancy/metastasis. Commenced decadron and underwent craniectomy/decompressive resection. Doing well postop on decadron taper, transferred to floor. Preop CT CAP showed no obvious primary site of malignancy. Postop head CT c/w usual postsurgical changes. Likely will need postop RT if malignancy is confirmed. Gets usual care at [facility]. Await pathology.
[2019-02-19] MEDS: DOCUSATE SODIUM 100 MG CAPSULE (FP) PO SCH (09:03)
[2019-02-19] MEDS: NIFEdipine E.R. 30 MG TABLET (FP) PO SCH (09:04)
[2019-02-19] MEDS: METOPROLOL TARTRATE 25 MG TABLET (FP) PO SCH ×2 (09:04→21:27)
[2019-02-19] MEDS: SENNOSIDES/DOCUSATE COMBO (SENNA PLUS) TABLET (UD) PO SCH ×2 (09:04→21:28)
[2019-02-19] MEDS: PANTOPRAZOLE 40 MG TABLET (FP) PO SCH ×2 (09:05→21:27)
[2019-02-19] MEDS: TIMOLOL 0.5% OPHTHALMIC SOL 5 ML BOTTLE OU SCH ×2 (09:06→21:28)
[2019-02-19] MEDS: BRIMONIDINE TARTRATE 0.2% OPHTHALMIC 5 ML BOTTLE OU SCH ×2 (09:07→21:29)
[2019-02-19] MEDS: DORZOLAMIDE 2% HCL OPHTHALMIC SOLUTION 10 ML BOTTLE OU SCH ×2 (09:15→21:30)
[2019-02-19] MEDS: POLYETHYLENE GLYCOL 3350 119 GM BTL PO SCH ×2 (10:12→21:42)
--- NOTE | 2019-02-19 12:45 | PN ---
Physical Exam: SUBJECTIVE: Patient seen and examined at bedside this morning. He is POD #5 s/p craniectomy, and resection of cerebellar tumor. Patient denies acute complaints today. He denies subjective fevers, chills, shortness of breath, chest pain, palpitations, abdominal pain, nausea, vomiting. OBJECTIVE: Vital Signs Period Temp Pulse Resp BP Sys/Donahue Pulse Ox Last 24 Hr 98.3 F-98.8 F 63-72 15-18 121-140/64-80 99-100 GENERAL: The patient is awake, alert, and fully oriented, in no acute distress. HEAD: Normocephalic, atraumatic. EYES: PERRL, extraocular movements intact, horizontal nystagmus upon leftward gaze. Sclera anicteric, conjunctiva clear. ENT: Oropharynx clear, without erythema or exudates. Moist mucous membranes. NECK: Trachea midline, full range of motion. Supple without lymphadenopathy. LUNGS: Breath sounds equal, clear to auscultation bilaterally, no wheezes, no crackles. No accessory muscle use. HEART: Regular rate and rhythm, S1, S2 without murmur, rub or gallop. ABDOMEN: Soft, nondistended, nontender to light and deep palpation x4 quadrants , no rebound tenderness, no guarding. Normoactive bowel sounds x4 quadrants. no hepatosplenomegaly, no masses. EXTREMITIES: 2+ radial, dorsalis pedis pulses bilaterally. Warm, well-perfused. No lower extremity edema bilaterally. NEUROLOGICAL: Cranial nerves II through XII grossly intact. Normal speech. Strength 5/5 bilateral upper and lower extremities. PSYCH: Normal mood, normal affect upon my encounter. SKIN: Warm, dry. Seborrheic ketatosis noted upon patient's back. Laboratory Results - last 24 hr 02/18/19 02/18/19 02/18/19 14:32 16:05 20:39 WBC RBC Hgb Hct MCV MCH MCHC RDW Plt Count MPV Absolute Neuts (auto) Neutrophils % Lymphocytes % Monocytes % Eosinophils % Basophils % Nucleated RBC % PT with INR INR Sodium Potassium Chloride Carbon Dioxide Anion Gap BUN Creatinine Creat Clearance w eGFR POC Glucometer 274 214 296 Random Glucose Calcium Phosphorus Magnesium Total Bilirubin AST ALT Alkaline Phosphatase Total Protein Albumin 02/19/19 02/19/19 02/19/19 06:00 06:00 06:00 WBC 16.5 H RBC 4.22 Hgb 12.6 Hct 37.9 MCV 89.8 MCH 29.8 MCHC 33.2 RDW 14.1 Plt Count 235 MPV 8.2 Absolute Neuts (auto) 14.0 H Neutrophils % 85.3 H Lymphocytes % 10.1 D Monocytes % 4.5 Eosinophils % 0.0 Basophils % 0.1 D Nucleated RBC % 0 PT with INR 12.10 INR 1.03 Sodium 136 Potassium 4.3 Chloride 102 Carbon Dioxide 28 Anion Gap 6 L BUN 23 H Creatinine 0.9 Creat Clearance w eGFR 83.67 POC Glucometer Random Glucose 212 H Calcium 8.8 Phosphorus 3.6 Magnesium 2.1 Total Bilirubin 0.9 AST 9 L ALT 17 Alkaline Phosphatase 59 Total Protein 5.9 L Albumin 2.7 L 02/19/19 02/19/19 06:17 11:44 WBC RBC Hgb Hct MCV MCH MCHC RDW Plt Count MPV Absolute Neuts (auto) Neutrophils % Lymphocytes % Monocytes % Eosinophils % Basophils % Nucleated RBC % PT with INR INR Sodium Potassium Chloride Carbon Dioxide Anion Gap BUN Creatinine Creat Clearance w eGFR POC Glucometer 231 255 Random Glucose Calcium Phosphorus Magnesium Total Bilirubin AST ALT Alkaline Phosphatase Total Protein Albumin Active Medications Generic Name Dose Route Start Last Admin Trade Name Freq PRN Reason Stop Dose Admin Acetaminophen 650 mg 02/18/19 20:13 02/19/19 06:22 Tylenol - PO 650 mg Q6H PRN Administration PAIN LEVEL 6-10 Al Hydroxide/Mg Hydroxide 30 ml 02/18/19 20:13 Mylanta Oral Suspension - PO Q6H PRN DYSPEPSIA Atorvastatin Calcium 20 mg 02/18/19 22:00 02/18/19 21:32 Lipitor - PO 20 mg HS ISAURA Administration Brimonidine Tartrate 1 drop 02/18/19 22:00 02/19/19 09:07 Alphagan 0.2% - OU 1 drop BID ISAURA Administration Dexamethasone Sodium Phosphate 2 mg 02/18/19 21:00 02/19/19 09:03 Decadron Injection - IVPUSH 2 mg Q6H-IV ISAURA Administration Docusate Sodium 100 mg 02/19/19 10:00 02/19/19 09:03 Colace - PO 100 mg DAILY ISAURA Administration Dorzolamide HCl 1 drop 02/18/19 22:00 02/19/19 09:15 Trusopt 2% OU 1 drop BID ISAURA Administration Insulin Aspart 1 vial 02/18/19 22:00 02/19/19 12:02 Novolog Vial Sliding Scale - SQ 6 unit ACHS ISAURA Administration Protocol Latanoprost 1 drop 02/18/19 22:00 02/18/19 21:34 Xalatan 0.005% Eye Drops - OD 1 drop HS ISAURA Administration Metoprolol Tartrate 25 mg 02/18/19 22:00 02/19/19 09:04 Lopressor - PO 25 mg BID ISAURA Administration Nifedipine 30 mg 02/19/19 10:00 02/19/19 09:04 Procardia Xl - PO 30 mg DAILY ISAURA Administration Ondansetron HCl 4 mg 02/18/19 20:13 Zofran Odt - SL Q4H PRN NAUSEA Oxycodone HCl 5 mg 02/18/19 20:13 Roxicodone - PO Q6H PRN PAIN LEVEL 6-10 Pantoprazole Sodium 40 mg 02/18/19 22:00 02/19/19 09:05 Protonix - PO 40 mg BID ISAURA Administration Polyethylene Glycol 17 gm 02/18/19 22:00 02/19/19 10:12 Miralax (For Daily Use) - PO 17 gm BID ISAURA Administration Senna/Docusate Sodium 1 tablet 02/18/19 23:45 02/19/19 09:04 Pericolace - PO 1 tablet BID ISAURA Administration Timolol Maleate 1 drop 02/18/19 22:00 02/19/19 09:06 Timoptic 0.5% OU 1 drop BID ISAURA Administration IMAGING -CT head shows 4cm x 3.4cm right cerebellar mass lesion, concerning for neoplasm. -CT chest, abdomen, pelvis shows no definite primary neoplastic lesion within chest, abdomen, pelvis. Prostatic enlargement, thyromegaly, atherosclerotic calcification, aneurysmal dilation ascending aorta noted. -MRI brain shows solitary 3cm X 2.7cm X 2.7cm enhancing mass lesion inferior half right cerebellar hemisphere. -Repeat, postoperative CT head shows tiny focus of hemorrhage. ASSESSMENT/PLAN: Patient is a 68 year old male with history of previously diagnosed cerebellar mass (diagnosed six months ago), hypertension, hyperlipidemia, diabetes mellitus , coronary artery disease (s/p three stents, on plavix), gastro-esophageal reflux disease, presented with left sided headache, and unsteady gait. Cerebellar mass -Patient is POD #5 s/p craniectomy, and resection of cerebellar tumor. -Neurosurgery recommendations (Dr. Leon) appreciated. -Patient completed postoperative Cefazolin course. -Dexamethasone 2mg IV Q12 hours. Will switch to oral tomorrow per neurosurgery recommendations. -Neurochecks Q1 hour -Pain control with Oxycodone 5mg PO Q6 hours with Acetaminophen 650mg PO Q6 hours PRN for pain 6- 10 -Follow up intraoperative pathology -Physical therapy evaluation Coronary artery disease -Patient is s/p three stents 2011, 2013 -Cardiology recommendations appreciated. -Reinstatement of antiplatelet therapy at 2 weeks postoperatively, per neurosurgery and cardiology (02/28) Diabetes mellitus -Insulin sliding scale ACHS -Fingerstick blood glucose monitoring ACHS Hypertension -Metoprolol 25mg PO BID -Nifedipine ER 30mg PO daily -Metoprolol 5mg IV Q4H PRN Enlarged left thyroid lobe -Incidentally noted on CT chest scan -TSH 0.23 -T4 1.04 -Free T3 69 -Patient will require outpatient thyroid ultrasound for further workup. FEN -No IV fluids indicated -Follow CMP -Diabetic diet Prophylaxis -SCDs bilateral lower extremities, per neurosurgery. -Protonix 40mg IV BID Disposition -Continue care in medical-surgical floor Visit type - Emergency Visit Emergency Visit: Yes ED Registration Date: 02/10/19 Care time: The patient presented to the Emergency Department on the above date and was hospitalized for further evaluation of their emergent condition. - New Patient This patient is new to me today: No - Critical Care Critical Care patient: No - Discharge Referral Referred to [facility] Med P.C.: No
--- NOTE | 2019-02-19 13:17 | CONS ---
DATE OF CONSULTATION: 02/19/2019 REFERRING PHYSICIAN: Danny Carrera MD and Addie Sinha MD REASON FOR CONSULTATION: Brain mass suspicious for malignancy. HISTORY OF PRESENT ILLNESS: The patient is a 68-year-old [place] with a [id number] of a right cerebellar managed on and off with steroids at the [facility] system where he follows for his medical care. He is admitted for increasing right occipital headache, nausea, 1 episode of vomiting, and left leaning ataxia. On admission, CT of the head and MRI of the brain demonstrated a 3- to 4-cm enhancing mass in the inferior right cerebellar hemisphere with necrosis, edema, and local mass effect causing displacement of the 4th ventricle. There was no obstructive hydrocephalus or other intracranial mass lesions. He was started on high-dose Decadron and underwent craniectomy with surgical resection of the mass for decompression. Postsurgical CT of the head showed postoperative changes in the right cerebellum with no evidence of acute hemorrhage but pneumocephaly is noted. He had an uneventful recovery thus far and was transferred to the floor from the ICU. He is on a slow Decadron taper. Preoperative CT scans of the chest, abdomen, and pelvis failed to demonstrate potential sites of the primary malignancy. Surgical pathology is awaited. He reports mild pain in the occipital region but no dizziness, nausea, vomiting, diplopia, or blurry vision. He has been out of bed with assistance and mild ataxia persists. Denies weakness in the arms or legs. He has chronic numbness in the feet for 3 years. No bowel or bladder changes but feels constipated. No histor of radiation therapy, connective tissue disease, lupus, or scleroderma. PAST MEDICAL HISTORY: Hypertension, hyperlipidemia, diabetes mellitus, coronary artery disease, status post stents x3 on Plavix, last stent in 2013, GERD. PAST SURGICAL HISTORY: Occipital craniectomy and decompression as noted above, hernia repair. ALLERGIES: No known drug allergies. CURRENT MEDICATIONS: Zofran p.r.n., Decadron 2 mg q.6, Alphagan drops, metoprolol, timolol drops, Trusopt drops, Colace, MiraLAX, Procardia XL, Lipitor, insulin sliding scale, oxycodone p.r.n., Xalatan drops, Protonix. SOCIAL HISTORY: He lives alone. He is a [place] war . He had exposure to Agent [place]. He quit smoking in 1980. 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 No significant alcohol abuse or use. FAMILY HISTORY: Sister had lung cancer. REVIEW OF SYSTEMS: As noted above. PHYSICAL EXAMINATION: General: Well-appearing, well-nourished male lying in bed in no acute distress. Vital Signs: Temperature 98.8, blood pressure 124/76, pulse 64, respiratory rate 18, SaO2 is 99% on room air. HEENT: Right occipital surgical bandage clean, dry, and intact. Otherwise, normocephalic. Moist mucous membranes. Anicteric sclerae. Clear oral cavity without mucositis or thrush. Neck: No adenopathy. Chest: Clear. Cardiovascular: Regular. Abdomen: Soft, nontender, nondistended. Extremities: No peripheral edema. Normal range of motion. Musculoskeletal: No spine mass or tenderness. Neurologic: Alert and oriented x3. Cranial nerves 2-12 are intact. Sensation to light touch is intact. No pronator drift. Has 5/5 x4. Cerebellar, finger to nose intact. Gait not tested for the patient's safety. RADIOLOGIC DATA: Brain CT and MRI, chest, abdomen, and pelvis CT see HPI. LABORATORY DATA: WBC 16.5, hemoglobin 12.6, platelet count 235,000. Electrolytes within normal limits. BUN 23, creatinine 0.9, calcium 8.8, magnesium 2.1. Liver function tests within normal limits. Albumin 2.7. PSA 0.7. IMPRESSION: A 68-year-old gentleman with right occipital mass status post surgical decompression doing well postoperatively. Pathology is pending. Workup has not revealed a primary site of malignancy, though the brain mass is suspicious for primary versus metastatic malignancy. He will continue Decadron taper as per Neurosurgery. We will follow the surgical pathology, and if confirmatory for a malignancy, he will likely be a candidate for postoperative radiation therapy with dose and fractionation to be determined based on histology. He obtains his usual medical care at the [facility] system however. PLAN: Await pathology. Thank you for the courtesy of this consultation. HARLAN TAYLOR M.D. AARON/[id number] MTDD
--- NOTE | 2019-02-19 13:22 | PN ---
Teaching Attending Note Name of Resident: Quinten Guzmán ATTENDING PHYSICIAN STATEMENT I saw and evaluated the patient. I reviewed the resident's note and discussed the case with the resident. I agree with the resident's findings and plan as documented. SUBJECTIVE: Patient has no complaints. He says he has mild dizziness when he stands. OBJECTIVE: Vital Signs Period Temp Pulse Resp BP Sys/Donahue Pulse Ox Last 24 Hr 98.3 F-98.8 F 63-72 15-18 121-140/64-80 99-100 HEART: S1S2, RRR LUNGS: Clear ABDOMEN: Soft, non-tender, non-distended, normal BS EXTREMITIES: No edema Laboratory Results - last 24 hr 02/18/19 02/18/19 02/18/19 14:32 16:05 20:39 WBC RBC Hgb Hct MCV MCH MCHC RDW Plt Count MPV Absolute Neuts (auto) Neutrophils % Lymphocytes % Monocytes % Eosinophils % Basophils % Nucleated RBC % PT with INR INR Sodium Potassium Chloride Carbon Dioxide Anion Gap BUN Creatinine Creat Clearance w eGFR POC Glucometer 274 214 296 Random Glucose Calcium Phosphorus Magnesium Total Bilirubin AST ALT Alkaline Phosphatase Total Protein Albumin 02/19/19 02/19/19 02/19/19 06:00 06:00 06:00 WBC 16.5 H RBC 4.22 Hgb 12.6 Hct 37.9 MCV 89.8 MCH 29.8 MCHC 33.2 RDW 14.1 Plt Count 235 MPV 8.2 Absolute Neuts (auto) 14.0 H Neutrophils % 85.3 H Lymphocytes % 10.1 D Monocytes % 4.5 Eosinophils % 0.0 Basophils % 0.1 D Nucleated RBC % 0 PT with INR 12.10 INR 1.03 Sodium 136 Potassium 4.3 Chloride 102 Carbon Dioxide 28 Anion Gap 6 L BUN 23 H Creatinine 0.9 Creat Clearance w eGFR 83.67 POC Glucometer Random Glucose 212 H Calcium 8.8 Phosphorus 3.6 Magnesium 2.1 Total Bilirubin 0.9 AST 9 L ALT 17 Alkaline Phosphatase 59 Total Protein 5.9 L Albumin 2.7 L 02/19/19 02/19/19 06:17 11:44 WBC RBC Hgb Hct MCV MCH MCHC RDW Plt Count MPV Absolute Neuts (auto) Neutrophils % Lymphocytes % Monocytes % Eosinophils % Basophils % Nucleated RBC % PT with INR INR Sodium Potassium Chloride Carbon Dioxide Anion Gap BUN Creatinine Creat Clearance w eGFR POC Glucometer 231 255 Random Glucose Calcium Phosphorus Magnesium Total Bilirubin AST ALT Alkaline Phosphatase Total Protein Albumin Current Medications Generic Name Dose Route Start Last Admin Trade Name Freq PRN Reason Stop Dose Admin Acetaminophen 650 mg 02/18/19 20:13 02/19/19 06:22 Tylenol - PO 650 mg Q6H PRN Administration PAIN LEVEL 6-10 Al Hydroxide/Mg Hydroxide 30 ml 02/18/19 20:13 Mylanta Oral Suspension - PO Q6H PRN DYSPEPSIA Atorvastatin Calcium 20 mg 02/18/19 22:00 02/18/19 21:32 Lipitor - PO 20 mg HS ISAURA Administration Brimonidine Tartrate 1 drop 02/18/19 22:00 02/19/19 09:07 Alphagan 0.2% - OU 1 drop BID ISAURA Administration Dexamethasone Sodium Phosphate 2 mg 02/18/19 21:00 02/19/19 09:03 Decadron Injection - IVPUSH 2 mg Q6H-IV ISAURA Administration Docusate Sodium 100 mg 02/19/19 10:00 02/19/19 09:03 Colace - PO 100 mg DAILY ISAURA Administration Dorzolamide HCl 1 drop 02/18/19 22:00 02/19/19 09:15 Trusopt 2% OU 1 drop BID ISAURA Administration Insulin Aspart 1 vial 02/18/19 22:00 02/19/19 12:02 Novolog Vial Sliding Scale - SQ 6 unit ACHS ISAURA Administration Protocol Latanoprost 1 drop 02/18/19 22:00 02/18/19 21:34 Xalatan 0.005% Eye Drops - OD 1 drop HS ISAURA Administration Metoprolol Tartrate 25 mg 02/18/19 22:00 02/19/19 09:04 Lopressor - PO 25 mg BID ISAURA Administration Nifedipine 30 mg 02/19/19 10:00 02/19/19 09:04 Procardia Xl - PO 30 mg DAILY ISAURA Administration Ondansetron HCl 4 mg 02/18/19 20:13 Zofran Odt - SL Q4H PRN NAUSEA Oxycodone HCl 5 mg 02/18/19 20:13 Roxicodone - PO Q6H PRN PAIN LEVEL 6-10 Pantoprazole Sodium 40 mg 02/18/19 22:00 02/19/19 09:05 Protonix - PO 40 mg BID ISAURA Administration Polyethylene Glycol 17 gm 02/18/19 22:00 02/19/19 10:12 Miralax (For Daily Use) - PO 17 gm BID ISAURA Administration Senna/Docusate Sodium 1 tablet 02/18/19 23:45 02/19/19 09:04 Pericolace - PO 1 tablet BID ISAURA Administration Timolol Maleate 1 drop 02/18/19 22:00 02/19/19 09:06 Timoptic 0.5% OU 1 drop BID ISAURA Administration ASSESSMENT AND PLAN: This is a 68 year old man with a history of HTN, hyperlipidemia, type 2 DM, CAD , VA, cardiac stents, GERD, cerebellar mass who presented to the ED with right occipital pressure, abnormal gait, dizziness, nausea and vomiting. 1. Right cerebellar mass - s/p right suboccipital craniectomy and resection of cerebellar tumor 02/14 - Continue Decadron - decreased to 2mg q12h today - Follow-up pathology - ? need for RT - Continue PT - patient does not was short term rehab 2. Low TSH - Clinically, no evidence of hyperthyroidism - TT3 low, FT4 normal - Outpatient follow-up 3. CAD, history of VA and stents - Aspirin, Plavix held for surgery - Plavix discontinued as last PCI was >3 years ago - Restart aspirin on 02/28 - Continue Lopressor, Lipitor 4. HTN - Continue Procardia XL, Lopressor 5. Hyperlipidemia - Continue Lipitor 6. Type 2 DM - Continue Novolog sliding scale 7. GERD - Continue Protonix
--- NOTE | 2019-02-19 15:19 | PN ---
Progress Note (short form) - Note Progress Note: s: no chest pain, palps, dizziness,sob Current Medications Acetaminophen (Tylenol -) 650 mg PO Q6H PRN PRN Reason: PAIN LEVEL 6-10 Last Admin: 02/19/19 06:22 Dose: 650 mg Al Hydroxide/Mg Hydroxide (Mylanta Oral Suspension -) 30 ml PO Q6H PRN PRN Reason: DYSPEPSIA Atorvastatin Calcium (Lipitor -) 20 mg PO HS [facility] Last Admin: 02/18/19 21:32 Dose: 20 mg Brimonidine Tartrate (Alphagan 0.2% -) 1 drop OU BID [facility] Last Admin: 02/19/19 09:07 Dose: 1 drop Dexamethasone Sodium Phosphate (Decadron Injection -) 2 mg IVPUSH BID [facility] Last Admin: 02/19/19 13:39 Dose: 2 mg Docusate Sodium (Colace -) 100 mg PO DAILY [facility] Last Admin: 02/19/19 09:03 Dose: 100 mg Dorzolamide HCl (Trusopt 2%) 1 drop OU BID [facility] Last Admin: 02/19/19 09:15 Dose: 1 drop Insulin Aspart (Novolog Vial Sliding Scale -) 1 vial SQ [facility]; Protocol Last Admin: 02/19/19 12:02 Dose: 6 unit Latanoprost (Xalatan 0.005% Eye Drops -) 1 drop OD [facility] Last Admin: 02/18/19 21:34 Dose: 1 drop Metoprolol Tartrate (Lopressor -) 25 mg PO BID [facility] Last Admin: 02/19/19 09:04 Dose: 25 mg Nifedipine (Procardia Xl -) 30 mg PO DAILY [facility] Last Admin: 02/19/19 09:04 Dose: 30 mg Ondansetron HCl (Zofran Odt -) 4 mg SL Q4H PRN PRN Reason: NAUSEA Oxycodone HCl (Roxicodone -) 5 mg PO Q6H PRN PRN Reason: PAIN LEVEL 6-10 Pantoprazole Sodium (Protonix -) 40 mg PO BID [facility] Last Admin: 02/19/19 09:05 Dose: 40 mg Polyethylene Glycol (Miralax (For Daily Use) -) 17 gm PO BID [facility] Last Admin: 02/19/19 10:12 Dose: 17 gm Senna/Docusate Sodium (Pericolace -) 1 tablet PO BID [facility] Last Admin: 02/19/19 09:04 Dose: 1 tablet Timolol Maleate (Timoptic 0.5%) 1 drop OU BID [facility] Last Admin: 02/19/19 09:06 Dose: 1 drop Vital Signs Period Temp Pulse Resp BP Sys/Donahue Pulse Ox Last 24 Hr 98.3 F-98.9 F 62-66 16-19 121-138/64-77 97-99 Constitutional: Yes: Well Nourished, No Distress, Calm Cardiovascular: Yes: Regular Rate and Rhythm, S1, S2. No: Gallop, Murmur Respiratory: Yes: Regular, CTA Bilaterally. No: Accessory Muscle Use Extremities: No: Cold Edema: No Neurological: Yes: Alert, Oriented Psychiatric: No: Agitated no jaundice diaphoresis Echo 01/12: low nl lvef, nl rv, no sig valve path, no sig change from 02/2012 report MPI 2017: inferolateral infarct with teri-infarct ischemia. inferolat HK with EF 43%. no TID described ECG: NSR, no ST-T abn Assessment/Plan 64 year old M w h/o HTN, CAD , cath again , and most recent , hld, her with cp, anguiano. brain mass, s/p surgery -cerebellar lesion on CT head here, s/p surgery now -remote stent- resume aspirin when able per neurosurgery CAD: -s/p stemi 03/2007 with bms to OM -s/p PCIs 2011 for unstable angina (gwen to plad/mlad) -last cath 2013 with gwen to dlcx (prior stents patent, no sig residual dz) -chronic atypical CP--MPI 2016 no ischemia (old inferolateral scar) -remains on aspirin and plavix >3 yrs from last PCI--holding s/p neurosurgery, can dc plavix -cont home statin, BB - restart aspirin when able per neurosurgery - 2 weeks post op, on 02/28 HTN: -cont home meds DM: -per hospitalist CKD: -creat 1.2-1.4 baseline range, stable here
[2019-02-19] MEDS ORDERED: INSULIN (NOVOLOG) ASPART 100 UNITS/ML 10ML VIAL ONE (17:11)
[2019-02-19] MEDS: ATORVASTATIN CA 20 MG TABLET (FP) PO SCH (21:26)
[2019-02-19] MEDS: LATANOPROST 0.005% OPHTH SOLN 2.5ML BOTTLE OD SCH (21:29)
[2019-02-20] MEDS: INSULIN SLIDING SCALE (NOVOLOG) 1 VIAL SQ SCH ×2 (06:16→11:07)
[2019-02-20 06:48] LABS: HEMATOCRIT 37.8 % (35.4-49); HEMOGLOBIN 12.5 GM/dL (11.7-16.9); MCH 29.6 pg (25.7-33.7); MEAN CELL VOLUME 89.5 fl (80-96); MEAN PLT VOLUME 8.5 fl (7.5-11.1); PLATELET COUNT 227 K/MM3 (134-434); RBC 4.22 M/mm3 (4.00-5.60); RDW 13.8 % (11.9-15.9); WHITE BLOOD COUNT 15.2 K/mm3 (4.0-10.0)
[2019-02-20 07:36] LABS: ANION GAP 6 MMOL/L (8-16); BLOOD UREA NITROGEN 22 mg/dL (7-18); CHLORIDE 102 mmol/L (98-107); CO2 29 mmol/L (21-32); CREATININE 0.9 mg/dL (0.55-1.3); GLUCOSE,RANDOM 194 mg/dL (74-106); POTASSIUM 4.3 mmol/L (3.5-5.1); SODIUM 136 mmol/L (136-145)
--- NOTE | 2019-02-20 09:10 | PN ---
Progress Note (short form) - Note Progress Note: The patient was resting comfortably in bed. He had no complaints. He is neurologically intact. His incision is healing well. There is no drainage. I changed the wound dressing today. He will likely be discharged later today. He will need to make a follow up appt with me for next Tuesday. He will also need follow up appts with [facility]. Please discharge him on a decadron taper over the course of one week. I explained to him that he can shower but that he needs to keep the wound dry. My office number is .
[2019-02-20] MEDS: DOCUSATE SODIUM 100 MG CAPSULE (FP) PO SCH (09:59)
[2019-02-20] MEDS: METOPROLOL TARTRATE 25 MG TABLET (FP) PO SCH (09:59)
[2019-02-20] MEDS: NIFEdipine E.R. 30 MG TABLET (FP) PO SCH (09:59)
[2019-02-20] MEDS: PANTOPRAZOLE 40 MG TABLET (FP) PO SCH (09:59)
[2019-02-20] MEDS: SENNOSIDES/DOCUSATE COMBO (SENNA PLUS) TABLET (UD) PO SCH (09:59)
[2019-02-20] MEDS: TIMOLOL 0.5% OPHTHALMIC SOL 5 ML BOTTLE OU SCH (10:00)
[2019-02-20] MEDS ORDERED: DEXAMETHASONE 4 MG TABLET (FP) PO SCH (10:00)
[2019-02-20] MEDS: DORZOLAMIDE 2% HCL OPHTHALMIC SOLUTION 10 ML BOTTLE OU SCH (10:00)
[2019-02-20] MEDS: BRIMONIDINE TARTRATE 0.2% OPHTHALMIC 5 ML BOTTLE OU SCH (10:00)
[2019-02-20 10:03] VITALS: BP 119/69; PULSE 60; TEMP 99.5
[2019-02-20] MEDS: POLYETHYLENE GLYCOL 3350 119 GM BTL PO SCH (10:05)
[2019-02-20] MEDS ORDERED: INSULIN (NOVOLOG) ASPART 100 UNITS/ML 10ML VIAL ONE (10:43)
[2019-02-20] MEDS: ACETAMINOPHEN 325 MG TABLET (FP) PO PRN (11:36)
--- NOTE | 2019-02-20 12:58 | DS ---
Physical Exam: SUBJECTIVE: Patient seen and examined at bedside. He is POD #6 s/p craniectomy, and resection of cerebellar tumor. Patient denies acute complaints. OBJECTIVE: Vital Signs Period Temp Pulse Resp BP Sys/Donahue Pulse Ox Last 24 Hr 98.9 F-99.5 F 60-70 18-20 119-138/69-77 PHYSICAL EXAM GENERAL: The patient is awake, alert, and fully oriented, in no acute distress. HEAD: Normocephalic, atraumatic. EYES: PERRL, extraocular movements intact. Sclera anicteric, conjunctiva clear. ENT: Oropharynx clear, without erythema or exudates. Moist mucous membranes. NECK: Trachea midline, full range of motion. Supple without lymphadenopathy. LUNGS: Breath sounds equal, clear to auscultation bilaterally, no wheezes, no crackles. No accessory muscle use. HEART: Regular rate and rhythm, S1, S2 without murmur, rub or gallop. ABDOMEN: Soft, nondistended, nontender to light and deep palpation x4 quadrants , no rebound tenderness, no guarding. Normoactive bowel sounds x4 quadrants. no hepatosplenomegaly, no masses. EXTREMITIES: 2+ radial, dorsalis pedis pulses bilaterally. Warm, well-perfused. No lower extremity edema bilaterally. NEUROLOGICAL: Cranial nerves II through XII grossly intact. Normal speech. Strength 5/5 bilateral upper and lower extremities. PSYCH: Normal mood, normal affect upon my encounter. SKIN: Warm, dry. Dressing clean, dry, intact. LABS Laboratory Results - last 24 hr 02/19/19 02/19/19 02/20/19 16:40 21:45 06:00 WBC 15.2 H RBC 4.22 Hgb 12.5 Hct 37.8 MCV 89.5 MCH 29.6 MCHC 33.0 RDW 13.8 Plt Count 227 MPV 8.5 Sodium Potassium Chloride Carbon Dioxide Anion Gap BUN Creatinine Creat Clearance w eGFR POC Glucometer 351 226 Random Glucose Calcium 02/20/19 02/20/19 02/20/19 06:00 06:07 11:05 WBC RBC Hgb Hct MCV MCH MCHC RDW Plt Count MPV Sodium 136 Potassium 4.3 Chloride 102 Carbon Dioxide 29 Anion Gap 6 L BUN 22 H Creatinine 0.9 Creat Clearance w eGFR 83.67 POC Glucometer 192 201 Random Glucose 194 H Calcium 9.0 HOSPITAL COURSE: Date of Admission:02/10/19 Date of Discharge: 02/20/19 Patient is a 68 year old male with history of previously diagnosed cerebellar mass (diagnosed within the past year), hypertension, hyperlipidemia, diabetes mellitus, coronary artery disease (s/p three stents), gastro-esophageal reflux disease, presented with left sided headache, and unsteady gait. CT head showed 4cm x 3.4cm right cerebellar mass lesion, concerning for neoplasm. MRI brain showed solitary 3cm X 2.7cm X 2.7cm enhancing mass lesion inferior half right cerebellar hemisphere. CT chest, abdomen, pelvis showed no definite primary neoplastic lesion within chest, abdomen, pelvis. Prostatic enlargement, thyromegaly, atherosclerotic calcification, aneurysmal dilation ascending aorta noted. Patient was evaluated by neurosurgeon. He was started on Decadron and had craniectomy with resection of cerebellar tumor. Patient's antiplatelet therapy was held perioperatively; cardiology consult discussed reinstatement of Aspirin on February 28. Decadron continued postoperatively. Patient was evaluated by hematology/ oncology, and radiation oncology; with recommendations to continue with outpatient follow up. [facility] to [facility] facility, however against medicine, and neurosurgery teams advice, patient refused, and requested to go home instead. Patient discharged home with visiting nurse, and home physical therapy, and prescriptions for rolling walker (to be set up with case management), and Decadron taper. To follow up with primary care physician ( referral for [facility] provided), neurosurgery, hematology/ oncology, radiation oncology, cardiology. Patient requested to drive home; he was strongly advised against driving until neurosurgery follow up. Minutes to complete discharge: 35 Discharge Summary Reason For Visit: MASS OF CEREBELLUM Current Active Problems Cerebellar mass (Acute) Condition: Stable - Instructions Diet, Activity, Other Instructions: You were admitted to the hospital with complaint of lightheadedness and dizziness. You were evaluated by the neurosurgeon. A CT scan of your head showed a mass within your brain, which was surgically removed. You are being discharged to rehab facility. We have made some changes to your medication regimen. We have stopped your Plavix. DO NOT take this medication anymore. We have held your Aspirin due to the surgery. You will reinstate the Aspirin 81mg daily on Feb 28 2019. MEDICATIONS You will need to continue taking steroids, please take the decadron on a tapering schedule. 1. Take decadron 2mg twice a day for one more day (tomorrow) 2. After tomorrow, take decadron 2mg once a day for 3 days 3. After 4 days, reduce the dose of decadron to 1mg and take once a day for 3 days, then STOP. Please see your neurosurgeon as an outpatient for further evaluation. Summary -Decadron 2mg twice a day for 1 day, then decadron 2mg ONCE a day for 3 days, then decadron 1mg ONCE a day for 3 days, then stop. -Break the 4mg pill in half to achieve 2mg. When you reach 1mg on your taper, you can use 0.5mg tablets and take two of those. Follow up with your primary care physician within two- three days after discharge. A referral to [facility] has been provided. The CT scan incidentally showed some dilation of your aorta. It is important that you follow up with your primary care physician, and discuss this further at your appointment. Your thyroid studies showed slightly diminished thyroid function, and you may need a ultrasound of your thyroid, in addition to further follow up. It is important that you follow up with your primary care physician, and discuss this further at your appointment. Follow up with neurosurgeon Dr. Leon within one week of discharge. A referral has been provided. Office number is [phone]. Follow up with radiation oncologist Dr. De La Paz within one week of discharge. A referral has been provided. Follow up with oncologist Dr. Carrera within one week of discharge. A referral has been provided. Follow up with moveman Dr. Dumont within one week of discharge. A referral has been provided. Return to the nearest Emergency Department if you experience any worsening symptoms, subjective fevers, chills, shortness of breath, chest pain, palpitations, abdominal pain, nausea, vomiting. Referrals: [facility] [place] [facility] [place] [Provider Group] Cullen Dumont MD [Staff Physician] - 1 Week Jordi De La Paz MD [Staff Physician] - 1 Week Danny Carrera MD [Staff Physician] - 1 Week Micheal Leon MD [Staff Physician] - 1 Week Disposition: HOME - Home Medications Comprehensive Discharge Medication List: Ambulatory Orders Omeprazole [Prilosec (RX)] 40 mg PO BID 06/14/14 Metoprolol Tartrate 25 mg PO BID tablet 12/20/14 Simvastatin 40 mg PO HS tablet 12/20/14 Aspirin [ASA -] 81 mg PO DAILY 06/20/17 Clopidogrel Bisulfate [Plavix -] 75 mg PO DAILY 06/20/17 Nifedipine [Procardia Xl] 30 mg PO DAILY 02/10/19 Brimonidine Tartrate/Timolol [Combigan 0.2%-0.5% Eye Drops] 5 ml OU BID Dorzolamide HCl/Timolol Maleat [Cosopt Eye Drops] 10 ml OU BID 02/12/19 Latanoprost/Pf [Latanoprost 0.005% Eye Drop] 7.5 ml OD HS 02/12/19 Dexamethasone [Decadron] 0.5 mg PO ASDIR #6 tablet 02/20/19 Dexamethasone [Decadron] See Taper PO ASDIR #3 tablet 02/20/19 This patient is new to me today: No Emergency Visit: Yes ED Registration Date: 02/10/19 Care time: The patient presented to the Emergency Department on the above date and was hospitalized for further evaluation of their emergent condition. Critical Care patient: No - Discharge Referral Referred to [facility] Med P.C.: No
--- NOTE | 2019-02-20 15:08 | PN ---
Teaching Attending Note Name of Resident: Quinten Guzmán ATTENDING PHYSICIAN STATEMENT I saw and evaluated the patient. I reviewed the resident's note and discussed the case with the resident. I agree with the resident's findings and plan as documented. SUBJECTIVE: Feels well - no complaints. No further dizziness reported. Ambulating with walker. OBJECTIVE: Afebrile, Hemodynamically Stable. Last Vital Signs Temp Pulse Resp BP Pulse Ox 99.5 F 60 18 119/69 97 02/20/19 09:00 02/20/19 09:00 02/20/19 09:00 02/20/19 09:00 02/20/19 09:00 HEENT - posterior craniectomy surgical site dressed Heart - S1, S2, RRR Lungs - clear to auscultation Abdomen - soft, non-tender. Bowel Sounds normal. Extremities - no edema, no calf tenderness. Current Medications Generic Name Dose Route Start Last Admin Trade Name Freq PRN Reason Stop Dose Admin Acetaminophen 650 mg 02/18/19 20:13 02/20/19 11:36 Tylenol - PO 650 mg Q6H PRN Administration PAIN LEVEL 6-10 Al Hydroxide/Mg Hydroxide 30 ml 02/18/19 20:13 Mylanta Oral Suspension - PO Q6H PRN DYSPEPSIA Atorvastatin Calcium 20 mg 02/18/19 22:00 02/19/19 21:26 Lipitor - PO 20 mg HS ISAURA Administration Brimonidine Tartrate 1 drop 02/18/19 22:00 02/20/19 10:00 Alphagan 0.2% - OU 1 drop BID ISAURA Administration Dexamethasone 2 mg 02/20/19 10:00 02/20/19 09:59 Decadron - PO 2 mg BID ISAURA Administration Docusate Sodium 100 mg 02/19/19 10:00 02/20/19 09:59 Colace - PO 100 mg DAILY ISAURA Administration Dorzolamide HCl 1 drop 02/18/19 22:00 02/20/19 10:00 Trusopt 2% OU 1 drop BID ISAURA Administration Insulin Aspart 1 vial 02/18/19 22:00 02/20/19 11:07 Novolog Vial Sliding Scale - SQ 4 unit ACHS ISAURA Administration Protocol Latanoprost 1 drop 02/18/19 22:00 02/19/19 21:29 Xalatan 0.005% Eye Drops - OD 1 drop HS ISAURA Administration Metoprolol Tartrate 25 mg 02/18/19 22:00 02/20/19 09:59 Lopressor - PO 25 mg BID ISAURA Administration Nifedipine 30 mg 02/19/19 10:00 02/20/19 09:59 Procardia Xl - PO 30 mg DAILY ISAURA Administration Ondansetron HCl 4 mg 02/18/19 20:13 Zofran Odt - SL Q4H PRN NAUSEA Oxycodone HCl 5 mg 02/18/19 20:13 Roxicodone - PO Q6H PRN PAIN LEVEL 6-10 Pantoprazole Sodium 40 mg 02/18/19 22:00 02/20/19 09:59 Protonix - PO 40 mg BID ISAURA Administration Polyethylene Glycol 17 gm 02/18/19 22:00 02/20/19 10:05 Miralax (For Daily Use) - PO 17 gm BID ISAURA Administration Senna/Docusate Sodium 1 tablet 02/18/19 23:45 02/20/19 09:59 Pericolace - PO 1 tablet BID ISAURA Administration Timolol Maleate 1 drop 02/18/19 22:00 02/20/19 10:00 Timoptic 0.5% OU 1 drop BID ISAURA Administration Current Medications Generic Name Dose Route Start Last Admin Trade Name Freq PRN Reason Stop Dose Admin Acetaminophen 650 mg 02/18/19 20:13 02/20/19 11:36 Tylenol - PO 650 mg Q6H PRN Administration PAIN LEVEL 6-10 Al Hydroxide/Mg Hydroxide 30 ml 02/18/19 20:13 Mylanta Oral Suspension - PO Q6H PRN DYSPEPSIA Atorvastatin Calcium 20 mg 02/18/19 22:00 02/19/19 21:26 Lipitor - PO 20 mg HS ISAURA Administration Brimonidine Tartrate 1 drop 02/18/19 22:00 02/20/19 10:00 Alphagan 0.2% - OU 1 drop BID ISAURA Administration Dexamethasone 2 mg 02/20/19 10:00 02/20/19 09:59 Decadron - PO 2 mg BID ISAURA Administration Docusate Sodium 100 mg 02/19/19 10:00 02/20/19 09:59 Colace - PO 100 mg DAILY ISAURA Administration Dorzolamide HCl 1 drop 02/18/19 22:00 02/20/19 10:00 Trusopt 2% OU 1 drop BID ISAURA Administration Insulin Aspart 1 vial 02/18/19 22:00 02/20/19 11:07 Novolog Vial Sliding Scale - SQ 4 unit ACHS ISAURA Administration Protocol Latanoprost 1 drop 02/18/19 22:00 02/19/19 21:29 Xalatan 0.005% Eye Drops - OD 1 drop HS ISAURA Administration Metoprolol Tartrate 25 mg 02/18/19 22:00 02/20/19 09:59 Lopressor - PO 25 mg BID ISAURA Administration Nifedipine 30 mg 02/19/19 10:00 02/20/19 09:59 Procardia Xl - PO 30 mg DAILY ISAURA Administration Ondansetron HCl 4 mg 02/18/19 20:13 Zofran Odt - SL Q4H PRN NAUSEA Oxycodone HCl 5 mg 02/18/19 20:13 Roxicodone - PO Q6H PRN PAIN LEVEL 6-10 Pantoprazole Sodium 40 mg 02/18/19 22:00 02/20/19 09:59 Protonix - PO 40 mg BID ISAURA Administration Polyethylene Glycol 17 gm 02/18/19 22:00 02/20/19 10:05 Miralax (For Daily Use) - PO 17 gm BID ISAURA Administration Senna/Docusate Sodium 1 tablet 02/18/19 23:45 02/20/19 09:59 Pericolace - PO 1 tablet BID ISAURA Administration Timolol Maleate 1 drop 02/18/19 22:00 02/20/19 10:00 Timoptic 0.5% OU 1 drop BID ISAURA Administration ASSESSMENT AND PLAN: 68 year old male with history of HTN, hyperlipidemia, DM 2, CAD s/p OH, s/p PCI/ Stents, GERD, Cerebellar Mass presented to the ED with right occipital pressure , abnormal gait, dizziness, nausea and vomiting. 1. Right cerebellar mass POD 6 s/p right suboccipital craniectomy and resection of cerebellar tumor 02/14 Neurologically/medically stable for discharge on Decadron taper as per Neurosurgery with NeuroSx and Radiation Oncology out-patient follow up. Surgical pathology pending. Patient declines rehab - wants to go home with walker and VNS. 2. Low TSH - no evidence of hyperthyroidism clinically. FT4 normal. Outpatient monitoring. 3. CAD s/p OH s/p PCI/Stents Aspirin/Plvix held for surgery. No need for further plavix as last PCIwas >3 years ago Free to restart aspirin on 02/28 Continue BB, Statin. 4. HTN - Continue Procardia XL, Lopressor 5. HLD - Continue Lipitor 6. DM 2 - Continue Novolog sliding scale 7. GERD - Continue Protonix Neurosurgically stable for discharge on steroid taper with out-patient follow up - Rad Onc and NeuroSx.
--- NOTE | 2019-02-26 12:30 | PATH ---
Surgical Pathology Report Patient Name: MEAGAN MCBRIDE [facility]. Rec. #: [id number] /Age/Gender: 1950 (Age: 68) / M Account: [id number] Location: [address] [place] [address]/[facility] Taken: 02/14/2019 Received: 02/14/2019 Reported: 02/26/2019 Physicians: MD Anthony Chauhan MD Norman Rosen, M.D. Specimen(s) Received A: BRAIN TUMOR B: BRAIN TUMOR C: BRAIN TUMOR Clinical History Brain tumor, mass of cerebellum DL/02/15/2019 Intraoperative Consult Diagnosis Brain tumor for frozen: High grade neoplasm, defer to [facility]. 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 Case sent for consultation to Dr. Lazaro Riddle from [place], [place] (Specimen #: [id number]). The diagnosis above reflects his opinion. Comments The H&E section demonstrates a diffuse lymphoproliferation. In better preserved areas, these cells consist of medium-sized to large cells with paraimmunoblast and centroblast morphology. The neoplastic cells are positive for CD10, CD20, CD79a, BCL2 (focal and weak), BCL6, MUM1 and Ki67 (90%). MYC is borderline positive in about 40% of cells. They are negative for CD5, CD30, CD43, cyclin D1, and TIMO by in situ hybridization. The overall findings are characteristic of a DLBCL and are suggestive of a primary DLBCL of INTEGRATED CAMPAIGN MANAGER. MYD88 mutation is often associated with the entity and will be tested. However, DLBCL of IN[employer]ATED CAMPAIGN MANAGER rarely expresses strong CD10, thorough clinical staging will be necessary for exclusion of a secondary INTE[employer]ATED CAM[employer]IGN MANAGER involvement by a systemic lymphoma. Coexpression of strong CD10, BCL6 and MUM1 is not typical of either germinal center B cell (GCB) or non-GCB type of DLBCL. FISH for IRF4 rearrangement will be attempted for additional characterization. FISH for BCL2, BCL6 and MYC will also be performed for exclusion of a high grade B cell lymphoma. The H&E sections from block C1 and C3 are reviewed, which show a similar neoplastic proliferation. Slides from block B show a diffuse B cell proliferation positive for CD20 and CD45, consistent with the same process. These cells are negative for CD3, TTF1, AE1/AE3, CK20 and chromogranin. S100 stain shows a high background. This case was discussed with Dr. Leon on February 26, 2019. Electronically Signed Hansel Parra M.D. Gross Description A. Received fresh labeled "brain tumor," is a 0.6 x 0.5 x 0.2 cm aggregate of pink-cisneros soft tissue fragments. A touch prep is performed and the remainder of the specimen is entirely submitted for frozen section. The frozen section residue is entirely submitted in one cassette. B. Received fresh labeled "brain tumor," is a 0.8 x 0.7 x 0.3 cm aggregate of cisneros-pink soft tissue fragments. A sales representative sales manager portion is placed in RPMI solution and saved in the refrigerator. The remainder of the specimen is entirely submitted in one cassette. C. Received in formalin labeled "brain tumor," is a 4.0 x 3.0 x 0.3 cm aggregate of cisneros-lisa portions of soft tissue. The specimen is entirely submitted in 3 cassettes. 02/15/2019 [facility]02/14/2019
== END 2019-02-20 18:01 | disposition home or self-care (01) | DRG 25 ==
LOC: JER 06:39 → JERBED 10:25 → JICU 11:37 → J6S 02-18 15:04
PROC: 30233R1 Transfusion of Nonautologous Platelets into Peripheral Vein, Percutaneous Approach (ICD-10-PCS; 2019-02-14)
PROC: 0NT Head and Facial Bones, Resection (ICD-10-PCS; principal; 2019-02-14 12:00)
DX: C71.6 Malignant neoplasm of cerebellum (principal); G93.6 Cerebral edema; R71.0 Precipitous drop in hematocrit; I12.9 Hypertensive chronic kidney disease with stage 1 through stage 4 chronic kidney disease, or unspecified chronic kidney disease; N18.9 Chronic kidney disease, unspecified; E78.5 Hyperlipidemia, unspecified; K21.9 Gastro-esophageal reflux disease without esophagitis; I25.10 Atherosclerotic heart disease of native coronary artery without angina pectoris; Z98.61 Coronary angioplasty status; E11.9 Type 2 diabetes mellitus without complications; K59.00 Constipation, unspecified; E83.42 Hypomagnesemia
CPT/HCPCS: 36415; 36430; 36511; 70450-TC; 70553-TC; 71260-TC; 74178-TC; 80048; 80053; 82550; 82607; 82962; 83036; 83735; 84100; 84153; 84439; 84443; 84480; 84484; 85025; 85027; 85610; 85730; 86850; 86900; 86901; 88305-TC; 88331-TC; 93005; 93010; 93971; 97116-GP; 97162-GP; 99284-25; J0131; J1100; J1644; J7030; P9034; P9038; Q0162

== ENCOUNTER 2019-03-01 19:41 | Emergency (ER) | payer OTHER ==
[2019-03-01 19:53] VITALS: BP 145/79; PULSE 70; TEMP 98.6; BMI 27.6
--- NOTE | 2019-03-01 19:56 | PDOC ---
Rapid Medical Evaluation Chief Complaint: Chest Pain Time Seen by Provider: 03/01/19 19:56 Medical Evaluation: Allergies Allergy/AdvReac Type Severity Reaction Status Date / Time No Known Allergies Allergy Verified 03/01/19 19:53 Vital Signs Temp Pulse Resp BP Pulse Ox 98.6 F 70 18 145/79 100 03/01/19 19:50 03/01/19 19:50 03/01/19 19:50 03/01/19 19:50 03/01/19 19:50 03/01/19 20:02 I have performed a brief in-person evaluation of this patient. The patient presents with a chief complaint of: chest pain Pertinent physical exam findings:stable and in NAD, non-focal I have ordered the following:labs The patient will proceed to the ED for further evaluation.
[2019-03-01 20:31] LABS: BASO % 0.3 % (0-2.0); EOS % 1.5 % (0-4.5); HEMATOCRIT 40.6 % (35.4-49); HEMOGLOBIN 13.3 GM/dL (11.7-16.9); MCH 30.1 pg (25.7-33.7); MCHC 32.6 g/dl (32.0-35.9); MEAN CELL VOLUME 92.4 fl (80-96); MEAN PLT VOLUME 7.8 fl (7.5-11.1); MONO % 7.2 % (3.8-10.2); PLATELET COUNT 181 K/MM3 (134-434); RDW 14.6 % (11.9-15.9); WHITE BLOOD COUNT 8.7 K/mm3 (4.0-10.0)
[2019-03-01 20:53] LABS: INR 0.95 (0.83-1.09); PROTHROMBIN TIME (PATIENT) 11.2 SEC (9.7-13.0)
--- NOTE | 2019-03-01 20:53 | PDOC ---
History of Present Illness - General Chief Complaint: Chest Pain Stated Complaint: CHEST DISCOMFORT Time Seen by Provider: 03/01/19 19:56 History Source: Patient Exam Limitations: No Limitations - History of Present Illness Initial Comments: 03/01/19 20:45 68M with PMH of HTN, HLD, DM, CAD (stents x3 on 81mg asa), last stent 2013, last stress test 2016, and GERD, who presents to the ER with sudden onset, resolved, CP. The patient states that around 1530 today, he developed L parasternal, throbbing, intermittent CP. He denies any association with nausea, vomiting, SOB, or radiation to the neck or arm. He denies any radiation and rates it a 3/10. The pain is atraumatic and currently resolved. He denies any other symptoms. Past History - Past Medical History Allergies/Adverse Reactions: Allergies Allergy/AdvReac Type Severity Reaction Status Date / Time No Known Allergies Allergy Verified 03/01/19 19:53 Home Medications: Ambulatory Orders Omeprazole [Prilosec (RX)] 40 mg PO BID 06/14/14 Metoprolol Tartrate 25 mg PO BID tablet 12/20/14 Simvastatin 40 mg PO HS tablet 12/20/14 Aspirin [ASA -] 81 mg PO DAILY 06/20/17 Nifedipine [Procardia Xl] 30 mg PO DAILY 02/10/19 Brimonidine Tartrate/Timolol [Combigan 0.2%-0.5% Eye Drops] 5 ml OU BID Dorzolamide HCl/Timolol Maleat [Cosopt Eye Drops] 10 ml OU BID 02/12/19 Latanoprost/Pf [Latanoprost 0.005% Eye Drop] 7.5 ml OD HS 02/12/19 Miscellaneous Medical Supply [Outpatient Order] 1 each ASDIR #1 misc Anemia: No Asthma: No Cancer: No Cardiac Disorders: Yes ([place] 3 stents) CVA: No COPD: No CHF: No Dementia: No Diabetes: Yes GI Disorders: Yes (GERD) Disorders: No HTN: Yes Hypercholesterolemia: Yes Liver Disease: No Seizures: No Thyroid Disease: No - Surgical History Cardiac Surgery: Yes (stent placement x 2) - Immunization History Td Vaccination: (unknown) Immunization Up to Date: Yes (unknown) - Suicide/Smoking/Psychosocial Hx Smoking Status: No Smoking History: Never smoked Years of Tobacco Use: 0 Have you smoked in the past 12 months: No Number of Cigarettes Smoked Daily: 0 If you are a former smoker, when did you quit?: 1981 Cigars Per Day: 0 Information on smoking cessation initiated: No Hx Alcohol Use: No Drug/Substance Use Hx: Yes Substance Use Type: None Hx Substance Use Treatment: Yes Review of Systems - Review of Systems Able to Perform ROS?: Yes Comments:: 03/01/19 21:29 GENERAL/CONSTITUTIONAL: No fever or chills. No weakness. HEAD, EYES, EARS, NOSE AND THROAT: No change in vision. No ear pain or discharge. No sore throat. CARDIOVASCULAR: + for resolved CP. No palpitations or lightheadedness. RESPIRATORY: No cough, wheezing, shortness of breath, or hemoptysis. GASTROINTESTINAL: No nausea, vomiting, diarrhea, constipation, or abdominal pain. GENITOURINARY: No dysuria, frequency, hematuria, or change in urination. MUSCULOSKELETAL: No joint or muscle swelling or pain. No neck or back pain. SKIN: No rash or lesions. NEUROLOGIC: No headache, numbness, tingling, focal weakness, loss of consciousness, or change in strength/sensation. Is the patient limited [place] proficient: No *Physical Exam - Vital Signs Last Vital Signs Temp Pulse Resp BP Pulse Ox 98.6 F 70 18 145/79 100 03/01/19 19:50 03/01/19 19:50 03/01/19 19:50 03/01/19 19:50 03/01/19 19:50 - Physical Exam Comments: 03/01/19 21:30 GENERAL: Well developed, well nourished. Awake and alert. No acute distress. HEENT: Normocephalic, atraumatic. Hearing grossly normal. Moist mucous membranes. PERRLA, EOMI. No conjunctival pallor. Sclera are non-icteric. Oropharynx is clear. NECK: Supple. Full ROM. No JVD. CARDIOVASCULAR: Regular rate and rhythm. No murmurs, rubs, or gallops. PULMONARY: No evidence of respiratory distress. Lungs clear to auscultation bilaterally. No wheezing, rales or rhonchi. ABDOMINAL: Soft. Non-tender. Non-distended. No rebound or guarding. GENITOURINARY: No CVA tenderness bilaterally. MUSCULOSKELETAL: Normal range of motion at all joints. No bony deformities or tenderness. EXTREMITIES: No cyanosis. No clubbing. No edema. No calf tenderness or swelling. SKIN: Warm and dry. Normal capillary refill. No rashes. No jaundice. NEUROLOGICAL: Alert, awake, appropriate. Cranial nerves 2-12 grossly intact. Normal speech. Gait is normal without ataxia. PSYCHIATRIC: Cooperative. Good eye contact. Appropriate mood and affect. Heart Score/ECG Review - History History: Slightly suspicious - Electrocardiogram EKG: Normal - Age Age: >/= 65 - Risk Factors Risk Factors Heart Score: Yes Hx Hypercholesterolemia, Yes Hx Hypertension Based on the list above the patient has:: 1-2 risk factors - Troponin Troponin: </= normal limit - Score Heart Score - Total: 3 #1 ECG reviewed & interpreted by me at: 21:31 General ECG Interpretation: Sinus Rhythm, Normal Rate, Normal Intervals, No acute ischemic changes Compared to previous ECG there are: Changes noted 03/01/19 21:31 NSR vent rate 60 ID 150 QRS 92 QTc 410 STD noted in V4 without contiguous leads, changed from prior No ROSEMARIE No signs of acute ischemia ED Treatment Course - LABORATORY CBC & Chemistry Diagram: 03/01/19 20:07 03/01/19 20:07 - ADDITIONAL ORDERS Additional order review: 03/01/19 20:07 RBC 4.40 MCV 92.4 MCHC 32.6 RDW 14.6 MPV 7.8 Neutrophils % 59.0 D Lymphocytes % 32.0 D Monocytes % 7.2 Eosinophils % 1.5 D Basophils % 0.3 - RADIOLOGY Radiology Studies Ordered: Category Date Time Status CHEST PA & LAT [RAD] Stat Radiology 03/01/19 20:17 Ordered Medical Decision Making - Medical Decision Making 03/01/19 21:32 68M with MMP on 81mg asa who presents to the ER with resolved CP. EKG WNL except for new STD in V4 without other changes. PE unremarkable. Troponin negative. Pt currently not having CP. I have discussed the possibility of observation for the patient. The patient adamantly refuses observation in the hospital. Dr. Henry paged. 03/01/19 22:06 Pt d/w Dr. Henry who agrees with observation for serial enzymes, especially because the patient was not taking AC for 2 weeks and resumed yesterday. He states that if pt AMA's, he should call Tuesday morning for an appointment. Pt had an appointment yesterday which he missed. I have d/w the patient and he continues to refuse admission. I have informed him of the risks of leaving. Pt continues to desire AMA. Will give paperwork. *DC/Admit/Observation/Transfer Diagnosis at time of Disposition: CAD (coronary artery disease) Qualifiers: Coronary Disease-Associated Artery/Lesion type: unspecified vessel or lesion type [place] vs. transplanted heart: unspecified whether [place] or transplanted heart Associated angina: with unspecified angina Qualified Code(s): I25.119 - Atherosclerotic heart disease of [place] coronary artery with unspecified angina pectoris Chest pain Qualifiers: Chest pain type: unspecified Qualified Code(s): R07.9 - Chest pain, unspecified - Discharge Dispostion Disposition: AGAINST MEDICAL ADVICE Condition at time of disposition: Stable Decision to Admit order: No - Referrals Referrals: Jimbo Elizondo MD [Primary Care Provider] - - Patient Instructions - Post Discharge Activity
[2019-03-01 20:57] LABS: ALBUMIN 3.6 g/dl (3.4-5.0); ALK PHOS 68 U/L (45-117); ANION GAP 5 MMOL/L (8-16); BILIRUBIN,TOTAL 0.5 mg/dL (0.2-1); BLOOD UREA NITROGEN 12 mg/dL (7-18); CALCIUM 8.7 mg/dL (8.5-10.1); CHLORIDE 105 mmol/L (98-107); CO2 30 mmol/L (21-32); CREATININE 1.1 mg/dL (0.55-1.3); GLUCOSE,RANDOM 108 mg/dL (74-106); SGOT/AST 7 U/L (15-37); SGPT/ALT 19 U/L (13-61); SODIUM 140 mmol/L (136-145); TOT PROT 6.7 g/dl (6.4-8.2)
--- NOTE | 2019-03-01 21:49 | PDOC ---
Documentation entered by Gabriella Rivera SCRIBE, acting as scribe for Christiano Soni MD. Christiano Soni MD: This documentation has been prepared by the Nicole ortiz Nirvannie, SCRIBE, under my direction and personally reviewed by me in its entirety. I confirm that the documentation accurately reflects all work, treatment, procedures, and medical decision making performed by me. Attending Attestation - Resident Resident Name: Darren Meyers - ED Attending Attestation I have performed the following: I have examined & evaluated the patient, The case was reviewed & discussed with the resident, I agree w/resident's findings & plan - HPI HPI: 03/01/19 20:52 The patient is a 68 year old male, with a significant past medical history of CAD (cardiac stenting x3, without SD), HTN, HLD, and borderline DM, who presents to the emergency department with, chest pain at approximately 3pm. Patient notes his symptoms have since resolved. He denies any recent fevers, chills, headache or dizziness. He denies any recent nausea, vomit, diarrhea or constipation. He denies any recent dysuria, frequency, urgency or hematuria. Allergies: NKDA - Physicial Exam PE: 03/01/19 22:06 Agree with exam as documented by resident AOx3, NAD - Medical Decision Making 03/01/19 22:06 Resolved chest pain in very high risk patient EKG w/o signs of ischemia, non-specific change from prior [isolated v4 std] F/u labs, cxr, ekg given cp in high risk patient will need admission for further evaluation, monitoring and risk stratification Spoke with covering pan shover Dr. Henry who agreed with in patient evaluation of possible ACS After being informed of the plan of care the patient stated that he did no wish to stay. The patient is clinically sober and appears free from distracting injury. The patient appears to have intact insight, judgment, and reason. In my opinion, this patient has the capacity to make decisions The risks of leaving against medical advice without further evaluation treatment were discussed with the patient. These risks include and permanent disability. The patient indicated understanding of these risks and appeared to have the capacity to make this decision. The patient is unwilling to remain for additional monitoring. He is refusing further care and leaving against medical advice
--- NOTE | 2019-03-02 10:51 | EKG ---
Test Reason : Blood Pressure : / mmHG Vent. Rate : 062 BPM Atrial Rate : 062 BPM P-R Int : 150 ms QRS Dur : 092 ms QT Int : 404 ms P-R-T Axes : 056 007 058 degrees QTc Int : 410 ms NORMAL SINUS RHYTHM NORMAL ECG WHEN COMPARED WITH ECG OF 10-FEB-2019 07:34, QT HAS SHORTENED Confirmed by TABATHA REAGAN MD ([id number]) on 03/02/2019 10:50:59 AM Referred By: Confirmed By:TABATHA REAGAN MD
== END 2019-03-01 22:13 | disposition left against medical advice (07) ==
LOC: JER 19:41
DX: I25.119 Atherosclerotic heart disease of native coronary artery with unspecified angina pectoris (principal); I10 Essential (primary) hypertension; Z95.5 Presence of coronary angioplasty implant and graft; I25.2 Old myocardial infarction; E11.9 Type 2 diabetes mellitus without complications; R07.9 Chest pain, unspecified; Z79.82 Long term (current) use of aspirin; E78.00 Pure hypercholesterolemia, unspecified; K21.9 Gastro-esophageal reflux disease without esophagitis
CPT/HCPCS: 36415; 71046-TC-FY; 80053; 82550; 84484; 85025; 85610; 93005; 93010; 99282-25